=== PATIENT | female | born 1955 | race Caucasian/White ===

== ENCOUNTER 2017-02-28 13:09 | Inpatient (IN) | payer OTHER ==
[~2017-02-28] VITALS: Ht 162.6 cm; Wt 96.1 kg
[~2017-02-28 13:09] MED LIST: ATEN-173 PO; MYCO500T4 PO; PRD5 PO; PRLSR20 PO; TACR1CAP PO; TACR1CAP5 PO; WARF2TAB8 PO
[2017-02-28] MEDS ORDERED: ONDANSETRON INJ 2 MG/ML 2 ML VIAL IV STA (13:32)
[2017-02-28] MEDS ORDERED: PIPERACILLIN/TAZOBACTAM 4.5 GM/100ML D5W IV STA (13:32)
[2017-02-28] MEDS ORDERED: SODIUM CHLORIDE 0.9% 1000ML 1,000 ML IV ONE (13:32)
[2017-02-28 14:08] LABS: BASO % 0.2 %; BASO ABS # 0.02 K/uL (0-0.2); COMPLETE YES; IG% 0.3 %; LYMPH % 6.2 %; LYMPH ABS # 0.58 K/uL (1.2-3.4); MEAN CELL VOLUME 90.5 fL (80-100); MEAN CORPUSCULAR HEMOGLOBIN 27.4 pg (25-34); MEAN CORPUSCULAR HGB CONC 30.3 g/dl (32-36); MEAN PLATELET VOLUME 9.7 fL (7.4-10.4); MONO % 6.3 %; PLATELET COUNT 135 K/uL (130-400); RED BLOOD COUNT 4.09 M/uL (4.2-5.4); WHITE BLOOD COUNT 9.37 K/uL (4.8-10.8)
--- NOTE | 2017-02-28 14:17 | DIAGNOSTIC IMAGING REPORT ---
CHEST ONE VIEW PORTABLE CLINICAL HISTORY: Sepsis dyspnea COMPARISON STUDY: 08/18/2015 FINDINGS: Mild stable cardiomegaly. Permanent bipolar cardiac pacemaker. Small parenchymal infiltrate right base. Mid and upper lungs are clear. IMPRESSION: Small parenchymal infiltrate right base. Mild stable cardiomegaly. Electronically signed by: Gilbert Bernard M.D. 02/28/2017 2:15 PM Dictated Date/Time: 02/28/2017 2:14 PM
[2017-02-28] MEDS ORDERED: MYCO180T PO (14:18)
[2017-02-28] MEDS ORDERED: WARF3TAB6 PO (14:18)
[2017-02-28 14:20] LABS: INR 1.7 (0.9-1.1); PARTIAL THROMBOPLASTIN RATIO 1.2; PROTHROMBIN TIME (PATIENT) 18.2 SECONDS (9.0-12.0)
[2017-02-28 14:25] LABS: BUN/CREATININE RATIO 18.1 (10-20); CALCIUM 9.4 mg/dl (8.5-10.1); CREATININE 1.7 mg/dl (0.60-1.20); POTASSIUM 4.2 mmol/L (3.5-5.1)
[2017-02-28 14:28] LABS: ALB/GLOB RATIO 1.1 (0.9-2)
[2017-02-28 14:53] LABS: URINE APPEARANCE CLEAR (CLEAR); URINE BILIRUBIN NEG (NEG); URINE COLOR YELLOW; URINE EPITHELIAL CELL AUTO >30 /lpf (0-5); URINE NITRITE NEG (NEG); URINE PH 5.5 (4.5-7.5); URINE SPECIFIC GRAVITY 1.015 (1.000-1.030); UROBILINOGEN NEG (NEG); ZZUR CULT IF INDIC CLEAN CATCH YES
--- NOTE | 2017-02-28 14:54 | EMERGENCY ROOM VISIT NOTE ---
History Report prepared by Halie: Richard Moulton Under the Supervision of: Dr. Andres Hickman M.D. First contact with patient: 13:28 Chief Complaint: FEVER Stated Complaint: FEVER,DIAHRREA, DRY DEAVES History of Present Illness The patient is a 61 year old female who presents to the Emergency Room with complaints of persistent diarrhea starting last night. She describes the diarrhea to be loose and watery. She did not have any blood in stool. She also complains of fevers and dry heaves. She denies any vomiting. She did not feel good all day yesterday but her symptoms started in the middle of the night last night. She currently reports feeling thirsty. She currently denies any pain. She did not have any known recent ill contacts or unusual foods. She has a history of left kidney transplant occurring 4 years ago. She has not had any rejection issues since then. As per family, the patient's transplant medication dose was increased about a month ago. She was referred to the Emergency Room today by her law enforcement instructor. The patient denies cough, congestion, abdominal pain , urinary symptoms, or any other complaints. Source of History: patient Onset: last night Position: other (global) Symptom Intensity: No pain Quality: other (diarrhea) Timing: other (persistent) Associated Symptoms: + fevers, No cough, No vomiting, No abdominal pain, No urinary symptoms Review of Systems See HPI for pertinent positives & negatives. A total of 10 systems reviewed and were otherwise negative. Past Medical & Surgical Medical Problems: (1) Hypertension (2) Kidney disease (3) Pneumonia (4) Urinary problem Surgical Problems: (1) Hx of cholecystectomy (2) Kidney transplanted Family History FH: kidney disease FHx: heart disease Hypertension Social History Smoking Status: Never Smoker Alcohol Use: none Drug Use: none Marital Status: Housing Status: lives with significant other Occupation Status: employed Current/Historical Medications Scheduled Atenolol (Tenormin), 25 MG PO BID Mycophenolate Sodium (Myfortic), 540 MG PO BID Prednisone (Prednisone), 5 MG PO DAILY Tacrolimus (Prograf), 3 MG PO BID Warfarin Sod (Jantoven), 2 MG PO UD Warfarin Sod (Jantoven), 3 MG PO [id number] Allergies Coded Allergies: Quinolones (Verified Allergy, Intermediate, FLOXIN CAUSES HIVES, 02/28/17) HIVES Physical Exam Vital Signs Date Time Temp Pulse Resp B/P (MAP) Pulse Ox O2 Delivery O2 Flow Rate FiO2 02/28/17 17:11 37.4 74 22 136/58 95 02/28/17 15:58 37.4 74 22 136/58 95 Room Air 02/28/17 15:25 37.4 02/28/17 14:55 69 22 136/58 95 Room Air 02/28/17 13:57 94 Room Air 02/28/17 13:56 72 02/28/17 13:14 37.8 74 20 115/63 96 Room Air Physical Exam GENERAL: Patient is in no acute distress. HEENT: No acute trauma, normocephalic atraumatic, mucous membranes dry, no nasal congestion, no scleral icterus. NECK: No stridor, no adenopathy, no meningismus, trachea is midline. LUNGS: Clear to auscultation bilaterally, no wheeze, no rhonchi, breath sounds equal. HEART: Subtle systolic murmur, regular rate and rhythm. ABDOMEN: Soft, nontender, bowel sounds positive, no hernias, no peritonitis. EXTREMITIES: No cyanosis or edema, full range of motion of all the joints without pain or difficulty, no signs for acute trauma. NEUROLOGIC: Oriented x 3, no acute motor or sensory deficits, no focal weakness. SKIN: No rash, no jaundice, no diaphoresis. Medical Decision & Procedures ER Provider Diagnostic Interpretation: X-ray results as stated below per interpretation by me and the radiologist: CHEST ONE VIEW PORTABLE CLINICAL HISTORY: Sepsis dyspnea COMPARISON STUDY: 08/18/2015 FINDINGS: Mild stable cardiomegaly. Permanent bipolar cardiac pacemaker. Small parenchymal infiltrate right base. Mid and upper lungs are clear. IMPRESSION: Small parenchymal infiltrate right base. Mild stable cardiomegaly. Electronically signed by: Gilbert Bernard M.D. 02/28/2017 2:15 PM Dictated Date/Time: 02/28/2017 2:14 PM Laboratory Results 02/28/17 13:30 Red Blood Count 4.09, Mean Corpuscular Volume 90.5, Mean Corpuscular Hemoglobin 27.4, Mean Corpuscular Hemoglobin Concent 30.3, Mean Platelet Volume 9.7, Neutrophils (%) (Auto) 87.0, Lymphocytes (%) (Auto) 6.2, Monocytes (%) (Auto) 6.3, Eosinophils (%) (Auto) 0.0, Basophils (%) (Auto) 0.2, Neutrophils # (Auto) 8.15, Lymphocytes # (Auto) 0.58, Monocytes # (Auto) 0.59, Eosinophils # (Auto) 0.00, Basophils # (Auto) 0.02 02/28/17 13:30 Test 02/28/17 13:30 02/28/17 13:39 02/28/17 13:50 White Blood Count 9.37 K/uL (4.8-10.8) Red Blood Count 4.09 M/uL (4.2-5.4) Hemoglobin 11.2 g/dL (12.0-16.0) Hematocrit 37.0 % (37-47) Mean Corpuscular Volume 90.5 fL (80-100) Mean Corpuscular Hemoglobin 27.4 pg (25-34) Mean Corpuscular Hemoglobin Concent 30.3 g/dl (32-36) Platelet Count 135 K/uL (130-400) Mean Platelet Volume 9.7 fL (7.4-10.4) Neutrophils (%) (Auto) 87.0 % Lymphocytes (%) (Auto) 6.2 % Monocytes (%) (Auto) 6.3 % Eosinophils (%) (Auto) 0.0 % Basophils (%) (Auto) 0.2 % Neutrophils # (Auto) 8.15 K/uL (1.4-6.5) Lymphocytes # (Auto) 0.58 K/uL (1.2-3.4) Monocytes # (Auto) 0.59 K/uL (0.11-0.59) Eosinophils # (Auto) 0.00 K/uL (0-0.5) Basophils # (Auto) 0.02 K/uL (0-0.2) RDW Standard Deviation 43.8 fL (36.4-46.3) RDW Coefficient of Variation 13.4 % (11.5-14.5) Immature Granulocyte % (Auto) 0.3 % Immature Granulocyte # (Auto) 0.03 K/uL (0.00-0.02) Prothrombin Time 18.2 SECONDS (9.0-12.0) Prothromb Time International Ratio 1.7 (0.9-1.1) Activated Partial Thromboplast Time 30.8 SECONDS (21.0-31.0) Partial Thromboplastin Ratio 1.2 Anion Gap 11.0 mmol/L (3-11) Est Creatinine Clear Calc Drug Dose 40.1 ml/min Estimated GFR () 37.6 Estimated GFR (Non- 32.4 BUN/Creatinine Ratio 18.1 (10-20) Calcium Level 9.4 mg/dl (8.5-10.1) Total Bilirubin 0.9 mg/dl (0.2-1) Aspartate Amino Transf (AST/SGOT) 12 U/L (15-37) Alanine Aminotransferase (ALT/SGPT) 12 U/L (12-78) Alkaline Phosphatase 74 U/L (45-117) Total Protein 6.8 gm/dl (6.4-8.2) Albumin 3.6 gm/dl (3.4-5.0) Globulin 3.2 gm/dl (2.5-4.0) Albumin/Globulin Ratio 1.1 (0.9-2) Bedside Lactic Acid Venous 1.41 mmol/L (0.90-1.70) Urine Color YELLOW Urine Appearance CLEAR (CLEAR) Urine pH 5.5 (4.5-7.5) Urine Specific [place] 1.015 (1.000-1.030) Urine Protein NEG (NEG) Urine Glucose (UA) NEG (NEG) Urine Ketones NEG (NEG) Urine Occult Blood NEG (NEG) Urine Nitrite NEG (NEG) Urine Bilirubin NEG (NEG) Urine Urobilinogen NEG (NEG) Urine Leukocyte Esterase SMALL (NEG) Urine WBC (Auto) 10-30 /hpf (0-5) Urine RBC (Auto) 0-4 /hpf (0-4) Urine Hyaline Casts (Auto) 1-5 /lpf (0-5) Urine Epithelial Cells (Auto) >30 /lpf (0-5) Urine Bacteria (Auto) 2+ (NEG) Laboratory results reviewed by me. Medications Administered Medications (Trade) Dose Ordered Sig/Clarita Route Start Time Stop Time Status Last Admin Dose Admin Sodium Chloride 1,000 ml @ 999 mls/hr Q1H1M ONCE IV 02/28/17 13:32 02/28/17 14:32 DC 02/28/17 14:11 999 MLS/HR Piperacillin Sod/ Tazobactam Sod (Zosyn Iv) 4.5 gm ONE STAT IV 02/28/17 13:32 7/12/17 13:37 DC 02/28/17 14:53 4.5 GM Ondansetron HCl (Zofran Inj) 4 mg NOW STAT IV 02/28/17 13:32 02/28/17 13:37 DC 02/28/17 14:11 4 MG Imipenem/ Cilastatin Sodium 500 mg/Dextrose 110 ml @ 110 mls/hr NOW STAT IV 02/28/17 16:55 02/28/17 17:54 DC 02/28/17 17:32 110 MLS/HR ECG Indication: other (Transplant patient) Rate (beats per minute): 71 Rhythm: other (Atrial pacemaker) Findings: no acute ischemic change, no ectopy, other (LVH) ED Course 1328: The patient was evaluated in room A03. A complete history and physical exam was performed. 1332: Zofran Inj 4 mg IV, Zosyn IV 4.5 gm IV, Sodium Chloride 1000 ml @ 999 mls/ hr IV 1341: I discussed the patient's case with Dr. Lin, law enforcement instructor with [facility]. He suspects that the patient is probably having a UTI because she normally has a similar presentation with it. He recommended an overnight stay at least. He will see her either today or tomorrow depending on his schedule. 1519: Upon reexamination the patient is resting comfortably. I discussed results and treatment plan with the patient. She verbalizes agreement and understanding. The patient will be evaluated for further management. 1524: I discussed the patient's case with Dr. Celestin, from [facility]. Medical Decision Differential diagnosis includes but is not limited to transplant rejection, UTI or pyelonephritis, sepsis, bacteremia, pneumonia, dehydration, renal failure. There is no leukocytosis or worrisome anemia. Renal panel testing does show some acute renal failure, likely from her dehydration. No significant electrolyte abnormalities requiring correction. There was no hepatitis. INR was somewhat low for someone taking Coumadin at 1.7. Chest x-ray suggested a right lower lung pneumonia. Urinalysis showed possible infection versus contamination. Urine culture was pending. Blood cultures are pending. Lactic acid level was not elevated making severe sepsis less likely. The patient received IV Zosyn and IV imipenem. She received IV saline. She was given Zofran IV for nausea. The patient is doing well. I do think admission/observation is warranted. She is immunocompromised and may have a pneumonia and/or a UTI. I spoke with her law enforcement instructor, Dr. Lin. I spoke with the on-call hospitalist and case management. Of note, the patient's states that he had noticed the patient was more short of breath in the last 1 or 2 days, the patient denies this herself though , she has not noticed any coughing. Consults Time Called: [phone] Consulting Physician: Dr. Lin, law enforcement instructor with [facility] Returned Call: [phone] I discussed the patient's case with Dr. Lin, law enforcement instructor with [facility]. He suspects that the patient is probably having a UTI because she normally has a similar presentation with it. He recommended an overnight stay at least. He will see her either today or tomorrow depending on his schedule. Additional Consults: Time Called: 1522 Consulted Physician: Dr. Celestin, from [facility] Returned Call: [phone] Additional Comments: I discussed the [facility] Impression Primary Impression: Dehydration Additional Impressions: Acute renal failure Renal transplant recipient Pneumonia Immunocompromised Scribe Attestation The scribe's documentation has been prepared under my direction and personally reviewed by me in its entirety. I confirm that the note above accurately reflects all work, treatment, procedures, and medical decision making performed by me. Departure Information Dispostion Being Evaluated By Hospitalist Referrals Rich Lin M.D. (PCP) Patient Instructions My [facility] Problem Qualifiers
[2017-02-28 15:05] LABS: MANUAL MICROSCOPIC REQUIRED? NO; REVIEW REQ? NO
[2017-02-28 15:58] VITALS: BP 136/58; PULSE 74; TEMP 37.4; O2SAT 95; Ht 162.6 cm; Wt 96.1 kg
[2017-02-28] MEDS ORDERED: ALBUT/IPRATROP 3MG/0.5MG NEB 3 ML VIAL INH PRN (16:00)
[2017-02-28] MEDS ORDERED: POLYETHYLENE (MIRALAX) 17 GM PACK PO PRN (16:00)
[2017-02-28] MEDS ORDERED: ONDANSETRON INJ 2 MG/ML 2 ML VIAL IV PRN (16:00)
[2017-02-28] MEDS ORDERED: ACETAMINOPHEN 325 MG TAB PO PRN (16:00)
[2017-02-28] MEDS ORDERED: MAGNESIUM HYDROXIDE SUSP 30 ML UDC PO PRN (16:00)
[2017-02-28] MEDS ORDERED: ALUMINUM/MAGNESIUM/SIMETH (MAALOX MAX) 30 ML UDC PO PRN (16:00)
--- NOTE | 2017-02-28 16:04 | History and Physical ---
History & Physical Date & Time of Service: Feb 28, 2017 at 16:00 Chief Complaint: Fever,Diahrrea, Dry Deaves Primary Care Physician: Rich Lin M.D. History of Present Illness Source: patient, spouse Ms. Barker is a 61 y/o female with PMHx of Paroxysmal Atrial Fibrillation, S/P Pacemaker, S/P Partial Thyroidectomy/Parathyroidectomy 2/2 Adenoma, S/P L Kidney Transplant 2/2 Glomerulonephritis x 4 years ago, and HTN who presents for fever, diarrhea, and dry heaves that started in the middle of the night. She reports not feeling well yesterday but the fevers, dry heaving, and diarrhea did not start until the middle of the night. She denies emesis with the dry heaving. She has only had a couple episodes of diarrhea and none since arriving to the ED. She denies melena/hematochezia and denies recent Abx use. She has felt fevered and chilled but did not take her temperature. She has had a poor appetite over the past day but reports feelings of thirst. She denies any sick contacts. She does report an increase in her transplant rejections meds a month ago but reports no issues with the transplant. 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 She denies CP, SOB, abdominal pain, vomiting, constipation, melena/hematochezia. In the ED, she is mildly febrile without leukocytosis. Is ill-appearing but non- toxic. Lactic unremarkable. Cr is 1.7 which baseline appears to be 1.1. CXR with a small parenchymal infiltrate in the R base. and UA with 2+ bacteria. Discussion with Dr. Lin per ED with concern of immunocompromised status and recommendations for Primaxin for coverage. Past Medical/Surgical History Medical Problems: (1) Hypertension Status: Chronic (2) Kidney disease Status: Chronic (3) Pneumonia Status: Resolved (4) Urinary problem Status: Chronic Surgical Problems: (1) Hx of cholecystectomy Status: Resolved (2) Kidney transplanted Status: Resolved Family History FH: kidney disease FHx: heart disease Hypertension Social History Smoking Status: Never Smoker Smokeless Tobacco Use: No Drug Use: none Marital Status: Occupational Status: employed Immunizations History of Influenza Vaccine: No Influenza Vaccine Date: Sep 04, 2005 History of Tetanus Vaccine?: No History of Pneumococcal: No Pneumococcal Date: Sep 04, 2005 History of Hepatitis B Vaccine: No Hepatitis Immunization Date: Sep 04, 2005 Multi-Drug Resistant Organisms History of MDRO: No Allergies Coded Allergies: Quinolones (Verified Allergy, Intermediate, FLOXIN CAUSES HIVES, 02/28/17) HIVES Home Medications Scheduled Atenolol (Tenormin), 25 MG PO BID Mycophenolate Sodium (Myfortic), 540 MG PO BID Prednisone (Prednisone), 5 MG PO DAILY Tacrolimus (Prograf), 3 MG PO BID Warfarin Sod (Jantoven), 2 MG PO UD Warfarin Sod (Jantoven), 3 MG PO [id number] Review of Systems Constitutional: + fever, + chills, + fatigue Eyes: No worsening of vision ENT: No nasal symptoms, No sore throat, No trouble swallowing Respiratory: No cough, No shortness of breath Cardiovascular: No chest pain, No palpitations Abdomen: + nausea, + diarrhea, No pain, No vomiting, No constipation, No GI bleeding Musculoskeletal: No swelling, No calf pain Genitourinary - Female: No dysuria Hematologic / Lymphatic: No abnormal bleeding/bruising Integumentary: No rash, No new/changing skin lesions Physical Exam Vital Signs Date Time Temp Pulse Resp B/P (MAP) Pulse Ox O2 Delivery O2 Flow Rate FiO2 02/28/17 15:25 37.4 02/28/17 14:55 69 22 136/58 95 Room Air 02/28/17 13:57 94 Room Air 02/28/17 13:56 72 02/28/17 13:14 37.8 74 20 115/63 96 Room Air General Appearance: WD/WN, no apparent distress, + pertinent finding (ill appearing but non-toxic) Head: normocephalic, atraumatic Eyes: sclerae normal ENT: hearing grossly normal Neck: supple, no JVD, trachea midline Respiratory/Chest: lungs clear, normal breath sounds, no respiratory distress, no accessory muscle use Cardiovascular: regular rate, rhythm, no gallop, no murmur Abdomen/GI: normal bowel sounds, non tender, soft Extremities/Musculoskelatal: no calf tenderness, no pedal edema Neurologic/Psych: alert, oriented x 3 Skin: normal color, warm/dry Diagnostics Laboratory Results Results Past 24 Hours Test 02/28/17 13:30 02/28/17 13:39 02/28/17 13:50 Range/Units White Blood Count 9.37 4.8-10.8 K/uL Red Blood Count 4.09 4.2-5.4 M/uL Hemoglobin 11.2 12.0-16.0 g/dL Hematocrit 37.0 37-47 % Mean Corpuscular Volume 90.5 80-100 fL Mean Corpuscular Hemoglobin 27.4 25-34 pg Mean Corpuscular Hemoglobin Concent 30.3 32-36 g/dl Platelet Count 135 130-400 K/uL Mean Platelet Volume 9.7 7.4-10.4 fL Neutrophils (%) (Auto) 87.0 % Lymphocytes (%) (Auto) 6.2 % Monocytes (%) (Auto) 6.3 % Eosinophils (%) (Auto) 0.0 % Basophils (%) (Auto) 0.2 % Neutrophils # (Auto) 8.15 1.4-6.5 K/uL Lymphocytes # (Auto) 0.58 1.2-3.4 K/uL Monocytes # (Auto) 0.59 0.11-0.59 K/uL Eosinophils # (Auto) 0.00 0-0.5 K/uL Basophils # (Auto) 0.02 0-0.2 K/uL RDW Standard Deviation 43.8 36.4-46.3 fL RDW Coefficient of Variation 13.4 11.5-14.5 % Immature Granulocyte % (Auto) 0.3 % Immature Granulocyte # (Auto) 0.03 0.00-0.02 K/uL Prothrombin Time 18.2 9.0-12.0 SECONDS Prothromb Time International Ratio 1.7 0.9-1.1 Activated Partial Thromboplast Time 30.8 21.0-31.0 SECONDS Partial Thromboplastin Ratio 1.2 Sodium Level 136 136-145 mmol/L Potassium Level 4.2 3.5-5.1 mmol/L Chloride Level 104 98-107 mmol/L Carbon Dioxide Level 21 21-32 mmol/L Anion Gap 11.0 3-11 mmol/L Blood Urea Nitrogen 31 7-18 mg/dl Creatinine 1.70 0.60-1.20 mg/dl Est Creatinine Clear Calc Drug Dose 40.1 ml/min Estimated GFR () 37.6 Estimated GFR (Non- 32.4 BUN/Creatinine Ratio 18.1 10-20 Random Glucose 117 70-99 mg/dl Calcium Level 9.4 8.5-10.1 mg/dl Total Bilirubin 0.9 0.2-1 mg/dl Aspartate Amino Transf (AST/SGOT) 12 15-37 U/L Alanine Aminotransferase (ALT/SGPT) 12 12-78 U/L Alkaline Phosphatase 74 45-117 U/L Total Protein 6.8 6.4-8.2 gm/dl Albumin 3.6 3.4-5.0 gm/dl Globulin 3.2 2.5-4.0 gm/dl Albumin/Globulin Ratio 1.1 0.9-2 Bedside Lactic Acid Venous 1.41 0.90-1.70 mmol/L Urine Color YELLOW Urine Appearance CLEAR CLEAR Urine pH 5.5 4.5-7.5 Urine Specific [place] 1.015 1.000-1.030 Urine Protein NEG NEG Urine Glucose (UA) NEG NEG Urine Ketones NEG NEG Urine Occult Blood NEG NEG Urine Nitrite NEG NEG Urine Bilirubin NEG NEG Urine Urobilinogen NEG NEG Urine Leukocyte Esterase SMALL NEG Urine WBC (Auto) 10-30 0-5 /hpf Urine RBC (Auto) 0-4 0-4 /hpf Urine Hyaline Casts (Auto) 1-5 0-5 /lpf Urine Epithelial Cells (Auto) >30 0-5 /lpf Urine Bacteria (Auto) 2+ NEG Microbiology Results 02/28/17 Blood Culture, Received Pending 02/28/17 Blood Culture, Received Pending 02/28/17 Urine Culture, Received Pending Diagnostic Radiology CHEST ONE VIEW PORTABLE CLINICAL HISTORY: Sepsis dyspnea COMPARISON STUDY: 08/18/2015 FINDINGS: Mild stable cardiomegaly. Permanent bipolar cardiac pacemaker. Small parenchymal infiltrate right base. Mid and upper lungs are clear. IMPRESSION: Small parenchymal infiltrate right base. Mild stable cardiomegaly. EKG Poor data quality, interpretation may be adversely affected Atrial-paced rhythm Left ventricular hypertrophy with repolarization abnormality Abnormal ECG When compared with ECG of 18-AUG-2015 19:05, Electronic atrial pacemaker has replaced Sinus rhythm Confirmed by Richy Logan ([id number]) on 02/28/2017 3:29:00 PM Impression Assessment and Plan Ms. Barker is a 61 y/o female with PMHx of Paroxysmal Atrial Fibrillation, S/P Pacemaker, S/P Partial Thyroidectomy/Parathyroidectomy 2/2 Adenoma, S/P L Kidney Transplant 2/2 Glomerulonephritis x 4 years ago, and HTN who presents for fever, diarrhea, and dry heaves that started in the middle of the night. Urinary Tract Infection and R Parenchymal Infiltrate: Immunocompromised Status - Await UCx and BCx - Primaxin 500 mg IV Q6H - Duonebs PRN - patient without cough or respiratory complaints - can schedule if necessary - Discussion with Dr. Lin for broad coverage due to immunocompromised status - ID consultation due to Primaxin use Acute Kidney Injury: Baseline 1.1 - Seen in ED in April for a Cr of 2.3 - hydrate with NSS at 80 mL/hr and monitor Paroxysmal Atrial Fibrillation with Pacer: - Atrial paced on EKG - Atenolol 25 mg BID and Coumadin - slightly subtherapeutic at 1.7 - monitor INR S/P L Kidney Transplant due to Glomerulonephritis: [place] - Mycophenolate 540 mg BID and Prograf 3 mg BID - Hold Prednisone and cover with stress dosing of Prednisone 20 mg BID - Consult Nephrology - Dr. Lin S/P Thyroidectomy/Parathyroidectomy: - Check TSH DVT Prophylaxis: Coumadin Code Status: FULL RESUSCITATION Attending addendum - Andrzej Celestin Pt seen/examined - case discussed with PA and ER attending - all orders reviewed 61 YO F Hx renal transplant presenting with diarrhea and fever - ARF on initial labs Imaging suspicious for PNM but no related symptoms OE AAO x 3 S1,2 R CTAB NT, ND, BS+ No CCE P: Placed on Cefepime and Zithro due to immunocompromise Stress dose steroids IVF - repeat BMP to trend renal function - pt's behavioral medical director to see Cont antirejection meds and stress dose steroids as she is on prednisone chronically Abive discussed with pt and PA Level of Care Med/Surg Resuscitation Status FULL RESUSCITATION VTE Prophylaxis VTE Risk Assessment Done? Y/N: Yes Risk Level: Moderate Given or contraindicated: Warfarin (Coumadin)
[2017-02-28] MEDS ORDERED: AZITHROMYCIN IV 500 MG in DEXTROSE 5% 250ML 250 ML IV ONE (16:15)
[2017-02-28] MEDS ORDERED: CEFTRIAXONE SOD INJ 1 GM in DEXTROSE 5% ADD-VANTAGE 50ML 50 ML IV SCH (16:15)
[2017-02-28] MEDS ORDERED: IMIPENEM/CILASTATIN IV 500 MG in D5W 100ML IV STA (16:55)
[2017-02-28 17:11] VITALS: O2SAT 95
[2017-02-28 17:30] VITALS: BP 148/65; PULSE 72; TEMP 36.9
[2017-02-28] MEDS ORDERED: WARFARIN SOD 3 MG TAB PO SCH (18:00)
[2017-02-28] MEDS: SODIUM CHLORIDE 0.9% 1000ML 1,000 ML IV SCH (18:28)
[2017-02-28] MEDS: TACROLIMUS 1 MG CAP PO SCH (20:22)
[2017-02-28] MEDS: MYCOPHENOLATE SODIUM 180 MG TAB PO SCH (20:23)
[2017-02-28] MEDS ORDERED: PIPERACILL/TAZOBAC IV 3.375 GM in DEXTROSE 5% 100ML 100 ML IV SCH (22:00)
[2017-02-28] MEDS: IMIPENEM/CILASTATIN IV 300 MG in DEXTROSE 5% 100ML 100 ML IV SCH (23:39)
[2017-02-28 23:51] VITALS: BP 114/48; PULSE 73; TEMP 38.6; O2SAT 96
[2017-03-01 01:12] VITALS: TEMP 37.4
[2017-03-01] MEDS: SODIUM CHLORIDE 0.9% 1000ML 1,000 ML IV SCH ×2 (05:47→18:27)
[2017-03-01] MEDS: IMIPENEM/CILASTATIN IV 300 MG in DEXTROSE 5% 100ML 100 ML IV SCH ×4 (05:47→23:46)
[2017-03-01 06:13] LABS: HEMATOCRIT 37.3 % (37-47); MEAN CELL VOLUME 91.2 fL (80-100); MEAN CORPUSCULAR HEMOGLOBIN 27.4 pg (25-34); MEAN PLATELET VOLUME 9.6 fL (7.4-10.4); PLATELET COUNT 112 K/uL (130-400); RED BLOOD COUNT 4.09 M/uL (4.2-5.4); WHITE BLOOD COUNT 9.45 K/uL (4.8-10.8)
[2017-03-01 06:36] LABS: INR 1.8 (0.9-1.1); PROTHROMBIN TIME (PATIENT) 19.8 SECONDS (9.0-12.0)
[2017-03-01 06:48] LABS: BUN/CREATININE RATIO 16.9 (10-20); CALCIUM 8.8 mg/dl (8.5-10.1); CREATININE 1.6 mg/dl (0.60-1.20); MAGNESIUM 1.7 mg/dl (1.8-2.4); POTASSIUM 4.5 mmol/L (3.5-5.1)
[2017-03-01 07:39] VITALS: BP 101/50; PULSE 70; TEMP 36.6; O2SAT 98
[2017-03-01] MEDS: MYCOPHENOLATE SODIUM 180 MG TAB PO SCH ×2 (07:51→21:28)
[2017-03-01] MEDS: TACROLIMUS 1 MG CAP PO SCH ×2 (07:51→21:29)
[2017-03-01] MEDS ORDERED: AZITHROMYCIN IV 250 MG in DEXTROSE 5% 250ML 250 ML IV SCH (09:00)
--- NOTE | 2017-03-01 11:20 | Medical Consult ---
Consultation Date of Consultation: Mar 01, 2017. Attending Physician: Luis Fernando Franco D.O. Reason for Consultation: Imipenem use History of Present Illness 61-year-old female with history of prior renal transplant on immunosuppressive therapy, as well as atrial fibrillation status post permanent pacemaker, who was in usual state of health until 1 day prior to admission when she had the abrupt onset of nausea, diarrhea, and fever with chills. Symptoms persisted and she eventually came to the emergency department, and has been started on imipenem. She states that this morning she is feeling somewhat better, nausea has subsided, and currently afebrile. Denies any significant cough, shortness of breath, or significant urinary complaints. Urine culture now positive for Enterococcus. Blood cultures are no growth to date. Past Medical/Surgical History Medical Problems: (1) Acute kidney injury Status: Acute (2) Acute renal failure Status: Acute (3) Dehydration Status: Acute (4) Diarrhea Status: Acute (5) Immunocompromised Status: Acute (6) Leukocytosis Status: Acute (7) UTI (urinary tract infection) Status: Acute Social History Problems: (1) H/O kidney transplant Status: Acute (2) Renal transplant recipient Status: Acute Medical Problems: (1) Hypertension (2) Kidney disease (3) Pneumonia (4) Urinary problem Surgical Problems: (1) Hx of cholecystectomy (2) Kidney transplanted Family History FH: kidney disease FHx: heart disease Hypertension Social History Smoking Status: Never Smoker Smokeless Tobacco Use: No Drug Use: none Marital Status: Housing Status: lives with significant other Occupation Status: employed Allergies Coded Allergies: Quinolones (Verified Allergy, Intermediate, FLOXIN CAUSES HIVES, 02/28/17) HIVES Current Inpatient Medications Current Inpatient Medications Medications (Trade) Dose Ordered Sig/Clarita Route Start Time Stop Time Status Last Admin Dose Admin Acetaminophen (Tylenol Tab) 650 mg Q4H PRN PO 02/28/17 16:00 03/30/17 15:59 02/28/17 23:54 650 MG Al Hydrox/Mg Hydrox/Simethicone (Maalox Max Susp) 15 ml Q4H PRN PO 02/28/17 16:00 03/30/17 15:59 Magnesium Hydroxide (Milk Of Magnesia Susp) 30 ml Q6H PRN PO 02/28/17 16:00 03/30/17 15:59 Polyethylene (Miralax Powder Packet) 17 gm DAILY PRN PO 02/28/17 16:00 03/30/17 15:59 Ondansetron HCl (Zofran Inj) 4 mg Q6H PRN IV 02/28/17 16:00 03/30/17 15:59 Albuterol/ Ipratropium (Duoneb) 3 ml Q2H PRN INH 02/28/17 16:00 03/30/17 15:59 Atenolol (Tenormin Tab) 25 mg BID PO 02/28/17 20:00 03/30/17 20:59 02/28/17 20:23 25 MG Tacrolimus (Prograf Cap) 3 mg BID PO 02/28/17 20:00 03/30/17 20:59 03/01/17 07:51 3 MG Warfarin Sodium (Coumadin Tab) 2 mg ThFr@1600 PO 03/01/17 16:00 03/31/17 15:59 Warfarin Sodium (Coumadin Tab) 3 mg SuMoTuWeSa@1600 PO 02/28/17 18:00 03/30/17 17:59 02/28/17 18:29 3 MG Mycophenolate Sodium (Myfortic Tab) 540 mg BID PO 02/28/17 20:00 03/30/17 19:59 03/01/17 07:51 540 MG Sodium Chloride 1,000 ml @ 80 mls/hr [id number] IV 02/28/17 17:34 03/30/17 17:33 03/01/17 05:47 80 MLS/HR Prednisone (PredniSONE TAB) 20 mg Q12 PO 02/28/17 18:00 03/30/17 17:59 03/01/17 07:51 20 MG Imipenem/ Cilastatin Sodium 300 mg/Dextrose 106 ml @ 100 mls/hr Q6H IV 03/01/17 00:00 03/10/17 17:59 03/01/17 05:47 100 MLS/HR Review of Systems Constitutional: + fever, + weakness, + fatigue Eyes: No problem reported ENT: No problem reported Respiratory: + cough, No hemoptysis Cardiovascular: No problem reported Abdomen: + nausea, + diarrhea Musculoskeletal: No problem reported Genitourinary - Female: No problem reported Neurologic: No problem reported Psychiatric: No problem reported Endocrine: No problem reported Hematologic / Lymphatic: No problem reported Integumentary: No problem reported Allergic / Immunologic: No problem reported Physical Exam Date Time Temp Pulse Resp B/P (MAP) Pulse Ox O2 Delivery O2 Flow Rate FiO2 03/01/17 08:00 Room Air 03/01/17 07:39 36.6 70 17 101/50 (67) 98 Room Air 03/01/17 01:12 37.4 03/01/17 00:00 Room Air 02/28/17 23:51 38.6 73 18 114/48 (70) 96 Room Air 02/28/17 20:00 Room Air 02/28/17 17:30 36.9 72 18 148/65 (92) 02/28/17 17:11 37.4 74 22 136/58 95 02/28/17 15:58 37.4 74 22 136/58 95 Room Air 02/28/17 15:25 37.4 02/28/17 14:55 69 22 136/58 95 Room Air 02/28/17 13:57 94 Room Air 02/28/17 13:56 72 02/28/17 13:14 37.8 74 20 115/63 96 Room Air General Appearance: WD/WN, no apparent distress Head: normocephalic, atraumatic Eyes: normal inspection, EOMI, sclerae normal ENT: normal ENT inspection, pharynx normal Neck: supple, no adenopathy, thyroid normal, trachea midline Respiratory/Chest: chest non-tender, no respiratory distress, no accessory muscle use, + rales (faint right base) Cardiovascular: regular rate, rhythm, no gallop, no murmur Abdomen/GI: normal bowel sounds, non tender, soft, no organomegaly Back: normal inspection, no CVA tenderness Extremities/Musculoskelatal: no calf tenderness, non-tender Neurologic/Psych: alert, oriented x 3 Skin: normal color, warm/dry, no rash Lymphatic: no adenopathy Laboratory Results the cap Date/Time Source Procedure Growth Status 02/28/17 14:25 Blood Blood Culture Pending Received 02/28/17 13:30 Blood Blood Culture Pending Received 02/28/17 13:50 Urine , Clean Catch Urine Culture - Preliminary Enterococcus Species Resulted Last 24 Hours Test 02/28/17 13:30 02/28/17 13:39 02/28/17 13:50 03/01/17 05:51 White Blood Count 9.37 K/uL 9.45 K/uL Red Blood Count 4.09 M/uL 4.09 M/uL Hemoglobin 11.2 g/dL 11.2 g/dL Hematocrit 37.0 % 37.3 % Mean Corpuscular Volume 90.5 fL 91.2 fL Mean Corpuscular Hemoglobin 27.4 pg 27.4 pg Mean Corpuscular Hemoglobin Concent 30.3 g/dl 30.0 g/dl Platelet Count 135 K/uL 112 K/uL Mean Platelet Volume 9.7 fL 9.6 fL Neutrophils (%) (Auto) 87.0 % Lymphocytes (%) (Auto) 6.2 % Monocytes (%) (Auto) 6.3 % Eosinophils (%) (Auto) 0.0 % Basophils (%) (Auto) 0.2 % Neutrophils # (Auto) 8.15 K/uL Lymphocytes # (Auto) 0.58 K/uL Monocytes # (Auto) 0.59 K/uL Eosinophils # (Auto) 0.00 K/uL Basophils # (Auto) 0.02 K/uL RDW Standard Deviation 43.8 fL 45.4 fL RDW Coefficient of Variation 13.4 % 13.6 % Immature Granulocyte % (Auto) 0.3 % Immature Granulocyte # (Auto) 0.03 K/uL Prothrombin Time 18.2 SECONDS 19.8 SECONDS Prothromb Time International Ratio 1.7 1.8 Activated Partial Thromboplast Time 30.8 SECONDS Partial Thromboplastin Ratio 1.2 Sodium Level 136 mmol/L 136 mmol/L Potassium Level 4.2 mmol/L 4.5 mmol/L Chloride Level 104 mmol/L 106 mmol/L Carbon Dioxide Level 21 mmol/L 19 mmol/L Anion Gap 11.0 mmol/L 11.0 mmol/L Blood Urea Nitrogen 31 mg/dl 27 mg/dl Creatinine 1.70 mg/dl 1.60 mg/dl Est Creatinine Clear Calc Drug Dose 40.1 ml/min 42.6 ml/min Estimated GFR () 37.6 40.5 Estimated GFR (Non- 32.4 34.9 BUN/Creatinine Ratio 18.1 16.9 Random Glucose 117 mg/dl 117 mg/dl Calcium Level 9.4 mg/dl 8.8 mg/dl Total Bilirubin 0.9 mg/dl Aspartate Amino Transf (AST/SGOT) 12 U/L Alanine Aminotransferase (ALT/SGPT) 12 U/L Alkaline Phosphatase 74 U/L Total Protein 6.8 gm/dl Albumin 3.6 gm/dl Globulin 3.2 gm/dl Albumin/Globulin Ratio 1.1 Bedside Lactic Acid Venous 1.41 mmol/L Urine Color YELLOW Urine Appearance CLEAR Urine pH 5.5 Urine Specific [place] 1.015 Urine Protein NEG Urine Glucose (UA) NEG Urine Ketones NEG Urine Occult Blood NEG Urine Nitrite NEG Urine Bilirubin NEG Urine Urobilinogen NEG Urine Leukocyte Esterase SMALL Urine WBC (Auto) 10-30 /hpf Urine RBC (Auto) 0-4 /hpf Urine Hyaline Casts (Auto) 1-5 /lpf Urine Epithelial Cells (Auto) >30 /lpf Urine Bacteria (Auto) 2+ Magnesium Level 1.7 mg/dl Patient Name: MARLA ARANGO Unit Number: [id number] Dictated: 02/28/171413 Transcribed: 02/28/171413 MS Printed Date/Time: [~ rep prt dt]/[~ rep prt tm] [~ rep ct labl] - [~ rep ct ivnm] [facility] Radiology Department [place] [id number] Dictated: 02/28/171413 Transcribed: 02/28/17 141 MS Printed Date/Time: [~ rep prt dt]/[~ rep prt tm] [~ rep ct labl] - [~ rep ct ivnm] CHEST ONE VIEW PORTABLE CLINICAL HISTORY: Sepsis dyspnea COMPARISON STUDY: 08/18/2015 FINDINGS: Mild stable cardiomegaly. Permanent bipolar cardiac pacemaker. Small parenchymal infiltrate right base. Mid and upper lungs are clear. IMPRESSION: Small parenchymal infiltrate right base. Mild stable cardiomegaly. Electronically signed by: Gilbert Bernard M.D. 02/28/2017 2:15 PM Dictated Date/Time: 02/28/2017 2:14 PM The status of this report is Signed. Draft = Not yet reviewed or approved by Radiologist. Signed = Reviewed and approved by Radiologist. <AttendingPhy></AttendingPhy> <FamilyPhy>Rich Lin M.D.</FamilyPhy> < PrimaryPhy>Rich Lin M.D.</PrimaryPhy> <UnitNumber>[id number]</UnitNumber > <VisitNumber>[id number]</VisitNumber> <PatientName>MARLA ARANGO</ PatientName> <DateOfBirth>1955</DateOfBirth> <Location>[facility]</Location> < ServiceDate>02/28/17</ServiceDate> <MNE>ESINDI</MNE> <OrderingPhy>Andres Hickman M.D.</OrderingPhy> <OrderingPhyMNE>f rep ord dr merida</OrderingPhyMNE> < DictatingPhyMNE>f rep dict dr merida</DictatingPhyMNE> <CCListMNE>f rep ct fuad</ CCListMNE> <AdmittingPhyMNE>f pt admit dr merida</AdmittingPhyMNE> <AttendingPhyMNE >f pt attend dr merida</AttendingPhyMNE> <ConsultingPhyMNE>f pt consult dr merida</ConsultingPhyMNE> <FamilyPhyMNE>f pt fam dr merida</FamilyPhyMNE> <OtherPhyMNE>f pt other dr merida</OtherPhyMNE> < PrimaryPhyMNE>f pt prim care dr merida</PrimaryPhyMNE> <ReferringPhyMNE>f pt referring dr merida</ReferringPhyMNE> Assessment & Plan 61-year-old renal transplant patient on immunosuppressive therapy now presents with febrile illness with diarrhea, with evidence of small infiltrate on chest x -ray as well as positive urine culture for enterococcus. Patient has improved overnight on imipenem, and would recommend continuing this for now and restarting patient on azithromycin or doxycycline for potential of atypical infection. Would obtain follow-up chest x-ray in 1-2 days to reassess right lower lobe process. Would also obtain stool for culture and C diff PCR. Will follow.
--- NOTE | 2017-03-01 11:28 | Nephrology Consultation ---
Nephrology Consultation Date & Providers Date of Consultation: Mar 01, 2017. Primary Care Provider: Rich Lin M.D. Referring Provider: Reason for Consultation Renal transplant, fever rise in serum creatinine. History of Present Illness 61 y.o. woman well known to me. I have followed her since the late for problems and complications of chronic renal disease. First referred for renal failure in the late . BP was elevated and she had advanced renal failure. Biopsy of her kidney was not done. 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 Developed ESRD in 1990 and was started on hemodialysis at that time then switched to CAPD. That was continued until 1994 when it was discontinued because of recurrent episodes of peritonitis. She was on hemodialysis for one year before getting her first renal transplant at [facility] [place]. 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 He transplant finally failed completely and she was returned to hemodialysis in 2005. She remained on hemodialysis without significant complications until her second transplant was done at [facility] in [place] in 2012. Complications of her second transplant have included several urinary tract infections, hyperparathyroidism for which she underwent a parathyroidectomy and atrial fibrillation for which she has been anticoagulated with warfarin and controlled with atenolol. She was last seen in my office on February 06 of this year. 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 She is now admitted with an 18 hr.history of diarrhea. She had multiple high volume episodes of watery diarrhea. No abdominal pain or pain over her renal graft. She had dry heaves but no vomiting. Because of her symptoms, she came to the ER. Her evaluation showed an increase in her serum creatinine. He urinalysis appears to be contaminated with vaginal contents. He chest X-Ray show a small infiltrate in the LLL. She has had a minimal but non-productive cough. She has had mild ORTIZ, She has a history of episodes of diarrhea in the past, usually associated with urinary tract infections. She was seen at [place] with sx. of diarrhea that was ultimately attributed to CellCept. She was switched to Myfortic. She had taken CellCept before for years without diarrhea. On admission here, she has been cultured and started on Imipenum. She has been hydrated and her creatinine appears to be somewhat lower this AM, but only minimally. Her diarrhea has slowed but is still present. She generally feel better. Allergies Coded Allergies: Quinolones (Verified Allergy, Intermediate, FLOXIN CAUSES HIVES, 02/28/17) HIVES Inpatient Medications Current Inpatient Medications Medications (Trade) Dose Ordered Sig/Clarita Route Start Time Stop Time Status Last Admin Dose Admin Acetaminophen (Tylenol Tab) 650 mg Q4H PRN PO 02/28/17 16:00 03/30/17 15:59 02/28/17 23:54 650 MG Al Hydrox/Mg Hydrox/Simethicone (Maalox Max Susp) 15 ml Q4H PRN PO 02/28/17 16:00 03/30/17 15:59 Magnesium Hydroxide (Milk Of Magnesia Susp) 30 ml Q6H PRN PO 02/28/17 16:00 03/30/17 15:59 Polyethylene (Miralax Powder Packet) 17 gm DAILY PRN PO 02/28/17 16:00 03/30/17 15:59 Ondansetron HCl (Zofran Inj) 4 mg Q6H PRN IV 02/28/17 16:00 03/30/17 15:59 Albuterol/ Ipratropium (Duoneb) 3 ml Q2H PRN INH 02/28/17 16:00 03/30/17 15:59 Atenolol (Tenormin Tab) 25 mg BID PO 02/28/17 20:00 03/30/17 20:59 02/28/17 20:23 25 MG Tacrolimus (Prograf Cap) 3 mg BID PO 02/28/17 20:00 03/30/17 20:59 03/01/17 07:51 3 MG Warfarin Sodium (Coumadin Tab) 2 mg ThFr@1600 PO 03/01/17 16:00 03/31/17 15:59 Warfarin Sodium (Coumadin Tab) 3 mg SuMoTuWeSa@1600 PO 02/28/17 18:00 03/30/17 17:59 02/28/17 18:29 3 MG Mycophenolate Sodium (Myfortic Tab) 540 mg BID PO 02/28/17 20:00 03/30/17 19:59 03/01/17 07:51 540 MG Sodium Chloride 1,000 ml @ 80 mls/hr [id number] IV 02/28/17 17:34 03/30/17 17:33 03/01/17 05:47 80 MLS/HR Prednisone (PredniSONE TAB) 20 mg Q12 PO 02/28/17 18:00 03/30/17 17:59 03/01/17 07:51 20 MG Imipenem/ Cilastatin Sodium 300 mg/Dextrose 106 ml @ 100 mls/hr Q6H IV 03/01/17 00:00 03/10/17 17:59 03/01/17 05:47 100 MLS/HR Family History FH: kidney disease FHx: heart disease Hypertension Social History Smoking Status: Never Smoker Smokeless Tobacco Use: No Alcohol Use: none Drug Use: none Marital Status: Occupation: employed Review of Systems Constitutional: + chills, + sweats, + weight loss, + weakness, + fatigue, + problem reported Respiratory: + problem reported Cardiovascular: + problem reported Abdomen: + problem reported A complete review of systems was performed. Pertinent positives are noted above. All other systems are negative. Physical Exam Date Time Temp Pulse Resp B/P (MAP) Pulse Ox O2 Delivery O2 Flow Rate FiO2 03/01/17 08:00 Room Air 03/01/17 07:39 36.6 70 17 101/50 (67) 98 Room Air 03/01/17 01:12 37.4 03/01/17 00:00 Room Air 02/28/17 23:51 38.6 73 18 114/48 (70) 96 Room Air 02/28/17 20:00 Room Air 02/28/17 17:30 36.9 72 18 148/65 (92) 02/28/17 17:11 37.4 74 22 136/58 95 02/28/17 15:58 37.4 74 22 136/58 95 Room Air 02/28/17 15:25 37.4 02/28/17 14:55 69 22 136/58 95 Room Air 02/28/17 13:57 94 Room Air 02/28/17 13:56 72 02/28/17 13:14 37.8 74 20 115/63 96 Room Air Skin: Multiple scars from prior surgery and trauma. AVF left upper arm. Normal turgor. Intertrigenous dermatitis beneath breasts. No other rash. No adenopathy. HEENT: Unremarkable except for very poor dentition. Oral mucous membranes moist. Neck: No JVD or carotid bruit. No palpable thyroid enlargement. Scar at the base of her neck from parathyroid surgery. Chest: Clear to auscultation. Murmur radiating into the chest from her right upper arm AVF. Cardiac exam: Regular rhythm with occasional extrasystoles and brief periods of bigemminy. S1, S2. Gr 2/6 TALAT at the base radiating to the neck.No diastolic murmur or gallop. Abdomen: Obese. Not tender. Renal grafts palpable in the lower quadrants, non- tender. Good bruit over the LLQ graft. Ext: No cyanosis, clubbing or edema. Mild changes of DJD in the knees and small joints of her hands. Peripheral pulses hard to feel but they are present. Normal capillary refill fingers and toes. Neuro: No focal findings. Laboratory Results Last 24 Hours Test 02/28/17 13:30 02/28/17 13:39 02/28/17 13:50 03/01/17 05:51 White Blood Count 9.37 K/uL 9.45 K/uL Red Blood Count 4.09 M/uL 4.09 M/uL Hemoglobin 11.2 g/dL 11.2 g/dL Hematocrit 37.0 % 37.3 % Mean Corpuscular Volume 90.5 fL 91.2 fL Mean Corpuscular Hemoglobin 27.4 pg 27.4 pg Mean Corpuscular Hemoglobin Concent 30.3 g/dl 30.0 g/dl Platelet Count 135 K/uL 112 K/uL Mean Platelet Volume 9.7 fL 9.6 fL Neutrophils (%) (Auto) 87.0 % Lymphocytes (%) (Auto) 6.2 % Monocytes (%) (Auto) 6.3 % Eosinophils (%) (Auto) 0.0 % Basophils (%) (Auto) 0.2 % Neutrophils # (Auto) 8.15 K/uL Lymphocytes # (Auto) 0.58 K/uL Monocytes # (Auto) 0.59 K/uL Eosinophils # (Auto) 0.00 K/uL Basophils # (Auto) 0.02 K/uL RDW Standard Deviation 43.8 fL 45.4 fL RDW Coefficient of Variation 13.4 % 13.6 % Immature Granulocyte % (Auto) 0.3 % Immature Granulocyte # (Auto) 0.03 K/uL Prothrombin Time 18.2 SECONDS 19.8 SECONDS Prothromb Time International Ratio 1.7 1.8 Activated Partial Thromboplast Time 30.8 SECONDS Partial Thromboplastin Ratio 1.2 Sodium Level 136 mmol/L 136 mmol/L Potassium Level 4.2 mmol/L 4.5 mmol/L Chloride Level 104 mmol/L 106 mmol/L Carbon Dioxide Level 21 mmol/L 19 mmol/L Anion Gap 11.0 mmol/L 11.0 mmol/L Blood Urea Nitrogen 31 mg/dl 27 mg/dl Creatinine 1.70 mg/dl 1.60 mg/dl Est Creatinine Clear Calc Drug Dose 40.1 ml/min 42.6 ml/min Estimated GFR () 37.6 40.5 Estimated GFR (Non- 32.4 34.9 BUN/Creatinine Ratio 18.1 16.9 Random Glucose 117 mg/dl 117 mg/dl Calcium Level 9.4 mg/dl 8.8 mg/dl Total Bilirubin 0.9 mg/dl Aspartate Amino Transf (AST/SGOT) 12 U/L Alanine Aminotransferase (ALT/SGPT) 12 U/L Alkaline Phosphatase 74 U/L Total Protein 6.8 gm/dl Albumin 3.6 gm/dl Globulin 3.2 gm/dl Albumin/Globulin Ratio 1.1 Bedside Lactic Acid Venous 1.41 mmol/L Urine Color YELLOW Urine Appearance CLEAR Urine pH 5.5 Urine Specific [place] 1.015 Urine Protein NEG Urine Glucose (UA) NEG Urine Ketones NEG Urine Occult Blood NEG Urine Nitrite NEG Urine Bilirubin NEG Urine Urobilinogen NEG Urine Leukocyte Esterase SMALL Urine WBC (Auto) 10-30 /hpf Urine RBC (Auto) 0-4 /hpf Urine Hyaline Casts (Auto) 1-5 /lpf Urine Epithelial Cells (Auto) >30 /lpf Urine Bacteria (Auto) 2+ Magnesium Level 1.7 mg/dl Impression About four years status post renal transplant. Rise in serum creatinine from her baseline of 1.1-1.2 likely the result of her diarrhea. Probable infection causing diarrhea. Possibly bacterial from a UTI or pneumonia. Possibly viral. She has an intertrigenous dermatitis, doubt fungemia. She has been appropriately cultured and seems to have improved on antibiotics. Her renal function seem to have started to improved with hydration. Recommendations No change for now pending Infectious disease consult. Continue hydration and antibiotics until cultures back. Monitor renal function and electrolytes daily. Continue current immunosuppressants. Would treat her dermatitis with Nizoral shampoo or cream. I will be away for the next three days. Dr. Nolasco is available for assistance.
--- NOTE | 2017-03-01 14:57 | Progress Note ---
Subjective Date of Service: Mar 01, 2017. Subjective Pt evaluation today including: conversation w/ patient, physical exam, lab review, review of studies, conversation w/ job service consultant, review of inpatient medication list Pain: no pain PO Intake: appetite improving slowly Voiding: no voiding problems patient feels better in general today, better appetite, well rested no cough, had a fever over night, no dysuria Problem List Medical Problems: (1) Acute kidney injury Status: Acute (2) Acute renal failure Status: Acute (3) Dehydration Status: Acute (4) Diarrhea Status: Acute (5) Immunocompromised Status: Acute (6) Leukocytosis Status: Acute (7) UTI (urinary tract infection) Status: Acute Social History Problems: (1) H/O kidney transplant Status: Acute (2) Renal transplant recipient Status: Acute Review of Systems All Other Systems: Reviewed and Negative Medications Current Inpatient Medications Medications (Trade) Dose Ordered Sig/Clarita Route Start Time Stop Time Status Last Admin Dose Admin Acetaminophen (Tylenol Tab) 650 mg Q4H PRN PO 02/28/17 16:00 03/30/17 15:59 02/28/17 23:54 650 MG Al Hydrox/Mg Hydrox/Simethicone (Maalox Max Susp) 15 ml Q4H PRN PO 02/28/17 16:00 03/30/17 15:59 Magnesium Hydroxide (Milk Of Magnesia Susp) 30 ml Q6H PRN PO 02/28/17 16:00 03/30/17 15:59 Polyethylene (Miralax Powder Packet) 17 gm DAILY PRN PO 02/28/17 16:00 03/30/17 15:59 Ondansetron HCl (Zofran Inj) 4 mg Q6H PRN IV 02/28/17 16:00 03/30/17 15:59 Albuterol/ Ipratropium (Duoneb) 3 ml Q2H PRN INH 02/28/17 16:00 03/30/17 15:59 Atenolol (Tenormin Tab) 25 mg BID PO 02/28/17 20:00 03/30/17 20:59 02/28/17 20:23 25 MG Tacrolimus (Prograf Cap) 3 mg BID PO 02/28/17 20:00 03/30/17 20:59 03/01/17 07:51 3 MG Warfarin Sodium (Coumadin Tab) 2 mg ThFr@1600 PO 03/01/17 16:00 03/31/17 15:59 Warfarin Sodium (Coumadin Tab) 3 mg SuMoTuWeSa@1600 PO 02/28/17 18:00 03/30/17 17:59 02/28/17 18:29 3 MG Mycophenolate Sodium (Myfortic Tab) 540 mg BID PO 02/28/17 20:00 03/30/17 19:59 03/01/17 07:51 540 MG Sodium Chloride 1,000 ml @ 80 mls/hr [id number] IV 02/28/17 17:34 03/30/17 17:33 03/01/17 05:47 80 MLS/HR Prednisone (PredniSONE TAB) 20 mg Q12 PO 02/28/17 18:00 03/30/17 17:59 03/01/17 07:51 20 MG Imipenem/ Cilastatin Sodium 300 mg/Dextrose 106 ml @ 100 mls/hr Q6H IV 03/01/17 00:00 03/10/17 17:59 03/01/17 11:55 100 MLS/HR Objective Vital Signs Date Time Temp Pulse Resp B/P (MAP) Pulse Ox O2 Delivery O2 Flow Rate FiO2 03/01/17 08:00 Room Air 03/01/17 07:39 36.6 70 17 101/50 (67) 98 Room Air 03/01/17 01:12 37.4 03/01/17 00:00 Room Air 02/28/17 23:51 38.6 73 18 114/48 (70) 96 Room Air 02/28/17 20:00 Room Air 02/28/17 17:30 36.9 72 18 148/65 (92) 02/28/17 17:11 37.4 74 22 136/58 95 02/28/17 15:58 37.4 74 22 136/58 95 Room Air 02/28/17 15:25 37.4 02/28/17 14:55 69 22 136/58 95 Room Air Physical Exam General Appearance: WD/WN, no apparent distress Eyes: normal inspection, EOMI, sclerae normal ENT: normal ENT inspection, hearing grossly normal, pharynx normal Neck: supple, no adenopathy, no JVD, trachea midline Respiratory/Chest: chest non-tender, lungs clear, normal breath sounds, no respiratory distress, no accessory muscle use Cardiovascular: regular rate, rhythm, no edema, no gallop, no JVD, no murmur Abdomen: normal bowel sounds, non tender, soft, no organomegaly Extremities: normal range of motion, non-tender, normal inspection, no pedal edema, no calf tenderness Neurologic/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, no motor/sensory deficits, alert, normal mood/affect, oriented x 3 Skin: normal color, warm/dry, no rash Laboratory Results Last 24 Hours Test 03/01/17 05:51 White Blood Count 9.45 K/uL Red Blood Count 4.09 M/uL Hemoglobin 11.2 g/dL Hematocrit 37.3 % Mean Corpuscular Volume 91.2 fL Mean Corpuscular Hemoglobin 27.4 pg Mean Corpuscular Hemoglobin Concent 30.0 g/dl RDW Standard Deviation 45.4 fL RDW Coefficient of Variation 13.6 % Platelet Count 112 K/uL Mean Platelet Volume 9.6 fL Prothrombin Time 19.8 SECONDS Prothromb Time International Ratio 1.8 Sodium Level 136 mmol/L Potassium Level 4.5 mmol/L Chloride Level 106 mmol/L Carbon Dioxide Level 19 mmol/L Anion Gap 11.0 mmol/L Blood Urea Nitrogen 27 mg/dl Creatinine 1.60 mg/dl Est Creatinine Clear Calc Drug Dose 42.6 ml/min Estimated GFR () 40.5 Estimated GFR (Non- 34.9 BUN/Creatinine Ratio 16.9 Random Glucose 117 mg/dl Calcium Level 8.8 mg/dl Magnesium Level 1.7 mg/dl Assessment and Plan Ms. Barker is a 61 y/o female with PMHx of Paroxysmal Atrial Fibrillation, S/P Pacemaker, S/P Partial Thyroidectomy/Parathyroidectomy 2/2 Adenoma, S/P L Kidney Transplant 2/2 Glomerulonephritis x 4 years ago, and HTN who presents for fever, diarrhea, and dry heaves that started in the middle of the night. Urinary Tract Infection and R Parenchymal Infiltrate/Pneumonia: Immunocompromised Status urine culture growing Enterococcus, blood cultures with no growth continue Primaxin, Zithromax IV added to cover atypicals in the lungs repeat CXR in 2 days, no cough today appreciate ID consult Acute Kidney Injury: Baseline 1.1 Cr up at 1.7 on admission, down to 1.6 with NSS overnight continue fluids tonight but plan to stop tomorrow as long as patient eating and drinking Paroxysmal Atrial Fibrillation with Pacer: - Atrial paced on EKG - Atenolol 25 mg BID and Coumadin - slightly subtherapeutic at 1.7 on admission , trending up to 1.8 S/P L Kidney Transplant due to Glomerulonephritis: [place] - Mycophenolate 540 mg BID and Prograf 3 mg BID - Hold Prednisone and cover with stress dosing of Prednisone 20 mg BID - Consult Nephrology - Dr. Lin S/P Thyroidectomy/Parathyroidectomy DVT Prophylaxis: Coumadin Code Status: FULL RESUSCITATION
[2017-03-01 16:19] VITALS: BP 125/60; PULSE 71; TEMP 37; O2SAT 94
[2017-03-01] MEDS: WARFARIN SOD 2 MG TAB PO SCH (16:35)
[2017-03-01 21:27] VITALS: BP 162/78; PULSE 74
[2017-03-01 23:47] VITALS: BP 155/83; PULSE 69; TEMP 36.8; O2SAT 94
[2017-03-02] MEDS: SODIUM CHLORIDE 0.9% 1000ML 1,000 ML IV SCH (05:32)
[2017-03-02] MEDS: IMIPENEM/CILASTATIN IV 300 MG in DEXTROSE 5% 100ML 100 ML IV SCH ×3 (05:32→18:00)
[2017-03-02 07:28] VITALS: BP 162/64; PULSE 75; TEMP 36.9; O2SAT 99
[2017-03-02 07:33] LABS: HEMATOCRIT 34.5 % (37-47); MEAN CELL VOLUME 91.8 fL (80-100); MEAN CORPUSCULAR HEMOGLOBIN 27.4 pg (25-34); MEAN CORPUSCULAR HGB CONC 29.9 g/dl (32-36); MEAN PLATELET VOLUME 9.8 fL (7.4-10.4); PLATELET COUNT 115 K/uL (130-400); RED BLOOD COUNT 3.76 M/uL (4.2-5.4); WHITE BLOOD COUNT 5.21 K/uL (4.8-10.8)
[2017-03-02 07:39] LABS: INR 2.1 (0.9-1.1); PROTHROMBIN TIME (PATIENT) 23.6 SECONDS (9.0-12.0)
[2017-03-02 07:58] LABS: BUN/CREATININE RATIO 15.5 (10-20); CALCIUM 9.3 mg/dl (8.5-10.1); CREATININE 1.2 mg/dl (0.60-1.20); MAGNESIUM 1.7 mg/dl (1.8-2.4); POTASSIUM 4.3 mmol/L (3.5-5.1)
[2017-03-02] MEDS: TACROLIMUS 1 MG CAP PO SCH (08:36)
[2017-03-02] MEDS: MYCOPHENOLATE SODIUM 180 MG TAB PO SCH (08:36)
--- NOTE | 2017-03-02 10:33 | Nephrology Progress Note ---
Nephrology Progress Note Date of Service Mar 02, 2017. 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 Barker was seen & examined in her hospital room this morning. She reports that her diarrhea has improved. She had 4 loose BM yesterday. She is tolerating her diet and able to keep down liquids. She denies fever, pain or tenderness overlying her transplanted allograft. Review of Systems Constitutional: No fever Cardiovascular: No chest pain Respiratory: No dyspnea at rest Abdomen: No pain, No nausea Extremities: No leg edema A complete review of systems was performed. Pertinent positives are noted above. All other systems are negative. Vital Signs Last 8 Hrs Date Time Temp Pulse Resp B/P (MAP) Pulse Ox O2 Delivery O2 Flow Rate FiO2 03/02/17 08:45 Room Air 03/02/17 08:00 Room Air 03/02/17 07:28 36.9 75 16 162/64 (96) 99 Room Air Last Recorded Weight Weight (Kilograms): 96.100 Physical Exam General Appearance: no apparent distress Head: normocephalic, atraumatic Eyes: PERRL, EOMI Neck: no adenopathy Respiratory/Chest: lungs clear Cardiovascular: regular rate, rhythm Abdomen/GI: normal bowel sounds, non tender, soft, + pertinent finding ( transplanted allograft is nontender) Extremities/Musculoskelatal: no calf tenderness, no pedal edema Neurologic/Psych: alert Family History FH: kidney disease FHx: heart disease Hypertension Social History Smoking Status: Never smoker Smokeless Tobacco Use: No Alcohol Use: none Drug Use: none Marital Status: Occupation: employed Laboratory Results Past 24 Hours 03/02/17 06:47 03/02/17 06:47 Test 03/02/17 06:47 Red Blood Count 3.76 M/uL (4.2-5.4) Mean Corpuscular Volume 91.8 fL (80-100) Mean Corpuscular Hemoglobin 27.4 pg (25-34) Mean Corpuscular Hemoglobin Concent 29.9 g/dl (32-36) RDW Standard Deviation 45.6 fL (36.4-46.3) RDW Coefficient of Variation 13.7 % (11.5-14.5) Mean Platelet Volume 9.8 fL (7.4-10.4) Prothrombin Time 23.6 SECONDS (9.0-12.0) Prothromb Time International Ratio 2.1 (0.9-1.1) Anion Gap 7.0 mmol/L (3-11) Est Creatinine Clear Calc Drug Dose 56.8 ml/min Estimated GFR () 57.3 Estimated GFR (Non- 49.4 BUN/Creatinine Ratio 15.5 (10-20) Calcium Level 9.3 mg/dl (8.5-10.1) Magnesium Level 1.7 mg/dl (1.8-2.4) Allergies Coded Allergies: Quinolones (Verified Allergy, Intermediate, FLOXIN CAUSES HIVES, 02/28/17) HIVES Medications Current Inpatient Medications Medications (Trade) Dose Ordered Sig/Clarita Route Start Time Stop Time Status Last Admin Dose Admin Acetaminophen (Tylenol Tab) 650 mg Q4H PRN PO 02/28/17 16:00 03/30/17 15:59 02/28/17 23:54 650 MG Al Hydrox/Mg Hydrox/Simethicone (Maalox Max Susp) 15 ml Q4H PRN PO 02/28/17 16:00 03/30/17 15:59 Magnesium Hydroxide (Milk Of Magnesia Susp) 30 ml Q6H PRN PO 02/28/17 16:00 03/30/17 15:59 Polyethylene (Miralax Powder Packet) 17 gm DAILY PRN PO 02/28/17 16:00 03/30/17 15:59 Ondansetron HCl (Zofran Inj) 4 mg Q6H PRN IV 02/28/17 16:00 03/30/17 15:59 Albuterol/ Ipratropium (Duoneb) 3 ml Q2H PRN INH 02/28/17 16:00 03/30/17 15:59 Atenolol (Tenormin Tab) 25 mg BID PO 02/28/17 20:00 03/30/17 20:59 03/02/17 08:35 25 MG Tacrolimus (Prograf Cap) 3 mg BID PO 02/28/17 20:00 03/30/17 20:59 03/02/17 08:36 3 MG Warfarin Sodium (Coumadin Tab) 2 mg ThFr@1600 PO 03/01/17 16:00 03/31/17 15:59 03/01/17 16:35 2 MG Warfarin Sodium (Coumadin Tab) 3 mg SuMoTuWeSa@1600 PO 02/28/17 18:00 03/30/17 17:59 02/28/17 18:29 3 MG Mycophenolate Sodium (Myfortic Tab) 540 mg BID PO 02/28/17 20:00 03/30/17 19:59 03/02/17 08:36 540 MG Sodium Chloride 1,000 ml @ 80 mls/hr [id number] IV 02/28/17 17:34 03/30/17 17:33 03/02/17 05:32 80 MLS/HR Prednisone (PredniSONE TAB) 20 mg Q12 PO 02/28/17 18:00 03/30/17 17:59 03/02/17 08:35 20 MG Imipenem/ Cilastatin Sodium 300 mg/Dextrose 106 ml @ 100 mls/hr Q6H IV 03/01/17 00:00 03/10/17 17:59 03/02/17 05:32 100 MLS/HR Impression (1) Acute kidney injury (2) Kidney transplant status, cadaveric (3) Immunocompromised (4) Diarrhea (5) UTI (urinary tract infection) (6) Dehydration Mrs. Barker was admitted for evaluation of TATIANNA in the setting of diarrhea and dehydration. 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 Serum creatinine peaked at 1.7 and has improved w/ IV hydration. Urine culture is positive for Enterococcus. Blood cultures are negative. Patient has had diarrhea in the past related to Mycophenolate therapy. Stool for C. Difficile is pending. ID specialist has been consulted. 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 TATIANNA was likely due to volume contraction. Continue gentle hydration. Encourage oral free water intake -- Monitor daily PRP KIDNEY TRANSPLANT: -- Baseline creatinine 1.1 - 1.2. -- Continue Prograf and Myfortic -- Recommend starting Prednisone taper. Patient was on Prednisone 5 mg daily as outpatient ID: -- Urine is positive for Enterococcus. Await final sensitivities and ID input. May be able to narrow antibiotic spectrum -- Await stool culture results
[2017-03-02] MEDS ORDERED: AMX250 PO (12:38)
--- NOTE | 2017-03-02 12:42 | Discharge Instructions ---
Discharge Instructions Date of Service Mar 02, 2017. Admission Reason for Admission: Pneumonia, Urinary Tract Infection Discharge Discharge Diagnosis / Problem: UTI (enterococcus), right lower lobe pneumonia, acute kidney injury Discharge Goals Goal(s): Improve function, Improve disease control Activity Recommendations Activity Limitations: resume your previous activity Lifting Limitations: none Exercise/Sports Limitations: as tolerated May Resume Sexual Activity: when tolerated Shower/Bathe: no limitations . Instructions / Follow-Up Instructions / Follow-Up Medications: - AMOXICILLIN: 500mg three times a day for 7 days to complete treatment of UTI and pneumonia UTI: urine culture grew enterococcus, sensitive to penicillin, ID recommends a 7 day course of Amoxicillin Pneumonia: will be covered by amoxicillin, no fever, no cough, no hypoxia, very mild pneumonia at best Acute renal failure on CKD: resolved, Cr down to 1.2 from 1.7 on admission with gentle IV fluids FOLLOW UP - Dr. Lin in one week, please call to make appointment for hospital follow up Current Hospital Diet Patient's current hospital diet: Regular Diet Discharge Diet Recommended Diet: Regular Diet Pending Studies Studies pending at discharge: no Medical Emergencies . Who to Call and When: Medical Emergencies: If at any time you feel your situation is an emergency, please call 911 immediately. . Non-Emergent Contact Non-Emergency issues call your: Primary Care Provider Call Non-Emergent contact if: you have a fever, you have any medication questions . . "Provider Documentation" section prepared by uLis Fernando Franco. . VTE Core Measure Inpt VTE Proph given/why not?: Warfarin (Coumadin) [place] Drug Monitoring Program Search Results: no issues identified
--- NOTE | 2017-03-02 12:50 | DIAGNOSTIC IMAGING REPORT ---
CHEST 2 VIEWS ROUTINE CLINICAL HISTORY: Abnormal chest x-ray. Right lower lobe infiltrate. COMPARISON STUDY: 02/28/2017 FINDINGS: The heart is enlarged. Increased right lower lobe markings are likely vascular. There is no lobar consolidation. There is no overt failure. There are no pleural effusions. There is a right subclavian dual-chamber central venous pacemaker.[ IMPRESSION: Cardiomegaly. No evidence of failure. No evidence of focal pulmonary consolidation on conventional radiographic imaging Electronically signed by: Juan Carlos Herrera M.D. 03/02/2017 12:49 PM Dictated Date/Time: 03/02/2017 12:48 PM
[2017-03-02 13:05] VITALS: BP 162/64; PULSE 75; TEMP 36.9; O2SAT 99
--- NOTE | 2017-03-02 13:50 | Discharge Summary ---
Discharge Summary Date of Service Mar 02, 2017. Discharge Summary Admission Date: Feb 28, 2017 at 17:21 Discharge Date: Mar 02, 2017 Discharge Disposition: Home Principal Diagnosis: UTI, enterococcus Problems/Secondary Diagnoses: TATIANNA on CKD, s/p renal transplant Immunizations: Have You Had Influenza Vaccine: No Influenza Vaccine Date: Sep 04, 2005 History of Tetanus Vaccine?: No History of Pneumococcal: No Pneumococcal Date: Sep 04, 2005 History of Hepatitis B Vaccine: No Hepatitis Immunization Date: Sep 04, 2005 Procedures: none Consultations: Nephrology Infectious disease Medication Reconciliation New Medications: Amoxicillin (Amoxicillin) 250 Mg Cap 500 MG PO TID for 7 Days, #42 CAP 0 Refills Continued Medications: Atenolol (Tenormin) 25 Mg Tab 25 MG PO BID, TAB Mycophenolate Sodium (Myfortic) 180 Mg Tab 540 MG PO BID Prednisone (Prednisone) 5 Mg Tab 5 MG PO DAILY, #30 TAB Tacrolimus (Prograf) 1 Mg Cap 3 MG PO BID, CAP Warfarin Sod (Jantoven) 2 Mg Tab 2 MG PO UD, TAB TAKES 2MG SUNDAY AND SUNDAY Warfarin Sod (Jantoven) 3 Mg Tab 3 MG PO [id number], TAB TAKES EVERYDAY BUT SUNDAY AND SUNDAY Discharge Exam Patient feeling well, hungry today, wanted more than clear liquids. Tolerated lunch. Reviewed urine culture results, Enterococcus, sensitive. Repeat CXR did not show any evidence of infiltrate. Cr down to baseline Review of Systems: Constitutional: No fever, No chills, No sweats, No weight loss, No weakness , No fatigue, No problem reported Eyes: No worsening of vision, No eye pain, No redness, No discharge, No diplopia, No problem reported ENT: No hearing loss, No unusual epistaxis, No nasal symptoms, No sore throat, No tinnitus, No dental problems, No trouble swallowing, No problem reported Respiratory: No cough, No sputum, No wheezing, No shortness of breath, No dyspnea on exertion, No dyspnea at rest, No hemoptysis, No problem reported Cardiovascular: No chest pain, No orthopnea, No PND, No edema, No claudication, No palpitations, No problem reported Abdomen: No pain, No nausea, No vomiting, No diarrhea, No constipation, No GI bleeding, No problem reported Musculoskeletal: No joint pain, No muscle pain, No swelling, No calf pain, No problem reported Genitourinary - Female: No dysuria, No urinary frequency, No urinary urgency , No urinary incontinence Neurologic: No memory loss, No paralysis, No weakness, No numbness/tingling , No vertigo, No balance problems, No problem reported Psychiatric: No depression symptoms, No anhedonism, No anxiety, No insomnia , No substance abuse, No problem reported Endocrine: No fatigue, No excessive thirst, No excessive urination, No problem reported Hematologic / Lymphatic: No abnormal bleeding/bruising, No clotting problems , No swollen lymph nodes, No night sweats, No problem reported Integumentary: No rash, No itch, No new/changing skin lesions, No color change, No bleeding, No problem reported Physical Exam: General Appearance: no apparent distress, + obese Eyes: normal inspection, EOMI, sclerae normal ENT: normal ENT inspection, hearing grossly normal, pharynx normal Neck: supple, no adenopathy, no JVD, trachea midline Respiratory/Chest: chest non-tender, lungs clear, normal breath sounds, no respiratory distress, no accessory muscle use Cardiovascular: regular rate, rhythm, no edema, no gallop, no JVD, no murmur , normal peripheral pulses Abdomen / GI: normal bowel sounds, non tender, soft, no organomegaly Extremities: normal inspection, no calf tenderness, normal capillary refill , no pedal edema, normal range of motion, pelvis stable 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 Barker is a 61 y/o female with PMHx of Paroxysmal Atrial Fibrillation, S/P Pacemaker, S/P Partial Thyroidectomy/Parathyroidectomy 2/2 Adenoma, S/P L Kidney Transplant 2/2 Glomerulonephritis x 4 years ago, and HTN who presents for fever, diarrhea, and dry heaves that started in the middle of the night. Urinary Tract Infection and R Parenchymal Infiltrate on initial CXR: Immunocompromised Status urine culture growing Enterococcus, blood cultures with no growth d/c on Amoxicillin 500mg TID x 7 days per ID recommendations repeat CXR today, no signs of infiltrate, no pneumonia Acute Kidney Injury: Baseline 1.1 Cr up at 1.7 on admission, down to 1.2 with NSS, stop fluids follow up with Dr. Lin Paroxysmal Atrial Fibrillation with Pacer: - Atrial paced on EKG - Atenolol 25 mg BID and Coumadin - slightly subtherapeutic at 1.7 on admission , trending up to 2.1 S/P L Kidney Transplant due to Glomerulonephritis: [place] - Mycophenolate 540 mg BID and Prograf 3 mg BID - continue Prednisone 5mg S/P Thyroidectomy/Parathyroidectomy DVT Prophylaxis: Coumadin Code Status: FULL RESUSCITATION Total Time Spent: Greater than 30 minutes This includes examination of the patient, discharge planning, medication reconciliation, and communication with other providers. Discharge Instructions Please refer to the electronic Patient Visit Report (Discharge Instructions) for additional information. Follow-Up Dr. Lin in one week Additional Copies To Rich Lin M.D.
--- NOTE | 2017-03-02 15:29 | Infectious Disease Progress Nt ---
Progress Note Date of Service Mar 02, 2017. Subjective Pt evaluation today including: conversation w/ patient, physical exam, chart review, lab review, review of studies, conversation w/ showroom sales consultant, review of inpatient medication list Patients states she is feeling better. No fever. Diarrhea improved. No other new complaints. Follow-up CXR, read by me, shows no obvious infiltrate. All Other Systems: Reviewed and Negative Medications Current Inpatient Medications Medications (Trade) Dose Ordered Sig/Clarita Route Start Time Stop Time Status Last Admin Dose Admin Acetaminophen (Tylenol Tab) 650 mg Q4H PRN PO 02/28/17 16:00 03/30/17 15:59 02/28/17 23:54 650 MG Al Hydrox/Mg Hydrox/Simethicone (Maalox Max Susp) 15 ml Q4H PRN PO 02/28/17 16:00 03/30/17 15:59 Magnesium Hydroxide (Milk Of Magnesia Susp) 30 ml Q6H PRN PO 02/28/17 16:00 03/30/17 15:59 Polyethylene (Miralax Powder Packet) 17 gm DAILY PRN PO 02/28/17 16:00 03/30/17 15:59 Ondansetron HCl (Zofran Inj) 4 mg Q6H PRN IV 02/28/17 16:00 03/30/17 15:59 Albuterol/ Ipratropium (Duoneb) 3 ml Q2H PRN INH 02/28/17 16:00 03/30/17 15:59 Atenolol (Tenormin Tab) 25 mg BID PO 02/28/17 20:00 03/30/17 20:59 03/02/17 08:35 25 MG Tacrolimus (Prograf Cap) 3 mg BID PO 02/28/17 20:00 03/30/17 20:59 03/02/17 08:36 3 MG Warfarin Sodium (Coumadin Tab) 2 mg ThFr@1600 PO 03/01/17 16:00 03/31/17 15:59 03/01/17 16:35 2 MG Warfarin Sodium (Coumadin Tab) 3 mg SuMoTuWeSa@1600 PO 02/28/17 18:00 03/30/17 17:59 02/28/17 18:29 3 MG Mycophenolate Sodium (Myfortic Tab) 540 mg BID PO 02/28/17 20:00 03/30/17 19:59 03/02/17 08:36 540 MG Prednisone (PredniSONE TAB) 20 mg Q12 PO 02/28/17 18:00 03/30/17 17:59 03/02/17 08:35 20 MG Imipenem/ Cilastatin Sodium 300 mg/Dextrose 106 ml @ 100 mls/hr Q6H IV 03/01/17 00:00 03/10/17 17:59 03/02/17 12:40 100 MLS/HR Objective Vital Signs Date Time Temp Pulse Resp B/P (MAP) Pulse Ox O2 Delivery O2 Flow Rate FiO2 03/02/17 13:05 36.9 75 16 99 Room Air 03/02/17 08:45 Room Air 03/02/17 08:00 Room Air 03/02/17 07:28 36.9 75 16 162/64 (96) 99 Room Air 03/02/17 00:00 Room Air 03/01/17 23:47 36.8 69 20 155/83 (107) 94 Room Air 03/01/17 21:27 74 162/78 (106) 03/01/17 16:19 37.0 71 18 125/60 (81) 94 Room Air 03/01/17 16:00 Room Air Physical Exam General Appearance: WD/WN, no apparent distress Eyes: normal inspection, sclerae normal ENT: normal ENT inspection, pharynx normal Neck: supple, no adenopathy, trachea midline Respiratory/Chest: chest non-tender, lungs clear, normal breath sounds, no respiratory distress Cardiovascular: regular rate, rhythm, no gallop, no murmur Abdomen: normal bowel sounds, non tender, soft, no organomegaly Extremities: non-tender, no calf tenderness Neurologic/Psychiatric: alert, oriented x 3 Skin: normal color, warm/dry, no rash Lymphatic: no adenopathy Laboratory Results Last 24 Hours Test 03/02/17 06:47 White Blood Count 5.21 K/uL Red Blood Count 3.76 M/uL Hemoglobin 10.3 g/dL Hematocrit 34.5 % Mean Corpuscular Volume 91.8 fL Mean Corpuscular Hemoglobin 27.4 pg Mean Corpuscular Hemoglobin Concent 29.9 g/dl RDW Standard Deviation 45.6 fL RDW Coefficient of Variation 13.7 % Platelet Count 115 K/uL Mean Platelet Volume 9.8 fL Prothrombin Time 23.6 SECONDS Prothromb Time International Ratio 2.1 Sodium Level 138 mmol/L Potassium Level 4.3 mmol/L Chloride Level 111 mmol/L Carbon Dioxide Level 20 mmol/L Anion Gap 7.0 mmol/L Blood Urea Nitrogen 19 mg/dl Creatinine 1.20 mg/dl Est Creatinine Clear Calc Drug Dose 56.8 ml/min Estimated GFR () 57.3 Estimated GFR (Non- 49.4 BUN/Creatinine Ratio 15.5 Random Glucose 146 mg/dl Calcium Level 9.3 mg/dl Magnesium Level 1.7 mg/dl Patient Name: MARLA ARANGO Unit Number: [id number] Dictated: 03/02/171247 Transcribed: 03/02/171247 ARG Printed Date/Time: [~ rep prt dt]/[~ rep prt tm] [~ rep ct labl] - [~ rep ct ivnm] [facility] [place] [address] Dictated: 03/02/171247 Transcribed: 03/02/171247 ARG Printed Date/Time: [~ rep prt dt]/[~ rep prt tm] [~ rep ct labl] - [~ rep ct ivnm] [~ rep ct add3]] CHEST 2 VIEWS ROUTINE CLINICAL HISTORY: Abnormal chest x-ray. Right lower lobe infiltrate. COMPARISON STUDY: 02/28/2017 FINDINGS: The heart is enlarged. Increased right lower lobe markings are likely vascular. There is no lobar consolidation. There is no overt failure. There are no pleural effusions. There is a right subclavian dual-chamber central venous pacemaker.[ IMPRESSION: Cardiomegaly. No evidence of failure. No evidence of focal pulmonary consolidation on conventional radiographic imaging Electronically signed by: Juan Carlos Herrera M.D. 03/02/2017 12:49 PM Dictated Date/Time: 03/02/2017 12:48 PM The status of this report is Signed. Draft = Not yet reviewed or approved by Radiologist. Signed = Reviewed and approved by Radiologist. <AttendingPhy>Luis Fernando Franco D.O.</AttendingPhy> <FamilyPhy>Rich Lin M.D.</FamilyPhy> <PrimaryPhy>Rich Lin M.D.</PrimaryPhy> <UnitNumber> [id number]</UnitNumber> <VisitNumber>[id number]</VisitNumber> <PatientName> MARLA ARANGO</PatientName> <DateOfBirth>1955</DateOfBirth> <Location> [facility]</Location> <ServiceDate>02/28/17</ServiceDate> <MNE>ESINDI</MNE> < OrderingPhy>Luis Fernando Franco D.O.</OrderingPhy> <OrderingPhyMNE>f rep ord dr merida< /OrderingPhyMNE> <DictatingPhyMNE>f rep dict dr merida</DictatingPhyMNE> <CCListMNE >f rep ct mne</CCListMNE> <AdmittingPhyMNE>f pt admit dr merida</AdmittingPhyMNE> < AttendingPhyMNE>f pt attend dr merida</AttendingPhyMNE> <ConsultingPhyMNE>f pt consult dr merida</ConsultingPhyMNE> <FamilyPhyMNE>f pt fam dr merida</FamilyPhyMNE> <OtherPhyMNE>f pt other dr merida</OtherPhyMNE> < PrimaryPhyMNE>f pt prim care dr merida</PrimaryPhyMNE> <ReferringPhyMNE>f pt referring dr merida</ReferringPhyMNE> Assessment and Plan 61-year-old renal transplant patient on immunosuppressive therapy now presents with febrile illness with diarrhea and evidence of UTI with Enterococcus. Given CXR results and clinical response, think she can be transitioned to oral Rx with amoxicillin 500 mg tid for 7 days.
[2017-03-02] MEDS: WARFARIN SOD 2 MG TAB PO SCH (16:29)
== END 2017-03-02 18:39 | disposition home or self-care (01) | DRG 689 ==
LOC: C.EDB 13:11 → ENRESERV 16:47 → C.MS4W 17:21
PROVIDERS: ADMIT Internal Medicine; ATTEND Internal Medicine
DX: N39.0 Urinary tract infection, site not specified (principal); J18.9 Pneumonia, unspecified organism; N17.9 Acute kidney failure, unspecified; Z94.0 Kidney transplant status; I12.9 Hypertensive chronic kidney disease with stage 1 through stage 4 chronic kidney disease, or unspecified chronic kidney disease; I48.0 Paroxysmal atrial fibrillation; N18.9 Chronic kidney disease, unspecified; Z95.0 Presence of cardiac pacemaker; B95.2 Enterococcus as the cause of diseases classified elsewhere; Z79.01 Long term (current) use of anticoagulants; Z79.52 Long term (current) use of systemic steroids; Z79.899 Other long term (current) drug therapy

== ENCOUNTER → 2017-03-07 | Outpatient (CLI) | payer OTHER ==
[~2017-03-07] MED LIST changes: +AMX250 PO; +ASPI81CH2 PO; +CINA0.42 PO; +LSX40 PO; +MCRK20 PO; +MGNO400 PO; +MYC180 PO; +MYCO180T PO; -PRLSR20 PO; -TACR1CAP5 PO; +TPRSR/100 PO; +WARF3TAB6 PO
--- NOTE | 2017-03-07 16:30 | DIAGNOSTIC IMAGING REPORT ---
CHEST 2 VIEWS ROUTINE CLINICAL HISTORY: I48.91 Atrial [id number] dyspnea COMPARISON STUDY: 03/02/2017 FINDINGS: Mild stable cardiomegaly. Pulmonary vascular congestion. Diaphragms are smooth. Permanent bipolar cardiac pacemaker. IMPRESSION: Pulmonary vascular congestion The above report was generated using voice recognition software. It may contain grammatical, syntax or spelling errors. Electronically signed by: Gilbert Bernard M.D. 03/07/2017 4:29 PM Dictated Date/Time: 03/07/2017 4:28 PM
== END | disposition home or self-care (01) ==
LOC: C.RAD1850 16:16
PROVIDERS: ATTEND Physician Assistant
DX: I48.91 Unspecified atrial fibrillation (principal)

== ENCOUNTER 2017-03-09 12:15 | Inpatient (IN) | payer OTHER ==
[2017-03-09] VITALS (21 sets, daily range): BP systolic 83–149; BP diastolic 47–127; PULSE 69–144; TEMP 36.4–36.7; O2SAT 97–99; Ht 162.6 cm; Wt 95.0 kg
[~2017-03-09] VITALS: Ht 162.6 cm; Wt 95.0 kg
[~2017-03-09 12:15] MED LIST changes: -ASPI81CH2 PO; -CINA0.42 PO; -LSX40 PO; -MCRK20 PO; -MGNO400 PO; -MYC180 PO; -MYCO500T4 PO; -TPRSR/100 PO
[2017-03-09] MEDS ORDERED: SODIUM CHLORIDE 0.9% 1000ML 2,000 ML IV STA (13:37)
[2017-03-09] MEDS ORDERED: DILTIAZEM BOLUS / DRIP IV STA ×2 (13:38→15:42)
[2017-03-09 13:42] LABS: ISTAT CREATININE 1.8 mg/dl (0.6-1.3); ISTAT HEMOGLOBIN 13.3 g/dl (12.0-16.0); ISTAT IONIZED CALCIUM 1.1 mmol/l (1.12-1.32)
[2017-03-09] MEDS ORDERED: DILTIAZEM HCL 5 MG/ML 5 ML VIAL ONE (13:48)
[2017-03-09] MEDS ORDERED: SODIUM CHLORIDE 0.9% 1000ML 1,000 ML IV STA (13:51)
[2017-03-09 13:52] LABS: HEMATOCRIT 37.6 % (37-47); MEAN CELL VOLUME 88.7 fL (80-100); MEAN CORPUSCULAR HEMOGLOBIN 27.4 pg (25-34); MEAN CORPUSCULAR HGB CONC 30.9 g/dl (32-36); PLATELET COUNT 152 K/uL (130-400); RED BLOOD COUNT 4.24 M/uL (4.2-5.4); WHITE BLOOD COUNT 10.29 K/uL (4.8-10.8)
--- NOTE | 2017-03-09 13:54 | EMERGENCY ROOM VISIT NOTE ---
History Report prepared by Halie: Anali Santoyo Under the Supervision of: Dr. Levi Mckeon D.O. First contact with patient: 13:21 Chief Complaint: DIZZY Stated Complaint: DIZZY Nursing Triage Summary: Pt reports feeling dizzy yesterday. Pt reports severe diarrhea for the past 2 days and instructed to take lasix yesterday by physician for fluid build up. History of Present Illness The patient is a 61 year old female who presents to the Emergency Room with complaints of constant dizziness that began yesterday. The patient also developed diarrhea yesterday. She estimates that she has had greater than 10 episodes of diarrhea since her symptoms began. She denies vomiting, but feels very nauseated. She states that she has been drinking fluids. The patient denies any sick contacts. She is on Coumadin and denies any missed doses. Her INR was 2.8 two days ago. The patient saw her PCP two days ago. She states that she was in atrial fibrillation at that time with a HR in the 130s. She has a history of atrial fibrillation. She was started on Lasix and Metoprolol 100mg extended release at that time. She was taken off of her Atenolol. The patient had a kidney transplant 4 years ago and has been taking her typical transplant medications as prescribed. She was placed on the monitor in the ED and found to be tachycardic. Source of History: patient Onset: yesterday Position: other (global) Quality: other (dizziness) Timing: constant Associated Symptoms: + nausea, + diarrhea, No vomiting Review of Systems See HPI for pertinent positives & negatives. A total of 10 systems reviewed and were otherwise negative. Past Medical & Surgical Medical Problems: (1) Diarrhea (2) Hypertension (3) Hypotension (4) Kidney disease (5) Pneumonia (6) Rapid atrial fibrillation (7) Urinary problem Surgical Problems: (1) Hx of cholecystectomy (2) Kidney transplant status, cadaveric (3) Kidney transplanted Family History FH: kidney disease FHx: heart disease Hypertension Social History Smoking Status: Never Smoker Alcohol Use: none Drug Use: none Marital Status: Housing Status: lives with significant other Occupation Status: employed Current/Historical Medications Scheduled Amoxicillin (Amoxicillin), 500 MG PO TID Aspirin (Aspirin), 1 TAB PO DAILY Cinacalcet (Sensipar), 1 TAB PO DAILY Furosemide (Furosemide), 1 TAB PO DAILY Metoprolol Succinate (Metoprolol Succinate ER), 1 TAB PO DAILY Mycophenolate Mofetil (Cellcept), 500 MG PO TID Prednisone (Prednisone), 5 MG PO DAILY Tacrolimus (Prograf), 3 MG PO QPM Tacrolimus (Prograf), 2 CAP PO QAM Warfarin Sod (Jantoven), 2 MG PO UD Warfarin Sod (Jantoven), 3 MG PO 5XWK Allergies Coded Allergies: Quinolones (Verified Allergy, Intermediate, FLOXIN CAUSES HIVES, 03/09/17) HIVES Physical Exam Vital Signs Date Time Temp Pulse Resp B/P (MAP) Pulse Ox O2 Delivery O2 Flow Rate FiO2 03/09/17 16:33 106 20 109/50 97 Room Air 03/09/17 16:02 108 16 91/48 94 Room Air 03/09/17 15:50 108 22 95/58 97 Room Air 03/09/17 15:40 110 20 69/51 97 Room Air 03/09/17 15:32 112 20 87/49 96 Room Air 03/09/17 15:26 115 22 92/56 98 Room Air 03/09/17 15:07 134 22 76/53 98 Room Air 03/09/17 14:52 136 26 80/39 95 Room Air 03/09/17 14:41 129 26 74/50 95 Room Air 03/09/17 14:27 126 18 102/51 96 03/09/17 14:20 115 22 82/64 96 Room Air 03/09/17 14:10 113 16 93/49 97 Room Air 03/09/17 13:59 134 16 89/51 98 Room Air 03/09/17 13:34 125 18 93/45 99 Room Air 03/09/17 13:30 158 22 88/56 96 03/09/17 13:28 Room Air 03/09/17 13:22 133 03/09/17 13:20 96 Room Air 03/09/17 12:28 36.5 103 18 110/64 98 Room Air Physical Exam GENERAL: alert, ill appearing, lying in bed, well nourished, in significant distress EYE EXAM: normal conjunctiva OROPHARYNX: no exudate, no erythema, lips, buccal mucosa, and tongue normal and mucous membranes are dry NECK: supple, no nuchal rigidity, no adenopathy, non-tender LUNGS: Clear to auscultation. Normal chest wall mechanics HEART: Tachycardic, irregularly irregular, no murmurs, S1 normal and S2 normal ABDOMEN: abdomen soft, non-tender, normo-active bowel sounds, no masses, no rebound or guarding. BACK: Back is symmetrical on inspection and there is no deformity, no midline tenderness, no CVA tenderness. SKIN: no rashes and no bruising UPPER EXTREMITIES: upper extremities are grossly normal. LOWER EXTREMITIES: No pitting edema. NEURO EXAM: Normal sensorium, cranial nerves II-XII grossly intact, normal speech, no gross weakness of arms, no gross weakness of legs. Medical Decision & Procedures ER Provider Diagnostic Interpretation: Radiology results as stated below per my review and the radiologist's interpretation: CHEST ONE VIEW PORTABLE CLINICAL HISTORY: Chest Pain dyspnea COMPARISON STUDY: 03/07/2017 FINDINGS: Moderate stable cardiomegaly. Permanent bipolar cardiac pacemaker. Prominence of the central pulmonary vasculature. Diaphragms diaphragms are smooth. IMPRESSION: 1. Mild stable cardiomegaly. No focal infiltrate. Potential pulmonary arterial hypertension The above report was generated using voice recognition software. It may contain grammatical, syntax or spelling errors. Electronically signed by: Gilbert Bernard M.D. 03/09/2017 1:51 PM Dictated Date/Time: 03/09/2017 1:50 PM Laboratory Results 03/09/17 13:28 Red Blood Count 4.24, Mean Corpuscular Volume 88.7, Mean Corpuscular Hemoglobin 27.4, Mean Corpuscular Hemoglobin Concent 30.9, Mean Platelet Volume 10.0, Neutrophils (%) (Auto) 80.1, Lymphocytes (%) (Auto) 7.1, Monocytes (%) (Auto) 12.1, Eosinophils (%) (Auto) 0.2, Basophils (%) (Auto) 0.1, Neutrophils # (Auto ) 8.25, Lymphocytes # (Auto) 0.73, Monocytes # (Auto) 1.24, Eosinophils # (Auto ) 0.02, Basophils # (Auto) 0.01 03/09/17 13:28 Test 03/09/17 13:28 White Blood Count 10.29 K/uL (4.8-10.8) Red Blood Count 4.24 M/uL (4.2-5.4) Hemoglobin 11.6 g/dL (12.0-16.0) Hematocrit 37.6 % (37-47) Mean Corpuscular Volume 88.7 fL (80-100) Mean Corpuscular Hemoglobin 27.4 pg (25-34) Mean Corpuscular Hemoglobin Concent 30.9 g/dl (32-36) Platelet Count 152 K/uL (130-400) Mean Platelet Volume 10.0 fL (7.4-10.4) Neutrophils (%) (Auto) 80.1 % Lymphocytes (%) (Auto) 7.1 % Monocytes (%) (Auto) 12.1 % Eosinophils (%) (Auto) 0.2 % Basophils (%) (Auto) 0.1 % Neutrophils # (Auto) 8.25 K/uL (1.4-6.5) Lymphocytes # (Auto) 0.73 K/uL (1.2-3.4) Monocytes # (Auto) 1.24 K/uL (0.11-0.59) Eosinophils # (Auto) 0.02 K/uL (0-0.5) Basophils # (Auto) 0.01 K/uL (0-0.2) Bedside Hemoglobin 13.3 g/dl (12.0-16.0) Bedside Hematocrit 39 % (37-47) RDW Standard Deviation 45.6 fL (36.4-46.3) RDW Coefficient of Variation 14.1 % (11.5-14.5) Immature Granulocyte % (Auto) 0.4 % Immature Granulocyte # (Auto) 0.04 K/uL (0.00-0.02) Prothrombin Time 18.9 SECONDS (9.0-12.0) Prothromb Time International Ratio 1.7 (0.9-1.1) Bedside Sodium 131 mEq/L (135-144) Bedside Potassium 3.4 mEq/L (3.3-5.0) Bedside Chloride 96 mEq/L (101-112) Bedside Total CO2 17 mEq/l (24-31) Anion Gap 22.0 mmol/L (16-25) Bedside Blood Urea Nitrogen 27 mg/dl (7-18) Bedside Creatinine 1.8 mg/dl (0.6-1.3) Est Creatinine Clear Calc Drug Dose 37.8 ml/min Estimated GFR () 35.1 Estimated GFR (Non- 30.3 BUN/Creatinine Ratio 15.4 (10-20) Bedside Glucose (other) 103 mg/dl (70-99) Calcium Level 9.0 mg/dl (8.5-10.1) Bedside Ionized Calcium (Jean) 1.10 mmol/l (1.12-1.32) Total Bilirubin 1.5 mg/dl (0.2-1) Direct Bilirubin 0.4 mg/dl (0-0.2) Aspartate Amino Transf (AST/SGOT) 11 U/L (15-37) Alanine Aminotransferase (ALT/SGPT) 14 U/L (12-78) Alkaline Phosphatase 56 U/L (45-117) Total Creatine Kinase 111 U/L (26-192) Creatine Kinase MB 0.8 ng/ml (0.5-3.6) Creatine Kinase MB Ratio 0.7 (0-3.0) Troponin I 0.027 ng/ml (0-0.045) Total Protein 6.6 gm/dl (6.4-8.2) Albumin 3.3 gm/dl (3.4-5.0) Lipase 113 U/L (73-393) Laboratory results per my review. Medications Administered Medications (Trade) Dose Ordered Sig/Clarita Route Start Time Stop Time Status Last Admin Dose Admin Sodium Chloride 2,000 ml @ 999 mls/hr Q2H1M STAT IV 03/09/17 13:37 03/09/17 15:37 DC 03/09/17 13:37 999 MLS/HR Diltiazem HCl 125 mg/Dextrose 125 ml @ 5 mls/hr Q24H PRN IV 03/09/17 14:00 04/08/17 13:59 03/09/17 14:23 5 MLS/HR Diltiazem HCl (Cardizem Inj) 25 mg STK-MED ONCE .ROUTE 03/09/17 13:48 03/09/17 13:49 DC 03/09/17 13:54 10 MG Sodium Chloride 1,000 ml @ 999 mls/hr Q1H1M STAT IV 03/09/17 13:51 03/09/17 14:51 DC 03/09/17 13:55 999 MLS/HR Potassium Chloride (Kcl 10 Meq / Wtr) 10 meq NOW STAT IV 03/09/17 14:34 03/09/17 14:35 DC 03/09/17 14:52 10 MEQ Cefepime HCl 1000 mg/Dextrose 111.3 ml @ 200 mls/hr NOW STAT IV 03/09/17 16:29 03/09/17 17:02 DC 03/09/17 17:44 200 MLS/HR Vancomycin HCl 1900 mg/Sodium Chloride 538 ml @ 200 mls/hr ONE STAT IV 03/09/17 16:29 03/09/17 19:10 03/09/17 17:42 200 MLS/HR Metronidazole (Flagyl / Nss) 500 mg NOW STAT IV 03/09/17 16:30 03/09/17 16:32 DC 03/09/17 17:23 500 MG ECG Indication: tachycardia Rate (beats per minute): 149 Rhythm: atrial fibrillation (with RVR) Findings: Q waves (Septal), ST depression (in high lateral) Comparison ECG Date: 02/28/17 Change: Increased ST depression in the lateral leads. Afib with RVR has replaced atrial paced rhythm. ED Course ED COURSE: Vital signs were reviewed and showed hypotensive and tachycardic. The patients medical record was reviewed The above diagnostic studies were performed and reviewed. ED treatments and interventions as stated above. 1321: The patient was evaluated in room A9B. A complete history and physical examination was performed. 1337: NSS 2000 ml @ 999 mls/hr IV 1338: Diltiazem HCl Bolus/Drip IV 1351: NSS 1000 ml @ 999 mls/hr IV 1357: The patient's HR is now in the 120s and her BP came up to 105 systolic after 2 L of fluid. We are starting the Cardizem. 1403: I reassessed the patient. Her HR is down to 90-110 and systolic BP is 105. 1421: I reevaluated the patient. 1429: I spoke with Dr. Courtney of [facility]. We discussed the patient's case and he recommended not cardioverting the patient at this time. 1434: Potassium Chloride 10 meq IV 1449: The patient's BP is 89 and she still feels OK. 1457: The patient's systolic BP is 98 right now. 1517: Upon reevaluation, the patient is still unstable. I discussed my findings with the patient and her and they understand and agree with the treatment plan. Based on the patients age, coexisting illnesses, exam and lab findings the decision to treat as an inpatient was made. The patient remained stable while under my care. The patient will be evaluated for further management. 1523: I discussed the case with Dr. Courtney again at this time. He will come to the ED to evaluate the patient for further management. 1610: I reassessed the patient. Her systolic BP is 89 and her HR is 110. 1628: I reevaluated the patient again at this time. Medical Decision Differential diagnoses includes but is not limited to pneumonia, bronchitis, COPD/Asthma exacerbation, pneumothorax, pulmonary embolism, congestive heart failure, acute coronary syndrome. Patient is a 61-year-old female who is brought in for diarrhea, dizziness and weakness. Diarrhea has been present for the past 24-48 hours. Upon presentation she is found to be in A. fib with RVR. Her heart rates in the 140s to 160s. Systolic blood pressures were in the 80s. She was given a total of 3 L of normal saline. Blood pressure periodically waxed and waned from 70s to low 100s. She was initially given a Cardizem bolus following obtaining a systolic blood pressure of 105. Heart rate trended down to the 110s but was difficult to keep there. Eventually started the Cardizem drip and titrated up following which after 3 hours obtained a heart rate of 90-110. Her systolic blood pressures remained marginal at best trending from 100-70. Consulted cardiology who evaluated her bedside. Discussed initially with cardiology cardioversion but it was felt at that time that if she was cardioverted she may reconvert into A fib so it was best to treat her medically. Also discussed case with internal medicine and ICU attending. Blood cultures and lactate were obtained. She was given IV vancomycin, cefepime and Flagyl for possible C. difficile along with her immunocompromise state. Chest x-ray was unremarkable. She was admitted to internal medicine following a total of 3 and half liters, Cardizem drip and bolus with multiple titrations and evaluation by cardiology, internal medicine and ICU. She'll be treated for presumed sepsis with an immune compromised state along with A. fib RVR. Medication Reconcilliation Current Medication List: was personally reviewed by me Blood Pressure Screening Patient's blood pressure: Low blood pressure Consults Time Called: [phone] Consulting Physician: Dr. Courtney Returned Call: [phone] Courtney of [facility]. We discussed the patient's case and he recommended not cardioverting the patient at this time. Additional Consults: Time Called: [phone] Consulted Physician: Dr. Courtney Returned Call: [phone] Additional Comments: I discussed the case with Dr. Courtney again at this time. He will come to the ED to evaluate the patient for further management. Impression Primary Impression: Atrial fibrillation with RVR Additional Impressions: Hypotension Acute kidney injury Hypokalemia Critical Care I have personally spent 125 minutes of critical care time in the direct management of this patient. This includes bedside care, interpretation of diagnostic studies, and testing, discussion with consultants, patient, and family members, and other required patient management activities. This 125 minutes is in excess of all separately billable procedures. Scribe Attestation The scribe's documentation has been prepared under my direction and personally reviewed by me in its entirety. I confirm that the note above accurately reflects all work, treatment, procedures, and medical decision making performed by me. Departure Information Dispostion Being Evaluated By Hospitalist Referrals No Doctor, Assigned (PCP) Patient Instructions My [facility] Problem Qualifiers Additional Impressions: Hypotension Hypotension type: unspecified hypotension type Qualified Codes: I95.9 - Hypotension, unspecified
[2017-03-09 14:00] LABS: INR 1.7 (0.9-1.1); PROTHROMBIN TIME (PATIENT) 18.9 SECONDS (9.0-12.0)
[2017-03-09] MEDS ORDERED: DILTIAZEM HCL INJ 125 MG in DEXTROSE 5% 100ML IV PRN (14:00)
[2017-03-09 14:10] LABS: BUN/CREATININE RATIO 15.4 (10-20); CREATININE 1.8 mg/dl (0.60-1.20); POTASSIUM 3.4 mmol/L (3.5-5.1)
[2017-03-09 14:16] LABS: CKMB/CK RATIO 0.7 (0-3.0)
[2017-03-09 14:25] LABS: BASO % 0.1 %; BASO ABS # 0.01 K/uL (0-0.2); COMPLETE YES; EOS % 0.2 %; IG% 0.4 %; LYMPH % 7.1 %; LYMPH ABS # 0.73 K/uL (1.2-3.4); MONO % 12.1 %; NEUT % 80.1 %
[2017-03-09] MEDS ORDERED: TPRSR/100 PO ×2 (14:32)
[2017-03-09] MEDS ORDERED: LSX40 PO (14:32)
[2017-03-09] MEDS ORDERED: POTASSIUM CHLORIDE 10 MEQ / 100ML WTR IV STA (14:34)
[2017-03-09] MEDS ORDERED: SODIUM CHLORIDE 0.9% 1000ML 1,000 ML IV SCH (15:42)
[2017-03-09] MEDS ORDERED: ACETAMINOPHEN 325 MG TAB PO PRN (15:45)
[2017-03-09] MEDS ORDERED: POLYETHYLENE (MIRALAX) 17 GM PACK PO PRN (15:45)
[2017-03-09] MEDS ORDERED: ONDANSETRON INJ 2 MG/ML 2 ML VIAL IV PRN (15:45)
[2017-03-09] MEDS ORDERED: MYCO500T4 PO (15:53)
[2017-03-09] MEDS ORDERED: CINA0.42 PO (15:53)
[2017-03-09] MEDS ORDERED: TACR1CAP PO ×2 (15:53)
[2017-03-09] MEDS ORDERED: ASPI81CH2 PO ×2 (15:58)
--- NOTE | 2017-03-09 16:17 | History and Physical ---
History & Physical Date & Time of Service: Mar 09, 2017 at 15:33 Chief Complaint: DIZZY Primary Care Physician: Rich Lin M.D. History of Present Illness 61 yo F with PMHx of Paroxysmal Atrial Fibrillation, S/P dual pacemaker in 05/10, s/p partial thyroidectomy Parathyroidectomy 2/2 Adenoma, S/P L Kidney Transplant 2/2 Glomerulonephritis x 4 years ago, and HTN who presents increase sensation of dizziness and lightheadedness, rapid palpitations and increased diarrhea 15 times since midnight. The patient is present with her . She was recently admitted last week for UTI dehydration and right parenchymal infiltrate thought to be pneumonia. She was seen by infectious disease at that time and started on amoxicillin 500 mg 3 times a day 7 days. She reports that upon going home last Sunday, she felt like she went into A. fib that evening and has been and it ever since. She feels her heart racing, and slightly short of breath upon exertion. Her diarrhea started approximately 2 days ago, and increase to having numerous and uncountable bouts since midnight last night. She is feeling dizzy this morning and was unable to eat or tolerate fluids. Of note, the patient follows with Dr. Gui Hernandez at [facility] and was seen there recently, and told that she may need a valve replacement. CXR was reviewed showing cardiomegaly, no infiltrate potential pulmonary artery hypertension. Her EKG is showing that she is in atrial fibrillation with RVR with heart rate in the 150s. She was started on a Cardizem drip and bolus and her blood pressure dropped into the 80s. She was resuscitated with 3 L of normal saline. Past Medical/Surgical History Medical Problems: (1) Hypertension Status: Chronic (2) Kidney disease Status: Chronic (3) Pneumonia Status: Resolved (4) Urinary problem Status: Resolved Paroxysmal Atrial Fibrillation, S/P dual pacemaker in 05/10/17, s/p partial thyroidectomy Parathyroidectomy 2/2 Adenoma, Surgical Problems: (1) Hx of cholecystectomy Status: Resolved (2) Kidney transplant, cadaveric, second time in 1992 Status: chronic Family History FH: kidney disease FHx: heart disease Hypertension Social History Smoking Status: Never Smoker Smokeless Tobacco Use: No Alcohol Use: none Drug Use: none Marital Status: Occupational Status: employed Immunizations History of Influenza Vaccine: No Influenza Vaccine Date: Sep 04, 2005 History of Tetanus Vaccine?: No History of Pneumococcal: No Pneumococcal Date: Sep 04, 2005 History of Hepatitis B Vaccine: No Hepatitis Immunization Date: Sep 04, 2005 Multi-Drug Resistant Organisms History of MDRO: No Allergies Coded Allergies: Quinolones (Verified Allergy, Intermediate, FLOXIN CAUSES HIVES, 03/09/17) HIVES Home Medications Scheduled Amoxicillin (Amoxicillin), 500 MG PO TID Aspirin (Aspirin), 1 TAB PO DAILY Cinacalcet (Sensipar), 1 TAB PO DAILY Furosemide (Furosemide), 1 TAB PO DAILY Metoprolol Succinate (Metoprolol Succinate ER), 1 TAB PO DAILY Mycophenolate Mofetil (Cellcept), 500 MG PO TID Prednisone (Prednisone), 5 MG PO DAILY Tacrolimus (Prograf), 3 MG PO QPM Tacrolimus (Prograf), 2 CAP PO QAM Warfarin Sod (Jantoven), 2 MG PO UD Warfarin Sod (Jantoven), 3 MG PO 5XWK Review of Systems Constitutional: No fever, sweats or chills, + dizziness Eyes: No diplopia, no worsening or blurred vision ENT: normal hearing, no trouble swallowing Respiratory: +Occasional cough, no sputum, + dyspnea on exertion Cardiovascular: + Palpitations,+ flutter, no chest pain Abdomen: No pain, nausea, vomiting, diarrhea or constipation Musculoskeletal: No joint pain, calf pain, swelling Neurologic: No weakness, numbness/tingling, or balance problems Psychiatric: No anxiety or depression Skin: No rash or itch Physical Exam Vital Signs Date Time Temp Pulse Resp B/P (MAP) Pulse Ox O2 Delivery O2 Flow Rate FiO2 03/09/17 15:32 112 20 87/49 96 Room Air 03/09/17 15:26 115 22 92/56 98 Room Air 03/09/17 15:07 134 22 76/53 98 Room Air 03/09/17 14:52 136 26 80/39 95 Room Air 03/09/17 14:41 129 26 74/50 95 Room Air 03/09/17 14:27 126 18 102/51 96 03/09/17 14:20 115 22 82/64 96 Room Air 03/09/17 14:10 113 16 93/49 97 Room Air 03/09/17 13:59 134 16 89/51 98 Room Air 03/09/17 13:34 125 18 93/45 99 Room Air 03/09/17 13:30 158 22 88/56 96 03/09/17 13:28 Room Air 03/09/17 13:22 133 03/09/17 13:20 96 Room Air 03/09/17 12:28 36.5 103 18 110/64 98 Room Air General: awake, alert, mild distress, morbidly obese, BMI 36.3 Head: Normocephalic, atraumatic ENT: PERRL, EOMI, no pharyngeal exudate, mucous membranes dry Chest: Clear to auscultation, 2 L via NC, no adventitious breath sounds Cardiac: Regular rate and rhythm, no murmur, no JVD, normal peripheral pulses, good capillary refill Abdominal: Obese, NABS x 4 quadrants, soft, + incision over LLQ s/p kidney transplant, nontender to palpation, no rebound, guarding or tenderness Extremities: Normal inspection, no peripheral edema or erythema, calfs nontender to palpation Psych: Normal mood and affect Neuro: AAO x 3, strength intact bilaterally and related 5/5, no motor deficits, speech is clear, no peripheral sensory deficits Diagnostics Laboratory Results Results Past 24 Hours Test 03/09/17 13:28 Range/Units White Blood Count 10.29 4.8-10.8 K/uL Red Blood Count 4.24 4.2-5.4 M/uL Hemoglobin 11.6 12.0-16.0 g/dL Hematocrit 37.6 37-47 % Mean Corpuscular Volume 88.7 80-100 fL Mean Corpuscular Hemoglobin 27.4 25-34 pg Mean Corpuscular Hemoglobin Concent 30.9 32-36 g/dl Platelet Count 152 130-400 K/uL Mean Platelet Volume 10.0 7.4-10.4 fL Neutrophils (%) (Auto) 80.1 % Lymphocytes (%) (Auto) 7.1 % Monocytes (%) (Auto) 12.1 % Eosinophils (%) (Auto) 0.2 % Basophils (%) (Auto) 0.1 % Neutrophils # (Auto) 8.25 1.4-6.5 K/uL Lymphocytes # (Auto) 0.73 1.2-3.4 K/uL Monocytes # (Auto) 1.24 0.11-0.59 K/uL Eosinophils # (Auto) 0.02 0-0.5 K/uL Basophils # (Auto) 0.01 0-0.2 K/uL Bedside Hemoglobin 13.3 12.0-16.0 g/dl Bedside Hematocrit 39 37-47 % RDW Standard Deviation 45.6 36.4-46.3 fL RDW Coefficient of Variation 14.1 11.5-14.5 % Immature Granulocyte % (Auto) 0.4 % Immature Granulocyte # (Auto) 0.04 0.00-0.02 K/uL Prothrombin Time 18.9 9.0-12.0 SECONDS Prothromb Time International Ratio 1.7 0.9-1.1 Bedside Sodium 131 135-144 mEq/L Sodium Level 131 136-145 mmol/L Bedside Potassium 3.4 3.3-5.0 mEq/L Potassium Level 3.4 3.5-5.1 mmol/L Bedside Chloride 96 101-112 mEq/L Chloride Level 97 98-107 mmol/L Carbon Dioxide Level 17 21-32 mmol/L Bedside Total CO2 17 24-31 mEq/l Anion Gap 22.0 16-25 mmol/L Bedside Blood Urea Nitrogen 27 7-18 mg/dl Blood Urea Nitrogen 28 7-18 mg/dl Creatinine 1.80 0.60-1.20 mg/dl Bedside Creatinine 1.8 0.6-1.3 mg/dl Est Creatinine Clear Calc Drug Dose 37.8 ml/min Estimated GFR () 35.1 Estimated GFR (Non- 30.3 BUN/Creatinine Ratio 15.4 10-20 Bedside Glucose (other) 103 70-99 mg/dl Random Glucose 96 70-99 mg/dl Calcium Level 9.0 8.5-10.1 mg/dl Bedside Ionized Calcium (Jean) 1.10 1.12-1.32 mmol/l Total Bilirubin 1.5 0.2-1 mg/dl Direct Bilirubin 0.4 0-0.2 mg/dl Aspartate Amino Transf (AST/SGOT) 11 15-37 U/L Alanine Aminotransferase (ALT/SGPT) 14 12-78 U/L Alkaline Phosphatase 56 45-117 U/L Total Creatine Kinase 111 26-192 U/L Creatine Kinase MB 0.8 0.5-3.6 ng/ml Creatine Kinase MB Ratio 0.7 0-3.0 Troponin I 0.027 0-0.045 ng/ml Total Protein 6.6 6.4-8.2 gm/dl Albumin 3.3 3.4-5.0 gm/dl Lipase 113 73-393 U/L Diagnostic Radiology CHEST ONE VIEW PORTABLE CLINICAL HISTORY: Chest Pain dyspnea COMPARISON STUDY: 03/07/2017 FINDINGS: Moderate stable cardiomegaly. Permanent bipolar cardiac pacemaker. Prominence of the central pulmonary vasculature. Diaphragms diaphragms are smooth. IMPRESSION: 1. Mild stable cardiomegaly. No focal infiltrate. Potential pulmonary arterial hypertension The above report was generated using voice recognition software. It may contain grammatical, syntax or spelling errors. Electronically signed by: Gilbert Bernard M.D. 03/09/2017 1:51 PM Dictated Date/Time: 03/09/2017 1:50 PM The status of this report is Signed. EKG Vent. rate 149 BPM MS interval * ms QRS duration 94 ms QT/QTc 322/507 ms P-R-T axes * -41 148 Poor data quality, interpretation may be adversely affected Atrial fibrillation with rapid ventricular response Left axis deviation Minimal voltage criteria for LVH, may be normal variant Marked ST abnormality, possible inferior subendocardial injury Abnormal ECG When compared with ECG of 28-FEB-2017 13:26, Significant changes have occurred Impression Assessment and Plan This is a 61 yo F with PMHx of Paroxysmal Atrial Fibrillation, S/P dual pacemaker in 05/10/17, s/p partial thyroidectomy Parathyroidectomy 2/2 Adenoma, S /P L Kidney Transplant 2/2 Glomerulonephritis x 4 years ago, and HTN who presents increase sensation of dizziness and lightheadedness, rapid palpitations and increased diarrhea 15 times since midnight. Paroxysmal Atrial Fibrillation with Pacer: - Admit to telemetry/ICU - aix architect is evaluating - irregularly irregular at time of admission with RVR into the 150s- 160s. The patient was started on a Cardizem drip in the ER however this caused her blood pressure to acutely dropped down into the 70s over 50s. She was given 3 L of IVF's for volume resuscitation and blood pressure remained tenuous between systolic of 70s to 100. She remains on a Cardizem drip. - Atenolol 25 mg BID was recently switched to metoprolol succinate 100 mg daily by Angeline Dailey PA-C with cardiology. - Continue coumadin- patient found patient regimen is 2 mg 2 days a week and 3 mg all other days of the week. She took 2 mg yesterday. She cannot remember specifics days she is supposed to take certain dosing. - Hold Sensipar 30 mg daily - Cardiology consulted, Dr. Courtney aware of the patient - Trending troponins - PT/OT evaluations - Question if the patient needs cardioversion, although her INR has been subtherapeutic and since Sunday. Diarrhea - Pt was recently admitted on 02/28 x 3 days for UTI and right parenchymal infiltrate on chest x-ray and was treated with Amoxicillin 500mg TID x 7 days per ID recommendations: urine culture growing Enterococcus. - We will obtain stool cultures and check for C. difficile with recent antibiotic use and immunosuppression for kidney transplant Acute Kidney Injury: Baseline 1.1 - Cr increased to 1.8 on admission - follows with Dr. Lin - Continue IVFs S/P L Kidney Transplant due to Glomerulonephritis: [facility] - Dr. Fallon did most recent transplant in 1992 - Continue CellCept 500 mg 1 tablet 3 times a day, tacrolimus 2 capsules in the a.m. and 3 capsules in the evening - continue Prednisone 5mg daily S/P Thyroidectomy/Parathyroidectomy - stable DVT Prophylaxis: Coumadin, teds, scds Code status: Full code Disposition: Patient from home, PT/OT eval's Level of Care Telemetry Resuscitation Status FULL RESUSCITATION VTE Prophylaxis Risk Level: Low Given or contraindicated: Warfarin (Coumadin), T.E.D. Stockings, SCD's Reviewed: Pt Seen/Exam by Me History Physician Judicial Assistant Supervision Note: I interviewed and examined the patient. Discussed with HERNANDEZ Lindsay and agree with findings and plan as documented in the note. Any exceptions or clarifications are listed here: Pt is a 61 yo female with a h/o renal transplant on immunosuppressive drugs, PAF , tachy-belle syndrome with dual chamber pacer, Hyperparathyroidism, here with diarrhea, and rapid A-fib with hypotension and TATIANNA. No abd pain, no GI bleeding , no CP. Has some ORTIZ, but only very occasional cough compared to when she was treated for PNA last week. Vitals reviewed-hypotensive, tachy in A-fib to the 130s Obese, mild distress, appears mottled skin on extremities irreg irreg and tachy, 2/6 murmur at LLSB CTAB no wcr Abd +BS, soft, NT ND Ext mottled skin, 2+ DP pulses, venous stasis changes anterior tibiae BP remains low at times due to dehydration and some to do with her rapid A-fib. I discussed the case with Director Of Casino and with Cardiology. Will admit to the ICU , place CVC and start on phenylephrine as a pressor, start HC IV for stress- dosed steroids given chronic prednisone use. No plans to urgently cardiovert as her tachycardia is likely related to her dehydration from GI losses. Check C. diff ag given recent abx use. pacer interrogated in ER and has been in A-fib since last Sun as pt thought. Continue coumadin for AC at higher dose of 3mg daily, follow INR Holding Sensipar for low ionized Ca++ for now Documented By: Rosaura Blanc
[2017-03-09] MEDS ORDERED: CEFEPIME IV 1,000 MG in DEXTROSE 5% 100ML 100 ML IV STA (16:29)
[2017-03-09] MEDS ORDERED: VANCOMYCIN INJ 1,900 MG in SODIUM CHLORIDE 0.9% 500ML 500 ML IV STA (16:29)
[2017-03-09] MEDS ORDERED: METRONIDAZOLE 500MG / 100ML NSS IV STA (16:30)
[2017-03-09] MEDS ORDERED: PHENYLEPHRINE HCL INJ 20 MG in DEXTROSE 5% 500ML 500 ML IV STA (16:58)
--- NOTE | 2017-03-09 17:08 | Critical Care Consultation ---
Critical Care Consultation Date of Consultation: Mar 09, 2017. Attending Physician: Reason for Consultation: Afib with RVR, immunosuppression and diarrhea. History of Present Illness 61F with PMHx of Paroxysmal Atrial Fibrillation, S/P dual pacemaker in 05/10/17, s/p partial thyroidectomy Parathyroidectomy 2/2 Adenoma, S/P L multiple Kidney Transplants (first was 10 years ago and 2nd was 4 years ago), and HTN who presents increase sensation of dizziness and lightheadedness, rapid palpitations and increased diarrhea 15 times since midnight. Pt was recently put on an Abx course of Amoxicillin for a UTI x 7 days. She is near the end of her antibiotic course. She didn't miss any doses. Pt was seen by her PCP a few days ago and was found to be in Afib in the 130s. Past Medical/Surgical History Renal Transplants x 2, Left and Right, on Prednisone for immunosuppression. Family History FH: kidney disease FHx: heart disease Hypertension Social History Smoking Status: Never Smoker Smokeless Tobacco Use: No Alcohol Use: none Drug Use: none Marital Status: Housing Status: lives with significant other Occupation Status: employed Allergies Coded Allergies: Quinolones (Verified Allergy, Intermediate, FLOXIN CAUSES HIVES, 03/09/17) HIVES Home Medications Scheduled Amoxicillin (Amoxicillin), 500 MG PO TID Aspirin (Aspirin), 1 TAB PO DAILY Cinacalcet (Sensipar), 1 TAB PO DAILY Furosemide (Furosemide), 1 TAB PO DAILY Metoprolol Succinate (Metoprolol Succinate ER), 1 TAB PO DAILY Mycophenolate Mofetil (Cellcept), 500 MG PO TID Prednisone (Prednisone), 5 MG PO DAILY Tacrolimus (Prograf), 3 MG PO QPM Tacrolimus (Prograf), 2 CAP PO QAM Warfarin Sod (Jantoven), 2 MG PO UD Warfarin Sod (Jantoven), 3 MG PO [id number] Current Inpatient Medications Current Inpatient Medications Medications (Trade) Dose Ordered Sig/Clarita Route Start Time Stop Time Status Last Admin Dose Admin Diltiazem HCl 125 mg/Dextrose 125 ml @ 5 mls/hr Q24H PRN IV 03/09/17 14:00 04/08/17 13:59 03/09/17 14:23 5 MLS/HR Sodium Chloride 1,000 ml @ 200 mls/hr Q5H IV 03/09/17 15:42 04/08/17 15:41 UNV Acetaminophen (Tylenol Tab) 650 mg Q4H PRN PO 03/09/17 15:45 04/08/17 15:44 Ondansetron HCl (Zofran Inj) 4 mg Q6H PRN IV 03/09/17 15:45 04/08/17 15:44 Polyethylene (Miralax Powder Packet) 17 gm DAILY PRN PO 03/09/17 15:45 04/08/17 15:44 Diltiazem HCl (Cardizem Bolus / Drip) 1 ea NOW STAT IV 03/09/17 15:42 03/09/17 15:43 UNV Mycophenolate Mofetil (Cellcept Cap) 500 mg TID PO 03/09/17 21:00 04/08/17 20:59 UNV Prednisone (PredniSONE TAB) 5 mg DAILY PO 03/10/17 09:00 04/09/17 08:59 UNV Tacrolimus (Prograf Cap) 2 mg QAM PO 03/10/17 09:00 04/09/17 08:59 UNV Tacrolimus (Prograf Cap) 3 mg QPM PO 03/09/17 21:00 04/08/17 20:59 UNV Warfarin Sodium (Coumadin Tab) 3 mg DAILY PO 03/10/17 09:00 04/09/17 08:59 UNV Metoprolol Succinate (Toprol Xl Tab) 100 mg QAM PO 03/10/17 09:00 04/09/17 08:59 UNV Aspirin (Aspirin Chew) 81 mg DAILY PO 03/10/17 09:00 04/09/17 08:59 UNV Cefepime HCl 1000 mg/Dextrose 111.3 ml @ 200 mls/hr NOW STAT IV 03/09/17 16:29 03/09/17 17:02 Vancomycin HCl 1900 mg/Sodium Chloride 538 ml @ 200 mls/hr ONE STAT IV 03/09/17 16:29 03/09/17 19:10 Review of Systems See above for pertinent positives & negatives. A total of 10 systems reviewed and were otherwise negative. Constitutional: No fever, No chills Respiratory: No cough, No sputum Cardiovascular: No chest pain Abdomen: + diarrhea, No nausea, No constipation Physical Exam Date Time Temp Pulse Resp B/P (MAP) Pulse Ox O2 Delivery O2 Flow Rate FiO2 03/09/17 16:02 108 16 91/48 94 Room Air 03/09/17 15:50 108 22 95/58 97 Room Air 03/09/17 15:40 110 20 69/51 97 Room Air 03/09/17 15:32 112 20 87/49 96 Room Air 03/09/17 15:26 115 22 92/56 98 Room Air 03/09/17 15:07 134 22 76/53 98 Room Air 03/09/17 14:52 136 26 80/39 95 Room Air 03/09/17 14:41 129 26 74/50 95 Room Air 03/09/17 14:27 126 18 102/51 96 03/09/17 14:20 115 22 82/64 96 Room Air 03/09/17 14:10 113 16 93/49 97 Room Air 03/09/17 13:59 134 16 89/51 98 Room Air 03/09/17 13:34 125 18 93/45 99 Room Air 03/09/17 13:30 158 22 88/56 96 03/09/17 13:28 Room Air 03/09/17 13:22 133 03/09/17 13:20 96 Room Air 03/09/17 12:28 36.5 103 18 110/64 98 Room Air Gen: No acute distress. Pt is lying supine. Resting comfortably. Pt is obese. HEENT: Head - normocephalic and atraumatic. Pupils are equal, round, and reactive to light. Extraocular eye muscles are intact and sclera are anicteric. Ears - bilaterally patent canals with noninjected tympanic membranes and no evidence of hemotympanum. Nose - moist nasal mucosa without discharge. Mouth - moist buccal mucosa. Oropharynx is nonerythematous and there is no tonsillar exudate or edema noted. Neck: Supple; no JVD, nuchal rigidity, cervical lymphadenopathy, or auscultated bruits. Heart: Irregular rate and rhythm. There is a normal S1 and S2 with no murmurs, clicks, or gallops appreciated. Lungs: Clear to auscultation bilaterally with no wheezes, rales, or rhonchi. Abdomen: Soft, completely nontender, nondistended, with good bowel sounds. There are no palpable pulsatile masses or hepatosplenomegaly. There is no guarding, rigidity, or rebound noted. Extremities: No evidence of cyanosis, clubbing, or edema. There are easily palpable peripheral pulses. Pt has a graft in the left arm for dialysis. Neuro:The patient is awake and alert, oriented to day, time, and place. Muscle strength is 5/5 in all 4 extremities. The patient has equal hall worker strength and equal pedal push and pull. There are no cerebellar signs. Laboratory Results Last 24 Hours Test 03/09/17 13:28 03/09/17 16:30 White Blood Count 10.29 K/uL Red Blood Count 4.24 M/uL Hemoglobin 11.6 g/dL Hematocrit 37.6 % Mean Corpuscular Volume 88.7 fL Mean Corpuscular Hemoglobin 27.4 pg Mean Corpuscular Hemoglobin Concent 30.9 g/dl Platelet Count 152 K/uL Mean Platelet Volume 10.0 fL Neutrophils (%) (Auto) 80.1 % Lymphocytes (%) (Auto) 7.1 % Monocytes (%) (Auto) 12.1 % Eosinophils (%) (Auto) 0.2 % Basophils (%) (Auto) 0.1 % Neutrophils # (Auto) 8.25 K/uL Lymphocytes # (Auto) 0.73 K/uL Monocytes # (Auto) 1.24 K/uL Eosinophils # (Auto) 0.02 K/uL Basophils # (Auto) 0.01 K/uL Bedside Hemoglobin 13.3 g/dl Bedside Hematocrit 39 % RDW Standard Deviation 45.6 fL RDW Coefficient of Variation 14.1 % Immature Granulocyte % (Auto) 0.4 % Immature Granulocyte # (Auto) 0.04 K/uL Prothrombin Time 18.9 SECONDS Prothromb Time International Ratio 1.7 Bedside Sodium 131 mEq/L Sodium Level 131 mmol/L Bedside Potassium 3.4 mEq/L Potassium Level 3.4 mmol/L Bedside Chloride 96 mEq/L Chloride Level 97 mmol/L Carbon Dioxide Level 17 mmol/L Bedside Total CO2 17 mEq/l Anion Gap 22.0 mmol/L Bedside Blood Urea Nitrogen 27 mg/dl Blood Urea Nitrogen 28 mg/dl Creatinine 1.80 mg/dl Bedside Creatinine 1.8 mg/dl Est Creatinine Clear Calc Drug Dose 37.8 ml/min Estimated GFR () 35.1 Estimated GFR (Non- 30.3 BUN/Creatinine Ratio 15.4 Bedside Glucose (other) 103 mg/dl Random Glucose 96 mg/dl Calcium Level 9.0 mg/dl Bedside Ionized Calcium (Jean) 1.10 mmol/l Total Bilirubin 1.5 mg/dl Direct Bilirubin 0.4 mg/dl Aspartate Amino Transf (AST/SGOT) 11 U/L Alanine Aminotransferase (ALT/SGPT) 14 U/L Alkaline Phosphatase 56 U/L Total Creatine Kinase 111 U/L Creatine Kinase MB 0.8 ng/ml Creatine Kinase MB Ratio 0.7 Troponin I 0.027 ng/ml Total Protein 6.6 gm/dl Albumin 3.3 gm/dl Lipase 113 U/L Diagnostic Results CHEST ONE VIEW PORTABLE CLINICAL HISTORY: Chest Pain dyspnea COMPARISON STUDY: 03/07/2017 FINDINGS: Moderate stable cardiomegaly. Permanent bipolar cardiac pacemaker. Prominence of the central pulmonary vasculature. Diaphragms diaphragms are smooth. IMPRESSION: 1. Mild stable cardiomegaly. No focal infiltrate. Potential pulmonary arterial hypertension Assessment & Plan 61F with PMHx of Paroxysmal Atrial Fibrillation, S/P dual pacemaker in 05/10/17, s/p partial thyroidectomy Parathyroidectomy 2/2 Adenoma, S/P L Kidney Transplant 2/2 Glomerulonephritis x 4 years ago, and HTN who presents increase sensation of dizziness and lightheadedness, rapid palpitations and increased diarrhea 15 times since midnight. Neuro: AAOx3 CV: Paroxysmal Atrial Fibrillation with RVR with Pacer: * After discussion with Cardiology, A. Fib is likely multifactorial from infection, dehydration and electrolyte imbalances. Will correct before considering cardioversion. * Continue coumadin per home regimen, 2mg x twice weekly with 3mg on the other days. * hold Diltiazem due to hypotension, will start on Phenylephrine to keep the MAP above 65. * Continue with Metoprolol 100mg QAM with hold parameters of MAP <60. * Will obtain echocardiogram for symptoms of dizziness and fatigue and multiple factors for cardiac disease. * Trop neg x 1, will trend. * f/u TSH, Free T4 Severe PAD * c/w ASA 81mg. Respiratory: Pt is saturating well on room air, chest X-ray was negative for infiltrates, continue to monitor. GI/ Diarrhea: * AST = 11, ALT =14. * Possible C. Diff, will treat empirically with Vancomycin 250mg PO QID. * Follow up stool cultures and C. Diff toxin. Renal: * Acute Kidney Injury: Baseline 1.1, today 1.8, will rehydrate with IVF NSS 200mls/hr * S/P L Kidney Transplant due to Glomerulonephritis: Pt is on Prednisone 5mg per day, will continue. * Continue CellCept 500 mg 1 tablet 3 times a day * Continue Tacrolimus 2 capsules in the a.m. and 3 capsules in the evening. Endo * S/P Thyroidectomy/Parathyroidectomy, follow up TSH and Free T4. * Electrolytes: Na+ 131, K+ 3.4, follow up BMP, ionized Ca2+, Mag and Phosphate daily. Repletion as needed. * Sugars well controlled, follow up HBA1C. Heme: * HgBb: 11.6, pt is at her baseline. * DVT Prophylaxis: Coumadin as above. ID: * Diarrhea: Vanco as above for empiric C. Diff. * Follow up Blood Cultures, stool cultures, and C. Diff cultures, Procalcitonin , Lactic Acid. Full code Resident Physician Supervision Note: Dr. Soto was resident physician during care of patient. I separately evaluated patient and did history and exam. I discussed the case with the resident and generally agree with the findings and plan. Patient critically ill due to hypotension, A. fib with rapid ventricular response. She has a associated acute kidney injury likely prerenal in origin. She is approaching 30 mL/kg crystalloid resuscitation, and we will start phenylephrine infusion for additional afterload and less beta stimulation. At this point I will stop her diltiazem secondary to hypotension. She has low ionized calcium we will replete her calcium. If additional heart rate control as needed we will utilize beta blockade. Given her immunocompromised state, hypotension, elevated procalcitonin, and predominance in neutrophils she's been started on broad-spectrum antibiotics. She will be consented for central venous access, I do not feel comfortable continuing prolonged phenylephrine infusion given her presumed vasculopathy given chronic renal disease and possible arterial line. I discussed this case with Dr. Blanc, Dr. Courtney, and Dr. Lin. I have personally spent 40 minutes of critical care time in the direct management of this patient. This is a life/limb threatening event. This includes time spent evaluating patient, direct bedside care, chart review, placing orders, interpretation of diagnostic studies, discussion with consultants, patient, and family members, as well as other required patient management activities. This time is exclusive of all separately billable procedures, and teaching time and separate from and in addition to any other critical care service time. Documented By: Ned Kraus DO Resident Involvement: Resident Care Provided Care Provided: Adult Hospital Medicine
[2017-03-09] MEDS ORDERED: PHENYLEPHRINE HCL INJ 20 MG in DEXTROSE 5% 500ML 500 ML IV PRN (17:15)
[2017-03-09] MEDS ORDERED: HYDROCORTISONE SOD SUCCINATE 100 MG/2 ML VIAL IV STA (17:26)
[2017-03-09 17:38] LABS: VEN BLD GAS O2 SATURATION 71.2 %; VEN BLOOD GAS BASE EXCESS -9.2 mmol/L
--- NOTE | 2017-03-09 18:07 | Cardiology Consultation ---
Cardiology Consultation Date of Consultation: Mar 09, 2017. Requesting Physician: Guanaco Reason for Consultation: atrial fibrillation, hypotension History of Present Illness Patient is a 61-year-old woman with a history of renal transplant and paroxysmal atrial fibrillation who presented to [facility] today after several days of worsening diarrhea, dizziness and mild dyspnea. The patient was initially admitted to [facility] on the 28 of February for diarrhea and fevers. She was discovered to have urinary tract infection and was sent home on an antibiotic regimen. Patient states she felt well at the time of discharged within 24 hours noticed an increase in her heart rate he began experiencing symptoms of dizziness. This was initially accompanied by occasional diarrheal episodes. Over the past day he has had some severe diarrhea and notable anorexia. She has not been eating much. She was seen on an outpatient basis over the course of the week and discovered to have atrial fibrillation and rapid ventricular response. Her medications were adjusted in an attempt to achieve better rate control. Patient does have a history of paroxysmal atrial fibrillation and does have symptoms of palpitations and tachycardia with episodes. She has not had episodes recently in till the day after discharge from the hospital. She has an element of anorexia over the past few days not eating and drinking much. She denies any symptoms of chest discomfort. She has no significant abdominal discomfort. She did not report fevers recently Currently she continues to feel weak and tired. She does have an element of dizziness and still has some palpitations and tachycardia. 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 Preserved left ventricular systolic function Hypertension History of cholecystitis Past surgical history Renal transplant x2 Av fistula creation Laparoscopic cholecystectomy Tubal ligation Family History FH: kidney disease FHx: heart disease Hypertension No premature coronary disease Social History Smoking Status: Never Smoker History of Alcohol Use: No Review of Systems Constitutional: + see HPI Respiratory: + see HPI Cardiac: + see HPI Abdomen: + see HPI Female : + see HPI Neurologic: + see HPI Heme: + see HPI Endo: + see HPI Skin: + see HPI All Other Systems: Reviewed and Negative Allergies Coded Allergies: Quinolones (Verified Allergy, Intermediate, FLOXIN CAUSES HIVES, 03/09/17) HIVES Medications Current Inpatient Medications Medications (Trade) Dose Ordered Sig/Clartia Route Start Time Stop Time Status Last Admin Dose Admin Diltiazem HCl 125 mg/Dextrose 125 ml @ 5 mls/hr Q24H PRN IV 03/09/17 14:00 04/08/17 13:59 03/09/17 14:23 5 MLS/HR Sodium Chloride 1,000 ml @ 200 mls/hr Q5H IV 03/09/17 15:42 04/08/17 15:41 UNV Acetaminophen (Tylenol Tab) 650 mg Q4H PRN PO 03/09/17 15:45 04/08/17 15:44 Ondansetron HCl (Zofran Inj) 4 mg Q6H PRN IV 03/09/17 15:45 04/08/17 15:44 Polyethylene (Miralax Powder Packet) 17 gm DAILY PRN PO 03/09/17 15:45 04/08/17 15:44 Mycophenolate Mofetil (Cellcept Cap) 500 mg TID PO 03/09/17 21:00 04/08/17 20:59 UNV Prednisone (PredniSONE TAB) 5 mg DAILY PO 03/10/17 09:00 04/09/17 08:59 UNV Tacrolimus (Prograf Cap) 2 mg QAM PO 03/10/17 09:00 04/09/17 08:59 UNV Tacrolimus (Prograf Cap) 3 mg QPM PO 03/09/17 21:00 04/08/17 20:59 UNV Warfarin Sodium (Coumadin Tab) 3 mg DAILY PO 03/10/17 09:00 04/09/17 08:59 UNV Metoprolol Succinate (Toprol Xl Tab) 100 mg QAM PO 03/10/17 09:00 04/09/17 08:59 UNV Aspirin (Aspirin Chew) 81 mg DAILY PO 03/10/17 09:00 04/09/17 08:59 UNV Vancomycin HCl 1900 mg/Sodium Chloride 538 ml @ 200 mls/hr ONE STAT IV 03/09/17 16:29 03/09/17 19:10 03/09/17 17:42 200 MLS/HR Phenylephrine HCl 20 mg/Dextrose 502 ml @ 0 mls/hr Q0M PRN IV 03/09/17 17:15 04/08/17 17:14 Vancomycin HCl (Vancomycin Oral Soln) 250 mg QID PO 03/09/17 21:00 03/23/17 20:59 Physical Exam Vital Signs Past 12 Hours Date Time Temp Pulse Resp B/P (MAP) Pulse Ox O2 Delivery O2 Flow Rate FiO2 03/09/17 17:23 113 24 107/62 95 Room Air 03/09/17 16:33 106 20 109/50 97 Room Air 03/09/17 16:02 108 16 91/48 94 Room Air 03/09/17 15:50 108 22 95/58 97 Room Air 03/09/17 15:40 110 20 69/51 97 Room Air 03/09/17 15:32 112 20 87/49 96 Room Air 03/09/17 15:26 115 22 92/56 98 Room Air 03/09/17 15:07 134 22 76/53 98 Room Air 03/09/17 14:52 136 26 80/39 95 Room Air 03/09/17 14:41 129 26 74/50 95 Room Air 03/09/17 14:27 126 18 102/51 96 03/09/17 14:20 115 22 82/64 96 Room Air 03/09/17 14:10 113 16 93/49 97 Room Air 03/09/17 13:59 134 16 89/51 98 Room Air 03/09/17 13:34 125 18 93/45 99 Room Air 03/09/17 13:30 158 22 88/56 96 03/09/17 13:28 Room Air 03/09/17 13:22 133 03/09/17 13:20 96 Room Air 03/09/17 12:28 36.5 103 18 110/64 98 Room Air She is alert and oriented x3. Mood affect appear normal. She answered all questions appropriately. She did appear acutely ill. HEENT: Sclerae are anicteric. Pupils are equal and reactive to light and accommodation. Extraocular movements were intact. Neuro: Cranial nerves intact Neck: Examination of the submandibular region did not reveal any significant lymphadenopathy. Carotids are palpable bilaterally and free of bruits on auscultation. There was no evidence of jugular venous distention. The thyroid was not enlarged. Lungs: Lungs are clear to auscultation bilaterally. There are no rales wheezes or rhonchi. She has normal respiratory effort without use of accessory muscles. There is normal pulmonary excursion. Cardiac: The rhythm was irregular. S1 and S2 were normal. Crescendo systolic murmur which varied in intensity. The PMI was not markedly displaced on palpation. Abdomen: The abdomen was soft and nontender. Extremities: Patient has bilateral radial pulses that are equal in intensity. There is no evidence cyanosis or clubbing. There was no evidence of significant peripheral edema bilaterally. Skin: There are no rashes noted on examination today. Well-healed pacemaker pocket in the right upper chest. AV fistula in the left upper arm Data Laboratory Results: Last 24 Hours Test 03/09/17 13:28 03/09/17 17:06 03/09/17 17:09 White Blood Count 10.29 K/uL Red Blood Count 4.24 M/uL Hemoglobin 11.6 g/dL Hematocrit 37.6 % Mean Corpuscular Volume 88.7 fL Mean Corpuscular Hemoglobin 27.4 pg Mean Corpuscular Hemoglobin Concent 30.9 g/dl Platelet Count 152 K/uL Mean Platelet Volume 10.0 fL Neutrophils (%) (Auto) 80.1 % Lymphocytes (%) (Auto) 7.1 % Monocytes (%) (Auto) 12.1 % Eosinophils (%) (Auto) 0.2 % Basophils (%) (Auto) 0.1 % Neutrophils # (Auto) 8.25 K/uL Lymphocytes # (Auto) 0.73 K/uL Monocytes # (Auto) 1.24 K/uL Eosinophils # (Auto) 0.02 K/uL Basophils # (Auto) 0.01 K/uL Bedside Hemoglobin 13.3 g/dl Bedside Hematocrit 39 % RDW Standard Deviation 45.6 fL RDW Coefficient of Variation 14.1 % Immature Granulocyte % (Auto) 0.4 % Immature Granulocyte # (Auto) 0.04 K/uL Prothrombin Time 18.9 SECONDS Prothromb Time International Ratio 1.7 Bedside Sodium 131 mEq/L Sodium Level 131 mmol/L Bedside Potassium 3.4 mEq/L Potassium Level 3.4 mmol/L Bedside Chloride 96 mEq/L Chloride Level 97 mmol/L Carbon Dioxide Level 17 mmol/L Bedside Total CO2 17 mEq/l Anion Gap 22.0 mmol/L Bedside Blood Urea Nitrogen 27 mg/dl Blood Urea Nitrogen 28 mg/dl Creatinine 1.80 mg/dl Bedside Creatinine 1.8 mg/dl Est Creatinine Clear Calc Drug Dose 37.8 ml/min Estimated GFR () 35.1 Estimated GFR (Non- 30.3 BUN/Creatinine Ratio 15.4 Bedside Glucose (other) 103 mg/dl Random Glucose 96 mg/dl Calcium Level 9.0 mg/dl Bedside Ionized Calcium (Jean) 1.10 mmol/l Total Bilirubin 1.5 mg/dl Direct Bilirubin 0.4 mg/dl Aspartate Amino Transf (AST/SGOT) 11 U/L Alanine Aminotransferase (ALT/SGPT) 14 U/L Alkaline Phosphatase 56 U/L Total Creatine Kinase 111 U/L Creatine Kinase MB 0.8 ng/ml Creatine Kinase MB Ratio 0.7 Troponin I 0.027 ng/ml Total Protein 6.6 gm/dl Albumin 3.3 gm/dl Lipase 113 U/L Venous Blood pH 7.31 Venous Blood Partial Pressure CO2 33 mmHg Venous Blood Partial Pressure O2 41 mmHg Venous Blood HCO3 16 mmol/L Venous Blood Oxygen Saturation 71.2 % Venous Blood Base Excess -9.2 mmol/L Lactic Acid Level 0.7 mmol/L Ionized Calcium 1.08 mmol/l Imaging: Chest x-ray did not demonstrate any focal infiltrates EKG: Atrial fibrillation with rapid ventricular response Echocardiogram performed at [facility] in 07/2016 demonstrated preserved left ventricular systolic function. There was very mild aortic stenosis. Maximal trans aortic gradient was 15 millimeters of mercury I performed a complete interrogation of her current pacemaker. This did confirm the initiation of atrial fibrillation on March 03. Assessment & Plan 1. Atrial fibrillation: Patient has history of paroxysmal atrial fibrillation but has not had any significant episodes in many months. This episode did start as described approximately 6 days ago. She is definitely symptomatic from the arrhythmia but I doubt that this fully explains her hypotension. In the setting of an acute illness rates may be difficult to control. Patient's current INR subtherapeutic but she claims have been therapeutic leading up to this evaluation. Cardioversion could be entertained in the setting of significant hemodynamic embarrassment and high ventricular rate, however overall ventricular rates are reasonable given her illness, and I doubt this plays a significant role in her hypotension. Given the possibility of recurrent atrial fibrillation in the setting of acute illness I did not advocate cardioversion currently. I think as her clinical condition improves her ventricular rate will also improve. There is a possibility that she will affect a spontaneous conversion. Should her clinical condition improved and she still have atrial fibrillation near the time of discharge cardioversion could be entertained. She should be continued on anticoagulation. 2. Hyportension: This may be related to adrenal insufficiency, distributive shock and/or hypovolemia. All of these issues are currently being addressed. I doubt that her atrial fibrillation has contributed significantly to her hyportension. 3. Aortic stenosis: Mild. This is not contributing to any hemodynamic embarrassment currently. 4. Coronary artery disease: Nonobstructive in 2010. No current symptoms to suggest coronary insufficiency or angina. 5. 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
[2017-03-09] MEDS ORDERED: POTASSIUM CHLORIDE 10 MEQ TABCR PO ONE (20:00)
[2017-03-09] MEDS: NORMOSOL R 1,000 ML IV SCH (20:00)
[2017-03-09] MEDS ORDERED: CALCIUM GLUCONATE 10% 1,000 MG in SODIUM CHLORIDE 0.9% 50ML 50 ML IV ONE (20:00)
[2017-03-09] MEDS: RASPBERRY SYRUP 5 ML UDP PO SCH (20:33)
[2017-03-09] MEDS: VANCOMYCIN HCL 250 MG/5 ML SOLN PO SCH (20:33)
[2017-03-09] MEDS: WARFARIN SOD 3 MG TAB PO SCH (20:34)
[2017-03-09] MEDS: TACROLIMUS 1 MG CAP PO SCH (20:34)
[2017-03-09] MEDS ORDERED: VANCOMYCIN HCL 250 MG/5 ML SOLN PO SCH (21:00)
[2017-03-09] MEDS ORDERED: MYCOPHENOLATE MOFETIL 250 MG CAP (CELLCEPT) PO SCH (21:00)
[2017-03-09 21:15] LABS: MAGNESIUM 1.3 mg/dl (1.8-2.4); PHOSPHORUS 2.5 mg/dl (2.5-4.9)
[2017-03-09] MEDS ORDERED: NON-FORMULARY MEDICATION SCH (21:30)
[2017-03-09] MEDS: MYCOPHENOLATE SODIUM 180 MG TAB PO SCH (22:09)
[2017-03-09] MEDS: MAGNESIUM SULFATE 1GM / D5W 1 GM in PREMIXED IN D5W 100 ML IV SCH ×2 (22:09→23:13)
[2017-03-10] VITALS (24 sets, daily range): BP systolic 102–158; BP diastolic 52–86; PULSE 63–94; TEMP 35–36.9; O2SAT 94–100
[2017-03-10] MEDS: HYDROCORTISONE IV 50 MG in SYRINGE 0 ML IV SCH ×3 (00:03→15:51)
[2017-03-10] MEDS: METRONIDAZOLE 500 MG TAB PO SCH ×3 (00:03→15:50)
[2017-03-10] MEDS ORDERED: MAGNESIUM SULFATE 1GM / D5W 1 GM in PREMIXED IN D5W 100 ML IV STA (01:28)
[2017-03-10] MEDS: NORMOSOL R 1,000 ML IV SCH ×2 (02:19→09:23)
[2017-03-10] MEDS ORDERED: CEFEPIME IV 1,000 MG in DEXTROSE 5% 100ML 100 ML IV SCH (06:00)
[2017-03-10 06:13] LABS: COMPLETE YES; HEMATOCRIT 32.8 % (37-47); IG% 0.2 %; LYMPH % 7.6 %; LYMPH ABS # 0.37 K/uL (1.2-3.4); MEAN CELL VOLUME 90.1 fL (80-100); MEAN CORPUSCULAR HGB CONC 31.1 g/dl (32-36); MEAN PLATELET VOLUME 9.8 fL (7.4-10.4); MONO % 4.1 %; NEUT % 88.1 %; PLATELET COUNT 130 K/uL (130-400); RED BLOOD COUNT 3.64 M/uL (4.2-5.4); WHITE BLOOD COUNT 4.88 K/uL (4.8-10.8)
[2017-03-10 06:28] LABS: PROTHROMBIN TIME (PATIENT) 22.3 SECONDS (9.0-12.0)
[2017-03-10 06:48] LABS: BLOOD UREA NITROGEN 21 mg/dl (7-18); BUN/CREATININE RATIO 18.9 (10-20); CALCIUM 8.3 mg/dl (8.5-10.1); CARBON DIOXIDE 20 mmol/L (21-32); CHLORIDE 108 mmol/L (98-107); CHOLESTEROL 156 mg/dl (0-200); CHOLESTEROL/HDL RATIO 4.1; GLUCOSE 112 mg/dl (70-99); HDL CHOLESTEROL 38 mg/dl; LDL CHOLESTEROL CALCULATED 91 mg/dl; MAGNESIUM 2.4 mg/dl (1.8-2.4); TRIGLYCERIDES 137 mg/dl (0-150); VERY LOW DENSITY LIPOPROT CALC 27 mg/dl
[2017-03-10 06:52] LABS: POTASSIUM 4.6 mmol/L (3.5-5.1); SODIUM 139 mmol/L (136-145)
--- NOTE | 2017-03-10 07:03 | Progress Note ---
Subjective Date of Service: Mar 10, 2017. Subjective pt is awake and alert and reportedly much better than last night she is awake alert and in no distress, diarrhea also stopped so no stool cultures yet Problem List Medical Problems: (1) Acute kidney injury Status: Acute (2) Acute kidney injury Status: Acute (3) Acute renal failure Status: Acute (4) Atrial fibrillation with RVR Status: Acute (5) Diarrhea Status: Acute (6) Hypokalemia Status: Acute (7) Hypotension Status: Acute (8) Immunocompromised Status: Acute (9) Leukocytosis Status: Acute (10) UTI (urinary tract infection) Status: Acute Social History Problems: (1) H/O kidney transplant Status: Acute (2) Renal transplant recipient Status: Acute Review of Systems Constitutional: + weakness, No fever, No chills Respiratory: No cough, No shortness of breath, No dyspnea on exertion Cardiac: No chest pain, No orthopnea, No edema Abdomen: No pain, No nausea, No vomiting, No diarrhea Female : No dysuria, No hematuria Psychiatric: No depression symptoms, No anhedonism Objective Vital Signs Date Time Temp Pulse Resp B/P (MAP) Pulse Ox O2 Delivery O2 Flow Rate FiO2 03/10/17 06:01 74 16 147/80 (102) 98 03/10/17 06:00 75 25 98 03/10/17 05:01 75 15 127/62 (83) 98 03/10/17 05:00 73 17 99 03/10/17 04:56 36.7 03/10/17 04:22 97 Room Air 03/10/17 04:01 74 13 147/72 (97) 100 03/10/17 04:00 35.0 71 35 100 03/10/17 03:01 72 16 120/63 (82) 97 03/10/17 03:00 69 15 96 03/10/17 02:01 72 20 113/62 (79) 97 03/10/17 02:00 65 18 97 03/10/17 01:01 65 16 104/54 (71) 97 03/10/17 01:00 63 17 97 03/10/17 00:49 97 Room Air 03/10/17 00:01 36.5 69 19 102/52 (69) 97 03/10/17 00:00 70 18 97 03/09/17 23:31 70 16 100/49 (66) 97 03/09/17 23:01 69 17 102/52 (69) 97 03/09/17 23:00 71 18 97 03/09/17 23:00 71 18 97 03/09/17 22:31 71 18 115/63 (80) 99 03/09/17 22:30 70 20 99 03/09/17 22:01 74 12 124/53 (76) 98 03/09/17 22:00 70 17 99 03/09/17 21:31 101 16 117/62 (80) 97 03/09/17 21:30 91 18 98 03/09/17 21:00 105 20 141/127 (132) 98 03/09/17 20:42 96 22 134/76 (95) 03/09/17 20:30 97 18 98 03/09/17 20:01 123 16 113/52 (72) 98 03/09/17 20:00 97 Room Air 03/09/17 20:00 36.4 129 18 97 03/09/17 19:51 98 21 83/47 (59) 97 03/09/17 19:38 90 15 137/79 (98) 03/09/17 19:30 110 23 98 03/09/17 19:16 127 25 130/51 (77) 03/09/17 19:01 99 14 141/99 (113) 97 03/09/17 19:00 36.4 124 14 102/52 (69) 97 Room Air 03/09/17 19:00 101 25 97 03/09/17 18:25 36.7 144 12 149/88 99 Room Air 03/09/17 17:54 115 18 120/68 97 Room Air 03/09/17 17:23 113 24 107/62 95 Room Air 03/09/17 16:33 106 20 109/50 97 Room Air 03/09/17 16:02 108 16 91/48 94 Room Air 03/09/17 15:50 108 22 95/58 97 Room Air 03/09/17 15:40 110 20 69/51 97 Room Air 03/09/17 15:32 112 20 87/49 96 Room Air 03/09/17 15:26 115 22 92/56 98 Room Air 03/09/17 15:07 134 22 76/53 98 Room Air 03/09/17 14:52 136 26 80/39 95 Room Air 03/09/17 14:41 129 26 74/50 95 Room Air 03/09/17 14:27 126 18 102/51 96 03/09/17 14:20 115 22 82/64 96 Room Air 03/09/17 14:10 113 16 93/49 97 Room Air 03/09/17 13:59 134 16 89/51 98 Room Air 03/09/17 13:34 125 18 93/45 99 Room Air 03/09/17 13:30 158 22 88/56 96 03/09/17 13:28 Room Air 03/09/17 13:22 133 03/09/17 13:20 96 Room Air 03/09/17 12:28 36.5 103 18 110/64 98 Room Air Physical Exam General Appearance: WD/WN, + mild distress Eyes: PERRL, EOMI Neck: supple, no JVD Respiratory/Chest: chest non-tender, lungs clear, normal breath sounds Cardiovascular: regular rate, rhythm, no murmur Abdomen: normal bowel sounds, non tender, soft Extremities: no pedal edema, no calf tenderness Neurologic/Psychiatric: alert, oriented x 3 Laboratory Results Last 24 Hours Test 03/09/17 13:28 03/09/17 17:06 03/09/17 17:09 03/09/17 20:38 White Blood Count 10.29 K/uL Red Blood Count 4.24 M/uL Hemoglobin 11.6 g/dL Hematocrit 37.6 % Mean Corpuscular Volume 88.7 fL Mean Corpuscular Hemoglobin 27.4 pg Mean Corpuscular Hemoglobin Concent 30.9 g/dl Platelet Count 152 K/uL Mean Platelet Volume 10.0 fL Neutrophils (%) (Auto) 80.1 % Lymphocytes (%) (Auto) 7.1 % Monocytes (%) (Auto) 12.1 % Eosinophils (%) (Auto) 0.2 % Basophils (%) (Auto) 0.1 % Neutrophils # (Auto) 8.25 K/uL Lymphocytes # (Auto) 0.73 K/uL Monocytes # (Auto) 1.24 K/uL Eosinophils # (Auto) 0.02 K/uL Basophils # (Auto) 0.01 K/uL Bedside Hemoglobin 13.3 g/dl Bedside Hematocrit 39 % RDW Standard Deviation 45.6 fL RDW Coefficient of Variation 14.1 % Immature Granulocyte % (Auto) 0.4 % Immature Granulocyte # (Auto) 0.04 K/uL Prothrombin Time 18.9 SECONDS Prothromb Time International Ratio 1.7 Bedside Sodium 131 mEq/L Sodium Level 131 mmol/L Bedside Potassium 3.4 mEq/L Potassium Level 3.4 mmol/L Bedside Chloride 96 mEq/L Chloride Level 97 mmol/L Carbon Dioxide Level 17 mmol/L Bedside Total CO2 17 mEq/l Anion Gap 22.0 mmol/L Bedside Blood Urea Nitrogen 27 mg/dl Blood Urea Nitrogen 28 mg/dl Creatinine 1.80 mg/dl Bedside Creatinine 1.8 mg/dl Est Creatinine Clear Calc Drug Dose 37.8 ml/min Estimated GFR () 35.1 Estimated GFR (Non- 30.3 BUN/Creatinine Ratio 15.4 Bedside Glucose (other) 103 mg/dl Random Glucose 96 mg/dl Calcium Level 9.0 mg/dl Bedside Ionized Calcium (Jean) 1.10 mmol/l Total Bilirubin 1.5 mg/dl Direct Bilirubin 0.4 mg/dl Aspartate Amino Transf (AST/SGOT) 11 U/L Alanine Aminotransferase (ALT/SGPT) 14 U/L Alkaline Phosphatase 56 U/L Total Creatine Kinase 111 U/L Creatine Kinase MB 0.8 ng/ml Creatine Kinase MB Ratio 0.7 Troponin I 0.027 ng/ml 0.016 ng/ml Total Protein 6.6 gm/dl Albumin 3.3 gm/dl Lipase 113 U/L Venous Blood pH 7.31 Venous Blood Partial Pressure CO2 33 mmHg Venous Blood Partial Pressure O2 41 mmHg Venous Blood HCO3 16 mmol/L Venous Blood Oxygen Saturation 71.2 % Venous Blood Base Excess -9.2 mmol/L Lactic Acid Level 0.7 mmol/L Procalcitonin 1.13 ng/ml Thyroid Stimulating Hormone (TSH) 0.861 uIu/ml Thyroxine (T4) 5.1 mcg/dl Ionized Calcium 1.08 mmol/l Phosphorus Level 2.5 mg/dl Magnesium Level 1.3 mg/dl Test 03/10/17 00:02 03/10/17 05:22 Bedside Glucose 116 mg/dl White Blood Count 4.88 K/uL Red Blood Count 3.64 M/uL Hemoglobin 10.2 g/dL Hematocrit 32.8 % Mean Corpuscular Volume 90.1 fL Mean Corpuscular Hemoglobin 28.0 pg Mean Corpuscular Hemoglobin Concent 31.1 g/dl Platelet Count 130 K/uL Mean Platelet Volume 9.8 fL Neutrophils (%) (Auto) 88.1 % Lymphocytes (%) (Auto) 7.6 % Monocytes (%) (Auto) 4.1 % Eosinophils (%) (Auto) 0.0 % Basophils (%) (Auto) 0.0 % Neutrophils # (Auto) 4.30 K/uL Lymphocytes # (Auto) 0.37 K/uL Monocytes # (Auto) 0.20 K/uL Eosinophils # (Auto) 0.00 K/uL Basophils # (Auto) 0.00 K/uL RDW Standard Deviation 46.6 fL RDW Coefficient of Variation 14.2 % Immature Granulocyte % (Auto) 0.2 % Immature Granulocyte # (Auto) 0.01 K/uL Prothrombin Time 22.3 SECONDS Prothromb Time International Ratio 2.0 Sodium Level 139 mmol/L Potassium Level 4.6 mmol/L Chloride Level 108 mmol/L Carbon Dioxide Level 20 mmol/L Anion Gap 11.0 mmol/L Blood Urea Nitrogen 21 mg/dl Creatinine 1.10 mg/dl Est Creatinine Clear Calc Drug Dose 62.8 ml/min Estimated GFR () 63.6 Estimated GFR (Non- 54.9 BUN/Creatinine Ratio 18.9 Random Glucose 112 mg/dl Calcium Level 8.3 mg/dl Phosphorus Level 3.0 mg/dl Magnesium Level 2.4 mg/dl Troponin I < 0.015 ng/ml Triglycerides Level 137 mg/dl Cholesterol Level 156 mg/dl HDL Cholesterol 38 mg/dl LDL Cholesterol, Calculated 91 mg/dl VLDL Cholesterol, Calculated 27 mg/dl Cholesterol/HDL Ratio 4.1 Assessment and Plan 61 F presents with afib rvr and a Hx of Paroxysmal Atrial Fibrillation(S/P dual pacemaker in 05/10/17), and frequent diarrhea, hypotension from afib or possibly adrenal crisis She sufffers from recent pneumonia(current cxr is clear) and chronic health issues includine renal transplant, s/p partial thyroidectomy Parathyroidectomy 2 /2 Adenoma Paroxysmal Atrial Fibrillation with Pacer: Cardizem drip initially resulted in hypotension that required volume recussitation with 3 L. - Recently Atenolol 25 mg BID was switched to metoprolol succinate 100 mg daily - Continue coumadin- ( 2 mg 2 days a week and 3 mg all other days of the week. ) if the patient needs cardioversion,concerns as her INR has been subtherapeutic and since 03/07 - Cardiology consulted, Dr. Courtney aware of the patient Diarrhea, with recent admission for pneumonia and immune suppression rule out infectious causes, may be bowel cathy disruption with amoxil Acute Kidney Injury: Baseline 1.[address] Lin, maybe related to hypotension and acute tubular necrosis from poor perfusion, resolved Hypotension resolved, typically on prednisone, given hydrocortisone S/P L Kidney Transplant due to Glomerulonephritis: [place] Dr. Fallon did most recent transplant in 1992 - CellCept 500 mg 1 tablet 3 times a day, tacrolimus 2 capsules in the a.m. and 3 capsules in the evening , typically on prednisone daily 5 S/P Thyroidectomy/Parathyroidectomy - stable not recnetly on sensipar, follow calcium DVT Prophylaxis: Coumadin, teds, scds Code status: Full code
[2017-03-10 07:23] LABS: ESTIMATED AVERAGE GLUCOSE 114 mg/dl; HA1C FLAG Normal (Normal)
[2017-03-10] MEDS: ASPIRIN 81 MG CHEW PO SCH (09:18)
[2017-03-10] MEDS: METOPROLOL SUCC 50MG EXT REL TAB PO SCH (09:19)
[2017-03-10] MEDS: RASPBERRY SYRUP 5 ML UDP PO SCH (09:19)
[2017-03-10] MEDS: TACROLIMUS 1 MG CAP PO SCH ×2 (09:19→20:57)
[2017-03-10] MEDS: VANCOMYCIN HCL 250 MG/5 ML SOLN PO SCH (09:21)
[2017-03-10] MEDS: MYCOPHENOLATE SODIUM 180 MG TAB PO SCH ×2 (09:22→20:58)
--- NOTE | 2017-03-10 11:40 | ECHOCARDIOGRAM REPORT ---
*NOTICE TO RECEIVING REPUBL[employer] AGENCY This information is strictly Confidential and protected under [place] law. [place] law prohibits you from making any further disclosure of this information unless further disclosure is expressly permitted by the written consent of the person to whom it pertains or is authorized by law. A general authorization for the release of medical or other information is not sufficient for this purpose. Hospital accepts no responsibility if the information is made available to any other person, INCLUDING THE PATIENT. Interpretation Summary * Name: MARLA ARANGO Study Date: 03/10/2017 08:02 AM BP: 147/72 mmHg * [facility] HR: 74 * : 1955 (M/d/yyyy) Gender: Female Height: 64 in * Age: 61 yrs Ethnicity: CA Weight: 465 lb * Ordering Physician: Ned Kraus * Referring Physician: Self, Referred * Performed By: Lala Hall RDCS * * Reason For Study: Atrial fibrillation * BSA: 2.8 m2 * -- Conclusions -- * Left ventricular systolic function is normal. * No obvious wall motion abnormality. * Ejection Fraction = 55-60%. * There is mild concentric left ventricular hypertrophy. * Diastolic dysfunction, Grade II (pseudonormalization pattern). * Aortic valve sclerosis mild, without significant aortic valvular stenosis. * There is mild mitral regurgitation. Procedure Details * A complete two-dimensional transthoracic echocardiogram was performed (2D, M-mode, Doppler and color flow Doppler). Left Ventricle * The left ventricle is grossly normal size. * There is mild concentric left ventricular hypertrophy. * Ejection Fraction = 55-60%. * Left ventricular systolic function is normal. * No obvious wall motion abnormality. Right Ventricle * The right ventricle is not well visualized. * The right ventricular systolic function is normal as assessed by tricuspid annular plane systolic excursion (TAPSE) (normal >1.5 cm). Atria * The left atrium is moderately dilated. * Right atrium not well visualized. * There is no evidence of atrial septal defect, but resolution does not allow assessment for a patent foramen ovale. Mitral Valve * The mitral valve is grossly normal. * There is mild mitral regurgitation. Tricuspid Valve * The tricuspid valve is not well visualized. * Significant tricuspid regurgitation is absent. Aortic Valve * The aortic valve is not well visualized. * Aortic valve sclerosis mild, without significant aortic valvular stenosis. * There is no significant aortic regurgitation. Pulmonic Valve * The pulmonary valve is not well seen, but the Doppler examination is normal without significant regurgitation or stenosis. Great Vessels * The aortic root is normal size. * The pulmonary is not well visualized. Pericardium/Pleural * There is no pericardial effusion. Great Vessels * Normal inferior vena cava size and collapsability with sniff indicates a normal right atrial pressure of 3 mmHg Left Ventricular Diastolic Function * Diastolic dysfunction, Grade II (pseudonormalization pattern). MMode 2D Measurements and Calculations IVSd 1.3 cm LVIDd 3.8 cm LVIDs 2.3 cm LVPWd 0.92 cm IVS/LVPW 1.4 FS 38.5 % EDV(Teich) 61.5 ml ESV(Teich) 18.7 ml EF(Teich) 69.5 % EDV(cubed) 54.4 ml ESV(cubed) 12.7 ml EF(cubed) 76.7 % LV mass(C)d 135.9 grams LV mass(C)dI 48.5 grams/m\S\2 SV(Teich) 42.8 ml SI(Teich) 15.3 ml/m\S\2 SV(cubed) 41.7 ml SI(cubed) 14.9 ml/m\S\2 Ao root diam 3.0 cm Ao root area 7.2 cm\S\2 ACS 1.6 cm LA dimension 4.0 cm asc Aorta Diam 3.0 cm LA/Ao 1.3 LVOT diam 2.0 cm LVOT area 3.0 cm\S\2 LVAd ap4 23.1 cm\S\2 LVLd ap4 6.7 cm EDV(MOD-sp4) 66.5 ml EDV(sp4-el) 67.7 ml LVAs ap4 11.9 cm\S\2 LVLs ap4 5.3 cm ESV(MOD-sp4) 23.1 ml ESV(sp4-el) 22.8 ml EF(MOD-sp4) 65.3 % EF(sp4-el) 66.4 % LVAd ap2 20.8 cm\S\2 LVLd ap2 6.8 cm EDV(MOD-sp2) 50.6 ml EDV(sp2-el) 53.9 ml LVAs ap2 9.9 cm\S\2 LVLs ap2 5.1 cm ESV(MOD-sp2) 15.7 ml ESV(sp2-el) 16.2 ml EF(MOD-sp2) 69.0 % EF(sp2-el) 70.0 % LVLd %diff 1.7 % EDV(MOD-bp) 59.3 ml LVLs %diff -2.55 % ESV(MOD-bp) 18.8 ml EF(MOD-bp) 68.4 % SV(MOD-sp4) 43.5 ml SI(MOD-sp4) 15.5 ml/m\S\2 SV(MOD-sp2) 34.9 ml SI(MOD-sp2) 12.5 ml/m\S\2 SV(MOD-bp) 40.5 ml SI(MOD-bp) 14.5 ml/m\S\2 SV(sp4-el) 44.9 ml SI(sp4-el) 16.1 ml/m\S\2 SV(sp2-el) 37.7 ml SI(sp2-el) 13.5 ml/m\S\2 Doppler Measurements and Calculations MV E max campos 135.3 cm/sec MV dec time 0.18 sec Ao V2 max 147.1 cm/sec Ao max PG 8.7 mmHg Ao max PG (full) 6.6 mmHg DAVID(V,A) 1.5 cm\S\2 DAVID(V,D) 1.5 cm\S\2 LV V1 max PG 2.1 mmHg LV V1 max 71.7 cm/sec MR max campos 466.3 cm/sec MR max PG 87.3 mmHg MR mean campos 391.1 cm/sec MR mean PG 66.2 mmHg MR VTI 170.5 cm PA V2 max 78.9 cm/sec PA max PG 2.5 mmHg PA acc slope 597.6 cm/sec\S\2 PA acc time 0.11 sec TR max campos 291.4 cm/sec PA pr(Accel) 31.1 mmHg
--- NOTE | 2017-03-10 14:39 | Critical Care Progress Note ---
Critical Care Progress Note Date of Service Mar 10, 2017. ICU Day ICU Day Number: [address] Kraus Subjective The patient was seen and examined at bedside. Pt converted to paced rhythm overnight. Pt reports two episodes of loose stools overnight. Phenylephrine was discontinued due to the patient having excellent pressures. Patient is resting comfortably in chair next to bed. Denies having any pain. Eating and urinating well. Plan of care was described to the patient and all questions were answered. Objective Gen: No acute distress. HEENT: Head - normocephalic and atraumatic. Pupils are equal, round, and reactive to light. Extraocular eye muscles are intact and sclera are anicteric. Ears - bilaterally patent canals with noninjected tympanic membranes and no evidence of hemotympanum. Nose - moist nasal mucosa without discharge. Mouth - moist buccal mucosa. Oropharynx is nonerythematous and there is no tonsillar exudate or edema noted. Neck: Supple; no JVD, nuchal rigidity, cervical lymphadenopathy, or auscultated bruits. Heart: Regular rate and rhythm. There is a normal S1 and S2 with no murmurs, clicks, or gallops appreciated. Lungs: Clear to auscultation bilaterally with no wheezes, rales, or rhonchi. Abdomen: Soft, completely nontender, nondistended, with good bowel sounds. There are no palpable pulsatile masses or hepatosplenomegaly. There is no guarding, rigidity, or rebound noted. Extremities: No evidence of cyanosis, clubbing, or edema. There are easily palpable peripheral pulses. Neuro:The patient is awake and alert, oriented to day, time, and place. Muscle strength is 5/5 in all 4 extremities. The patient has equal hot cell technician strength and equal pedal push and pull. There are no cerebellar signs. Current SOFA Score SOFA Score Response (Comments) Value Platelets (x10) < 150 1 Bilirubin (mg/dL) < 1.2 0 Derick Coma Score 15 0 Level of Hypotension No Hypotension 0 Creatinine (mg/dL) < 1.2 0 Total 1 Assessment & Plan 61F with PMHx of Paroxysmal Atrial Fibrillation, S/P dual pacemaker in 05/10/17, s/p partial thyroidectomy Parathyroidectomy 2/2 Adenoma, S/P L Kidney Transplant 2/2 Glomerulonephritis x 4 years ago, and HTN who presents increase sensation of dizziness and lightheadedness, rapid palpitations and increased diarrhea 15 times since midnight. Diarrhea resolving, pt converted to paced rhythm overnight, etiology is likely multifactorial (dehydration, electrolytes, infection). Neuro: AAOx3 CV: Paroxysmal Atrial Fibrillation with RVR with Pacer (resolved): * EKG showed atrial paced rhythm with PACs. * Etiology of A Fib was likely multifactorial (dehydration, electrolytes, infection) that resolved with correction of underlying causes. * Continue coumadin per home regimen, 2mg x twice weekly with 3mg on the other days. * Continue with Metoprolol 100mg QAM with hold parameters of MAP <60. * Echocardiogram showed normal LVEF and no acute pathology. * Trop neg x 3. * TSH and Free T4 are WNL. Severe PAD * c/w ASA 81mg. Respiratory: Pt is saturating well on room air, chest X-ray was negative for infiltrates, continue to monitor. GI/ Diarrhea: * AST = 11, ALT =14. * Stop Vancomycin PO and continue with PO Flagyl. * Follow up stool cultures and C. Diff toxin. Renal: * Acute Kidney Injury (resolving): Creatinine at baseline of 1.1 from 1.8 yesterday. * S/P L Kidney Transplant due to Glomerulonephritis: Pt is on Prednisone 5mg per day, will continue. * Per patient clarification of med rec, pt is on Mycophenolate and not CellCept , will switch back to home medication. * Continue Tacrolimus 2 capsules in the a.m. and 3 capsules in the evening. Endo * S/P Thyroidectomy/Parathyroidectomy, TSH normal. Free T4 normal. * Electrolytes: Na+ 139, K+ 4.6, Phosphate 3.0, Magnesium 2.4 after significant repletion. Monitor daily. * Blood Sugars: Well controlled, HBA1C was 5.6. Heme: * HgBb: 10.2, pt is at her baseline. * DVT Prophylaxis: Coumadin as above. ID: * Diarrhea: Flagyl 500mg BID * Procalcitonin = 1.1 * Lactic Acid = 0.7 * Blood Cultures: Negative to date, stool cultures and C. Diff cultures pending. * Stop Cefepime, and PO and IV Vanco. Full code Resident Physician Supervision Note: Dr. Soto was resident physician during care of patient. I separately evaluated patient and did history and exam. I discussed the case with the resident and generally agree with the findings and plan. Significant improvement. D/C broad abx, and continue flagyl until c. diff negative or positive. Given improvement and decreased GI output and lack of pain, d/[place] oral vancomycin. Stable for downgrade. Documented By: Ned Kraus DO Consults & Procedures Consultants: Cardiology - Dr. Fletcher Procedures: Echocardiogram - 03/10/17 Data Medications: Current Inpatient Medications Medications (Trade) Dose Ordered Sig/Clarita Route Start Time Stop Time Status Last Admin Dose Admin Acetaminophen (Tylenol Tab) 650 mg Q4H PRN PO 03/09/17 15:45 04/08/17 15:44 Ondansetron HCl (Zofran Inj) 4 mg Q6H PRN IV 03/09/17 15:45 04/08/17 15:44 Polyethylene (Miralax Powder Packet) 17 gm DAILY PRN PO 03/09/17 15:45 04/08/17 15:44 Prednisone (PredniSONE TAB) 5 mg DAILY PO 03/10/17 09:00 04/09/17 08:59 03/10/17 09:19 5 MG Tacrolimus (Prograf Cap) 2 mg QAM PO 03/10/17 09:00 04/09/17 08:59 03/10/17 09:19 2 MG Tacrolimus (Prograf Cap) 3 mg QPM PO 03/09/17 21:00 04/08/17 20:59 03/09/17 20:34 3 MG Warfarin Sodium (Coumadin Tab) 3 mg DAILY@1600 PO 03/09/17 21:00 04/08/17 20:59 03/09/17 20:34 3 MG Metoprolol Succinate (Toprol Xl Tab) 100 mg QAM PO 03/10/17 09:00 04/09/17 08:59 03/10/17 09:19 100 MG Aspirin (Aspirin Chew) 81 mg DAILY PO 03/10/17 09:00 04/09/17 08:59 03/10/17 09:18 81 MG Hydrocortisone Sodium Succinate 50 mg/Syringe 1 ml @ 4 mls/min Q8H IV 03/10/17 00:30 03/11/17 08:31 03/10/17 09:21 4 MLS/MIN Metronidazole (Flagyl Tab) 500 mg Q8H PO 03/10/17 00:30 03/20/17 00:29 03/10/17 09:17 500 MG Mycophenolate Sodium (Myfortic Tab) 540 mg BID PO 03/09/17 22:00 04/08/17 21:59 03/10/17 09:22 540 MG Vital Signs: Date Time Temp Pulse Resp B/P (MAP) Pulse Ox O2 Delivery O2 Flow Rate FiO2 03/10/17 06:01 74 16 147/80 (102) 98 03/10/17 06:00 75 25 98 03/10/17 05:01 75 15 127/62 (83) 98 03/10/17 05:00 73 17 99 03/10/17 04:56 36.7 03/10/17 04:22 97 Room Air 03/10/17 04:01 74 13 147/72 (97) 100 03/10/17 04:00 35.0 71 35 100 03/10/17 03:01 72 16 120/63 (82) 97 03/10/17 03:00 69 15 96 03/10/17 02:01 72 20 113/62 (79) 97 03/10/17 02:00 65 18 97 03/10/17 01:01 65 16 104/54 (71) 97 03/10/17 01:00 63 17 97 03/10/17 00:49 97 Room Air 03/10/17 00:01 36.5 69 19 102/52 (69) 97 03/10/17 00:00 70 18 97 03/09/17 23:31 70 16 100/49 (66) 97 03/09/17 23:01 69 17 102/52 (69) 97 03/09/17 23:00 71 18 97 03/09/17 23:00 71 18 97 03/09/17 22:31 71 18 115/63 (80) 99 03/09/17 22:30 70 20 99 03/09/17 22:01 74 12 124/53 (76) 98 03/09/17 22:00 70 17 99 03/09/17 21:31 101 16 117/62 (80) 97 03/09/17 21:30 91 18 98 03/09/17 21:00 105 20 141/127 (132) 98 03/09/17 20:42 96 22 134/76 (95) 03/09/17 20:30 97 18 98 03/09/17 20:01 123 16 113/52 (72) 98 03/09/17 20:00 97 Room Air 03/09/17 20:00 36.4 129 18 97 03/09/17 19:51 98 21 83/47 (59) 97 03/09/17 19:38 90 15 137/79 (98) 03/09/17 19:30 110 23 98 03/09/17 19:16 127 25 130/51 (77) 03/09/17 19:01 99 14 141/99 (113) 97 03/09/17 19:00 36.4 124 14 102/52 (69) 97 Room Air 03/09/17 19:00 101 25 97 03/09/17 18:25 36.7 144 12 149/88 99 Room Air 03/09/17 17:54 115 18 120/68 97 Room Air 03/09/17 17:23 113 24 107/62 95 Room Air 03/09/17 16:33 106 20 109/50 97 Room Air 03/09/17 16:02 108 16 91/48 94 Room Air 03/09/17 15:50 108 22 95/58 97 Room Air 03/09/17 15:40 110 20 69/51 97 Room Air 03/09/17 15:32 112 20 87/49 96 Room Air 03/09/17 15:26 115 22 92/56 98 Room Air 03/09/17 15:07 134 22 76/53 98 Room Air 03/09/17 14:52 136 26 80/39 95 Room Air 03/09/17 14:41 129 26 74/50 95 Room Air 03/09/17 14:27 126 18 102/51 96 03/09/17 14:20 115 22 82/64 96 Room Air 03/09/17 14:10 113 16 93/49 97 Room Air 03/09/17 13:59 134 16 89/51 98 Room Air 03/09/17 13:34 125 18 93/45 99 Room Air 03/09/17 13:30 158 22 88/56 96 03/09/17 13:28 Room Air 03/09/17 13:22 133 03/09/17 13:20 96 Room Air Laboratory Results: Last 24 Hours Test 03/09/17 13:28 03/09/17 17:06 03/09/17 17:09 03/09/17 20:38 White Blood Count 10.29 K/uL Red Blood Count 4.24 M/uL Hemoglobin 11.6 g/dL Hematocrit 37.6 % Mean Corpuscular Volume 88.7 fL Mean Corpuscular Hemoglobin 27.4 pg Mean Corpuscular Hemoglobin Concent 30.9 g/dl Platelet Count 152 K/uL Mean Platelet Volume 10.0 fL Neutrophils (%) (Auto) 80.1 % Lymphocytes (%) (Auto) 7.1 % Monocytes (%) (Auto) 12.1 % Eosinophils (%) (Auto) 0.2 % Basophils (%) (Auto) 0.1 % Neutrophils # (Auto) 8.25 K/uL Lymphocytes # (Auto) 0.73 K/uL Monocytes # (Auto) 1.24 K/uL Eosinophils # (Auto) 0.02 K/uL Basophils # (Auto) 0.01 K/uL Bedside Hemoglobin 13.3 g/dl Bedside Hematocrit 39 % RDW Standard Deviation 45.6 fL RDW Coefficient of Variation 14.1 % Immature Granulocyte % (Auto) 0.4 % Immature Granulocyte # (Auto) 0.04 K/uL Prothrombin Time 18.9 SECONDS Prothromb Time International Ratio 1.7 Bedside Sodium 131 mEq/L Sodium Level 131 mmol/L Bedside Potassium 3.4 mEq/L Potassium Level 3.4 mmol/L Bedside Chloride 96 mEq/L Chloride Level 97 mmol/L Carbon Dioxide Level 17 mmol/L Bedside Total CO2 17 mEq/l Anion Gap 22.0 mmol/L Bedside Blood Urea Nitrogen 27 mg/dl Blood Urea Nitrogen 28 mg/dl Creatinine 1.80 mg/dl Bedside Creatinine 1.8 mg/dl Est Creatinine Clear Calc Drug Dose 37.8 ml/min Estimated GFR () 35.1 Estimated GFR (Non- 30.3 BUN/Creatinine Ratio 15.4 Bedside Glucose (other) 103 mg/dl Random Glucose 96 mg/dl Calcium Level 9.0 mg/dl Bedside Ionized Calcium (Jean) 1.10 mmol/l Total Bilirubin 1.5 mg/dl Direct Bilirubin 0.4 mg/dl Aspartate Amino Transf (AST/SGOT) 11 U/L Alanine Aminotransferase (ALT/SGPT) 14 U/L Alkaline Phosphatase 56 U/L Total Creatine Kinase 111 U/L Creatine Kinase MB 0.8 ng/ml Creatine Kinase MB Ratio 0.7 Troponin I 0.027 ng/ml 0.016 ng/ml Total Protein 6.6 gm/dl Albumin 3.3 gm/dl Lipase 113 U/L Venous Blood pH 7.31 Venous Blood Partial Pressure CO2 33 mmHg Venous Blood Partial Pressure O2 41 mmHg Venous Blood HCO3 16 mmol/L Venous Blood Oxygen Saturation 71.2 % Venous Blood Base Excess -9.2 mmol/L Lactic Acid Level 0.7 mmol/L Procalcitonin 1.13 ng/ml Thyroid Stimulating Hormone (TSH) 0.861 uIu/ml Thyroxine (T4) 5.1 mcg/dl Ionized Calcium 1.08 mmol/l Phosphorus Level 2.5 mg/dl Magnesium Level 1.3 mg/dl Test 03/10/17 00:02 03/10/17 05:22 Bedside Glucose 116 mg/dl White Blood Count 4.88 K/uL Red Blood Count 3.64 M/uL Hemoglobin 10.2 g/dL Hematocrit 32.8 % Mean Corpuscular Volume 90.1 fL Mean Corpuscular Hemoglobin 28.0 pg Mean Corpuscular Hemoglobin Concent 31.1 g/dl Platelet Count 130 K/uL Mean Platelet Volume 9.8 fL Neutrophils (%) (Auto) 88.1 % Lymphocytes (%) (Auto) 7.6 % Monocytes (%) (Auto) 4.1 % Eosinophils (%) (Auto) 0.0 % Basophils (%) (Auto) 0.0 % Neutrophils # (Auto) 4.30 K/uL Lymphocytes # (Auto) 0.37 K/uL Monocytes # (Auto) 0.20 K/uL Eosinophils # (Auto) 0.00 K/uL Basophils # (Auto) 0.00 K/uL RDW Standard Deviation 46.6 fL RDW Coefficient of Variation 14.2 % Immature Granulocyte % (Auto) 0.2 % Immature Granulocyte # (Auto) 0.01 K/uL Prothrombin Time 22.3 SECONDS Prothromb Time International Ratio 2.0 Sodium Level 139 mmol/L Potassium Level 4.6 mmol/L Chloride Level 108 mmol/L Carbon Dioxide Level 20 mmol/L Anion Gap 11.0 mmol/L Blood Urea Nitrogen 21 mg/dl Creatinine 1.10 mg/dl Est Creatinine Clear Calc Drug Dose 62.8 ml/min Estimated GFR () 63.6 Estimated GFR (Non- 54.9 BUN/Creatinine Ratio 18.9 Random Glucose 112 mg/dl Estimated Average Glucose 114 mg/dl Hemoglobin A1c 5.6 % Calcium Level 8.3 mg/dl Phosphorus Level 3.0 mg/dl Magnesium Level 2.4 mg/dl Troponin I < 0.015 ng/ml Triglycerides Level 137 mg/dl Cholesterol Level 156 mg/dl HDL Cholesterol 38 mg/dl LDL Cholesterol, Calculated 91 mg/dl VLDL Cholesterol, Calculated 27 mg/dl Cholesterol/HDL Ratio 4.1 Resident Involvement: Resident Care Provided Care Provided: Adult [facility]
[2017-03-10] MEDS: WARFARIN SOD 3 MG TAB PO SCH (15:51)
[2017-03-11 00:05] VITALS: BP 123/58; PULSE 72; TEMP 36.3; O2SAT 96
[2017-03-11] MEDS: HYDROCORTISONE IV 50 MG in SYRINGE 0 ML IV SCH ×2 (00:50→11:29)
[2017-03-11] MEDS: METRONIDAZOLE 500 MG TAB PO SCH ×3 (00:50→16:56)
[2017-03-11 04:08] VITALS: BP 140/67; PULSE 74; TEMP 36.8; O2SAT 94
[2017-03-11 05:57] LABS: COMPLETE YES; HEMATOCRIT 34.5 % (37-47); IG% 0.4 %; LYMPH % 1.8 %; LYMPH ABS # 0.27 K/uL (1.2-3.4); MEAN CELL VOLUME 88.7 fL (80-100); MEAN CORPUSCULAR HEMOGLOBIN 26.5 pg (25-34); MEAN CORPUSCULAR HGB CONC 29.9 g/dl (32-36); MONO % 5.5 %; NEUT % 92.3 %; PLATELET COUNT 153 K/uL (130-400); RED BLOOD COUNT 3.89 M/uL (4.2-5.4); WHITE BLOOD COUNT 15.39 K/uL (4.8-10.8)
[2017-03-11 06:05] LABS: INR 3.9 (0.9-1.1); PROTHROMBIN TIME (PATIENT) 44.5 SECONDS (9.0-12.0)
[2017-03-11 06:27] LABS: BUN/CREATININE RATIO 24.9 (10-20); CALCIUM 8.9 mg/dl (8.5-10.1); CREATININE 1.3 mg/dl (0.60-1.20); POTASSIUM 4.1 mmol/L (3.5-5.1)
--- NOTE | 2017-03-11 06:35 | Progress Note ---
Subjective Date of Service: Mar 11, 2017. Subjective pt states she does not feel good and that her diarrhea is back, she states sometime is when her cellcept is high, level is sent and pending, I did reach out to customer relations coordinator, they called with bad connection and did not call back. Infectious c diff negative enterics pending stress steroids will be transitioned to po Problem List Medical Problems: (1) Acute kidney injury Status: Acute (2) Acute kidney injury Status: Acute (3) Acute renal failure Status: Acute (4) Atrial fibrillation with RVR Status: Acute (5) Diarrhea Status: Acute (6) Hypokalemia Status: Acute (7) Hypotension Status: Acute (8) Immunocompromised Status: Acute (9) Leukocytosis Status: Acute (10) UTI (urinary tract infection) Status: Acute Social History Problems: (1) H/O kidney transplant Status: Acute (2) Renal transplant recipient Status: Acute Review of Systems Constitutional: + weakness, + fatigue, No fever, No chills Cardiac: No chest pain, No edema Abdomen: + diarrhea, No pain, No nausea, No vomiting, No constipation Musculoskeletal: No joint pain, No muscle pain Female : No dysuria, No urinary frequency Neurologic: No memory loss, No paralysis Psychiatric: + depression symptoms, No anhedonism Objective Vital Signs Date Time Temp Pulse Resp B/P (MAP) Pulse Ox O2 Delivery O2 Flow Rate FiO2 03/11/17 04:08 36.8 74 18 140/67 (91) 94 Room Air 03/11/17 04:00 Room Air 03/11/17 00:05 36.3 72 18 123/58 (79) 96 Room Air 03/10/17 23:59 Room Air 03/10/17 20:00 Room Air 03/10/17 19:25 36.8 71 20 110/61 (77) 94 Room Air 03/10/17 15:56 36.6 72 14 143/73 (96) 98 Room Air 03/10/17 15:38 36.6 94 14 97 03/10/17 12:01 36.6 94 14 136/73 (94) 97 03/10/17 12:00 96 Room Air 03/10/17 08:01 36.9 76 24 158/86 (110) 97 03/10/17 08:00 97 Room Air Physical Exam General Appearance: WD/WN, + mild distress Eyes: PERRL, EOMI Neck: supple, thyroid normal Respiratory/Chest: chest non-tender, lungs clear, normal breath sounds Cardiovascular: regular rate, rhythm, no murmur Abdomen: normal bowel sounds, non tender, soft Extremities: no pedal edema, no calf tenderness Neurologic/Psychiatric: alert, oriented x 3 Laboratory Results Last 24 Hours Test 03/11/17 05:35 White Blood Count 15.39 K/uL Red Blood Count 3.89 M/uL Hemoglobin 10.3 g/dL Hematocrit 34.5 % Mean Corpuscular Volume 88.7 fL Mean Corpuscular Hemoglobin 26.5 pg Mean Corpuscular Hemoglobin Concent 29.9 g/dl Platelet Count 153 K/uL Mean Platelet Volume 10.0 fL Neutrophils (%) (Auto) 92.3 % Lymphocytes (%) (Auto) 1.8 % Monocytes (%) (Auto) 5.5 % Eosinophils (%) (Auto) 0.0 % Basophils (%) (Auto) 0.0 % Neutrophils # (Auto) 14.22 K/uL Lymphocytes # (Auto) 0.27 K/uL Monocytes # (Auto) 0.84 K/uL Eosinophils # (Auto) 0.00 K/uL Basophils # (Auto) 0.00 K/uL RDW Standard Deviation 46.6 fL RDW Coefficient of Variation 14.4 % Immature Granulocyte % (Auto) 0.4 % Immature Granulocyte # (Auto) 0.06 K/uL Prothrombin Time 44.5 SECONDS Prothromb Time International Ratio 3.9 Sodium Level 140 mmol/L Potassium Level 4.1 mmol/L Chloride Level 109 mmol/L Carbon Dioxide Level 21 mmol/L Anion Gap 10.0 mmol/L Creatinine 1.30 mg/dl Est Creatinine Clear Calc Drug Dose 53.3 ml/min Estimated GFR () 52.0 Estimated GFR (Non- 44.9 BUN/Creatinine Ratio 24.9 Random Glucose 150 mg/dl Calcium Level 8.9 mg/dl Assessment and Plan 61 F presents with afib rvr and a Hx of Paroxysmal Atrial Fibrillation(S/P dual pacemaker in 05/10/17), and frequent diarrhea, hypotension from afib or possibly adrenal crisis She suffers from recent pneumonia(current cxr is clear) and chronic health issues including renal transplant, s/p partial thyroidectomy Parathyroidectomy 2 /2 Adenoma Paroxysmal Atrial Fibrillation with Pacer: Cardizem drip initially resulted in hypotension that required volume recussitation with 3 L. off cardizem - Recently Atenolol 25 mg BID was switched to metoprolol succinate 100 mg daily - Continue coumadin- ( 2 mg 2 days a week and 3 mg all other days of the week. ) coumadin has creeped up - Cardiology consulted, Dr. Courtney has seen patient, family is interested in establishing with EP here for pacemaker care, it was interogated in er Diarrhea, with recent admission for pneumonia and immune suppression rule out infectious causes, may be bowel cathy disruption with amoxil, c diff negative, await enterics, and prograf level as high levels have caused pt diarrhea Acute Kidney Injury: Baseline 1.[address] Lin, maybe related to hypotension and acute tubular necrosis from poor perfusion, resolved Hypotension resolved, typically on prednisone, given hydrocortisone now returns to po prednisone 5 daily S/P L Kidney Transplant due to Glomerulonephritis: [facility] did most recent transplant in 1992 - CellCept 500 mg 1 tablet 3 times a day, tacrolimus 2 capsules in the a.m. and 3 capsules in the evening , typically on prednisone daily 5 S/P Thyroidectomy/Parathyroidectomy - stable not recently on sensipar, follow calcium DVT Prophylaxis: Coumadin, teds, scds Code status: Full code
[2017-03-11] MEDS: MYCOPHENOLATE SODIUM 180 MG TAB PO SCH ×2 (07:58→20:41)
[2017-03-11] MEDS: TACROLIMUS 1 MG CAP PO SCH ×2 (07:59→20:42)
[2017-03-11] MEDS: METOPROLOL SUCC 50MG EXT REL TAB PO SCH (08:00)
[2017-03-11] MEDS: ASPIRIN 81 MG CHEW PO SCH (08:07)
[2017-03-11 08:18] VITALS: BP 150/74; PULSE 70; TEMP 36.5; O2SAT 94
[2017-03-11 11:25] VITALS: BP 115/53; PULSE 75; TEMP 36.7; O2SAT 95
[2017-03-11] MEDS ORDERED: LOPERAMIDE HCL 2 MG CAP PO PRN (14:00)
[2017-03-11 15:30] VITALS: BP 146/74; PULSE 72; TEMP 36.6; O2SAT 96
[2017-03-11] MEDS ORDERED: LORAZEPAM 2 MG/ML 1 ML VIAL IV PRN ×2 (17:45)
[2017-03-11] MEDS ORDERED: LORAZEPAM 0.5 MG TAB PO PRN (17:45)
--- NOTE | 2017-03-11 18:30 | Progress Note ---
Progress Note Date of Service Mar 11, 2017. Progress Note I was called by nursing as the patient was unhappy and was planning to leave AGAINST MEDICAL ADVICE. I left the patient I was attending to in the ER who was hypotensive with free air in her abdomen to talk to the patient. The patient was unhappy because she felt her renal function was worsening and she had elevated white count was fearful that she was rejecting her kidney. I explained to her that her creatinine was 1.3 which is actually less than when she first arrived, better elevated white count could be from the hydrocortisone she received for adrenal stress dosing. I also explained that I called her transplant team and received a call back for cannot hear them and then did not receive any additional calls. I attempted to return a call to the number that was called to me and was unable to leave a message on that line. The patient was uncomfortable and she wishes to see Dr. Robison and her transplant doctors I explained to Dr. Robison is likely to return tomorrow and he or one of his partners will see her initially they were uninvolved as her creatinine did improve. She has a pending tacrolimus level which is a send out. I asked the patient to reconsiderand she will talk it over with her . If she does stay we will institute some IV fluid as she feels she's had poor urine output today and collect a urine culture which was not initially done on presentation. To date her stool infectious cultures have been negative and her initial presentation could be from adrenal insufficiency from chronic suppressive prednisone.
[2017-03-11] MEDS: SODIUM CHLORIDE 0.9% 1000ML 1,000 ML IV SCH (20:03)
[2017-03-11 21:27] VITALS: BP 164/87; PULSE 78; TEMP 36.4; O2SAT 94
[2017-03-12 00:02] VITALS: BP 141/70; PULSE 72; TEMP 36.6; O2SAT 96
[2017-03-12] MEDS: METRONIDAZOLE 500 MG TAB PO SCH ×3 (00:04→15:43)
[2017-03-12 04:00] VITALS: BP 125/59; PULSE 76; TEMP 36.8; O2SAT 97
[2017-03-12] MEDS: SODIUM CHLORIDE 0.9% 1000ML 1,000 ML IV SCH (06:32)
[2017-03-12 07:00] LABS: COMPLETE YES; EOS % 0.4 %; HEMATOCRIT 31.5 % (37-47); IG% 0.4 %; LYMPH % 6.8 %; LYMPH ABS # 0.66 K/uL (1.2-3.4); MEAN CELL VOLUME 87.7 fL (80-100); MEAN CORPUSCULAR HEMOGLOBIN 26.5 pg (25-34); MEAN CORPUSCULAR HGB CONC 30.2 g/dl (32-36); MEAN PLATELET VOLUME 10.3 fL (7.4-10.4); MONO % 9.4 %; PLATELET COUNT 137 K/uL (130-400); RED BLOOD COUNT 3.59 M/uL (4.2-5.4); WHITE BLOOD COUNT 9.72 K/uL (4.8-10.8)
[2017-03-12 07:24] LABS: INR 4.2 (0.9-1.1)
[2017-03-12 07:43] LABS: CALCIUM 8.9 mg/dl (8.5-10.1); CREATININE 1.3 mg/dl (0.60-1.20); POTASSIUM 3.3 mmol/L (3.5-5.1)
[2017-03-12 08:00] VITALS: BP 114/53; PULSE 74; TEMP 36.8; O2SAT 95
[2017-03-12] MEDS: ASPIRIN 81 MG CHEW PO SCH (09:00)
[2017-03-12] MEDS: TACROLIMUS 1 MG CAP PO SCH ×2 (09:32→21:16)
[2017-03-12] MEDS: MYCOPHENOLATE SODIUM 180 MG TAB PO SCH ×2 (09:34→21:16)
[2017-03-12] MEDS: METOPROLOL SUCC 50MG EXT REL TAB PO SCH (09:35)
--- NOTE | 2017-03-12 10:02 | Cardiology Follow-Up ---
Subjective Date of Service: Mar 12, 2017. Pt evaluation today including: conversation w/ patient, physical exam, chart review, lab review History of Present Illness This morning the patient is feeling well. She has been ambulatory around the room and does report some dyspnea with exertion. She denies significant dizziness. She is not currently aware of palpitations. She did feel immediately better after conversion to sinus rhythm shortly after admission. Social History Smoking Status: Never Smoker History of Alcohol Use: No Review of Systems Respiratory: No cough, No shortness of breath, No dyspnea on exertion Cardiac: No chest pain, No edema Objective Vital Signs Past 12 Hours Date Time Temp Pulse Resp B/P (MAP) Pulse Ox O2 Delivery O2 Flow Rate FiO2 03/12/17 08:00 36.8 74 16 114/53 (73) 95 Room Air 03/12/17 04:00 36.8 76 17 125/59 (81) 97 Nasal Cannula 1.0 03/12/17 04:00 Room Air 03/12/17 00:02 36.6 72 17 141/70 (93) 96 Nasal Cannula 1.0 03/11/17 23:59 Room Air Last Recorded Weight-Kilograms: 100.000 Physical Exam She is alert and oriented x3. Mood affect appear normal. She answered all questions appropriately. She did appear acutely ill. HEENT: Sclerae are anicteric. Pupils are equal and reactive to light and accommodation. Extraocular movements were intact. Neuro: Cranial nerves intact Lungs: Clear to auscultation bilaterally. No expiratory wheezing Cardiac: Regular rate and rhythm very soft systolic ejection murmur Data Laboratory Results: Last 24 Hours Test 03/12/17 05:32 White Blood Count 9.72 K/uL Red Blood Count 3.59 M/uL Hemoglobin 9.5 g/dL Hematocrit 31.5 % Mean Corpuscular Volume 87.7 fL Mean Corpuscular Hemoglobin 26.5 pg Mean Corpuscular Hemoglobin Concent 30.2 g/dl Platelet Count 137 K/uL Mean Platelet Volume 10.3 fL Neutrophils (%) (Auto) 83.0 % Lymphocytes (%) (Auto) 6.8 % Monocytes (%) (Auto) 9.4 % Eosinophils (%) (Auto) 0.4 % Basophils (%) (Auto) 0.0 % Neutrophils # (Auto) 8.07 K/uL Lymphocytes # (Auto) 0.66 K/uL Monocytes # (Auto) 0.91 K/uL Eosinophils # (Auto) 0.04 K/uL Basophils # (Auto) 0.00 K/uL RDW Standard Deviation 46.3 fL RDW Coefficient of Variation 14.4 % Immature Granulocyte % (Auto) 0.4 % Immature Granulocyte # (Auto) 0.04 K/uL Prothrombin Time 48.0 SECONDS Prothromb Time International Ratio 4.2 Sodium Level 140 mmol/L Potassium Level 3.3 mmol/L Chloride Level 108 mmol/L Carbon Dioxide Level 20 mmol/L Anion Gap 12.0 mmol/L Blood Urea Nitrogen 31 mg/dl Creatinine 1.30 mg/dl Est Creatinine Clear Calc Drug Dose 53.6 ml/min Estimated GFR () 52.0 Estimated GFR (Non- 44.9 BUN/Creatinine Ratio 24.0 Random Glucose 110 mg/dl Calcium Level 8.9 mg/dl Telemetry reviewed: Sinus rhythm with frequent atrially paced rhythm Assessment and Plan 1. Atrial fibrillation: patient converted to sinus rhythm shortly after admission. She did feel immediately better. Overall she appears to have infrequent episodes of atrial fibrillation. The etiology of the current episode may be related to acute illness. Its role in her decompensation is unclear. This point I would continue her current medical regimen including warfarin. 2. Hypotension: Improved 3. Aortic stenosis: Mild. This can be followed over time 4. Coronary artery disease: Nonobstructive in 2010. No current symptoms to suggest coronary insufficiency or angina. 5. 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 He was seem reasonable now that she is normotensive to continue her on her current dose of metoprolol succinate. 6. Dyspnea: This of unclear etiology. She is known to have preserved LV systolic function and nonobstructive coronary disease. There is a possibility that she has an adequate chronotropic response with her pacemaker. Unfortunately the histograms were cleared at her last evaluation a few weeks ago. This can be re-evaluated in the outpatient setting if she wishes to follow up in our clinic. Lung examination was essentially normal today.
[2017-03-12] MEDS: POTASSIUM CHLORIDE 20 MEQ TABCR PO SCH ×2 (10:45→21:16)
[2017-03-12 12:00] VITALS: BP 119/64; PULSE 73; TEMP 36.8; O2SAT 94
--- NOTE | 2017-03-12 12:02 | NEPHROLOGY CONSULTATION ---
DATE OF CONSULTATION: 03/12/2017 PROBLEM: History of kidney transplant with acute renal insufficiency associated with atrial fibrillation. SUBJECTIVE: Mrs. Barker is a 61-year-old black woman well known to me. I have followed her since the late for problems and complications of her chronic renal disease. She was first referred to me because of renal failure in the late . Her blood pressure was elevated and she had advanced renal failure. A biopsy of her kidney was not done. 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 By 1989, when she developed end-stage renal disease, and was started on maintenance hemodialysis. She was subsequently switched to CAPD. That was continued until 1994 when it was discontinued because of recurring episodes of peritonitis. She was on hemodialysis for 1 year before getting her first renal transplant at the [facility] in 1995. 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 Her transplant failed completely and she was returned to hemodialysis in 2005. She remained on hemodialysis without significant complications until her second transplant was done at the [facility] in [place] in 2012. Complications of her second transplant and her chronic kidney disease included several urinary tract infections, hyperparathyroidism for which she underwent a parathyroidectomy and paroxysmal atrial fibrillation for which she has been anticoagulated and rate controlled with atenolol. However, she did develop a tachy-belle syndrome and a pacemaker was placed for that. She has done relatively well since that time. She was seen in my office on February 06 of this year. She was stable but did have evidence of an intertriginous dermatitis. She was treated with Nizoral shampoo with significant improvement. She was admitted here on February 28 with an 18 hour history of diarrhea. She had high volume episodes of watery diarrhea without abdominal pain or pain over her renal graft. She had dry heaves but no vomiting. Because of her symptoms, she came to the Emergency Room. Her evaluation showed evidence of an increase in her serum creatinine. Her urinalysis appeared to be contaminated with vaginal contents. Her chest x-ray did show a small left lower lobe infiltrate. She had a minimal but nonproductive cough and has had a history of mild dyspnea with exertion. Nonetheless, that evaluation was consistent with a urinary tract infection with enterococcus. She had initially been treated with broad-spectrum antibiotics and she was discharged on ampicillin. Her immunosuppression is with Myfortic and Prograf. Her serum creatinine was elevated at the time of presentation for that admission, but did improve with IV fluids. She was seen in followup in my office on March 07. At that time she was complaining of some occasional diarrhea. However, she was tachycardic and was noted to be in atrial fibrillation on her EKG. Her rate, as noted had been controlled with atenolol. She was switched from atenolol to metoprolol succinate. A chest x-ray was consistent with some degree of volume overload. She was treated with Lasix, but nonetheless felt worse with worsening dyspnea with exertion. She therefore came to our Emergency Room and was admitted. At the time of admission, she was in atrial fibrillation, it was felt that she was somewhat volume depleted as her serum creatinine was 1.8 mg/dL. She was vigorously hydrated and spontaneously converted to sinus rhythm and immediately felt better. She has continued to feel well, but also continues to complain of dyspnea with exertion. CURRENT MEDICATIONS: Continue to include her tacrolimus 2 mg in the morning and 3 mg in the evening as well as Myfortic 540 mg twice daily. Additionally, she is on prednisone 5 mg daily. She remains anticoagulated with warfarin. She is also on metoprolol succinate 100 mg each morning. Currently, she feels well but still complains of dyspnea with exertion. Her serum creatinine fell with hydration to 1.1. Since that time it has climbed slightly to 1.3 mg/dL with a disproportionate increase in her BUN to 33. The remainder of her past medical history, family history, social history and review of systems appears on my previous consultation note from her recent hospitalization. There are no additions since that time. OBJECTIVE: GENERAL: On physical examination when seen by me, Mrs. Barker appears as an obviously overweight middle-aged woman who was in no distress. She was sitting in her chair at the time of my interview and examination. VITAL SIGNS: Her blood pressure was 114/53, her pulse 74 and regular, respiratory rate 16, her pulse ox 95% on room air. She was afebrile (36.8). SKIN: Shows normal skin turgor. She has multiple scars from prior surgery and trauma. That includes bilateral lower quadrant scars from kidney transplants. She has no rash or infiltrative skin disease at the current time. She does look somewhat plethoric. LYMPHATICS: Show no palpable lymphadenopathy. HEAD: Normal. EYES: Grossly normal. The ocular fundi were not examined. EARS, NOSE, MOUTH AND THROAT: Normal other than very poor dentition. Oral mucous membranes are moist. NECK: Supple. She has no obvious jugular venous distention sitting at 90 degrees. I hear no carotid bruit. I cannot palpate her thyroid. A scar at the base of her neck is from parathyroid surgery. CHEST: Clear to auscultation. She does have a murmur radiating into the chest from her left upper arm AV fistula. CARDIAC: Shows a current regular rhythm. I do not notice any extrasystoles. S1 and S2 seem normal. She has a grade 2/6 systolic murmur at the base radiating toward the neck. I hear no diastolic murmurs or gallops. ABDOMEN: Obese but nontender. Renal grafts are palpable in both lower quadrants. They are nontender. She has a bruit over the left lower quadrant graft. EXTREMITIES: Show no cyanosis or clubbing. She has trace lower extremity edema. She has the left upper arm AV fistula. Peripheral pulses in her feet are difficult to feel. However, she has good capillary refill in her fingers and toes. NEUROLOGIC: Shows no lateralizing changes. DATA: Current laboratory work shows a white count of 9720 with 83% neutrophils, 6.8% lymphocytes, 9.4% monocytes, 0.4% eosinophils and no basophils. Her hemoglobin is 9.5, her hematocrit 31.5, her platelet count is 137,000. Her current prothrombin time is 48 seconds with an INR of 4.2. Her clinical chemistries from today show sodium of 140 mmol/L, potassium of 3.3 mmol/L, chloride of 108 mmol/L, and CO2 content of 20 mmol/L. Her BUN is 31, her creatinine is 1.30. A random blood sugar was 110 with an IV running. Her serum calcium was 8.9. ASSESSMENT: Mrs. Barker appears to be stable. I think that the reason for her immediate admission was her atrial fibrillation. That resolved spontaneously. It may have been induced by volume depletion. She was having diarrhea. On this occasion, I would think that her diarrhea probably was the result of taking her ampicillin. Nonetheless, it appears to have resolved and she generally feels better. She continues to complain of dyspnea with exertion. Obviously those symptoms are worse when she is in atrial fibrillation with a rapid ventricular response. However, she always seems to be somewhat dyspneic and that has occurred since her significant weight gain of about 50 pounds over the course of the past year. Her dietary history certainly suggests that she does not eat well. She admits to not eating breakfast or lunch, but she snacks throughout the course of the day on "junk food" which includes candy and cup cakes. Her renal function appears to be stable. Her current serum creatinine of 1.3 is certainly more suggestive of prerenal changes and is still in the region of her baseline. RECOMMENDATIONS: I think at the current time, it would not be inappropriate to have her discharged to home on her current medications. I will see her in followup late this week or early next week. Obviously, she is to call if problems develop. I did discuss her diet with her and particularly told her of the necessity for her to lose weight. Will follow up with that as an outpatient as well. Because of her dyspnea with exertion and her history of nonocclusive coronary disease on a 2011 cardiac catheterization, I think it may be appropriate to do a stress echo on her to see if there is any evidence of cardiac ischemia. No other immediate recommendations. If discharged, I will follow her up as an outpatient.
--- NOTE | 2017-03-12 14:15 | DIAGNOSTIC IMAGING REPORT ---
CHEST 2 VIEWS ROUTINE CLINICAL HISTORY: dyspnea dyspnea COMPARISON STUDY: 03/09/2017 FINDINGS: Persistent mild cardiomegaly. Mild increase in pulmonary vasculature. Potential developing components of congestive failure. Permanent bipolar cardiac pacer in good position. IMPRESSION: Early congestive failure The above report was generated using voice recognition software. It may contain grammatical, syntax or spelling errors. Electronically signed by: Gilbert Bernard M.D. 03/12/2017 2:13 PM Dictated Date/Time: 03/12/2017 2:12 PM
[2017-03-12 15:17] VITALS: BP 141/75; PULSE 72; TEMP 36.7; O2SAT 96
[2017-03-12] MEDS ORDERED: MAGNESIUM OXIDE 400 MG TAB PO ONE (15:30)
[2017-03-12] MEDS ORDERED: POTASSIUM CHLORIDE 10 MEQ TABCR PO ONE (15:30)
[2017-03-12] MEDS ORDERED: FUROSEMIDE INJ 40 MG in SYRINGE 0 ML IV ONE (15:30)
[2017-03-12] MEDS ORDERED: WARFARIN SOD 2.5 MG TAB PO SCH (16:00)
[2017-03-12 19:57] VITALS: BP 128/82; PULSE 84; TEMP 36.8; O2SAT 95
--- NOTE | 2017-03-12 20:41 | Progress Note ---
Subjective Date of Service: Mar 12, 2017. Subjective Pt evaluation today including: conversation w/ patient, conversation w/ family ( at bedside), physical exam, chart review, lab review, review of studies , conversation w/ principal consultant (nephrology), review of inpatient medication list Pain: denies PO Intake: getting back to normal Voiding: no voiding problems tele overnight mainly with paced rhythm no rapid a. fib feels better diarrhea still present but not as frequent and stools are firming denies abdominal pain, nausea or emesis her main complaint is that of dyspnea present for 2-3 months only with exertion has been worse the last 2 weeks sats w/ walking in RA today were mid 90s per staff Problem List Medical Problems: (1) Acute kidney injury Status: Acute (2) Acute kidney injury Status: Acute (3) Acute renal failure Status: Acute (4) Atrial fibrillation with RVR Status: Acute (5) Diarrhea Status: Acute (6) Hypokalemia Status: Acute (7) Hypotension Status: Acute (8) Immunocompromised Status: Acute (9) Leukocytosis Status: Acute (10) UTI (urinary tract infection) Status: Acute Social History Problems: (1) H/O kidney transplant Status: Acute (2) Renal transplant recipient Status: Acute Review of Systems Constitutional: + problem reported (weight gain) Respiratory: + dyspnea on exertion, No cough, No sputum, No wheezing Cardiac: No chest pain, No orthopnea Abdomen: No pain, No vomiting Objective Vital Signs Date Time Temp Pulse Resp B/P (MAP) Pulse Ox O2 Delivery O2 Flow Rate FiO2 03/12/17 19:57 36.8 84 20 128/82 (97) 95 Room Air 03/12/17 16:02 Room Air 03/12/17 15:17 36.7 72 20 141/75 (97) 96 Room Air 03/12/17 12:00 36.8 73 18 119/64 (82) 94 Room Air 03/12/17 12:00 Room Air 03/12/17 08:00 36.8 74 16 114/53 (73) 95 Room Air 03/12/17 08:00 Room Air 03/12/17 04:00 36.8 76 17 125/59 (81) 97 Nasal Cannula 1.0 03/12/17 04:00 Room Air 03/12/17 00:02 36.6 72 17 141/70 (93) 96 Nasal Cannula 1.0 03/11/17 23:59 Room Air 03/11/17 21:27 36.4 78 18 164/87 (112) 94 Room Air Physical Exam General Appearance: no apparent distress, + obese ENT: pharynx normal Neck: no JVD Respiratory/Chest: no respiratory distress, no accessory muscle use, + rales ( bases - fine) Cardiovascular: regular rate, rhythm, no gallop, no murmur Abdomen: normal bowel sounds, non tender, soft, no organomegaly Extremities: no pedal edema Neurologic/Psychiatric: alert, oriented x 3 Skin: no rash Laboratory Results Last 24 Hours Test 03/12/17 05:32 White Blood Count 9.72 K/uL Red Blood Count 3.59 M/uL Hemoglobin 9.5 g/dL Hematocrit 31.5 % Mean Corpuscular Volume 87.7 fL Mean Corpuscular Hemoglobin 26.5 pg Mean Corpuscular Hemoglobin Concent 30.2 g/dl Platelet Count 137 K/uL Mean Platelet Volume 10.3 fL Neutrophils (%) (Auto) 83.0 % Lymphocytes (%) (Auto) 6.8 % Monocytes (%) (Auto) 9.4 % Eosinophils (%) (Auto) 0.4 % Basophils (%) (Auto) 0.0 % Neutrophils # (Auto) 8.07 K/uL Lymphocytes # (Auto) 0.66 K/uL Monocytes # (Auto) 0.91 K/uL Eosinophils # (Auto) 0.04 K/uL Basophils # (Auto) 0.00 K/uL RDW Standard Deviation 46.3 fL RDW Coefficient of Variation 14.4 % Immature Granulocyte % (Auto) 0.4 % Immature Granulocyte # (Auto) 0.04 K/uL Prothrombin Time 48.0 SECONDS Prothromb Time International Ratio 4.2 Sodium Level 140 mmol/L Potassium Level 3.3 mmol/L Chloride Level 108 mmol/L Carbon Dioxide Level 20 mmol/L Anion Gap 12.0 mmol/L Blood Urea Nitrogen 31 mg/dl Creatinine 1.30 mg/dl Est Creatinine Clear Calc Drug Dose 53.6 ml/min Estimated GFR () 52.0 Estimated GFR (Non- 44.9 BUN/Creatinine Ratio 24.0 Random Glucose 110 mg/dl Calcium Level 8.9 mg/dl Assessment and Plan 61yo female: 1. diarrhea - resolving. Bacterial cx and c. diff both neg. viral? other? supportive care. 2. acute kidney injury 2nd to #1 - improved/resolved. 3. renal transplant status on prednisone/prograf/mycophenalate - stable renal function. appreciate Dr. Lin's consultation. 4. suspected acute diastolic CHF - cxr today with developing pulmonary edema. she is at least 10 pounds higher in weight over the last 2 weeks due to copious hydration. stop IVF. lasix 40mg IV x 1. re-eval in am. 5. HTN - acceptable control. 6. paroxysmal a. fib - controlled. 7. supratherapeutic INR - hold coumadin, repeat INR am. 8. hypokalemia - replace, repeat BMP in am along with mag level 9. 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 chronic ORTIZ - etiology? will need outpatient work-up cardiac cath in 2010 with minimal LAD plaque; consider outpatient stress test 11. DVT proph - coumadin 12. recent UTI - send urine cx for test of cure. 13. leukocytosis - resolved; likely due to stress dose steroids and infection/ diarrhea. anticipate d/c in AM /pt updated twice today Continued [facility] stay due to: multiple IV medications needed Discharge planning: home
[2017-03-13 00:03] VITALS: BP 114/57; PULSE 82; TEMP 37; O2SAT 97
[2017-03-13] MEDS: METRONIDAZOLE 500 MG TAB PO SCH ×3 (00:34→16:36)
[2017-03-13 03:50] VITALS: BP 125/65; PULSE 71; TEMP 36.8; O2SAT 96
[2017-03-13 06:26] LABS: HEMATOCRIT 33.1 % (37-47); MEAN CELL VOLUME 88.3 fL (80-100); MEAN CORPUSCULAR HEMOGLOBIN 25.9 pg (25-34); MEAN CORPUSCULAR HGB CONC 29.3 g/dl (32-36); MEAN PLATELET VOLUME 10.1 fL (7.4-10.4); PLATELET COUNT 154 K/uL (130-400); RED BLOOD COUNT 3.75 M/uL (4.2-5.4); WHITE BLOOD COUNT 6.16 K/uL (4.8-10.8)
[2017-03-13 06:44] LABS: INR 3.2 (0.9-1.1); PROTHROMBIN TIME (PATIENT) 35.5 SECONDS (9.0-12.0)
[2017-03-13 07:05] LABS: BUN/CREATININE RATIO 23.6 (10-20); CALCIUM 8.8 mg/dl (8.5-10.1); CREATININE 1.1 mg/dl (0.60-1.20); MAGNESIUM 1.8 mg/dl (1.8-2.4)
[2017-03-13] MEDS: TACROLIMUS 1 MG CAP PO SCH ×2 (07:36→20:39)
[2017-03-13] MEDS: MYCOPHENOLATE SODIUM 180 MG TAB PO SCH ×2 (07:37→20:39)
[2017-03-13] MEDS: POTASSIUM CHLORIDE 20 MEQ TABCR PO SCH ×2 (07:37→20:39)
[2017-03-13] MEDS: METOPROLOL SUCC 50MG EXT REL TAB PO SCH (07:38)
[2017-03-13] MEDS: ASPIRIN 81 MG CHEW PO SCH (07:40)
[2017-03-13 08:05] VITALS: BP 149/70; PULSE 71; TEMP 36.5; O2SAT 93
[2017-03-13 08:41] LABS: FK506 TACROLIMUS HIGHLY SENS 9.7 MCG/L (5-20)
[2017-03-13] MEDS ORDERED: FUROSEMIDE INJ 40 MG in SYRINGE 0 ML IV ONE ×2 (09:00→17:00)
[2017-03-13] MEDS: MAGNESIUM OXIDE 400 MG TAB PO SCH (10:09)
--- NOTE | 2017-03-13 10:58 | NEPHROLOGY PROGRESS NOTE ---
DATE: 03/13/2017 SUBJECTIVE: Mrs. Barker complained of increasing shortness of breath yesterday. Therefore, a chest x-ray was done which did show evidence of some degree of volume overload. Because of her symptoms of dyspnea, she was given Lasix and it was decided that she should remain in the hospital. She said that she had a brisk diuresis, although her I&O does not suggest that. Nonetheless, she says that she is breathing somewhat better but still does not think she is back to normal. She has no specific symptoms of uremia or volume overload. She has no symptoms of infection or rejection at the current time. OBJECTIVE: GENERAL: On physical exam, she appears as an overweight middle-aged woman of about her stated age of 61. She is afebrile. VITAL SIGNS: Her blood pressure is 149/70, her pulse 71 and regular, respiratory rate 20, her pulse ox 93-97% on room air. SKIN: Shows her to be slightly plethoric. She has multiple scars from prior surgical procedures as well as a trauma. She has bilateral lower quadrant scars from kidney transplants. She has a left upper arm AV fistula. Her skin turgor is normal. LYMPHATICS: Show no palpable lymphadenopathy. HEAD: Normal. EYES: Grossly normal. The ocular fundi were not examined. EARS, NOSE, MOUTH AND THROAT: All unremarkable other than poor dentition. Oral mucous membranes are moist. NECK: Supple. There is no jugular venous distention at 90 degrees. There is no carotid bruit and there is no thyromegaly. She has a scar at the base of her neck from parathyroid surgery. CHEST: Essentially clear to auscultation, although she does have a few expiratory rhonchi at the bases. No rubs are heard and she has no definite rales. CARDIAC: Shows a regular rhythm. S1 and S2 are normal. She has a grade 2/6 systolic murmur at the base radiating toward the neck. No diastolic murmurs or gallops are heard. ABDOMEN: Obese but nontender. Renal grafts palpable in both lower quadrants. They are nontender. There is a bruit over her left lower quadrant graft. EXTREMITIES: Show no cyanosis or clubbing. She still has trace lower extremity edema. There is a left upper arm AV fistula. Peripheral pulses in her feet are difficult to feel. She does have good capillary refill in fingers and toes. NEUROLOGIC: Shows no lateralizing changes. Her intake and output over the past 24 hours show her to be negative by nearly 900 mL. PERTINENT LABORATORY WORK: From today shows a white count of 6160. Her hemoglobin is 9.7, her hematocrit 33.1, her platelet count 154,000. Her prothrombin time is 35.5 with an INR of 3.2. Clinical chemistries show sodium of 140 mmol/L, potassium of 4.0 mmol/L, chloride is 109 mmol/L and CO2 content 23 mmol/L. Her BUN is 26, her creatinine down to 1.10. Random blood sugar is 93. Her serum calcium is 8.8, her magnesium 1.8. ASSESSMENT: Mrs. Barker appears to be doing somewhat better and her renal function has improved with diuresis. Still, she complains of dyspnea with exertion. She has no other indication of heart failure at this time. RECOMMENDATIONS: Continue current medications. I would give her another 24 hours in the hospital with Lasix given once or twice a day. She already got her morning dose. If she continues to complain of dyspnea, I would give her a second dose later this afternoon. I do think she will be ready for discharge tomorrow.
[2017-03-13 11:59] VITALS: BP 138/74; PULSE 74; TEMP 36.9; O2SAT 96
[2017-03-13 15:08] VITALS: BP 106/84; PULSE 72; TEMP 36.5; O2SAT 96
[2017-03-13 19:15] VITALS: BP 137/61; PULSE 72; TEMP 36.5; O2SAT 98
--- NOTE | 2017-03-13 20:35 | Progress Note ---
Subjective Date of Service: Mar 13, 2017. Subjective Pt evaluation today including: conversation w/ patient, conversation w/ family (), physical exam, chart review, lab review, conversation w/ payroll consultant ( nephrology), review of inpatient medication list Pain: none PO Intake: improved/normal Voiding: no voiding problems tele stable overnight with paced rhythm "I feel better" when asked about her breathing slept all night w/o orthopnea diarrhea resolved only mild ORTIZ Problem List Medical Problems: (1) Acute kidney injury Status: Acute (2) Acute kidney injury Status: Acute (3) Acute renal failure Status: Acute (4) Atrial fibrillation with RVR Status: Acute (5) Diarrhea Status: Acute (6) Hypokalemia Status: Acute (7) Hypotension Status: Acute (8) Immunocompromised Status: Acute (9) Leukocytosis Status: Acute (10) UTI (urinary tract infection) Status: Acute Social History Problems: (1) H/O kidney transplant Status: Acute (2) Renal transplant recipient Status: Acute Review of Systems Constitutional: No fever Respiratory: + cough Cardiac: + edema, No chest pain, No orthopnea Abdomen: No pain Objective Vital Signs Date Time Temp Pulse Resp B/P (MAP) Pulse Ox O2 Delivery O2 Flow Rate FiO2 03/13/17 20:00 Room Air 03/13/17 19:15 36.5 72 18 137/61 (86) 98 Room Air 03/13/17 16:00 Room Air 03/13/17 15:08 36.5 72 20 106/84 (91) 96 Room Air 03/13/17 12:00 Room Air 03/13/17 11:59 36.9 74 20 138/74 (95) 96 Room Air 03/13/17 08:05 36.5 71 20 149/70 (96) 93 Room Air 03/13/17 08:00 Room Air 03/13/17 04:00 Room Air 03/13/17 03:50 36.8 71 21 125/65 (85) 96 Room Air 03/13/17 00:03 37.0 82 20 114/57 (76) 97 Room Air 03/12/17 23:59 Room Air Physical Exam General Appearance: no apparent distress ENT: pharynx normal Neck: no JVD Respiratory/Chest: no respiratory distress, no accessory muscle use, + rales ( mild, bases), + wheezing Cardiovascular: regular rate, rhythm, no gallop, no murmur Abdomen: normal bowel sounds, non tender, soft, no organomegaly Extremities: + pedal edema (trace-1+ edema b/l ) Laboratory Results Last 24 Hours Test 03/13/17 05:59 White Blood Count 6.16 K/uL Red Blood Count 3.75 M/uL Hemoglobin 9.7 g/dL Hematocrit 33.1 % Mean Corpuscular Volume 88.3 fL Mean Corpuscular Hemoglobin 25.9 pg Mean Corpuscular Hemoglobin Concent 29.3 g/dl RDW Standard Deviation 46.9 fL RDW Coefficient of Variation 14.5 % Platelet Count 154 K/uL Mean Platelet Volume 10.1 fL Prothrombin Time 35.5 SECONDS Prothromb Time International Ratio 3.2 Sodium Level 140 mmol/L Potassium Level 4.0 mmol/L Chloride Level 109 mmol/L Carbon Dioxide Level 23 mmol/L Anion Gap 8.0 mmol/L Blood Urea Nitrogen 26 mg/dl Creatinine 1.10 mg/dl Est Creatinine Clear Calc Drug Dose 62.8 ml/min Estimated GFR () 63.6 Estimated GFR (Non- 54.9 BUN/Creatinine Ratio 23.6 Random Glucose 93 mg/dl Calcium Level 8.8 mg/dl Magnesium Level 1.8 mg/dl Assessment and Plan 61yo female: 1. diarrhea - resolved. Bacterial cx and c. diff both neg. suspect viral etiology. 2. acute kidney injury 2nd to #1 - resolved. 3. renal transplant status on prednisone/prograf/mycophenalate - stable renal function/creatinine at baseline. appreciate Dr. Lin's consultation. 4. acute diastolic CHF - improved. Still with pulmonary edema on exam. Will give lasix 40mg IV BID today and reassess in am. Check weight, bmp, mag in am. 5. HTN - acceptable control. 6. paroxysmal a. fib - controlled. 7. supratherapeutic INR - resolved; resume coumadin today; INR in am. 8. hypokalemia - resolved. 9. 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 chronic ORTIZ - etiology? will need outpatient work-up cardiac cath in 2010 with minimal LAD plaque; consider outpatient stress test I don't feel she has had decompensated diastolic CHF for 2 months (probably just the last 1-2 weeks or less) again needs outpatient w/u 11. DVT proph - coumadin 12. recent UTI - urine cx thus far negative 13. leukocytosis - resolved; likely due to stress dose steroids and infection/ diarrhea. anticipate d/c in AM updated at bedside Continued [facility] stay due to: multiple IV medications needed Discharge planning: home
[2017-03-14] VITALS: BP 157/74; PULSE 71; TEMP 36.6; O2SAT 97
[2017-03-14] MEDS: METRONIDAZOLE 500 MG TAB PO SCH ×2 (00:37→08:52)
[2017-03-14 04:00] VITALS: BP 115/47; PULSE 69; TEMP 36.8; O2SAT 95
[2017-03-14 07:44] LABS: INR 2.6 (0.9-1.1); PROTHROMBIN TIME (PATIENT) 28.8 SECONDS (9.0-12.0)
[2017-03-14 08:00] VITALS: BP 126/58; PULSE 73; TEMP 36.7; O2SAT 94
[2017-03-14 08:12] LABS: BUN/CREATININE RATIO 22.6 (10-20); CREATININE 1.2 mg/dl (0.60-1.20); MAGNESIUM 1.7 mg/dl (1.8-2.4); POTASSIUM 3.8 mmol/L (3.5-5.1)
[2017-03-14] MEDS: ASPIRIN 81 MG CHEW PO SCH (08:51)
[2017-03-14] MEDS: MAGNESIUM OXIDE 400 MG TAB PO SCH (08:52)
[2017-03-14] MEDS: MYCOPHENOLATE SODIUM 180 MG TAB PO SCH (08:52)
[2017-03-14] MEDS: TACROLIMUS 1 MG CAP PO SCH (08:52)
[2017-03-14] MEDS: METOPROLOL SUCC 50MG EXT REL TAB PO SCH (08:53)
[2017-03-14] MEDS: POTASSIUM CHLORIDE 20 MEQ TABCR PO SCH (08:53)
[2017-03-14] MEDS ORDERED: MAGNESIUM SULFATE 1GM / D5W 1 GM in PREMIXED IN D5W 100 ML IV ONE (09:30)
[2017-03-14] MEDS ORDERED: MCRK20 PO ×4 (10:39→11:04)
[2017-03-14] MEDS ORDERED: MGNO400 PO ×4 (10:39→11:04)
[2017-03-14] MEDS ORDERED: MYC180 PO ×2 (10:39)
--- NOTE | 2017-03-14 10:52 | Discharge Instructions ---
Discharge Instructions Date of Service Mar 14, 2017. Admission Reason for Admission: Diarrhea, Rapid Atrial Fibrillation, Increased creatinine level Discharge Discharge Diagnosis / Problem: Diarrhea, low blood pressure, rapid a. fib - all improved/resolved. Discharge Goals Goal(s): Learn about illness, Diagnostic testing, Therapeutic intervention Activity Recommendations Activity Limitations: resume your previous activity (as tolerated ) . Instructions / Follow-Up Instructions / Follow-Up From Dr. Catalan - 1. Diarrhea - this has resolved. Presumably this was either a virus or related to your recent antibiotics. Your stool culture and c. diff stool test were both NEGATIVE. 2. Your repeat urine culture was NEGATIVE which means that the recent urinary tract infection has fully resolved. 3. Shortness of breath - while hospitalized this appeared to be due to diastolic congestive heart failure, a form of heart failure. Diastolic heart failure occurs when you heart is mildly enlarged and "stiff." People can develop problems with this when their a. fib is uncontrolled, they have too much salt or fluid, or their blood pressures are running too high. You improved very nicely with giving IV lasix multiple times. Your weight today on day of discharge is 209 pounds. Your chronic shortness of breath could be a heart or lung problem. Dr. Lin is going to investigate this more fully as an outpatient. 4. Lasix (furosemide) - please check your weight EVERY morning at home. If you see a weight gain of more than 2-3 pounds over 1-2 days OR you are experiencing worsening shortness of breath please TAKE A LASIX ALONG WITH MAGNESIUM AND POTASSIUM SUPPLEMENT and call Dr. Lin's office. 5. Potassium and magnesium supplements- * scripts sent to [facility] in [place]. These supplements can be taken on an as needed basis when you take lasix only. 6. Your coumadin level (INR) on day of discharge was 2.6. Please resume your normal coumadin regimen as previous. 7. Return to [facility] if - * you have fever greater than 100.5 degrees * worsening shortness of breath, chest pain, or cough * recurrent diarrhea that appears to be getting worse * excessive weight gain not responding to your lasix 8. CHF instructions: Call 911 and go to the Emergency Room if: * You have tightness or pain in your chest that does not go away with rest or Nitroglycerin * You are very short of breath even with rest Call your doctor if any of the following symptoms or problems start or get worse: * Shortness of breath or difficulty breathing * Wake up at night short of breath * Chest pain * Cough * Swelling of your hands, fee, or legs * More fatigued or tired with your normal activity * Palpitations - sudden fast heart beats WEIGHT * Weigh yourself every morning after using the bathroom. * Use the same scale. * Wear the same amount of clothing. * Write your weight down on your chart. * Call your doctor if you gain more than 2-3 pounds in 1-2 days* MEDICATIONS * Use this discharge instruction sheet for instructions. * Take your medications at the time your doctor ordered. * Do not skip a dose of your medicines. * If you miss a dose of medicine, take as soon as possible, but DO NOT DOUBLE A DOSE. * Read your medicine information when you get home. * Know all of the side effects of your medicine. * Call your doctor's office if you have any side effects. * Be sure all of your doctors know what medicine and herbs you take (including cold, flu, and herbal medicine). * Pain Medicine: If you do not get relief from your pain, please call your doctor for help. Take the following with you to your follow-up doctor appointments: * Weight Chart * Medication List * List of questions Do not drink excessive alcohol, beer or wine. 9. See Dr. Lin this coming Sunday at 4pm as scheduled. Current Hospital Diet Patient's current hospital diet: Regular Diet Discharge Diet Recommended Diet: Low Sodium Diet (2gm Na) Fluid Restriction: 1800 ml (7 cups) Procedures Procedures Performed: chest x-ray showing fluid build up in the lungs (congestive heart failure) echocardiogram showing "diastolic dysfunction" (a form of congestive heart failure) prograf level was normal at 9.7 INR (coumadin level) on day of discharge was 2.6 Pending Studies Studies pending at discharge: no Laboratory Results Hemoglobin A1c Test 03/10/17 05:22 Range/Units Estimated Average Glucose 114 mg/dl Hemoglobin A1c 5.6 4.5-5.6 % Lipid Panel Test 03/10/17 05:22 Range/Units Triglycerides Level 137 0-150 mg/dl Cholesterol Level 156 0-200 mg/dl HDL Cholesterol 38 mg/dl Cholesterol/HDL Ratio 4.1 LDL Cholesterol, Calculated 91 mg/dl Medical Emergencies . Who to Call and When: Medical Emergencies: If at any time you feel your situation is an emergency, please call 911 immediately. . Non-Emergent Contact Non-Emergency issues call your: Contract Negotiation Specialist (Dr. Lin) Call Non-Emergent contact if: temperature is above 100.5, you have any medication questions . . "Provider Documentation" section prepared by Rich Catalan. . VTE Core Measure Inpt VTE Proph given/why not?: Warfarin (Coumadin), T.E.D. Stockings, SCD's
[2017-03-14] MEDS ORDERED: MAGNESIUM OXIDE 400 MG TAB PO ONE (11:00)
[2017-03-14] MEDS ORDERED: FUROSEMIDE 40 MG TAB PO ONE (11:00)
[2017-03-14] MEDS ORDERED: LSX40 PO ×2 (11:04)
--- NOTE | 2017-03-14 11:44 | NEPHROLOGY PROGRESS NOTE ---
DATE: 03/14/2017 DATE: 03/14/2017. SUBJECTIVE: Mrs. Barker says that she is feeling significantly better. She did receive Lasix yesterday and had a brisk diuresis. She diuresed about 3700 mL. To date, her cumulative I and O's since she has been hospitalized is a positive 275 mL. She is much less short of breath. She has no palpitations. She has no chest pain. She has no symptoms of uremia or volume overload. OBJECTIVE: GENERAL: On physical examination, she appears relatively well. She is an overweight middle-aged woman who was in no distress when seen. VITAL SIGNS: Her blood pressure was 126/58, her pulse 73 and regular. Respiratory rate 16. Her pulse ox 94% on room air. She is afebrile. SKIN: Shows her to be slightly plethoric. She has multiple scars from prior surgical procedures and trauma. She has no rash or infiltrative skin disease. Her skin turgor is normal. She has no palpable lymphadenopathy. HEAD: Normal. EYES: Grossly normal. The ocular fundi were not examined. EARS, NOSE, MOUTH AND THROAT: Unremarkable. Dentition is in poor repair. Her oral mucous membranes are moist. NECK: Supple. She has no jugular venous distention, carotid bruit or thyromegaly. CHEST: Clear to auscultation. There are no wheezes, rales or rhonchi. CARDIAC EXAMINATION: Shows a regular rhythm. S1 and S2 are normal. There is a grade 2/6 systolic murmur at the base radiating toward the neck. She has no diastolic murmurs or gallops. ABDOMEN: Somewhat obese but nontender. There is no organomegaly or mass. She has bilateral lower quadrant transplants. There is a bruit over her left lower quadrant transplanted kidney. EXTREMITIES: Show no cyanosis or clubbing. She has trace lower extremity edema. She has a functional left upper arm AV fistula with a good pulse, thrill and bruit. Capillary refill and fingers and toes are normal. NEUROLOGIC EXAMINATION: Shows no lateralizing changes. PERTINENT LABORATORY WORK: From today shows a white count of 6,160. Her hemoglobin is 9.7, her hematocrit is 33.1, platelet count is 154,000. Clinical chemistries show sodium of 139 mmol/L, potassium of 3.8 mmol/L, chloride 103 mmol/L, and CO2 content 28 mEq/L. Her BUN is 27. Her creatinine 1.20. Her serum calcium is 9.0, her magnesium 1.7. ASSESSMENT: Mrs. Barker appears to be doing well. She is certainly ready for discharge. PLAN: Discharge instructions were discussed with Dr. Catalan. For now, will use Lasix only on a p.r.n. basis. She will continue on her usual immunosuppressant medications and other medications for her paroxysmal atrial fibrillation. Her followup will be with me on March 20 at 4:00 p.m. Will check laboratory work prior to that visit. No other recommendations for her outpatient care. I will see her on 03/20/2017.
[2017-03-14 12:00] VITALS: BP 138/72; PULSE 74; TEMP 36.4; O2SAT 96
--- NOTE | 2017-03-27 20:52 | Discharge Summary ---
Discharge Summary Date of Service Mar 27, 2017. Discharge Summary Admission Date: Mar 09, 2017 at 16:37 Discharge Date: Mar 14, 2017 Discharge Disposition: Home Principal Diagnosis: rapid a. fib - resolved Problems/Secondary Diagnoses: 1. 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 Renal transplant x2 3. Paroxysmal atrial fibrillation 4. Tachy-belle syndrome status post implantation of dual-chamber [place] pacemaker 5. Nonobstructive coronary artery disease demonstrated by catheterization in 2010. 6. Hypertension 7. diarrhea - antibiotic associated - resolved 8. acute/chronic diastolic CHF - resolved 9. acute kidney injury - resolved 10. hypokalemia, hypomagnesemia - resolved 11. hyponatremia - resolved 12. chronic dyspnea on exertion - outpatient work-up to be pursued 13. shock - 2nd to hypovolemia and cardiogenic causes - transient and resolved Immunizations: Have You Had Influenza Vaccine: No Influenza Vaccine Date: Sep 04, 2005 History of Tetanus Vaccine?: No History of Pneumococcal: No Pneumococcal Date: Sep 04, 2005 History of Hepatitis B Vaccine: No Hepatitis Immunization Date: Sep 04, 2005 Procedures: 1. echocardiogram: * -- Conclusions -- * Left ventricular systolic function is normal. * No obvious wall motion abnormality. * Ejection Fraction = 55-60%. * There is mild concentric left ventricular hypertrophy. * Diastolic dysfunction, Grade II (pseudonormalization pattern). * Aortic valve sclerosis mild, without significant aortic valvular stenosis. * There is mild mitral regurgitation. 2. chest x-rays 3. pacemaker interrogation showing normal pacemaker function Consultations: 1. nephrology - Rich Lin MD 2. cardiology - Richy Courtney MD 3. critical care - Ned Kraus, Medication Reconciliation New Medications: Magnesium Oxide (Magnesium-Oxide) 400 Mg Tab 400 MG PO QAM PRN for when you take lasix ONLY, #30 TAB 2 Refills Mycophenolate Sodium (Mycophenolic Acid Dr) 180 Mg Tab 540 MG PO BID, #30 TAB 0 Refills Potassium Chloride (Klor-Con M20) 20 Meq Tabcr 20 MEQ PO QAM PRN for WHEN YOU TAKE LASIX ONLY , #30 TAB 2 Refills Changed Medications: Furosemide (Furosemide) 40 Mg Tab 1 TAB PO QAM PRN for for increased weight, #30 TAB 2 Refills (Changed from: DAILY; Refills: ) or shortness of breath Continued Medications: Aspirin (Aspirin) 81 Mg Chw 1 TAB PO DAILY for 30 Days, #30 TAB 3 Refills Metoprolol Succinate (Metoprolol Succinate ER) 100 Mg Tabcr 1 TAB PO DAILY Prednisone (Prednisone) 5 Mg Tab 5 MG PO DAILY, #30 TAB Tacrolimus (Prograf) 1 Mg Cap 3 MG PO QPM, CAP Tacrolimus (Prograf) 1 Mg Cap 2 CAP PO QAM for 30 Days, #60 CAP 11 Refills Warfarin Sod (Jantoven) 2 Mg Tab 2 MG PO UD, TAB TAKES 2MG SUNDAY AND SUNDAY Warfarin Sod (Jantoven) 3 Mg Tab 3 MG PO 5XWK, TAB TAKES EVERYDAY BUT SUNDAY AND SUNDAY Discontinued Medications: Amoxicillin (Amoxicillin) 250 Mg Cap 500 MG PO TID for 7 Days, #42 CAP 0 Refills Discharge Exam Physical Exam: General Appearance: no apparent distress, + obese ENT: pharynx normal Neck: no JVD Respiratory/Chest: lungs clear, no respiratory distress, no accessory muscle use Cardiovascular: regular rate, rhythm, no gallop, no murmur, normal peripheral pulses Abdomen / GI: normal bowel sounds, non tender, soft, no organomegaly, + pertinent finding (renal transplant palpable lower quadrants) Extremities: no pedal edema Neurologic/Psychiatric: alert, oriented x 3 Skin: no rash Hospital Course HISTORY OF PRESENT ILLNESS: 61yo female with history of Paroxysmal Atrial Fibrillation, S/P dual pacemaker, s/p partial thyroidectomy & 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 She was recently admitted last week for UTI, dehydration, and right parenchymal infiltrate thought to be pneumonia. She was seen by infectious disease at that time and started on amoxicillin 500 mg 3 times a day 7 days. She reports that upon going home last Sunday she felt like she went into A. fib that evening and has been in it ever since. She feels her heart racing and also reports dyspnea. Her diarrhea started approximately 2 days ago, and increased to having numerous and uncountable bouts since midnight last night. She was feeling dizzy this morning and was unable to eat or tolerate fluids. Of note, the patient follows with Dr. Gui Hernandez at [facility]. CXR was reviewed showing cardiomegaly, no infiltrate potential pulmonary artery hypertension. Her EKG is showing that she is in atrial fibrillation with RVR with heart rate in the 150s. She was started on a Cardizem drip and bolus and her blood pressure dropped into the 80s. She was resuscitated with 3 L of normal saline. HOSPITAL COURSE: The patient was initially admitted to the ICU as she was hypotensive in the setting of her rapid a. fib. She required pressors for a short time period but these were quickly discontinued after she converted back to normal sinus rhythm. The etiology of her rapid a. fib was felt to be due to electrolyte abnormalities , volume depletion, and possibly infection. She had evidence of acute kidney injury due to her dehydration. Fortunately with supportive care measures her creatinine returned to baseline. No specific etiology for her diarrhea was found (c diff toxin and stool culture were negative). Her diarrhea was felt be either viral or due to recent antibiotic usage. Blood cultures and urine culture were negative while hospitalized. The patient takes chronic prednisone for her renal transplant status and thus she received IV stress dose steroids while hospitalized. These were weaned back to her normal dose of 5mg daily of prednisone. Her other immunosuppressive agents were continued. Her clinical course was complicated by acute/chronic diastolic CHF due to volume resuscitation in the setting of her rapid a. fib. She received several doses of IV lasix. At discharge her O2 sats were normal in room air, creatinine was stable (1.2), and electrolytes were satisfactory. The patient takes coumadin for her paroxysmal a. fib and INR on discharge was 2.6. She will continue her coumadin per her normal dosing regimen. Lastly, the patient complained of chronic dyspnea on exertion during her hospitalization. Some of her chronic complaints DID in fact improve with diuresis. Dr. Lin will arrange additional outpatient work-up (possibly stress test, etc ). Total Time Spent: Greater than 30 minutes This includes examination of the patient, discharge planning, medication reconciliation, and communication with other providers. Discharge Instructions Please refer to the electronic Patient Visit Report (Discharge Instructions) for additional information. Follow-Up Dr. Lin on March 20 at 4pm Additional Copies To Rich Lin M.D.
== END 2017-03-14 12:49 | disposition home or self-care (01) | DRG 291 ==
LOC: C.EDB 12:17 → C.MSICU 16:37 → ENRESERV 17:16 → CANRESERV 03-10 12:21 → EDBEDREQ 03-10 12:23 → CANBEDREQ 03-10 13:45 → ENRESERV 03-10 13:46 → C.2E 03-10 15:45
PROVIDERS: ADMIT Family Medicine; ATTEND Internal Medicine
DX: I13.2 Hypertensive heart and chronic kidney disease with heart failure and with stage 5 chronic kidney disease, or end stage renal disease (principal); N18.6 End stage renal disease; I50.31 Acute diastolic (congestive) heart failure; N17.9 Acute kidney failure, unspecified; Z94.0 Kidney transplant status; I48.0 Paroxysmal atrial fibrillation; I25.10 Atherosclerotic heart disease of native coronary artery without angina pectoris; E66.01 Morbid (severe) obesity due to excess calories; Z68.35 Body mass index [BMI] 35.0-35.9, adult; R19.7 Diarrhea, unspecified; I73.9 Peripheral vascular disease, unspecified; E89.0 Postprocedural hypothyroidism; E89.2 Postprocedural hypoparathyroidism; Z99.2 Dependence on renal dialysis; I95.9 Hypotension, unspecified; D72.829 Elevated white blood cell count, unspecified; E86.0 Dehydration; I35.0 Nonrheumatic aortic (valve) stenosis; E87.6 Hypokalemia; Z87.01 Personal history of pneumonia (recurrent); Z95.0 Presence of cardiac pacemaker; Z90.49 Acquired absence of other specified parts of digestive tract; Z84.1 Family history of disorders of kidney and ureter; Z82.49 Family history of ischemic heart disease and other diseases of the circulatory system; Z88.8 Allergy status to other drugs, medicaments and biological substances; Z79.82 Long term (current) use of aspirin; Z79.899 Other long term (current) drug therapy; Z87.440 Personal history of urinary (tract) infections; Z79.52 Long term (current) use of systemic steroids; Z79.01 Long term (current) use of anticoagulants; Z98.51 Tubal ligation status

== ENCOUNTER → 2017-03-20 | Outpatient (CLI) | payer OTHER ==
[~2017-03-20] MED LIST changes: -AMX250 PO; +ASPI81CH2 PO; -ATEN-173 PO; +LSX40 PO; +MCRK20 PO; +MGNO400 PO; +MYC180 PO; -MYCO180T PO; +TPRSR/100 PO
[2017-03-20 18:05] LABS: BASO % 0.1 %; BASO ABS # 0.01 K/uL (0-0.2); COMPLETE YES; EOS % 0.2 %; HEMATOCRIT 39.6 % (37-47); IG% 0.5 %; LYMPH % 13.8 %; LYMPH ABS # 1.12 K/uL (1.2-3.4); MEAN CORPUSCULAR HEMOGLOBIN 28.2 pg (25-34); MEAN CORPUSCULAR HGB CONC 30.3 g/dl (32-36); MEAN PLATELET VOLUME 10.5 fL (7.4-10.4); MONO % 5.9 %; NEUT % 79.5 %; PLATELET COUNT 205 K/uL (130-400); RED BLOOD COUNT 4.26 M/uL (4.2-5.4); WHITE BLOOD COUNT 8.14 K/uL (4.8-10.8)
[2017-03-20 18:07] LABS: BLOOD UREA NITROGEN 16 mg/dl (7-18); BUN/CREATININE RATIO 11.3 (10-20); CALCIUM 9.3 mg/dl (8.5-10.1); CARBON DIOXIDE 21 mmol/L (21-32); CHLORIDE 107 mmol/L (98-107); GLUCOSE 157 mg/dl (70-99); MAGNESIUM 1.5 mg/dl (1.8-2.4); POTASSIUM 4.7 mmol/L (3.5-5.1); SODIUM 137 mmol/L (136-145)
== END | disposition home or self-care (01) ==
LOC: C.LAB1850 17:15
PROVIDERS: ATTEND Internal Medicine
DX: Z94.0 Kidney transplant status (principal); D64.9 Anemia, unspecified

== ENCOUNTER 2017-07-03 18:03 | Inpatient (IN) | payer OTHER ==
[~2017-07-03] VITALS: Ht 165.1 cm; Wt 85.9 kg
[2017-07-03] MEDS ORDERED: LACTATED RINGER'S 1000ML 1,000 ML IV STA (18:25)
[2017-07-03] MEDS ORDERED: POTA20TA16 PO (18:49)
[2017-07-03] MEDS ORDERED: METO100T14 PO (18:49)
[2017-07-03] MEDS ORDERED: WARF2TAB PO (18:49)
[2017-07-03] MEDS ORDERED: MYC180 PO (18:49)
[2017-07-03] MEDS ORDERED: FRS/40 PO (18:49)
[2017-07-03] MEDS ORDERED: PRED-301 PO (18:49)
[2017-07-03] MEDS ORDERED: DILT120C PO (18:51)
[2017-07-03 19:20] LABS: BASO % 0.1 %; BASO ABS # 0.01 K/uL (0-0.2); COMPLETE YES; EOS % 0.1 %; HEMATOCRIT 38.5 % (37-47); IG% 0.3 %; LYMPH % 5.9 %; LYMPH ABS # 0.66 K/uL (1.2-3.4); MEAN CORPUSCULAR HEMOGLOBIN 28.7 pg (25-34); MEAN CORPUSCULAR HGB CONC 31.9 g/dl (32-36); MEAN PLATELET VOLUME 10.4 fL (7.4-10.4); MONO % 4.7 %; NEUT % 88.9 %; PLATELET COUNT 172 K/uL (130-400); RED BLOOD COUNT 4.28 M/uL (4.2-5.4)
--- NOTE | 2017-07-03 19:36 | DIAGNOSTIC IMAGING REPORT ---
ABDOMEN 2VIEW W/PA CHEST RTN CLINICAL HISTORY: 62 years-old Female presenting with palpitations, diarrhea. TECHNIQUE: PA view of the chest and supine and upright views of the abdomen were obtained. COMPARISON: 03/12/2017. FINDINGS: Right subclavian pacer with leads to the right atrium and right ventricular apex. Atherosclerosis of the aortic arch. Vertex silhouette mildly enlarged, unchanged. Decreased prominence of pulmonary vasculature. No focal infiltrate. No pleural effusion or pneumothorax. Cholecystectomy clips. Mild gaseous distention of small and large bowel. No convincing evidence of obstruction. No gross pneumoperitoneum. Extensive pelvic phleboliths. Osseous structures normal. IMPRESSION: 1. No acute cardiopulmonary disease. 2. Mild gaseous distention of small and large bowel. No convincing evidence of obstruction. Electronically signed by: Skip Santana M.D. 07/03/2017 7:35 PM Dictated Date/Time: 07/03/2017 7:32 PM
[2017-07-03 19:45] LABS: INR 2.8 (0.9-1.1); PROTHROMBIN TIME (PATIENT) 31.7 SECONDS (9.0-12.0)
[2017-07-03 19:56] LABS: ALB/GLOB RATIO 1.2 (0.9-2); BUN/CREATININE RATIO 20.1 (10-20); CALCIUM 9.4 mg/dl (8.5-10.1); CREATININE 1.57 mg/dl (0.60-1.20); MAGNESIUM 1.3 mg/dl (1.8-2.4); PHOSPHORUS 2.5 mg/dl (2.5-4.9); POTASSIUM 4.8 mmol/L (3.5-5.1); THYROID STIMULATING HORMONE 1.19 uIu/ml (0.300-4.500)
[2017-07-03] MEDS ORDERED: MAGNESIUM SULFATE 1GM / D5W 1 GM BAG IV STA (20:16)
--- NOTE | 2017-07-03 20:21 | EMERGENCY ROOM VISIT NOTE ---
History Report prepared by Halie: Donna Read Under the Supervision of: Dr. Vanessa Wilde D.O. First contact with patient: 18:12 Chief Complaint: DIZZY Stated Complaint: VERY DIZZY,WEAK,SHAKY,DIARRHEA Nursing Triage Summary: pt c/o heart racing and dizzy today with diarrhea and thirsty transplant kidney in 2012 History of Present Illness The patient is a 62 year old female who presents to the Emergency Room with complaints of constant illness beginning 1 week ago. The patient states that she has not been feeling well over the last week and has been feeling weak, shaky, and dizzy. She reports that nothing tastes good and she has been having a pounding heart. She notes that she has a history of atrial fibrillation and a kidney transplant in 2013. She notes that she is on Coumadin and has not missed any doses. The patient complains of diarrhea 4-6 times a day that began 2 days ago, chills, diarrhea, decreased appetite, decreased urination, abdominal cramping with her diarrhea, and intermittent nausea. The patient states that she has been trying to drink water but has not had any food. She denies any fever, fatigue, abdominal pain, diarrhea today. She reports that she took Imodium for her diarrhea and her symptoms have been relieved. She notes that she switched from Atenolol to Metoprolol 4 months ago. The patient notes no previous GI issues but does have a history of UTIs. Source of History: patient Onset: 1 week ago Position: other (global) Quality: other (illness) Timing: constant Associated Symptoms: + chills, + nausea, + fatigue, No fevers, No abdominal pain, No diarrhea Note: Pt notes decreased appetite, bloating, belching, decreased urination, abdominal cramping with her diarrhea. Review of Systems See HPI for pertinent positives & negatives. A total of 10 systems reviewed and were otherwise negative. Past Medical & Surgical Medical Problems: (1) Diarrhea (2) Hypertension (3) Hypotension (4) Kidney disease (5) Pneumonia (6) Rapid atrial fibrillation (7) Urinary problem Surgical Problems: (1) Hx of cholecystectomy (2) Kidney transplant status, cadaveric (3) Kidney transplanted Family History FH: kidney disease FHx: heart disease Hypertension Social History Smoking Status: Never Smoker Alcohol Use: none Drug Use: none Marital Status: Housing Status: lives with significant other Occupation Status: employed Current/Historical Medications Scheduled Diltiazem Hcl Coated Beads (Diltiazem Hcl Er), 120 MG PO DAILY Metoprolol Tartrate (Lopressor) (Lopressor), 50 MG PO BID Mycophenolate Sodium (Mycophenolic Acid Dr), 540 MG PO BID Potassium Ext Rel (Klor-Con), 20 MEQ PO UD Prednisone (Prednisone), 5 MG PO DAILY Tacrolimus (Prograf), 3 MG PO AMPM Warfarin Sodium (Coumadin), 2 MG PO DAILY Scheduled PRN Furosemide (Lasix), 40 MG PO DAILY PRN for FLUID ACCUMULATION Allergies Coded Allergies: Quinolones (Verified Allergy, Intermediate, FLOXIN CAUSES HIVES, 03/09/17) HIVES Physical Exam Vital Signs Date Time Temp Pulse Resp B/P (MAP) Pulse Ox O2 Delivery O2 Flow Rate FiO2 07/03/17 22:00 85 12 102/58 07/03/17 21:30 92 20 116/58 97 Room Air 07/03/17 21:30 112 22 116/58 07/03/17 20:30 91 16 122/66 07/03/17 20:24 115/83 07/03/17 19:50 81 12 98 07/03/17 19:48 87 18 100/61 97 Room Air 07/03/17 19:45 92 16 07/03/17 19:30 84 14 07/03/17 19:07 107 07/03/17 18:11 36.4 137 20 101/68 98 Room Air Physical Exam GENERAL: alert, anxious appearing, well nourished, no distress, non-toxic EYE EXAM: normal conjunctiva, PERRL and EOM's grossly intact OROPHARYNX: no exudate, no erythema, lips, buccal mucosa, and tongue normal and mucous membranes are mildly dry NECK: supple, no nuchal rigidity, no adenopathy, non-tender LUNGS: Clear to auscultation. Normal chest wall mechanics HEART: fast and irregular, no murmurs, S1 normal and S2 normal ABDOMEN: abdomen soft, non-tender, normo-active bowel sounds, no masses, no rebound or guarding. BACK: Back is symmetrical on inspection and there is no deformity, no midline tenderness, no CVA tenderness. SKIN: no rashes and no bruising UPPER EXTREMITIES: upper extremities are grossly normal. LOWER EXTREMITIES: No pitting edema. NEURO EXAM: Normal sensorium, cranial nerves II-XII grossly intact, normal speech, no gross weakness of arms, no gross weakness of legs. Medical Decision & Procedures ER Provider Diagnostic Interpretation: Radiology results have been interpreted by the radiologist and reviewed by me. ABDOMEN 2VIEW W/PA CHEST RTN FINDINGS: Right subclavian pacer with leads to the right atrium and right ventricular apex. Atherosclerosis of the aortic arch. Vertex silhouette mildly enlarged, unchanged. Decreased prominence of pulmonary vasculature. No focal infiltrate. No pleural effusion or pneumothorax. Cholecystectomy clips. Mild gaseous distention of small and large bowel. No convincing evidence of obstruction. No gross pneumoperitoneum. Extensive pelvic phleboliths. Osseous structures normal. IMPRESSION: 1. No acute cardiopulmonary disease. 2. Mild gaseous distention of small and large bowel. No convincing evidence of obstruction. Electronically signed by: Skip Santana M.D. 07/03/2017 7:35 PM Dictated Date/Time: 07/03/2017 7:32 PM Laboratory Results 07/03/17 19:00 Red Blood Count 4.28, Mean Corpuscular Volume 90.0, Mean Corpuscular Hemoglobin 28.7, Mean Corpuscular Hemoglobin Concent 31.9, Mean Platelet Volume 10.4, Neutrophils (%) (Auto) 88.9, Lymphocytes (%) (Auto) 5.9, Monocytes (%) (Auto) 4.7, Eosinophils (%) (Auto) 0.1, Basophils (%) (Auto) 0.1, Neutrophils # (Auto) 9.87, Lymphocytes # (Auto) 0.66, Monocytes # (Auto) 0.52, Eosinophils # (Auto) 0.01, Basophils # (Auto) 0.01 07/03/17 19:00 Test 07/03/17 04:44 07/03/17 18:59 07/03/17 19:00 07/03/17 19:29 Bedside Lactic Acid Venous 1.50 mmol/L (0.90-1.70) White Blood Count 11.10 K/uL (4.8-10.8) Red Blood Count 4.28 M/uL (4.2-5.4) Hemoglobin 12.3 g/dL (12.0-16.0) Hematocrit 38.5 % (37-47) Mean Corpuscular Volume 90.0 fL (80-100) Mean Corpuscular Hemoglobin 28.7 pg (25-34) Mean Corpuscular Hemoglobin Concent 31.9 g/dl (32-36) Platelet Count 172 K/uL (130-400) Mean Platelet Volume 10.4 fL (7.4-10.4) Neutrophils (%) (Auto) 88.9 % Lymphocytes (%) (Auto) 5.9 % Monocytes (%) (Auto) 4.7 % Eosinophils (%) (Auto) 0.1 % Basophils (%) (Auto) 0.1 % Neutrophils # (Auto) 9.87 K/uL (1.4-6.5) Lymphocytes # (Auto) 0.66 K/uL (1.2-3.4) Monocytes # (Auto) 0.52 K/uL (0.11-0.59) Eosinophils # (Auto) 0.01 K/uL (0-0.5) Basophils # (Auto) 0.01 K/uL (0-0.2) RDW Standard Deviation 44.7 fL (36.4-46.3) RDW Coefficient of Variation 13.7 % (11.5-14.5) Immature Granulocyte % (Auto) 0.3 % Immature Granulocyte # (Auto) 0.03 K/uL (0.00-0.02) Anion Gap 20.0 mmol/L (3-11) Est Creatinine Clear Calc Drug Dose 42.6 ml/min Estimated GFR () 41.1 Estimated GFR (Non- 35.5 BUN/Creatinine Ratio 20.1 (10-20) Calcium Level 9.4 mg/dl (8.5-10.1) Phosphorus Level 2.5 mg/dl (2.5-4.9) Magnesium Level 1.3 mg/dl (1.8-2.4) Total Bilirubin 0.7 mg/dl (0.2-1) Aspartate Amino Transf (AST/SGOT) 16 U/L (15-37) Alanine Aminotransferase (ALT/SGPT) 12 U/L (12-78) Alkaline Phosphatase 53 U/L (45-117) Troponin I 0.015 ng/ml (0-0.045) Total Protein 6.6 gm/dl (6.4-8.2) Albumin 3.6 gm/dl (3.4-5.0) Globulin 3.0 gm/dl (2.5-4.0) Albumin/Globulin Ratio 1.2 (0.9-2) Thyroid Stimulating Hormone (TSH) 1.190 uIu/ml (0.300-4.500) Chemistry Specimen Hemolysis Prothrombin Time 31.7 SECONDS (9.0-12.0) Prothromb Time International Ratio 2.8 (0.9-1.1) Test 07/03/17 20:20 Urine Color YELLOW Urine Appearance CLEAR (CLEAR) Urine pH 5.0 (4.5-7.5) Urine Specific [place] 1.017 (1.000-1.030) Urine Protein NEG (NEG) Urine Glucose (UA) NEG (NEG) Urine Ketones 1+ (NEG) Urine Occult Blood NEG (NEG) Urine Nitrite NEG (NEG) Urine Bilirubin NEG (NEG) Urine Urobilinogen NEG (NEG) Urine Leukocyte Esterase NEG (NEG) Laboratory results per my review. Medications Administered Medications (Trade) Dose Ordered Sig/Clarita Route Start Time Stop Time Status Last Admin Dose Admin Lactated Ringer's 1,000 ml @ 500 mls/hr Q2H STAT IV 07/03/17 18:25 07/03/17 20:24 DC 07/03/17 18:25 500 MLS/HR Magnesium Sulfate (Magnesium Sulfate) 2 gm NOW STAT IV 07/03/17 20:16 07/03/17 20:17 DC 07/03/17 20:33 2 GM ECG Indication: weakness Rate (beats per minute): 114 Rhythm: atrial fibrillation Findings: no acute ischemic change, left axis deviation, other (normal QTS and QRS) ED Course 1811: The patient was evaluated in room B10. A complete history and physical exam was performed. 1824: Lactated Ringer's 1000ml @ 500mls.hr IV. 2016: Magnesium Sulfate 2gm IV. 2001: I reevaluated and updated the patient. 2027: I reevaluated and updated the patient on her results. 2031: I spoke to Dr. Arenas of [facility]. He will evaluate the patient for further care and management. 2242: Upon reevaluation, the patient is doing well. I discussed the findings and the treatment plan with the patient. She expresses agreement and understanding. I spoke with Dr. Arenas of the [facility] Hospitalist Service. She will be evaluated for further management. Medical Decision Differential diagnosis: Etiologies such as metabolic, infection, hypo/hyperglycemia, electrolyte abnormalities, cardiac sources, intracerebral event, toxicologic, neurologic, as well as others were entertained. Patient likely with dehydration and poor by mouth intake leading to electrolyte abnormalities and acute kidney injury. Patient felt improved here in heart rate improved following administration of IV fluids. Did not feel patient required additional rate controlling agents such as IV Cardizem at this time. Patient with chronic age or fibrillation, INR therapeutic. Patient admitted for continued monitoring, IV hydration, repletion of a left lites. Patient started on magnesium while in the emergency room. Doubt bacteremia/sepsis, doubt colitis, bowel obstruction, mesenteric ischemia. Doubt transplant failure or rejection. Medication Reconcilliation Current Medication List: was personally reviewed by me Blood Pressure Screening Patient's blood pressure: Normal blood pressure Blood pressure disposition: Did not require urgent referral Consults Time Called: 2029 Consulting Physician: Dr. Arenas - [facility] Returned Call: [address] Arenas of [facility]. He will evaluate the patient for further care and management. Impression Primary Impression: Acute kidney injury Additional Impressions: Atrial fibrillation with RVR Dehydration Diarrhea Hypomagnesemia Kidney transplant status, cadaveric Scribe Attestation The scribe's documentation has been prepared under my direction and personally reviewed by me in its entirety. I confirm that the note above accurately reflects all work, treatment, procedures, and medical decision making performed by me. Departure Information Dispostion Being Evaluated By Hospitalist Referrals Rich Lin M.D. (PCP) Patient Instructions My [facility] Problem Qualifiers Additional Impressions: Diarrhea Diarrhea type: unspecified type Qualified Codes: R19.7 - Diarrhea, unspecified
[2017-07-03 20:36] LABS: URINE APPEARANCE CLEAR (CLEAR); URINE BILIRUBIN NEG (NEG); URINE COLOR YELLOW; URINE NITRITE NEG (NEG); URINE SPECIFIC GRAVITY 1.017 (1.000-1.030); UROBILINOGEN NEG (NEG); ZZUR CULT IF INDIC CLEAN CATCH NO
[2017-07-03 20:37] LABS: MANUAL MICROSCOPIC REQUIRED? NO; REVIEW REQ? NO
--- NOTE | 2017-07-03 22:18 | History and Physical ---
History & Physical Date & Time of Service: Jul 03, 2017 at 22:18 Chief Complaint: Very Dizzy,Weak,Shaky,Diarrhea Primary Care Physician: Rich Lin M.D. History of Present Illness Source: patient, hospital records The patient is a 62-year-old female with a past medical history including kidney transplant in 2012, atrial fibrillation and hypertension, who presents to the emergency department with an illness consisting of generalized weakness, dizziness, decreased appetite, pounding heart sensation, diarrhea 4 to 6 times daily for 2 days, decreased urination, and intermittent nausea. She reports taking Imodium earlier in the day which has slowed down her diarrhea. She has not had any oral intake for 3 days. She is not aware of any bad food ingestions , and has not had any recent travels or sick exposures. She was switched from atenolol to metoprolol 3 months ago, and attributes a slow progression of these symptoms to this medication change. Past Medical/Surgical History Medical Problems: (1) Hypertension Status: Chronic (2) Kidney disease Status: Chronic (3) Pneumonia Status: Resolved (4) Urinary problem Status: Chronic Surgical Problems: (1) Hx of cholecystectomy Status: Resolved (2) Kidney transplanted Status: Resolved Family History FH: kidney disease FHx: heart disease Hypertension Social History Smoking Status: Never Smoker Smokeless Tobacco Use: No Alcohol Use: none Drug Use: none Marital Status: Housing status: lives with family Occupational Status: employed Immunizations History of Influenza Vaccine: No Influenza Vaccine Date: Sep 04, 2005 History of Tetanus Vaccine?: No History of Pneumococcal: No Pneumococcal Date: Sep 04, 2005 History of Hepatitis B Vaccine: No Hepatitis Immunization Date: Sep 04, 2005 Multi-Drug Resistant Organisms History of MDRO: No Allergies Coded Allergies: Quinolones (Verified Allergy, Intermediate, FLOXIN CAUSES HIVES, 03/09/17) HIVES Home Medications Scheduled Diltiazem Hcl Coated Beads (Diltiazem Hcl Er), 120 MG PO DAILY Metoprolol Tartrate (Lopressor) (Lopressor), 50 MG PO BID Mycophenolate Sodium (Mycophenolic Acid Dr), 540 MG PO BID Potassium Ext Rel (Klor-Con), 20 MEQ PO UD Prednisone (Prednisone), 5 MG PO DAILY Tacrolimus (Prograf), 3 MG PO AMPM Warfarin Sodium (Coumadin), 2 MG PO DAILY Scheduled PRN Furosemide (Lasix), 40 MG PO DAILY PRN for FLUID ACCUMULATION Review of Systems The patient denies chest pain, shortness of breath, cough, lower extremity swelling, vision change, hearing change, sore throat, vomiting, blood in urine or stool, dysuria, urinary frequency or urgency, headache, memory loss, loss of consciousness, rash, abnormal bruising or bleeding, imbalance, focal weakness, numbness or tingling in arms or legs, generalized arthralgias or myalgias, back or neck pain, or night sweats. The review of systems is otherwise negative other than for that already noted above, and at least 10 systems have been reviewed. Physical Exam Vital Signs Date Time Temp Pulse Resp B/P (MAP) Pulse Ox O2 Delivery O2 Flow Rate FiO2 07/03/17 21:30 92 20 116/58 97 Room Air 07/03/17 20:30 91 16 122/66 07/03/17 20:24 115/83 07/03/17 19:50 81 12 98 07/03/17 19:48 87 18 100/61 97 Room Air 07/03/17 19:45 92 16 07/03/17 19:30 84 14 07/03/17 19:07 107 07/03/17 18:11 36.4 137 20 101/68 98 Room Air The patient is awake, well-developed and adequately nourished, alert and oriented 3, loly complexion, lying in bed, looks dehydrated and acutely ill. HEENT--PERRL, EOMI, mucous membranes and oropharynx dry. Neck--supple, no JVD or bruits, thyroid normal, trachea midline, no adenopathy. Heart--irregularly irregular and tachycardic, no murmurs, rubs or gallops. Lungs--clear bilaterally with good air movement, no respiratory distress, no accessory muscle use. Abdomen--normal bowel sounds and soft, mild generalized tenderness, mildly tympanitic. Extremities--no cyanosis, clubbing . There is trace bilateral pretibial edema. There are good distal pulses b/l. Dermatologic--as above. Neurologic--cranial nerves II through XII grossly intact. Rheumatologic--normal range of motion. Psychiatric--normal affect. Diagnostics Laboratory Results Results Past 24 Hours Test 07/03/17 18:59 07/03/17 19:00 07/03/17 19:29 07/03/17 20:20 Range/Units Bedside Lactic Acid Venous 1.50 0.90-1.70 mmol/L White Blood Count 11.10 4.8-10.8 K/uL Red Blood Count 4.28 4.2-5.4 M/uL Hemoglobin 12.3 12.0-16.0 g/dL Hematocrit 38.5 37-47 % Mean Corpuscular Volume 90.0 80-100 fL Mean Corpuscular Hemoglobin 28.7 25-34 pg Mean Corpuscular Hemoglobin Concent 31.9 32-36 g/dl Platelet Count 172 130-400 K/uL Mean Platelet Volume 10.4 7.4-10.4 fL Neutrophils (%) (Auto) 88.9 % Lymphocytes (%) (Auto) 5.9 % Monocytes (%) (Auto) 4.7 % Eosinophils (%) (Auto) 0.1 % Basophils (%) (Auto) 0.1 % Neutrophils # (Auto) 9.87 1.4-6.5 K/uL Lymphocytes # (Auto) 0.66 1.2-3.4 K/uL Monocytes # (Auto) 0.52 0.11-0.59 K/uL Eosinophils # (Auto) 0.01 0-0.5 K/uL Basophils # (Auto) 0.01 0-0.2 K/uL RDW Standard Deviation 44.7 36.4-46.3 fL RDW Coefficient of Variation 13.7 11.5-14.5 % Immature Granulocyte % (Auto) 0.3 % Immature Granulocyte # (Auto) 0.03 0.00-0.02 K/uL Sodium Level 126 136-145 mmol/L Potassium Level 4.8 3.5-5.1 mmol/L Chloride Level 92 98-107 mmol/L Carbon Dioxide Level 14 21-32 mmol/L Anion Gap 20.0 3-11 mmol/L Blood Urea Nitrogen 32 7-18 mg/dl Creatinine 1.57 0.60-1.20 mg/dl Est Creatinine Clear Calc Drug Dose 42.6 ml/min Estimated GFR () 41.1 Estimated GFR (Non- 35.5 BUN/Creatinine Ratio 20.1 10-20 Random Glucose 73 70-99 mg/dl Calcium Level 9.4 8.5-10.1 mg/dl Phosphorus Level 2.5 2.5-4.9 mg/dl Magnesium Level 1.3 1.8-2.4 mg/dl Total Bilirubin 0.7 0.2-1 mg/dl Aspartate Amino Transf (AST/SGOT) 16 15-37 U/L Alanine Aminotransferase (ALT/SGPT) 12 12-78 U/L Alkaline Phosphatase 53 45-117 U/L Troponin I 0.015 0-0.045 ng/ml Total Protein 6.6 6.4-8.2 gm/dl Albumin 3.6 3.4-5.0 gm/dl Globulin 3.0 2.5-4.0 gm/dl Albumin/Globulin Ratio 1.2 0.9-2 Thyroid Stimulating Hormone (TSH) 1.190 0.300-4.500 uIu/ml Chemistry Specimen Hemolysis Prothrombin Time 31.7 9.0-12.0 SECONDS Prothromb Time International Ratio 2.8 0.9-1.1 Urine Color YELLOW Urine Appearance CLEAR CLEAR Urine pH 5.0 4.5-7.5 Urine Specific [place] 1.017 1.000-1.030 Urine Protein NEG NEG Urine Glucose (UA) NEG NEG Urine Ketones 1+ NEG Urine Occult Blood NEG NEG Urine Nitrite NEG NEG Urine Bilirubin NEG NEG Urine Urobilinogen NEG NEG Urine Leukocyte Esterase NEG NEG Diagnostic Radiology Patient Name: MARLA ARANGO Unit Number: [id number] Dictated: 07/03/171931 Transcribed: 07/03/171931 PBS Printed Date/Time: [~ rep prt dt]/[~ rep prt tm] [~ rep ct labl] - [~ rep ct ivnm] [facility] Radiology [place] [address] Dictated: 07/03/171931 Transcribed: 07/03/171931 PBS Printed Date/Time: [~ rep prt dt]/[~ rep prt tm] [~ rep ct labl] - [~ rep ct ivnm] [~ rep ct add3]] ABDOMEN 2VIEW W/PA CHEST RTN CLINICAL HISTORY: 62 years-old Female presenting with palpitations, diarrhea. TECHNIQUE: PA view of the chest and supine and upright views of the abdomen were obtained. COMPARISON: 03/12/2017. FINDINGS: Right subclavian pacer with leads to the right atrium and right ventricular apex. Atherosclerosis of the aortic arch. Vertex silhouette mildly enlarged, unchanged. Decreased prominence of pulmonary vasculature. No focal infiltrate. No pleural effusion or pneumothorax. Cholecystectomy clips. Mild gaseous distention of small and large bowel. No convincing evidence of obstruction. No gross pneumoperitoneum. Extensive pelvic phleboliths. Osseous structures normal. IMPRESSION: 1. No acute cardiopulmonary disease. 2. Mild gaseous distention of small and large bowel. No convincing evidence of obstruction. Electronically signed by: Skip Santana M.D. 07/03/2017 7:35 PM Dictated Date/Time: 07/03/2017 7:32 PM The status of this report is Signed. Draft = Not yet reviewed or approved by Radiologist. Signed = Reviewed and approved by Radiologist. <AttendingPhy></AttendingPhy> <FamilyPhy>Rich Lin M.D.</FamilyPhy> < PrimaryPhy>Rich Lin M.D.</PrimaryPhy> <UnitNumber>[id number]</UnitNumber > <VisitNumber>[id number]</VisitNumber> <PatientName>MARLA ARANGO</ PatientName> <DateOfBirth>1955</DateOfBirth> <Location>C.EDB</Location> < ServiceDate>07/03/17</ServiceDate> <MNE>ESINDI</MNE> <OrderingPhy>Vanessa Wilde DO</OrderingPhy> <OrderingPhyMNE>f rep ord dr merida</OrderingPhyMNE> < DictatingPhyMNE>f rep dict dr merida</DictatingPhyMNE> <CCListMNE>f rep ct fuad</ CCListMNE> <AdmittingPhyMNE>f pt admit dr merida</AdmittingPhyMNE> <AttendingPhyMNE >f pt attend dr merida</AttendingPhyMNE> <ConsultingPhyMNE>f pt consult dr merida</ConsultingPhyMNE> <FamilyPhyMNE>f pt fam dr merida</FamilyPhyMNE> <OtherPhyMNE>f pt other dr merida</OtherPhyMNE> < PrimaryPhyMNE>f pt prim care dr merida</PrimaryPhyMNE> <ReferringPhyMNE>f pt referring dr merida</ReferringPhyMNE> EKG EKG shows atrial fibrillation with RVR at 114 bpm, left axis deviation, no significant change compared to 03/10/2017 Impression Assessment and Plan Atrial fibrillation with RVR-- The patient will be admitted to telemetry for serial cardiac enzymes, cardiac rhythm monitoring and a 2-D echocardiogram with Dopplers. Magnesium level I.3, has already been given 2 g of magnesium sulfate IV by the ED. Dehydration treated with lactated Ringer's in the ED 1 L, and will continue at 100 mils per hour. She prefers to not be on metoprolol tartrate 50 mg by mouth twice a day. Hydration as above has significantly dropped her heart rate into the 80s to 90s while in the ED. Change diltiazem ER from 120 mg by mouth every morning to 180 mg by mouth twice a day with hold parameters. On warfarin 2 mg by mouth daily, present INR is 2.8 and follow serially. Next INR will determine next Coumadin dose. Renal transplant status/renal insufficiency/creatinine 1.57, with a range of 1.1 -1.8/hyponatremia with sodium 126-- Hydrate as above with LR. Serial BMP and magnesium levels. Continue tacrolimus 3 mg by mouth twice a day. Continue mycophenolate 540 mg by mouth twice a day. Hold potassium chloride. Increase prednisone from 5 mg by mouth daily to 10 mg by mouth daily for modified stress dosing in the short-term. No signs of infection. Order a tacrolimus level. Consult her arboriculture instructor Dr. Lin. Diarrheal illness-- Most likely a viral process, although she is concerned about metoprolol. She has taken Imodium as an outpatient, so stool studies are unlikely to be obtained since she has not had any further bowel movements. Testing for stool for C. difficile, and culture would be appropriate if symptoms return. AHA/renal diet if she feels like eating. Level of Care Telemetry Advanced Directives Existing Advance Directive: No Existing Living Will: No Existing Power of Seasonal Recruiter: No Resuscitation Status FULL RESUSCITATION VTE Prophylaxis Risk Level: Moderate Given or contraindicated: Warfarin (Coumadin) Social Service Consult None Apply
[2017-07-03] MEDS ORDERED: ACETAMINOPHEN 325 MG TAB PO PRN (22:30)
[2017-07-03] MEDS ORDERED: POTASSIUM CHLORIDE 20 MEQ TABCR PO SCH (22:30)
[2017-07-03] MEDS ORDERED: ONDANSETRON INJ 2 MG/ML 2 ML VIAL IV PRN (22:30)
[2017-07-03 23:05] VITALS: BP 151/63; PULSE 94; TEMP 36.6; O2SAT 94; Ht 165.1 cm; Wt 85.9 kg
[2017-07-03] MEDS: LACTATED RINGER'S 1000ML 1,000 ML IV SCH (23:36)
[2017-07-03] MEDS: TACROLIMUS 1 MG CAP PO SCH (23:38)
[2017-07-03] MEDS: MYCOPHENOLATE SODIUM 180 MG TAB PO SCH (23:44)
[2017-07-04] VITALS (13 sets, daily range): BP systolic 101–156; BP diastolic 53–96; PULSE 61–108; TEMP 36.5–37.4; O2SAT 91–97
[2017-07-04] MEDS: WARFARIN SOD 2 MG TAB PO SCH ×2 (00:18→15:52)
[2017-07-04 07:29] LABS: BASO % 0.2 %; BASO ABS # 0.02 K/uL (0-0.2); COMPLETE YES; EOS % 0.5 %; HEMATOCRIT 37.4 % (37-47); IG% 0.6 %; LYMPH % 11.4 %; MEAN CELL VOLUME 90.1 fL (80-100); MEAN CORPUSCULAR HEMOGLOBIN 28.4 pg (25-34); MEAN CORPUSCULAR HGB CONC 31.6 g/dl (32-36); MEAN PLATELET VOLUME 9.9 fL (7.4-10.4); MONO % 8.8 %; NEUT % 78.5 %; PLATELET COUNT 145 K/uL (130-400); RED BLOOD COUNT 4.15 M/uL (4.2-5.4); WHITE BLOOD COUNT 8.77 K/uL (4.8-10.8)
[2017-07-04 07:38] LABS: INR 3.1 (0.9-1.1); PARTIAL THROMBOPLASTIN RATIO 1.3; PROTHROMBIN TIME (PATIENT) 35.2 SECONDS (9.0-12.0)
[2017-07-04 08:02] LABS: BUN/CREATININE RATIO 21.3 (10-20); CALCIUM 9.3 mg/dl (8.5-10.1); CREATININE 1.31 mg/dl (0.60-1.20); POTASSIUM 4.6 mmol/L (3.5-5.1)
[2017-07-04] MEDS: MYCOPHENOLATE SODIUM 180 MG TAB PO SCH ×2 (08:06→20:49)
[2017-07-04] MEDS: LACTATED RINGER'S 1000ML 1,000 ML IV SCH ×2 (08:06→20:46)
[2017-07-04] MEDS: DILTIAZEM HCL 180 MG CAPCR PO SCH ×2 (08:08→20:48)
[2017-07-04] MEDS: TACROLIMUS 1 MG CAP PO SCH ×2 (08:10→20:48)
--- NOTE | 2017-07-04 11:56 | NEPHROLOGY CONSULTATION ---
DATE OF CONSULTATION: 07/04/2017 REQUESTING PHYSICIAN: [facility] hospitalist service. SUBJECTIVE: Mrs. Barker is a 62-year-old white female, well known to me. I have followed her since the late for problems and complications of her chronic renal disease. She was first referred to me because of renal failure in the late . Her blood pressure was elevated at that time and she had advanced renal failure. Biopsy was not done because of the level of her renal function. 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 Her blood pressure was controlled. However, by 1989, she develops symptoms of uremia and volume overload and was started on maintenance hemodialysis. She was subsequently switched to CAPD. That was continued until 1994 when it had to be discontinued because of recurring episodes of peritonitis. She was returned to hemodialysis and remained on hemodialysis for about 1 year before getting her first kidney transplant at the [facility] in 1995. 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 Her transplant finally failed completely and she was returned to hemodialysis in 2005. She remained on hemodialysis without significant complications until her second kidney transplant was done at [facility] in [place] in 2012. Complications of her second transplant and her chronic kidney disease once again included recurrent urinary tract infections as well as hyperparathyroidism, for which she underwent a parathyroidectomy and paroxysmal atrial fibrillation, which will be alluded to below. She has had multiple hospitalizations associated with this kidney transplant, again associated with urinary tract infections. She usually presents with symptoms of nausea with or without vomiting as well as diarrhea, chills and fever. She rarely has associated dysuria or pain over her transplanted kidney. More often and not, urine cultures are positive at that time and blood cultures may or may not have been positive. The episodes were associated with the reduction of her renal function, which seems to improve with volume repletion and treatment with antibiotics. She has a history of intermittent episodes of diarrhea on associated with urinary tract infections or fevers. It was decided to switch her from CellCept to Myfortic to reduce the likelihood of her having episodes of diarrhea. That seems to have been ineffective. Her other major issue is one of atrial fibrillation. She has had episodes of paroxysmal atrial fibrillation since having her second kidney transplant in 2012. Episodes were initially picked up during a visit [email or web address]. Her treatment was anticoagulation with warfarin as well as treatment with diltiazem for help with weight control. Generally, she is unaware of episodes of atrial fibrillation unless she developed significant palpitations, which does not always happen. She developed an associated tachybrady syndrome and in April 2016, again at [facility], dual chamber pacemaker ([employer]) was placed. Other cardiac issues include a history of mitral regurgitation and diastolic dysfunction. She did undergo a cardiac catheterization in 2010. No significant coronary artery disease was noted at that time, but she did have a 10%-20% mid LAD stenosis. In 2012, she had an episode of chest discomfort, but a stress echocardiogram was negative. She now presents with a 2-day history of diarrhea, having had 4-6 loose bowel movements per day. She denies having abdominal pain. She has been mildly nauseated, but has not vomited. Her symptoms have persisted. She has not been eating normally. She has been taking her medications, however. Yesterday, she began to develop significant palpitations. She called our office and was referred to the Emergency Room. There, she was noted to be in atrial fibrillation and admission was advised. Her creatinine was somewhat more elevated than its baseline of about 1.0-1.2 mg/dL. Here yesterday, it was about 1.5 mg/dL. It has improved with volume repletion. She has not had a significant fever. She denies having chills, but does feel cold. She has not had significant diarrhea since her admission. Apparently, urine and blood cultures have not been obtained. CURRENT OUTPATIENT MEDICATIONS: Include diltiazem 120 mg daily, Lasix 40 mg p.r.n. edema, metoprolol tartrate 50 mg b.i.d., Myfortic 540 mg b.i.d., Klor-Con 20 mEq on the days which she takes Lasix, prednisone 5 mg daily, Prograf 3 mg in the morning and evening as well as warfarin 2 mg daily. ALLERGIES: QUINOLONES. The remainder of her past medical history, family history, social history and review of systems appears on previous echo admission notes and consults and will not be repeated. There is a little more to add with regard to her general health status. It should be pointed out that she is followed by Dr. Richy Courtney for her atrial fibrillation. She does mention that since metoprolol has been added to her regimen, she has felt somewhat queasy on an intermittent basis, but has had no other particular symptoms. Her last INR was done within the past week and was 2.8. OBJECTIVE: GENERAL: On physical exam at the current time, she was seen in her room and she was lying quietly in bed with covers up to her chin. VITAL SIGNS: Her temperature is 37.0, her blood pressure 120/87 with a pulse of 90 and irregular. Her respiratory rate is 18 and her pulse ox is 91%-96%. SKIN: Shows essentially normal skin turgor. She has some discoloration of her distal lower extremities consistent with venous stasis dermatitis. She has multiple scars from prior surgical procedures including bilateral lower quadrant scars from kidney transplant and scars on both arms from attempts at the creation of AV fistulas as well as her takedown. She has a scar over the distal left clavicle from the placement of her pacemaker. She has multiple scars on her arms from prior trauma. Her face does appear somewhat flushed with blotchy erythema. LYMPHATICS: Show no palpable lymphadenopathy. HEAD: Normal. EYES: Grossly normal. The ocular fundi were not examined. Pupils round, equal and reactive to light. EARS, NOSE, MOUTH AND THROAT: Unremarkable other than poor dentition. Oral mucous membranes are moist. NECK: Supple. She has no obvious jugular venous distention at 90 degrees. There is no carotid bruit. I cannot palpate her thyroid. She has a scar at the base of her neck from parathyroid surgery. CHEST: Clear to auscultation. She has a murmur radiating into the chest from her left upper arm AV fistula. She has no wheezes, rales or rhonchi. CARDIAC: Shows an irregularly irregular rhythm. She has a soft systolic murmur at the base radiating toward the neck. I do not hear any diastolic murmurs. ABDOMEN: Obese, but nontender. Renal grafts are palpable in both lower quadrants. They are nontender. There is a faint bruit over the left lower quadrant graft. EXTREMITIES: Show the scars noted. She has no cyanosis or clubbing. There is no current edema. Peripheral pulses in her feet are difficult to feel, but she does have normal capillary refill in fingers and toes. NEUROLOGIC: Shows no lateralizing changes. PERTINENT LABORATORY WORK: Today shows a white count of 8770 with 78.5% neutrophils, 11.4% lymphocytes, 8.8% monocytes, 0.5% eosinophils and 0.2% basophils. Her hemoglobin is 11.8 with a hematocrit of 37.4 and a platelet count of 145,000. On admission, however, her white count was 11,100 with 88.9% neutrophils. Her prothrombin time was 35.2 with an INR of 3.1. Her PTT is 33.6 with a PTTR of 1.3. Her clinical chemistries from today show a sodium of 130 mmol/L, potassium of 4.6 mmol/L, chlorides of 97 mmol/L, and CO2 content 19 mmol/L. Her anion gap is 14. Her BUN is 28 and her creatinine 1.31. Her random blood sugar this morning was 58 !. Her serum calcium is 9.3 and her magnesium 2.0. On admission yesterday, her total protein was 6.6 and her albumin 3.6. Her TSH is 1.90. Her urinalysis shows a specific gravity of 1.017. Her urine appeared clear. On dipstick, her pH was 5.0. It was negative for protein, glucose and blood, but she did have 1+ ketones. Her Hepatitis C antibody screen is negative. She did have a chest x-ray and abdominal survey film on admission. Her chest x-ray showed no acute cardiopulmonary disease. Her flat plate of the abdomen showed mild gaseous distention of the small or large bowel, but no convincing evidence of obstruction. ASSESSMENT: Mrs. Barker is a 62-year-old woman with a longstanding history of chronic renal disease. She is on her second kidney transplant. Complications of her chronic renal disease are noted above and do include tertiary hyperparathyroidism, for which she underwent a parathyroidectomy. She also has a history of atrial fibrillation, for which she is anticoagulated with Coumadin. She is followed by Dr. Richy Courtney. For the most part, she remains in a sinus rhythm and rate is controlled now with a combination of diltiazem and metoprolol. She does complain that metoprolol makes her slightly queasy and she does not like taking it. She now presents with symptoms of chills, but no documented fever as well as a 2-day history of diarrhea as well as nausea without vomiting. This picture in the past has been associated with significant urinary tract infections. However, at least at this time, her urine appears clear. Nonetheless, I do think it would be beneficial to have her cultured. Obviously, her symptoms could also be purely viral in etiology. RECOMMENDATIONS: Blood cultures x2 as well as a urine culture and repeat urinalysis. Additionally, I would maintain her hydration and continue her on her usual immunosuppression as well as at least for now, her diltiazem and metoprolol. It may be helpful to ask Dr. Courtney to see her regarding her atrial fibrillation. She has required cardioversions in the past. No other immediate recommendations. I will continue to follow her with you and make further suggestions as her clinical course unfolds.
--- NOTE | 2017-07-04 13:32 | CARDIOLOGY CONSULTATION REPORT ---
DATE OF CONSULTATION: 07/04/2017 REASON FOR CONSULTATION: 1. Persistent atrial fibrillation with RVR. 2. Intolerance with metoprolol. HISTORY OF PRESENT ILLNESS: Ms. Barker is a 62-year-old obese white female with a history of Tachy-Gee Syndrome status post dual-chamber Pacemaker placement, Persistent Atrial Fibrillation (over the past several months), Hypertension, Dyslipidemia, no significant CAD on cardiac catheterization in 2010, and a history of End-Stage Renal Disease status post Renal Transplant x 2, who was admitted acutely on 07/03/2017, complaining of generalized weakness, dizziness, decreased appetite, tachypalpitations, significant diarrhea over the course of 2 days, decreased urination, and intermittent nausea. She had taken Imodium prior to admission, which slowed down her diarrhea, but her other symptoms persisted. Additionally, she had very poor oral intake over the preceding 3 days. The patient has been in Atrial Fibrillation with intermittent RVR over the past several months. She was switched from Atenolol 25 mg b.i.d. to Metoprolol 50 mg b.i.d. in March 2017 in an effort to better control her ventricular response rate; however, she has not felt "right" since that time. Therefore, she has been noncompliant with metoprolol and has missed doses. Nonetheless, the patient remains in Atrial Fibrillation and has had RVR intermittently throughout this hospitalization. Her heart rate has been as high as 160 or 170 bpm even with minimal activity. The patient offers no other complaints. She denies any chest pain, heaviness, tightness, pressure, or discomfort. She denies any neck, jaw, back, or arm pain. She denies any diaphoresis or dyspnea associated with her tachypalpitations. She denies any syncope, but at times has felt lightheaded and generally weak over the past couple of days. The patient offers no other complaints. She is chronically on Coumadin and her INR has been therapeutic throughout this hospitalization. MEDICATIONS: 1. Warfarin 2 mg daily. 2. Diltiazem CD 180 mg b.i.d. (this is a dosage, which increased earlier today). 3. Prednisone 10 mg daily. 4. Prograf 3 mg b.i.d. 5. Myfortic tablet 540 mg b.i.d. 6. Tylenol p.r.n. 7. Lactated Ringer at 100 mL per hour. 8. Zofran 4 mg IV q. 6 hours p.r.n. for nausea. ALLERGIES: FLUOROQUINOLONES. PAST MEDICAL HISTORY: 1. Chronic kidney disease/end-stage renal disease, status post renal transplant x2. 2. Atrial fibrillation as described above. 3. History of anemia. 4. Chronic cholecystitis. 5. Chronic cystitis. 6. Hypertension. 7. History of GERD with laryngopharyngeal reflux. 8. Osteoarthritis. 9. History of intertrigo. 10. Chronic glomerulonephritis. 11. History of renal dialysis. 12. History of AV fistula creation. 13. Status post laparoscopic cholecystectomy. 14. History of tubal ligation. SOCIAL HISTORY: The patient is a lifelong nonsmoker. She does not drink alcohol. She is and lives with her at home. FAMILY HISTORY: Significant for acute myocardial infarction, hypertension, and thyroid disease in her mother. PHYSICAL EXAMINATION: VITAL SIGNS: Temperature 36.8 degrees Celsius, pulse is 105-110 beats per minute and irregularly irregular, respiratory rate is 16 and unlabored, blood pressure is 101/53, and SpO2 is 96% on room air. GENERAL: The patient is in no acute distress. HEENT: Head is atraumatic and normocephalic. EOMs intact. Sclerae are anicteric. Face is symmetric. No perioral cyanosis. Mucous membranes moist. NECK: Without thyromegaly, adenopathy, or JVD. Carotid upstrokes are +2 bilaterally without bruits. JVP is at the level of the clavicle sitting upright. CHEST AND LUNGS: Clear to auscultation throughout all lung parr. No wheezes, rales, or rhonchi. CARDIOVASCULAR: S1 and S2 are irregularly irregular and tachycardic at a rate of 105-110 beats per minute with a grade 1-2/6 basal systolic murmur heard best at the right second intercostal space. No diastolic murmur appreciated. No obvious gallops or rubs. PMI is nonpalpable. No lifts, heaves, or thrills. No abdominal aortic or renal bruits. ABDOMEN: Bowel sounds are present. EXTREMITIES: Without clubbing, cyanosis, or edema. NEUROLOGIC: The patient is awake, alert and oriented. Pleasant and cooperative. Answers questions appropriately. Speech is clear. Normal movement of all 4 extremities. Gait pattern not assessed. EKG earlier today shows atrial fibrillation with a ventricular response rate of 116 beats per minute with an intraventricular conduction delay, left axis deviation, and ST-T wave abnormalities, consider lateral ischemia. When compared to 07/03/2017 tracing, criteria for septal infarct no longer present. Telemetry monitoring reveals persistent atrial fibrillation. Intermittent heart rate as high as 170 beats per minute. LABORATORY DATA: White blood cell count is 8.77, hemoglobin 11.8 g/dL, hematocrit is 37.4%, and platelet count is 145,000. Sodium is 130 mmol/L, potassium 4.6 mmol/L, BUN 28 mg/dL, and creatinine 1.31 mg/dL. Random glucose is 58 mg/dL. Magnesium was low at 1.3 mg/dL on admission, currently is 2.0 mg/dL. LFTs unremarkable. TSH is normal at 1.190 uIU/mL. Chest x-ray on admission shows no acute cardiopulmonary processes. Cardiac pacemaker is in place. Troponin I level on admission was 0.015 ng/mL. ASSESSMENT: 1. Persistent Atrial Fibrillation with rapid ventricular response. 2. Noncompliance with metoprolol. 3. Acute gastrointestinal illness, likely viral in etiology. 4. End-stage renal disease, status post renal transplant. 5. Tachybrady syndrome s/p permanent pacemaker placement. 6. Hypertension, reasonably well controlled. 7. Diagnoses as mentioned above. PLAN: 1. The patient's ventricular response rate is still not controlled. 2. Continue Diltiazem CD 180 mg b.i.d. 3. Remain off of metoprolol. 4. Restart Atenolol 25 mg b.i.d. for added rate control benefits. She has tolerated this dose in the past and should tolerate it again - titrate if necessary. 5. Continue Coumadin with the goal INR of 2.0-3.0. 6. Continue to monitor daily laboratories including daily magnesium level and potassium level. 7. Continue on telemetry until her ventricular response rate is well controlled. 8. We will continue to follow along while hospitalized. TIGRE
[2017-07-04] MEDS: CEFTRIAXONE SOD INJ 1,000 MG in DEXTROSE 5% 50ML 50 ML IV SCH (13:36)
--- NOTE | 2017-07-04 14:42 | Progress Note ---
Subjective Date of Service: Jul 04, 2017. Subjective Pt evaluation today including: conversation w/ patient, physical exam, lab review, conversation w/ email production consultant, review of inpatient medication list Pain: denies pain PO Intake: tolerating regular diet Voiding: no voiding problems patient feeling better overall, more energy she reports no diarrhea for a few days, no BM today HR better controlled on Diltiazem discussed case with Dr. Lin, he recommends treating for possible UTI until cultures back also, patient would like to see cardiology due to feeling fatigued, bad taste on metoprolol reviewed labs, Cr improved to 1.3, Na up to 130, anion gap closing Problem List Medical Problems: (1) Acute kidney injury Status: Acute (2) Acute kidney injury Status: Acute (3) Acute renal failure Status: Acute (4) Atrial fibrillation with RVR Status: Acute (5) Dehydration Status: Acute (6) Diarrhea Status: Acute (7) Hypomagnesemia Status: Acute (8) Immunocompromised Status: Acute (9) Leukocytosis Status: Acute (10) UTI (urinary tract infection) Status: Acute Social History Problems: (1) H/O kidney transplant Status: Acute (2) Renal transplant recipient Status: Acute Review of Systems Constitutional: + weakness Abdomen: + nausea, + diarrhea Neurologic: + weakness All Other Systems: Reviewed and Negative Medications Current Inpatient Medications Medications (Trade) Dose Ordered Sig/Clarita Route Start Time Stop Time Status Last Admin Dose Admin Acetaminophen (Tylenol Tab) 650 mg Q4H PRN PO 07/03/17 22:30 08/02/17 22:29 Diltiazem HCl (Cardizem Cd Cap) 180 mg BID PO 07/04/17 09:00 08/03/17 08:59 07/04/17 08:08 180 MG Prednisone (PredniSONE TAB) 10 mg DAILY PO 07/04/17 09:00 08/03/17 08:59 07/04/17 08:08 10 MG Tacrolimus (Prograf Cap) 3 mg BID PO 07/04/17 09:00 08/03/17 08:59 07/04/17 08:10 3 MG Warfarin Sodium (Coumadin Tab) 2 mg DAILY@1600 PO 07/04/17 16:00 08/03/17 15:59 07/04/17 00:18 2 MG Mycophenolate Sodium (Myfortic Tab) 540 mg BID PO 07/04/17 09:00 08/03/17 08:59 07/04/17 08:06 540 MG Lactated Ringer's 1,000 ml @ 100 mls/hr Q10H IV 07/03/17 22:30 08/02/17 22:29 07/04/17 08:06 100 MLS/HR Ondansetron HCl (Zofran Inj) 4 mg Q6H PRN IV 07/03/17 22:30 08/02/17 22:29 Atenolol (Tenormin Tab) 25 mg BID PO 07/04/17 21:00 08/03/17 20:59 Ceftriaxone Sodium 1000 mg/ Dextrose 60 ml @ 100 mls/hr DAILY@1200 IV 07/04/17 13:00 07/09/17 11:59 07/04/17 13:36 100 MLS/HR Objective Vital Signs Date Time Temp Pulse Resp B/P (MAP) Pulse Ox O2 Delivery O2 Flow Rate FiO2 07/04/17 12:00 91 Room Air 07/04/17 11:29 36.8 105 18 101/53 (69) 96 Room Air 07/04/17 08:00 91 Room Air 07/04/17 07:07 37.0 90 18 120/87 (98) 91 Room Air 07/04/17 04:00 93 Room Air 07/04/17 03:38 36.6 108 20 156/96 (116) 93 Room Air 07/03/17 23:05 36.6 94 20 151/63 94 Room Air 07/03/17 22:48 36.4 78 22 109/70 96 07/03/17 22:30 78 22 109/70 96 Room Air 07/03/17 22:00 85 12 102/58 07/03/17 21:30 92 20 116/58 97 Room Air 07/03/17 21:30 112 22 116/58 07/03/17 20:30 91 16 122/66 07/03/17 20:24 115/83 07/03/17 19:50 81 12 98 07/03/17 19:48 87 18 100/61 97 Room Air 07/03/17 19:45 92 16 07/03/17 19:30 84 14 07/03/17 19:07 107 07/03/17 18:11 36.4 137 20 101/68 98 Room Air Physical Exam General Appearance: WD/WN, no apparent distress Neck: supple, no adenopathy, no JVD, trachea midline Respiratory/Chest: chest non-tender, lungs clear, normal breath sounds, no respiratory distress, no accessory muscle use Cardiovascular: no edema, no gallop, no JVD, no murmur, + irregularly irregular Abdomen: normal bowel sounds, non tender, soft, no organomegaly Extremities: normal range of motion, non-tender, normal inspection, no pedal edema, no calf tenderness, pelvis stable 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, no motor/sensory deficits, alert, normal mood/affect, oriented x 3 Skin: normal color, warm/dry, no rash Laboratory Results Last 24 Hours Test 07/03/17 18:59 07/03/17 19:00 07/03/17 19:29 07/03/17 20:20 Bedside Lactic Acid Venous 1.50 mmol/L White Blood Count 11.10 K/uL Red Blood Count 4.28 M/uL Hemoglobin 12.3 g/dL Hematocrit 38.5 % Mean Corpuscular Volume 90.0 fL Mean Corpuscular Hemoglobin 28.7 pg Mean Corpuscular Hemoglobin Concent 31.9 g/dl Platelet Count 172 K/uL Mean Platelet Volume 10.4 fL Neutrophils (%) (Auto) 88.9 % Lymphocytes (%) (Auto) 5.9 % Monocytes (%) (Auto) 4.7 % Eosinophils (%) (Auto) 0.1 % Basophils (%) (Auto) 0.1 % Neutrophils # (Auto) 9.87 K/uL Lymphocytes # (Auto) 0.66 K/uL Monocytes # (Auto) 0.52 K/uL Eosinophils # (Auto) 0.01 K/uL Basophils # (Auto) 0.01 K/uL RDW Standard Deviation 44.7 fL RDW Coefficient of Variation 13.7 % Immature Granulocyte % (Auto) 0.3 % Immature Granulocyte # (Auto) 0.03 K/uL Sodium Level 126 mmol/L Potassium Level 4.8 mmol/L Chloride Level 92 mmol/L Carbon Dioxide Level 14 mmol/L Anion Gap 20.0 mmol/L Blood Urea Nitrogen 32 mg/dl Creatinine 1.57 mg/dl Est Creatinine Clear Calc Drug Dose 42.6 ml/min Estimated GFR () 41.1 Estimated GFR (Non- 35.5 BUN/Creatinine Ratio 20.1 Random Glucose 73 mg/dl Calcium Level 9.4 mg/dl Phosphorus Level 2.5 mg/dl Magnesium Level 1.3 mg/dl Total Bilirubin 0.7 mg/dl Aspartate Amino Transf (AST/SGOT) 16 U/L Alanine Aminotransferase (ALT/SGPT) 12 U/L Alkaline Phosphatase 53 U/L Troponin I 0.015 ng/ml Total Protein 6.6 gm/dl Albumin 3.6 gm/dl Globulin 3.0 gm/dl Albumin/Globulin Ratio 1.2 Thyroid Stimulating Hormone (TSH) 1.190 uIu/ml Chemistry Specimen Hemolysis Prothrombin Time 31.7 SECONDS Prothromb Time International Ratio 2.8 Urine Color YELLOW Urine Appearance CLEAR Urine pH 5.0 Urine Specific [place] 1.017 Urine Protein NEG Urine Glucose (UA) NEG Urine Ketones 1+ Urine Occult Blood NEG Urine Nitrite NEG Urine Bilirubin NEG Urine Urobilinogen NEG Urine Leukocyte Esterase NEG Test 07/04/17 06:44 White Blood Count 8.77 K/uL Red Blood Count 4.15 M/uL Hemoglobin 11.8 g/dL Hematocrit 37.4 % Mean Corpuscular Volume 90.1 fL Mean Corpuscular Hemoglobin 28.4 pg Mean Corpuscular Hemoglobin Concent 31.6 g/dl Platelet Count 145 K/uL Mean Platelet Volume 9.9 fL Neutrophils (%) (Auto) 78.5 % Lymphocytes (%) (Auto) 11.4 % Monocytes (%) (Auto) 8.8 % Eosinophils (%) (Auto) 0.5 % Basophils (%) (Auto) 0.2 % Neutrophils # (Auto) 6.89 K/uL Lymphocytes # (Auto) 1.00 K/uL Monocytes # (Auto) 0.77 K/uL Eosinophils # (Auto) 0.04 K/uL Basophils # (Auto) 0.02 K/uL RDW Standard Deviation 45.3 fL RDW Coefficient of Variation 13.8 % Immature Granulocyte % (Auto) 0.6 % Immature Granulocyte # (Auto) 0.05 K/uL Prothrombin Time 35.2 SECONDS Prothromb Time International Ratio 3.1 Activated Partial Thromboplast Time 33.6 SECONDS Partial Thromboplastin Ratio 1.3 Sodium Level 130 mmol/L Potassium Level 4.6 mmol/L Chloride Level 97 mmol/L Carbon Dioxide Level 19 mmol/L Anion Gap 14.0 mmol/L Blood Urea Nitrogen 28 mg/dl Creatinine 1.31 mg/dl Est Creatinine Clear Calc Drug Dose 49.4 ml/min Estimated GFR () 51.2 Estimated GFR (Non- 44.1 BUN/Creatinine Ratio 21.3 Random Glucose 58 mg/dl Calcium Level 9.3 mg/dl Magnesium Level 2.0 mg/dl Hepatitis C Antibody Screen NEG Assessment and Plan 62 yo female with history of renal transplant, presented with dehydration, diarrhea, TATIANNA, metabolic acidosis and atrial fibrillation with RVR - Atrial fibrillation with RVR rate better controlled with Diltiazem 180mg BID holding metoprolol Coumadin for anticoagulation, INR 3.1 cardiology recommends adding Atenolol for further rate control - TATIANNA due to dehydration from diarrhea Cr improved to 1.3, hold nephrotoxins, adequate UO Dr Lin following as well continue fluids today, stop tomorrow - Acute diarrheal illness: resolved with Imodium and fasting if she has further diarrhea will check C diff and stool cultures - Metabolic acidosis: improved today, HCO3 up to 19, anion gap closing lactic acid was normal and not DKA diarrhea typically gives a non gapped acidosis - Possible UTI: treat with Rocephin empirically, follow up urine culture - Renal transplant: Cr 1.3, continue anti-rejection medications Plan: keep on tele today to make sure rates controlled on Diltiazem PO, likely to medical floor tomorrow, repeat labs tomorrow, PT/OT evaluations
[2017-07-05] VITALS (12 sets, daily range): BP systolic 94–132; BP diastolic 51–76; PULSE 69–82; TEMP 36.5–37; O2SAT 91–97
[2017-07-05] MEDS: LACTATED RINGER'S 1000ML 1,000 ML IV SCH (05:32)
[2017-07-05 07:28] LABS: BASO % 0.1 %; BASO ABS # 0.01 K/uL (0-0.2); COMPLETE YES; EOS % 0.3 %; IG% 0.5 %; LYMPH % 13.8 %; LYMPH ABS # 1.19 K/uL (1.2-3.4); MEAN CELL VOLUME 90.2 fL (80-100); MEAN CORPUSCULAR HEMOGLOBIN 28.1 pg (25-34); MEAN CORPUSCULAR HGB CONC 31.1 g/dl (32-36); MONO % 7.9 %; NEUT % 77.4 %; PLATELET COUNT 154 K/uL (130-400); RED BLOOD COUNT 3.99 M/uL (4.2-5.4); WHITE BLOOD COUNT 8.64 K/uL (4.8-10.8)
[2017-07-05 07:35] LABS: INR 3.3 (0.9-1.1); PARTIAL THROMBOPLASTIN RATIO 1.3; PROTHROMBIN TIME (PATIENT) 37.5 SECONDS (9.0-12.0)
[2017-07-05 07:59] LABS: BUN/CREATININE RATIO 17.2 (10-20); CALCIUM 9.3 mg/dl (8.5-10.1); CREATININE 1.36 mg/dl (0.60-1.20); MAGNESIUM 1.6 mg/dl (1.8-2.4); POTASSIUM 4.3 mmol/L (3.5-5.1)
[2017-07-05] MEDS: DILTIAZEM HCL 180 MG CAPCR PO SCH ×2 (09:29→20:41)
[2017-07-05] MEDS: TACROLIMUS 1 MG CAP PO SCH ×2 (09:32→20:41)
[2017-07-05] MEDS: MYCOPHENOLATE SODIUM 180 MG TAB PO SCH ×2 (09:32→20:42)
--- NOTE | 2017-07-05 10:48 | CARDIOLOGY PROGRESS NOTE ---
DATE: 07/05/2017 HISTORY OF PRESENT ILLNESS: Mrs. Barker is currently being seen around 0232. Yesterday she had an increase in her Diltiazem CD dose to 180 mg b.i.d., and I reinitiated Atenolol 25 mg b.i.d. She has had a significant improvement in her ventricular response rate related to underlying atrial fibrillation/atrial flutter. Her ventricular response rate has been in the 70s and 80s for the most part, although she has not been up moving around much. She is otherwise feeling well. Her gastrointestinal symptoms are gradually improving. The patient offers no other complaints. She denies any chest pain, heaviness, tightness, or pressure. Denies any neck, jaw, back, or arm pain. She denies any diaphoresis or dyspnea. She denies any syncope or near syncope. No orthopnea or PND. PHYSICAL EXAMINATION: VITAL SIGNS: Temperature is 36.9 degrees Celsius, pulse 72 and slightly irregular, respiratory rate is 15 and unlabored, blood pressure is 132/57, SPO2 is 96% on room air. I's and O's positive 1466 mL total. GENERAL: The patient is in no acute distress. HEENT: Head is atraumatic, normocephalic. EOMs intact. Sclerae are anicteric. Facies symmetric. No perioral cyanosis. NECK: Without JVD. Jugular venous pressure is at the level of the clavicle sitting upright. CHEST AND LUNGS: Clear to auscultation throughout all lung parr, no wheezes, rales or rhonchi. CARDIOVASCULAR: S1 and S2 are slightly irregular at a rate of approximately 70 beats per minute. There is a grade 1-2/6 basal systolic murmur heard best right second intercostal space, also audible at left sternal border. No diastolic murmurs appreciated. No gallops or rubs. PMI is nonpalpable. No lifts, heaves, gallop or thrills. No abdominal, aortic or renal bruits. ABDOMEN: Bowel sounds present. EXTREMITIES: Without clubbing, cyanosis or edema. NEUROLOGIC: The patient is awake, alert and oriented. Pleasant and cooperative. Answers questions appropriately. Speech is clear. Normal movement in all 4 extremities. LABORATORY DATA: EKG performed earlier today shows underlying atrial flutter with ventricular pacing at a rate of 72 beats per minute, pacemaker induced left bundle branch block pattern. LABORATORIES: White blood cell count is 8.64. Hemoglobin 11.2 g/dl, hematocrit 36.0%. Platelet count 154,000. INR 3.3. Sodium is 133 mmol/L, potassium 4.3 mmol/L. BUN is 23 mg/dL, creatinine 1.36 mg/dL. Random glucose 89 mg/dL. Magnesium level 1.6 mg/dL. ASSESSMENT: 1. Persistent Atrial Fibrillation/Atrial Flutter with controlled ventricular response. 2. Tachybrady Syndrome, s/p permanent pacemaker placement. 3. Acute gastrointestinal illness, likely viral. 4. End-stage renal disease status post renal transplant x2. 5. Hypertension, controlled. 6. Diagnoses as mentioned above. PLAN: 1. The patient's ventricular response rate is greatly improved. 2. Recommend continuing Diltiazem CD 180 mg b.i.d. as an outpatient. 3. Continue Atenolol 25 mg b.i.d. as an outpatient. 4. Continue chronic Coumadin anticoagulation with a goal INR of 2.0 to 3.0. 5. Recommend supplementing Magnesium. 6. We will assess her ventricular response rate when she is up and moving around more. 7. The patient remains stable from a cardiac standpoint. TIGRE
--- NOTE | 2017-07-05 12:04 | NEPHROLOGY PROGRESS NOTE ---
DATE: 07/05/2017 SUBJECTIVE: Mrs. Barker says that she is feeling better. She has had no chills or fevers. She has no chest pain or shortness of breath. She says that she is making urine. She denies urinary frequency, urgency or dysuria. She does point out that the course of her urinary stream seems to be down and that she thinks she is making less urine than she generally does. She is pointed out lower urinary tract symptoms in the past, particularly slow urine stream to her transplant coordinators, but never mentioned them to me. She said that the transplant coordinators apparently took no action on the complaint. Currently, she has no chest pain or shortness of breath. OBJECTIVE: GENERAL: On physical exam when seen, Mrs. Barker appeared comfortable. She still appears to be somewhat flushed. VITAL SIGNS: She is afebrile (36.9), her blood pressure 132/57, her pulse is 73 and irregular, respiratory rate 20 and her pulse ox 91%-97% on room air. SKIN: Again shows her to be flushed. She has multiple scars from prior surgical procedures and trauma to her arms. Her scars include bilateral lower quadrant transplant scars. She also has a left upper arm AV fistula. LYMPHATICS: Show no palpable lymphadenopathy. HEAD: Normal. EYES: Grossly normal. The ocular fundi were not examined. EARS, NOSE, MOUTH AND THROAT: Unremarkable, although dentition is in poor repair. Oral mucous membranes are moist. NECK: Supple. There is no significant jugular venous distention while she is lying at about 10 degrees. She has no carotid bruit and no thyromegaly. CHEST: Clear to auscultation. CARDIAC: Shows periods of a regular rhythm with occasional brief periods of irregularity. S1 and S2 seem normal. She has a soft systolic murmur at the base and along the left sternal border. ABDOMEN: Nontender. She has no organomegaly or mass. Renal transplants are palpable in both lower quadrants. Neither are tender. She has a soft bruit over the left lower quadrant graft. EXTREMITIES: Show trace lower extremity edema and changes of venous stasis dermatitis on her distal lower extremities. She has multiple scars mentioned. NEUROLOGIC: Shows no lateralizing changes. LABORATORY DATA: Pertinent laboratory work done yesterday showed a hemoglobin of 11.2 with a hematocrit of 36.0. Her white count was 8640 with a normal differential. Her platelet count was 154,000. Her prothrombin time was 37.5 with an INR of 3.3. Her PTT was 34.2 with a PTTR of 1.3. Her clinical chemistries done yesterday showed a sodium of 133 mmol/L, potassium 4.3 mmol/L, chlorides 100 mmol/L, and CO2 content 20 mmol/L. Her BUN is down to 23 and her creatinine 1.36. Her serum magnesium was 1.6. Random blood sugar was 89. ASSESSMENT: Mrs. Barker appears to be improved. Currently, her heart rate is significantly slowed. This may at least in part be due to her diltiazem and atenolol. Her most recent electrocardiogram also shows that she is having a paced rhythm at least intermittently. She did not have laboratory work today to check as to whether or not she has had any further decrease in her BUN and creatinine. Cultures thus far remain negative. RECOMMENDATIONS: No change for now. I would continue her on ceftriaxone until her cultures are back given the fact that these episodes generally occur when the patient does have a urinary tract infection. It would seem to be less likely given her lack of fever at the current time as well as a lack of tenderness over her graft and a normal urinalysis. She does complain of a decreased force in her urinary stream. It may be helpful to check bladder scans on her and I have ordered them to be done twice daily after she voids. No other immediate recommendations. Assuming she does not have any significant issues with urinary retention and assuming her cultures are negative, she should be able to be discharged for outpatient followup.
[2017-07-05] MEDS: CEFTRIAXONE SOD INJ 1,000 MG in DEXTROSE 5% 50ML 50 ML IV SCH (12:13)
--- NOTE | 2017-07-05 14:06 | Progress Note ---
Subjective Date of Service: Jul 05, 2017. Subjective Pt evaluation today including: conversation w/ patient, physical exam, lab review, conversation w/ finance consultant, review of inpatient medication list Pain: no pain PO Intake: improved Voiding: voiding difficulty (slow stream) patient feels better overall denies CP, dyspnea, nausea, diarrhea reviewed labs, Cr stable, BUN trending down urine culture with no significant growth appreciate notes from Dr. Lin and Andres Del Valle Problem List Medical Problems: (1) Acute kidney injury Status: Acute (2) Acute kidney injury Status: Acute (3) Acute renal failure Status: Acute (4) Atrial fibrillation with RVR Status: Acute (5) Dehydration Status: Acute (6) Diarrhea Status: Acute (7) Hypomagnesemia Status: Acute (8) Immunocompromised Status: Acute (9) Leukocytosis Status: Acute (10) UTI (urinary tract infection) Status: Acute Social History Problems: (1) H/O kidney transplant Status: Acute (2) Renal transplant recipient Status: Acute Review of Systems Constitutional: + weakness, + fatigue Female : + problem reported (slow stream) All Other Systems: Reviewed and Negative Medications Current Inpatient Medications Medications (Trade) Dose Ordered Sig/Clarita Route Start Time Stop Time Status Last Admin Dose Admin Acetaminophen (Tylenol Tab) 650 mg Q4H PRN PO 07/03/17 22:30 08/02/17 22:29 Diltiazem HCl (Cardizem Cd Cap) 180 mg BID PO 07/04/17 09:00 08/03/17 08:59 07/05/17 09:29 180 MG Prednisone (PredniSONE TAB) 10 mg DAILY PO 07/04/17 09:00 08/03/17 08:59 07/05/17 09:33 10 MG Tacrolimus (Prograf Cap) 3 mg BID PO 07/04/17 09:00 08/03/17 08:59 07/05/17 09:32 3 MG Warfarin Sodium (Coumadin Tab) 2 mg DAILY@1600 PO 07/04/17 16:00 08/03/17 15:59 07/04/17 00:18 2 MG Mycophenolate Sodium (Myfortic Tab) 540 mg BID PO 07/04/17 09:00 08/03/17 08:59 07/05/17 09:32 540 MG Ondansetron HCl (Zofran Inj) 4 mg Q6H PRN IV 07/03/17 22:30 08/02/17 22:29 Atenolol (Tenormin Tab) 25 mg BID PO 07/04/17 21:00 08/03/17 20:59 07/05/17 09:33 25 MG Ceftriaxone Sodium 1000 mg/ Dextrose 60 ml @ 100 mls/hr DAILY@1200 IV 07/04/17 13:00 07/09/17 11:59 07/05/17 12:13 100 MLS/HR Objective Vital Signs Date Time Temp Pulse Resp B/P (MAP) Pulse Ox O2 Delivery O2 Flow Rate FiO2 07/05/17 11:16 Room Air 07/05/17 11:05 36.5 79 18 113/69 (84) 97 Room Air 07/05/17 10:49 37.0 77 17 97 07/05/17 10:43 37.0 77 17 112/69 (83) 97 Room Air 07/05/17 08:00 91 Room Air 07/05/17 07:28 36.9 73 20 132/57 (82) 96 Room Air 07/05/17 04:50 36.5 71 18 126/72 (90) 97 Room Air 07/05/17 04:00 97 Room Air 07/05/17 00:01 97 Room Air 07/04/17 23:49 36.6 70 18 130/79 (96) 96 Room Air 07/04/17 20:00 96 Room Air 07/04/17 19:49 37.4 61 16 147/75 (99) 93 Room Air 07/04/17 16:00 97 Room Air 07/04/17 15:34 36.9 76 18 117/54 (75) 97 Room Air Physical Exam General Appearance: no apparent distress, + obese Eyes: normal inspection, EOMI, sclerae normal ENT: normal ENT inspection, hearing grossly normal, pharynx normal Neck: supple, no adenopathy, no JVD, trachea midline Respiratory/Chest: chest non-tender, lungs clear, normal breath sounds, no respiratory distress, no accessory muscle use Cardiovascular: no edema, no gallop, no JVD, no murmur, + irregularly irregular Abdomen: normal bowel sounds, non tender, soft, no organomegaly Extremities: normal range of motion, non-tender, normal inspection, no pedal edema, no calf tenderness, pelvis stable 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, alert, normal mood/affect, oriented x 3 Skin: normal color, warm/dry, no rash Laboratory Results Last 24 Hours Test 07/05/17 06:54 White Blood Count 8.64 K/uL Red Blood Count 3.99 M/uL Hemoglobin 11.2 g/dL Hematocrit 36.0 % Mean Corpuscular Volume 90.2 fL Mean Corpuscular Hemoglobin 28.1 pg Mean Corpuscular Hemoglobin Concent 31.1 g/dl Platelet Count 154 K/uL Mean Platelet Volume 10.0 fL Neutrophils (%) (Auto) 77.4 % Lymphocytes (%) (Auto) 13.8 % Monocytes (%) (Auto) 7.9 % Eosinophils (%) (Auto) 0.3 % Basophils (%) (Auto) 0.1 % Neutrophils # (Auto) 6.69 K/uL Lymphocytes # (Auto) 1.19 K/uL Monocytes # (Auto) 0.68 K/uL Eosinophils # (Auto) 0.03 K/uL Basophils # (Auto) 0.01 K/uL RDW Standard Deviation 45.7 fL RDW Coefficient of Variation 13.9 % Immature Granulocyte % (Auto) 0.5 % Immature Granulocyte # (Auto) 0.04 K/uL Prothrombin Time 37.5 SECONDS Prothromb Time International Ratio 3.3 Activated Partial Thromboplast Time 34.2 SECONDS Partial Thromboplastin Ratio 1.3 Sodium Level 133 mmol/L Potassium Level 4.3 mmol/L Chloride Level 100 mmol/L Carbon Dioxide Level 20 mmol/L Anion Gap 13.0 mmol/L Blood Urea Nitrogen 23 mg/dl Creatinine 1.36 mg/dl Est Creatinine Clear Calc Drug Dose 47.6 ml/min Estimated GFR () 48.9 Estimated GFR (Non- 42.2 BUN/Creatinine Ratio 17.2 Random Glucose 89 mg/dl Calcium Level 9.3 mg/dl Magnesium Level 1.6 mg/dl Assessment and Plan 62 yo female with history of renal transplant, presented with dehydration, diarrhea, TATIANNA, metabolic acidosis and atrial fibrillation with RVR - Atrial fibrillation with RVR RVR resolved with Diltiazem 180mg BID and Atenolol 25mg BID Coumadin for anticoagulation, INR 3.3, continue to hold Coumadin - TATIANNA due to dehydration from diarrhea Cr improved to 1.3 since admission, BUN trending down, hold nephrotoxins, adequate UO Dr Lin following as well stop fluids today weak stream, will bladder scan after voiding - Acute diarrheal illness: resolved with Imodium and fasting if she has further diarrhea will check C diff and stool cultures no further diarrhea since admission - Metabolic acidosis: continues to improve but not quite resolved lactic acid was normal and not DKA diarrhea typically gives a non gapped acidosis - Possible UTI: treat with Rocephin empirically, follow up urine culture, no growth thus far, stop Rocephin tomorrow if no growth - Renal transplant: Cr 1.3, continue anti-rejection medications Plan: transfer to medical floor, likely d/c tomorrow
[2017-07-05] MEDS: WARFARIN SOD 2 MG TAB PO SCH (15:54)
--- NOTE | 2017-07-05 17:03 | Cardiology Follow-Up ---
Subjective Date of Service: Jul 05, 2017. Pt evaluation today including: conversation w/ patient, physical exam, chart review, lab review, review of studies History of Present Illness Assessment the patient claims to be feeling better. She states that her breathing is easier. She has not had any diarrhea. She has been tolerating a diet and appetite seems to be improved. He has been ambulating around the room without assistance. She denies significant dizziness or lightheadedness. Social History Smoking Status: Never Smoker History of Alcohol Use: No Review of Systems Respiratory: + cough Cardiac: + edema Objective Vital Signs Past 12 Hours Date Time Temp Pulse Resp B/P (MAP) Pulse Ox O2 Delivery O2 Flow Rate FiO2 07/05/17 14:59 36.6 71 16 109/68 (82) 97 Room Air 07/05/17 11:16 Room Air 07/05/17 11:05 36.5 79 18 113/69 (84) 97 Room Air 07/05/17 10:49 37.0 77 17 97 07/05/17 10:43 37.0 77 17 112/69 (83) 97 Room Air 07/05/17 08:00 91 Room Air 07/05/17 07:28 36.9 73 20 132/57 (82) 96 Room Air Last Recorded Weight-Kilograms: 85.900 Physical Exam She is alert and oriented x3. Mood affect appear normal. She answered all questions appropriately. HEENT: Sclerae are anicteric. Pupils are equal and reactive to light and accommodation. Extraocular movements were intact. Neuro: Cranial nerves intact Lungs: Lungs are clear to auscultation bilaterally. There are no rales wheezes or rhonchi. She has normal respiratory effort without use of accessory muscles. There is normal pulmonary excursion. Cardiac: The rhythm was regular. S1 and S2 were normal. Abdomen: The abdomen was soft and nontender. Extremities: Patient has bilateral radial pulses that are equal in intensity. There is no evidence cyanosis or clubbing. Skin: There are no rashes noted on examination today. Data Laboratory Results: Last 24 Hours Test 07/05/17 06:54 White Blood Count 8.64 K/uL Red Blood Count 3.99 M/uL Hemoglobin 11.2 g/dL Hematocrit 36.0 % Mean Corpuscular Volume 90.2 fL Mean Corpuscular Hemoglobin 28.1 pg Mean Corpuscular Hemoglobin Concent 31.1 g/dl Platelet Count 154 K/uL Mean Platelet Volume 10.0 fL Neutrophils (%) (Auto) 77.4 % Lymphocytes (%) (Auto) 13.8 % Monocytes (%) (Auto) 7.9 % Eosinophils (%) (Auto) 0.3 % Basophils (%) (Auto) 0.1 % Neutrophils # (Auto) 6.69 K/uL Lymphocytes # (Auto) 1.19 K/uL Monocytes # (Auto) 0.68 K/uL Eosinophils # (Auto) 0.03 K/uL Basophils # (Auto) 0.01 K/uL RDW Standard Deviation 45.7 fL RDW Coefficient of Variation 13.9 % Immature Granulocyte % (Auto) 0.5 % Immature Granulocyte # (Auto) 0.04 K/uL Prothrombin Time 37.5 SECONDS Prothromb Time International Ratio 3.3 Activated Partial Thromboplast Time 34.2 SECONDS Partial Thromboplastin Ratio 1.3 Sodium Level 133 mmol/L Potassium Level 4.3 mmol/L Chloride Level 100 mmol/L Carbon Dioxide Level 20 mmol/L Anion Gap 13.0 mmol/L Blood Urea Nitrogen 23 mg/dl Creatinine 1.36 mg/dl Est Creatinine Clear Calc Drug Dose 47.6 ml/min Estimated GFR () 48.9 Estimated GFR (Non- 42.2 BUN/Creatinine Ratio 17.2 Random Glucose 89 mg/dl Calcium Level 9.3 mg/dl Magnesium Level 1.6 mg/dl Imaging: EKG: Telemetry reviewed: Assessment and Plan 1. Atrial fibrillation: Patient claims feeling better. It appears that her heart rates are much improved. This is partially due to an intensification of her rate control regimen. There is not appear to be any untoward side effects currently, will need to monitor blood pressure closely. Her rhythm is currently regular. I doubt that she has converted back to sinus rhythm but could perform a device interrogation prior to discharge. Alternatively she can follow up in the Cardiology Clinic for evaluation routinely after discharge. She should continue her warfarin indefinitely.
[2017-07-05 23:52] LABS: FK506 TACROLIMUS HIGHLY SENS 23.2 MCG/L (5-20)
--- NOTE | 2017-07-06 06:23 | Progress Note ---
Progress Note Date of Service Jul 06, 2017. Progress Note High tacrolimus levels lab overnight. Day team to assess appropriateness of continuing this medication. The medication has been placed on hold pending medical team decision in the morning.
[2017-07-06 07:04] VITALS: BP 143/77; PULSE 73; TEMP 36.8; O2SAT 97
[2017-07-06 07:50] LABS: BASO % 0.1 %; BASO ABS # 0.01 K/uL (0-0.2); COMPLETE YES; EOS % 0.6 %; HEMATOCRIT 34.2 % (37-47); IG% 0.6 %; LYMPH % 13.1 %; LYMPH ABS # 0.95 K/uL (1.2-3.4); MEAN CELL VOLUME 90.5 fL (80-100); MEAN CORPUSCULAR HEMOGLOBIN 28.3 pg (25-34); MEAN CORPUSCULAR HGB CONC 31.3 g/dl (32-36); MEAN PLATELET VOLUME 9.9 fL (7.4-10.4); MONO % 8.1 %; NEUT % 77.5 %; PLATELET COUNT 146 K/uL (130-400); RED BLOOD COUNT 3.78 M/uL (4.2-5.4); WHITE BLOOD COUNT 7.25 K/uL (4.8-10.8)
[2017-07-06 08:05] LABS: INR 2.3 (0.9-1.1); PARTIAL THROMBOPLASTIN RATIO 1.1; PROTHROMBIN TIME (PATIENT) 25.6 SECONDS (9.0-12.0)
[2017-07-06 08:18] LABS: BUN/CREATININE RATIO 18.2 (10-20); CALCIUM 9.4 mg/dl (8.5-10.1); CREATININE 1.14 mg/dl (0.60-1.20); MAGNESIUM 1.4 mg/dl (1.8-2.4)
[2017-07-06] MEDS: MYCOPHENOLATE SODIUM 180 MG TAB PO SCH (08:29)
[2017-07-06] MEDS: DILTIAZEM HCL 180 MG CAPCR PO SCH (08:31)
[2017-07-06] MEDS ORDERED: TACR1CAP PO (10:24)
[2017-07-06] MEDS ORDERED: TNR25 PO (10:24)
[2017-07-06] MEDS ORDERED: CRDCD180 PO (10:24)
--- NOTE | 2017-07-06 10:31 | Discharge Instructions ---
Discharge Instructions Date of Service Jul 06, 2017. Admission Reason for Admission: Acute Kidney Injury, Atrial Fibrillation With Rvr Discharge Discharge Diagnosis / Problem: TATIANNA (resolved), Afib with RVR, elevated tacrolimus level Discharge Goals Goal(s): Decrease discomfort, Improve function Activity Recommendations Activity Limitations: resume your previous activity . Instructions / Follow-Up Instructions / Follow-Up Medications: - DILTIAZEM: 180mg twice a day, new prescription - ATENOLOL: 25mg twice a day, new prescription - TACROLIMUS: decrease to 2mg twice a day Acute renal failure: resolved, Cr down to 1.1 today, was due to dehydration with diarrhea which has resolved and Cr stable for two days now Elevated tacrolimus level: decrease to 2mg twice a day per transplant team, get repeat level in one week Atrial fibrillation with RVR: rates controlled, Diltiazem increased to 180mg twice a day and Atenolol added at 25mg BID, metoprolol stopped due to side effects FOLLOW UP - Dr. Lin next week, call to make appointment - [facility] cardiology, call for follow up with Andres Del Valle in 3-4 weeks, [phone] Current Hospital Diet Patient's current hospital diet: AHA Diet (Heart Healthy), Renal Diet Discharge Diet Recommended Diet: AHA Diet (Heart Healthy), Renal Diet Pending Studies Studies pending at discharge: no Medical Emergencies . Who to Call and When: Medical Emergencies: If at any time you feel your situation is an emergency, please call 911 immediately. . Non-Emergent Contact Non-Emergency issues call your: Primary Care Provider, Box Truck Driver Call Non-Emergent contact if: you have any medication questions . . "Provider Documentation" section prepared by Luis Fernando Franco. . VTE Core Measure Inpt VTE Proph given/why not?: Warfarin (Coumadin) [place] Drug Monitoring Program Search Results: no issues identified
[2017-07-06] MEDS ORDERED: INFLUENZA VACCINE HIGH DOSE 65+ 0.5 ML SYR IM. ONE (10:45)
--- NOTE | 2017-07-06 10:55 | NEPHROLOGY PROGRESS NOTE ---
DATE: 07/06/2017 SUBJECTIVE: Mrs. Barker says that she is feeling significantly better. She denies chest pain or shortness of breath. She denies having any chills or fever. She has no dysuria. In fact, she thinks that the force of her urinary stream has improved dramatically over the course of the past 24 hours. There are no particular lower urinary tract complaints including no frequency, urgency or dysuria. She has no diarrhea and she has no abdominal pain. OBJECTIVE: GENERAL: On physical examination, she appears relatively well and at her baseline. VITAL SIGNS: She is afebrile (36.8). Her blood pressure is 143/77, her pulse 73 and regular, respiratory rate 18, and her pulse ox 95%-97% on room air. SKIN: Shows normal skin turgor. She has no rash or infiltrative skin disease. She is slightly flushed in her face. She has multiple scars from prior surgical procedures including bilateral lower quadrant scars from renal transplants and scars on her arms from previous attempts at AV fistulas and her current AV fistula in the left upper arm. She has multiple scars on her arms as well from prior trauma. LYMPHATICS: Show no palpable lymphadenopathy. HEAD: Normal. EYES: Grossly normal. The ocular fundi were not examined. EARS, NOSE, MOUTH AND THROAT: Unremarkable other than poor dentition. Her oral mucous membranes are moist. NECK: Supple. There is no jugular venous distention, lying at about 20 degrees. She has no carotid bruit and no thyromegaly. CHEST: Clear to auscultation. CARDIAC: Shows a regular rhythm. She has no extrasystoles. S1 and S2 are normal. There is a soft systolic murmur at the base and along the left sternal border. She has a murmur transmitted into the left upper chest from her AV fistula. She has a palpable pacemaker beneath the distal left clavicle. ABDOMEN: Nontender. There is no organomegaly or mass. Renal transplants are palpable in both lower quadrants, neither are tender. She has a bruit over the left lower quadrant graft. EXTREMITIES: Show trace lower extremity edema and some changes of venous stasis dermatitis. She has the scars as mentioned. NEUROLOGIC: Unremarkable. PERTINENT LABORATORY WORK: From today shows a white count of 7250 with 77.5% neutrophils, 13.1% lymphocytes, 8.1% monocytes, 0.6% eosinophils and 0.1% basophils. Her hemoglobin is 10.7, hematocrit 34.2, and platelet count is 146,000. Her prothrombin time is 25.6 with an INR of 2.3. Her PTT is 27.3 with a PTTR of 1.1. Clinical chemistries from today show a sodium of 133 mmol/L, potassium 4.0 mmol/L, chloride is 99 mmol/L, and CO2 content 22 mmol/L. Her BUN is 21 and creatinine down to 1.14. Her serum calcium is 9.4 and her magnesium 1.4. Her tacrolimus trough level drawn at 06:44 on the morning of July 04 was 23.2. ASSESSMENT: Mrs. Barker appears to be back to her baseline. Her cultures, both of blood and urine are negative. Her white count is normal. There is no evidence of an infection. I presume that her symptoms were likely viral in etiology. Her renal function has returned to its baseline. Her tacrolimus trough level is elevated. I would simply adjust her dose of tacrolimus to 2 mg twice daily. Her lower urinary tract complaints appear to be improved and no further workup will be necessary at this time. RECOMMENDATIONS: As noted, reduce her tacrolimus to 2 mg twice daily. I think she can be discharged for outpatient followup. Prior to discharge, she should get her influenza vaccine. No other recommendations at this point. I have arranged a followup with her in about 2 weeks. She will have laboratory work drawn next week including another tacrolimus trough level.
[2017-07-06] MEDS ORDERED: INFLUENZA VIRUS QUAD VACCINE 0.5 ML SYR IM. ONE (11:00)
[2017-07-06] MEDS ORDERED: INFLUENZA ADMINISTRATION CHARGE ONE (11:00)
[2017-07-06 12:39] VITALS: BP 143/77; PULSE 73; TEMP 36.8; O2SAT 97
--- NOTE | 2017-07-07 09:43 | Discharge Summary ---
Discharge Summary Date of Service Jul 07, 2017. Discharge Summary Admission Date: Jul 03, 2017 at 22:18 Discharge Date: Jul 06, 2017 Discharge Disposition: Home Principal Diagnosis: TATIANNA, prerenal, dehydration Problems/Secondary Diagnoses: Paroxysmal atrial fibrillation Acute diarrheal illness, resolved H/o renal transplant Immunizations: Have You Had Influenza Vaccine: No Influenza Vaccine Date: Sep 04, 2005 History of Tetanus Vaccine?: No History of Pneumococcal: No Pneumococcal Date: Sep 04, 2005 History of Hepatitis B Vaccine: No Hepatitis Immunization Date: Sep 04, 2005 Procedures: none Consultations: Nephrology Cardiology Medication Reconciliation New Medications: Atenolol (Atenolol) 25 Mg Tab 25 MG PO BID, #60 TAB 3 Refills Diltiazem HCl (Diltiazem HCl ER) 180 Mg Capcr 180 MG PO BID, #60 CAP 3 Refills Changed Medications: Tacrolimus (Prograf) 1 Mg Cap 2 MG PO AMPM, #60 CAP 3 Refills (Changed from: 3 MG; Refills: ) Continued Medications: Furosemide (Lasix) 40 Mg Tab 40 MG PO DAILY PRN for FLUID ACCUMULATION, TAB Mycophenolate Sodium (Mycophenolic Acid Dr) 180 Mg Tab 540 MG PO BID Potassium Ext Rel (Klor-Con) 20 Meq Tabcr 20 MEQ PO UD TAKE ON DAYS YOU TAKE LASIX Prednisone (Prednisone) 5 Mg Tab 5 MG PO DAILY, TAB Warfarin Sodium (Coumadin) 2 Mg Tab 2 MG PO DAILY, TAB Discontinued Medications: Diltiazem Hcl Coated Beads (Diltiazem Hcl Er) 120 Mg Cap 120 MG PO DAILY Metoprolol Tartrate (Lopressor) (Lopressor) 100 Mg Tab 50 MG PO BID, TAB Discharge Exam Patient feeling well the day of discharge, eating well, no nausea. No diarrhea since time of admission. Cr was 1.1, baseline. Discussed the case with Dr. Lin. Tacrolimus level slightly elevated at 23, she discussed with transplant team, decrease Tacrolimus dose on discharge. Review of Systems: Constitutional: No fever, No chills, No sweats, No weight loss, No weakness , No fatigue, No problem reported Eyes: No worsening of vision, No eye pain, No redness, No discharge, No diplopia, No problem reported ENT: No hearing loss, No unusual epistaxis, No nasal symptoms, No sore throat, No tinnitus, No dental problems, No trouble swallowing, No problem reported Respiratory: No cough, No sputum, No wheezing, No shortness of breath, No dyspnea on exertion, No dyspnea at rest, No hemoptysis, No problem reported Cardiovascular: No chest pain, No orthopnea, No PND, No edema, No claudication, No palpitations, No problem reported Abdomen: No pain, No nausea, No vomiting, No diarrhea, No constipation, No GI bleeding, No problem reported Musculoskeletal: No joint pain, No muscle pain, No swelling, No calf pain, No problem reported Genitourinary - Female: No dysuria, No urinary frequency, No urinary urgency , No urinary incontinence, No urinary retention, No hematuria Neurologic: No memory loss, No paralysis, No weakness, No numbness/tingling , No vertigo, No balance problems, No problem reported Psychiatric: No depression symptoms, No anhedonism, No anxiety, No insomnia , No substance abuse, No problem reported Endocrine: No fatigue, No excessive thirst, No excessive urination, No problem reported Hematologic / Lymphatic: No abnormal bleeding/bruising, No clotting problems , No swollen lymph nodes, No night sweats, No problem reported Integumentary: No rash, No itch, No new/changing skin lesions, No color change, No bleeding, No problem reported Physical Exam: General Appearance: WD/WN, no apparent distress Eyes: normal inspection, EOMI, sclerae normal ENT: normal ENT inspection, hearing grossly normal, pharynx normal Neck: supple, no adenopathy, no JVD, trachea midline Respiratory/Chest: chest non-tender, lungs clear, normal breath sounds, no respiratory distress, no accessory muscle use Cardiovascular: regular rate, rhythm, no edema, no gallop, no JVD, no murmur , normal peripheral pulses Abdomen / GI: normal bowel sounds, non tender, soft, no organomegaly Extremities: normal inspection, no calf tenderness, normal capillary refill , no pedal edema, normal range of motion, pelvis stable Neurologic/Psychiatric: child support agent II-XII nml as tested, no motor/sensory deficits , alert, normal mood/affect, normal reflexes, oriented x 3 Skin: normal color, warm/dry, no rash Lymphatic: no adenopathy Hospital Course 62 yo female with history of renal transplant, presented with dehydration, diarrhea, TATIANNA, metabolic acidosis and atrial fibrillation with RVR - Atrial fibrillation with RVR RVR resolved with Diltiazem 180mg BID and Atenolol 25mg BID Coumadin for anticoagulation, INR therapeutic follow up with cardiology, continue the current above medications - TATIANNA due to dehydration from diarrhea Cr improved to 1.1 since admission, BUN trending down, hold nephrotoxins, adequate UO Dr Lin following as well no further need for fluids, drinking adequately TATIANNA resolved, follow up with Dr. Lin in a week - Acute diarrheal illness: resolved with Imodium and fasting if she has further diarrhea will check C diff and stool cultures no further diarrhea since admission, was likely just a self limiting viral illness - Metabolic acidosis: resolved lactic acid was normal and not DKA diarrhea typically gives a non gapped acidosis - Possible UTI: treat with Rocephin empirically, follow up urine culture, no growth thus far, stop Rocephin - Renal transplant: Cr 1.1 tacrolimus level high at 23, instructed to decrease dose to 2mg BID check tacrolimus level in one week Plan: d/c to home Total Time Spent: Greater than 30 minutes This includes examination of the patient, discharge planning, medication reconciliation, and communication with other providers. Discharge Instructions Please refer to the electronic Patient Visit Report (Discharge Instructions) for additional information. Follow-Up Dr. Lin in one week Cardiology in several weeks Additional Copies To Rich Lin M.D.; Andres Del Valle.,P.A.; Lul Fallon M.D.
== END 2017-07-06 14:50 | disposition home or self-care (01) | DRG 683 ==
LOC: C.EDB 18:04 → C.2T 22:18 → ENRESERV 22:39 → C.MS2W 07-05 10:18 → ENRESERV 07-05 10:25
PROVIDERS: ADMIT Hospitalist; ATTEND Internal Medicine
DX: N17.9 Acute kidney failure, unspecified (principal); Z94.0 Kidney transplant status; E87.2 Acidosis; E87.1 Hypo-osmolality and hyponatremia; I48.0 Paroxysmal atrial fibrillation; A08.4 Viral intestinal infection, unspecified; I10 Essential (primary) hypertension; Z91.128 Patient's intentional underdosing of medication regimen for other reason; Z87.440 Personal history of urinary (tract) infections; Z86.79 Personal history of other diseases of the circulatory system; Z95.0 Presence of cardiac pacemaker; Z79.01 Long term (current) use of anticoagulants; Z79.52 Long term (current) use of systemic steroids; Z79.899 Other long term (current) drug therapy; Z88.1 Allergy status to other antibiotic agents; Z82.49 Family history of ischemic heart disease and other diseases of the circulatory system; Z84.1 Family history of disorders of kidney and ureter

== ENCOUNTER 2017-09-23 13:49 | Inpatient (IN) | payer OTHER ==
[~2017-09-23] VITALS: Ht 162.6 cm; Wt 85.1 kg
[~2017-09-23 13:49] MED LIST changes: -ASPI81CH2 PO; +CRDCD180 PO; +FRS/40 PO; -LSX40 PO; -MCRK20 PO; -MGNO400 PO; +POTA20TA16 PO; -PRD5 PO; +PRED-301 PO; +TNR25 PO; -TPRSR/100 PO; +WARF2TAB PO; -WARF2TAB8 PO; -WARF3TAB6 PO
[2017-09-23] MEDS ORDERED: SODIUM CHLORIDE 0.9% 1000ML 1,000 ML IV ONE (15:51)
[2017-09-23] MEDS ORDERED: ONDANSETRON INJ 2 MG/ML 2 ML VIAL IV STA (15:51)
[2017-09-23] MEDS ORDERED: PIPERACILLIN/TAZOBACTAM 4.5 GM/100ML D5W IV STA (15:51)
[2017-09-23] MEDS ORDERED: WARF2TAB PO (16:23)
--- NOTE | 2017-09-23 16:31 | EMERGENCY ROOM VISIT NOTE ---
History Report prepared by Halie: Mayco Kerr Under the Supervision of: Dr. Andres Hickman M.D. First contact with patient: 15:48 Chief Complaint: URINARY SYMPTOMS Stated Complaint: FEVER,UTI Nursing Triage Summary: Patient reports history of kidney transplant. States she started having urinary frequency around 0230 this am. Urine is cloudy. Pt concerned about UTI History of Present Illness The patient is a 62 year old female who presents to the Emergency Room with persistent urinary frequency. The patient reports that she woke up at 0200 this morning and felt very hot and uncomfortable. Since she woke up, she states that she has been producing cloudy urine every hour. She reports that she has a subjective fever of 99.8, but has a baseline of 97.4. She denies any chills, vomiting, stuffy nose, coughing, or flank/back pain. The patient reports that she had a kidney transplant at [facility] in [place] on 2012; she is on a triple regiment for immunosuppression therapy. She has a nontender lump on her abdomen that she states has been present every since her kidney transplant in 2012. She states that she has a history of UTIs and has had to be hospitalized for them in the past. She feels that she has not had enough fluids today. Source of History: patient Onset: 12 hours ago. Position: other () Quality: other (Increased Freqency) Timing: other (Persistent ) Associated Symptoms: + fevers, + urinary symptoms (Freqent cloudy urination. ), No abdominal pain, No back pain Review of Systems See HPI for pertinent positives & negatives. A total of 10 systems reviewed and were otherwise negative. Past Medical & Surgical Medical Problems: (1) Diarrhea (2) Hypertension (3) Hypotension (4) Kidney disease (5) Pneumonia (6) Rapid atrial fibrillation (7) Urinary problem Surgical Problems: (1) Hx of cholecystectomy (2) Kidney transplant status, cadaveric (3) Kidney transplanted Family History FH: kidney disease FHx: heart disease Hypertension Social History Smoking Status: Never Smoker Alcohol Use: none Drug Use: none Marital Status: Housing Status: lives with significant other Occupation Status: employed Current/Historical Medications Scheduled Atenolol (Atenolol), 25 MG PO BID Diltiazem HCl (Diltiazem HCl ER), 180 MG PO BID Mycophenolate Sodium (Mycophenolic Acid Dr), 540 MG PO BID Potassium Ext Rel (Klor-Con), 20 MEQ PO UD Prednisone (Prednisone), 5 MG PO DAILY Tacrolimus (Prograf), 2 MG PO AMPM Warfarin Sodium (Coumadin), 2 MG PO 6XWK Warfarin Sodium (Coumadin), 3 MG PO THURSDAYS Scheduled PRN Furosemide (Lasix), 40 MG PO DAILY PRN for FLUID ACCUMULATION Allergies Coded Allergies: Quinolones (Verified Allergy, Intermediate, FLOXIN CAUSES HIVES, 03/09/17) HIVES Physical Exam Vital Signs Date Time Temp Pulse Resp B/P (MAP) Pulse Ox O2 Delivery O2 Flow Rate FiO2 09/23/17 19:32 38.4 77 18 152/61 95 Room Air 09/23/17 18:01 139/65 09/23/17 17:49 99 27 09/23/17 17:44 82 18 126/57 98 Room Air 09/23/17 17:40 126/57 09/23/17 16:00 98 Room Air 09/23/17 14:00 36.6 82 18 121/66 98 Room Air Physical Exam GENERAL: Patient is in no acute distress. HEENT: No acute trauma, normocephalic atraumatic, mucous membranes moist, no nasal congestion, no scleral icterus. NECK: No stridor, no adenopathy, no meningismus, trachea is midline. LUNGS: Clear to auscultation bilaterally, no wheeze, no rhonchi, breath sounds equal. HEART: Irregular with normal rate, no murmurs. ABDOMEN: Soft, nontender, bowel sounds positive, no hernias, no peritonitis. No discomfort over the area of her renal transplant. EXTREMITIES: No cyanosis or edema, full range of motion of all the joints without pain or difficulty, no signs for acute trauma. NEUROLOGIC: Oriented x 3, no acute motor or sensory deficits, no focal weakness. SKIN: No rash, no jaundice, no diaphoresis. Medical Decision & Procedures ER Provider Diagnostic Interpretation: Radiology results as stated below per my review and radiologist interpretation: CHEST ONE VIEW PORTABLE CLINICAL HISTORY: 62 years-old Female presenting with Sepsis. TECHNIQUE: Portable upright AP view of the chest was obtained. COMPARISON: 09/02/2016. FINDINGS: Right subclavian pacer with leads to the right atrium and right ventricular apex. Atherosclerosis of aortic arch. Cardiac silhouette moderately enlarged, unchanged. Prominence of pulmonary vasculature slightly increased from prior. Lungs and pleural spaces clear. Osseous structures normal. Upper abdomen normal. IMPRESSION: 1. Cardiomegaly with volume overload suspected. No iban pulmonary edema. Electronically signed by: Skip Santana M.D. 09/23/2017 4:30 PM Dictated Date/Time: 09/23/2017 4:29 PM Laboratory Results 09/23/17 17:24 Red Blood Count 3.80, Mean Corpuscular Volume 96.8, Mean Corpuscular Hemoglobin 30.0, Mean Corpuscular Hemoglobin Concent 31.0, Mean Platelet Volume 10.2, Neutrophils (%) (Auto) 88.2, Lymphocytes (%) (Auto) 3.3, Monocytes (%) (Auto) 7.9, Eosinophils (%) (Auto) 0.1, Basophils (%) (Auto) 0.1, Neutrophils # (Auto) 13.37, Lymphocytes # (Auto) 0.50, Monocytes # (Auto) 1.20, Eosinophils # (Auto) 0.01, Basophils # (Auto) 0.01 09/23/17 17:24 Test 09/23/17 16:53 09/23/17 17:24 09/23/17 17:46 Urine Color YELLOW Urine Appearance TURBID (CLEAR) Urine pH 6.0 (4.5-7.5) Urine Specific [place] 1.015 (1.000-1.030) Urine Protein 2+ (NEG) Urine Glucose (UA) NEG (NEG) Urine Ketones NEG (NEG) Urine Occult Blood 2+ (NEG) Urine Nitrite NEG (NEG) Urine Bilirubin NEG (NEG) Urine Urobilinogen NEG (NEG) Urine Leukocyte Esterase LARGE (NEG) Urine WBC (Auto) >30 /hpf (0-5) Urine RBC (Auto) 10-30 /hpf (0-4) Urine Hyaline Casts (Auto) 0 /lpf (0-5) Urine Epithelial Cells (Auto) >30 /lpf (0-5) Urine Bacteria (Auto) 4+ (NEG) Urine Pathogenic Casts /lpf (0) White Blood Count 15.15 K/uL (4.8-10.8) Red Blood Count 3.80 M/uL (4.2-5.4) Hemoglobin 11.4 g/dL (12.0-16.0) Hematocrit 36.8 % (37-47) Mean Corpuscular Volume 96.8 fL (80-100) Mean Corpuscular Hemoglobin 30.0 pg (25-34) Mean Corpuscular Hemoglobin Concent 31.0 g/dl (32-36) Platelet Count 142 K/uL (130-400) Mean Platelet Volume 10.2 fL (7.4-10.4) Neutrophils (%) (Auto) 88.2 % Lymphocytes (%) (Auto) 3.3 % Monocytes (%) (Auto) 7.9 % Eosinophils (%) (Auto) 0.1 % Basophils (%) (Auto) 0.1 % Neutrophils # (Auto) 13.37 K/uL (1.4-6.5) Lymphocytes # (Auto) 0.50 K/uL (1.2-3.4) Monocytes # (Auto) 1.20 K/uL (0.11-0.59) Eosinophils # (Auto) 0.01 K/uL (0-0.5) Basophils # (Auto) 0.01 K/uL (0-0.2) RDW Standard Deviation 49.1 fL (36.4-46.3) RDW Coefficient of Variation 13.9 % (11.5-14.5) Immature Granulocyte % (Auto) 0.4 % Immature Granulocyte # (Auto) 0.06 K/uL (0.00-0.02) Prothrombin Time 28.0 SECONDS (9.0-12.0) Prothromb Time International Ratio 2.7 (0.9-1.1) Activated Partial Thromboplast Time 37.8 SECONDS (21.0-31.0) Partial Thromboplastin Ratio 1.5 Anion Gap 11.0 mmol/L (3-11) Est Creatinine Clear Calc Drug Dose 41.7 ml/min Estimated GFR () 43.1 Estimated GFR (Non- 37.2 BUN/Creatinine Ratio 20.8 (10-20) Calcium Level 9.0 mg/dl (8.5-10.1) Total Bilirubin 0.9 mg/dl (0.2-1) Aspartate Amino Transf (AST/SGOT) 15 U/L (15-37) Alanine Aminotransferase (ALT/SGPT) 19 U/L (12-78) Alkaline Phosphatase 70 U/L (45-117) Total Protein 6.6 gm/dl (6.4-8.2) Albumin 3.2 gm/dl (3.4-5.0) Globulin 3.4 gm/dl (2.5-4.0) Albumin/Globulin Ratio 0.9 (0.9-2) Chemistry Specimen Hemolysis Bedside Lactic Acid Venous 2.06 mmol/L (0.90-1.70) Laboratory results reviewed by me. Medications Administered Medications (Trade) Dose Ordered Sig/Clarita Route Start Time Stop Time Status Last Admin Dose Admin Sodium Chloride 1,000 ml @ 999 mls/hr Q1H1M ONCE IV 09/23/17 15:51 09/23/17 16:51 DC 09/23/17 17:36 999 MLS/HR Piperacillin Sod/ Tazobactam Sod (Zosyn Iv) 4.5 gm ONE STAT IV 09/23/17 15:51 09/23/17 15:55 DC 09/23/17 17:36 4.5 GM Ondansetron HCl (Zofran Inj) 4 mg NOW STAT IV 09/23/17 15:51 09/23/17 15:55 DC 09/23/17 17:36 4 MG Acetaminophen (Tylenol Tab) 650 mg Q4H PRN PO 09/23/17 19:00 10/23/17 18:59 09/23/17 19:41 650 MG Prednisone (PredniSONE TAB) 40 mg NOW STAT PO 09/23/17 18:58 09/23/17 19:20 DC 09/23/17 19:34 40 MG ECG Indication: other (irregular rhythym) Rate (beats per minute): 73 Rhythm: atrial flutter Findings: paced rhythm, no ectopy, other (Extremely poor baseline with apparent paced beats occasionally. Old septal infarct. ) Comparison ECG Date: 07/05/17 Change: no significant change Change: Patient's electrocardiogram interpreted by me. ED Course 1550: The patient was evaluated in room c4. A complete history and physical exam was performed. 1550: Ordered Zosyn 4.5 gm IV, Zofran Inj 4mg IV, Sodium Chloride 1000 ml @ 999 mls/hr IV 6: I discussed the case with Dr. Miles - [facility] Hospitalist. He will evaluate the patient for further treatment. Medical Decision Differential Diagnoses include: UTI, Immunocompromise, renal injury, dehydration , transplant infection, pneumonia, or influenza. There is a moderate leukocytosis, this is consistent with infection. No concerning anemia. Renal panel testing shows some mild dehydration/renal insufficiency. No hepatitis. Urinalysis is consistent with infection. Urine culture and blood cultures are pending. Lactic acid level is mildly elevated consistent with infection and/or dehydration. Chest film does not show pneumonia. INR is therapeutic for someone using Coumadin. The patient received IV saline, IV Zofran and IV Zosyn, she is resting comfortably. The patient is immunocompromised and has a renal transplant. She has a UTI. Admission/observation is warranted. I spoke to the patient and case management. The on-call hospitalist was consulted. Medication Reconcilliation Current Medication List: was personally reviewed by me Blood Pressure Screening Patient's blood pressure: Normal blood pressure Consults Time Called: 1815 Consulting Physician: Dr. Jd SALAZAR Hospitalist Returned Call: [phone] I discussed the case with Dr. Jd SALAZAR Hospitalist. He will evaluate the patient for further treatment. Impression Primary Impression: Urinary tract infection Additional Impressions: Immunocompromised Status post kidney transplant Scribe Attestation The scribe's documentation has been prepared under my direction and personally reviewed by me in its entirety. I confirm that the note above accurately reflects all work, treatment, procedures, and medical decision making performed by me. Departure Information Dispostion Being Evaluated By Hospitalist Referrals Rich Lin M.D. (PCP) Patient Instructions My [facility] Problem Qualifiers
[2017-09-23 17:48] LABS: BASO % 0.1 %; BASO ABS # 0.01 K/uL (0-0.2); EOS % 0.1 %; EOS ABS # 0.01 K/uL (0-0.5); HEMATOCRIT 36.8 % (37-47); HEMOGLOBIN 11.4 g/dL (12.0-16.0); IG# 0.06 K/uL (0.00-0.02); LYMPH % 3.3 %; MEAN CELL VOLUME 96.8 fL (80-100); MEAN PLATELET VOLUME 10.2 fL (7.4-10.4); MONO % 7.9 %; NEUT % 88.2 %; NEUT ABS # 13.37 K/uL (1.4-6.5); PLATELET COUNT 142 K/uL (130-400); RED CELL DISTRIBUTION WIDTH CV 13.9 % (11.5-14.5); RED CELL DISTRIBUTION WIDTH SD 49.1 fL (36.4-46.3); WHITE BLOOD COUNT 15.15 K/uL (4.8-10.8)
[2017-09-23 18:01] LABS: INR 2.7 (0.9-1.1); PTT PATIENT 37.8 SECONDS (21.0-31.0)
[2017-09-23 18:10] LABS: ALBUMIN 3.2 gm/dl (3.4-5.0); CREATININE 1.51 mg/dl (0.60-1.20); POTASSIUM 5.1 mmol/L (3.5-5.1); TOTAL PROTEIN 6.6 gm/dl (6.4-8.2)
--- NOTE | 2017-09-23 18:45 | History and Physical ---
History & Physical Date & Time of Service: Sep 23, 2017 at 18:32 Chief Complaint: Fever,Uti Primary Care Physician: Rich Lin M.D. History of Present Illness Source: patient 62yo female with kidney transplant status, followed by Dr. Lin, who presents with concern of UTI. Yesterday she felt warm and then last evening she had urinary frequency with having to void every hour on the hour. No dysuria but urine was foul-smelling. No appetite today with little fluid intake. No myalgias or arthralgias. No sick contacts. Denies any back pain or abdominal pain. Renal transplant is LLQ. No history of kidney stone. Denies headaches. Denies recent UTI or antibiotic usage. Past Medical/Surgical History PMH: 1. 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 HTN 3. pacemaker status for tachy-blele syndrome ? 4. a. fib 5. chronic diastolic CHF no CAD, T2DM, or stroke PSH: (1) cholecystectomy (2) Kidney transplanted - January [address] - 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) Immunizations History of Influenza Vaccine: No Influenza Vaccine Date: Sep 04, 2005 History of Tetanus Vaccine?: No History of Pneumococcal: No Pneumococcal Date: Sep 04, 2005 History of Hepatitis B Vaccine: No Hepatitis Immunization Date: Sep 04, 2005 Multi-Drug Resistant Organisms History of MDRO: No Allergies Coded Allergies: Quinolones (Verified Allergy, Intermediate, FLOXIN CAUSES HIVES, 03/09/17) HIVES Home Medications Scheduled Atenolol (Atenolol), 25 MG PO BID Diltiazem HCl (Diltiazem HCl ER), 180 MG PO BID Mycophenolate Sodium (Mycophenolic Acid Dr), 540 MG PO BID Potassium Ext Rel (Klor-Con), 20 MEQ PO UD Prednisone (Prednisone), 5 MG PO DAILY Tacrolimus (Prograf), 2 MG PO AMPM Warfarin Sodium (Coumadin), 2 MG PO 6XWK Warfarin Sodium (Coumadin), 3 MG PO THURSDAYS Scheduled PRN Furosemide (Lasix), 40 MG PO DAILY PRN for FLUID ACCUMULATION Review of Systems Constitutional: + fever, + weight loss (intentional ), + fatigue (just today), No chills, No sweats Eyes: No worsening of vision ENT: No nasal symptoms, No sore throat, No trouble swallowing Respiratory: No cough, No sputum, No wheezing, No shortness of breath, No dyspnea on exertion, No dyspnea at rest, No hemoptysis Cardiovascular: No chest pain, No edema, No palpitations Abdomen: No pain, No vomiting, No diarrhea, No GI bleeding Genitourinary - Female: + urinary frequency, No hematuria, No vaginal bleeding Neurologic: No numbness/tingling Psychiatric: No depression symptoms, No anxiety Endocrine: + excessive urination, No excessive thirst Hematologic / Lymphatic: + abnormal bleeding/bruising Integumentary: + rash (dry skin), + problem reported (alopecia x 6 months) Physical Exam Vital Signs Date Time Temp Pulse Resp B/P (MAP) Pulse Ox O2 Delivery O2 Flow Rate FiO2 09/23/17 18:01 139/65 09/23/17 17:49 99 27 09/23/17 17:44 82 18 126/57 98 Room Air 09/23/17 17:40 126/57 09/23/17 16:00 98 Room Air 09/23/17 14:00 36.6 82 18 121/66 98 Room Air General Appearance: no apparent distress, + pertinent finding (nontoxic, alert/ oriented x 3) Head: normocephalic, atraumatic Eyes: PERRL, sclerae normal, + pertinent finding (lens implants b/l) ENT: TMs normal, pharynx normal (no thrush or lesions) Neck: supple, no adenopathy, thyroid normal, no JVD, no carotid bruits Respiratory/Chest: lungs clear, no respiratory distress, no accessory muscle use, + pertinent finding (pacemaker site right upper chest clean) Cardiovascular: + pertinent finding (irregular, s1, s2, 1-2/6 TALAT LSB) Abdomen/GI: normal bowel sounds, non tender, soft, no organomegaly, + pertinent finding (renal transplant palpable in the LLQ; overlying the transplant site is a nodule, about 2cm in size - scar tissue?) Extremities/Musculoskelatal: no pedal edema Neurologic/Psych: no motor/sensory deficits, alert, normal mood/affect, normal reflexes, oriented x 3 Skin: + pertinent finding (very dry skin on face, ears, chin, neck, and legs; multiple scars on arms from prior AV fistulas, graft, etc) Lymphatic: + cervical node abnormality (left supraclavicular??) Diagnostics Laboratory Results Results Past 24 Hours Test 09/23/17 16:53 09/23/17 17:24 09/23/17 17:46 Range/Units Urine Color YELLOW Urine Appearance TURBID CLEAR Urine pH 6.0 4.5-7.5 Urine Specific [place] 1.015 1.000-1.030 Urine Protein 2+ NEG Urine Glucose (UA) NEG NEG Urine Ketones NEG NEG Urine Occult Blood 2+ NEG Urine Nitrite NEG NEG Urine Bilirubin NEG NEG Urine Urobilinogen NEG NEG Urine Leukocyte Esterase LARGE NEG Urine WBC (Auto) >30 0-5 /hpf Urine RBC (Auto) 10-30 0-4 /hpf Urine Hyaline Casts (Auto) 0 0-5 /lpf Urine Epithelial Cells (Auto) >30 0-5 /lpf Urine Bacteria (Auto) 4+ NEG Urine Pathogenic Casts 0 /lpf White Blood Count 15.15 4.8-10.8 K/uL Red Blood Count 3.80 4.2-5.4 M/uL Hemoglobin 11.4 12.0-16.0 g/dL Hematocrit 36.8 37-47 % Mean Corpuscular Volume 96.8 80-100 fL Mean Corpuscular Hemoglobin 30.0 25-34 pg Mean Corpuscular Hemoglobin Concent 31.0 32-36 g/dl Platelet Count 142 130-400 K/uL Mean Platelet Volume 10.2 7.4-10.4 fL Neutrophils (%) (Auto) 88.2 % Lymphocytes (%) (Auto) 3.3 % Monocytes (%) (Auto) 7.9 % Eosinophils (%) (Auto) 0.1 % Basophils (%) (Auto) 0.1 % Neutrophils # (Auto) 13.37 1.4-6.5 K/uL Lymphocytes # (Auto) 0.50 1.2-3.4 K/uL Monocytes # (Auto) 1.20 0.11-0.59 K/uL Eosinophils # (Auto) 0.01 0-0.5 K/uL Basophils # (Auto) 0.01 0-0.2 K/uL RDW Standard Deviation 49.1 36.4-46.3 fL RDW Coefficient of Variation 13.9 11.5-14.5 % Immature Granulocyte % (Auto) 0.4 % Immature Granulocyte # (Auto) 0.06 0.00-0.02 K/uL Prothrombin Time 28.0 9.0-12.0 SECONDS Prothromb Time International Ratio 2.7 0.9-1.1 Activated Partial Thromboplast Time 37.8 21.0-31.0 SECONDS Partial Thromboplastin Ratio 1.5 Sodium Level 132 136-145 mmol/L Potassium Level 5.1 3.5-5.1 mmol/L Chloride Level 101 98-107 mmol/L Carbon Dioxide Level 20 21-32 mmol/L Anion Gap 11.0 3-11 mmol/L Blood Urea Nitrogen 31 7-18 mg/dl Creatinine 1.51 0.60-1.20 mg/dl Est Creatinine Clear Calc Drug Dose 41.7 ml/min Estimated GFR () 43.1 Estimated GFR (Non- 37.2 BUN/Creatinine Ratio 20.8 10-20 Random Glucose 119 70-99 mg/dl Calcium Level 9.0 8.5-10.1 mg/dl Total Bilirubin 0.9 0.2-1 mg/dl Aspartate Amino Transf (AST/SGOT) 15 15-37 U/L Alanine Aminotransferase (ALT/SGPT) 19 12-78 U/L Alkaline Phosphatase 70 45-117 U/L Total Protein 6.6 6.4-8.2 gm/dl Albumin 3.2 3.4-5.0 gm/dl Globulin 3.4 2.5-4.0 gm/dl Albumin/Globulin Ratio 0.9 0.9-2 Chemistry Specimen Hemolysis Bedside Lactic Acid Venous 2.06 0.90-1.70 mmol/L Microbiology Results 09/23/17 Blood Culture, Received Pending 09/23/17 Blood Culture, Received Pending 09/23/17 Urine Culture, Received Pending Diagnostic Radiology cxr - FINDINGS: Right subclavian pacer with leads to the right atrium and right ventricular apex. Atherosclerosis of aortic arch. Cardiac silhouette moderately enlarged, unchanged. Prominence of pulmonary vasculature slightly increased from prior. Lungs and pleural spaces clear. Osseous structures normal. Upper abdomen normal. IMPRESSION: 1. Cardiomegaly with volume overload suspected. No iban pulmonary edema. EKG EKG - my reading - Ventricular paced rhythm underlying a. flutter junctional beats seen I/AVL with ST segment depression - this is old in comparison to 06/2017 EKG Impression Assessment and Plan 62yo female with h/o ESRD, s/p renal transplant followed by Dr. Lin (on chronic prednisone, mycophenalate, & prograf), along with a. fib/pacemaker status/chronic diastolic CHF - presenting with UTI symptoms x 24 hours, sepsis, as well as lab evidence of acute kidney injury. 1. sepsis 2nd to UTI - due to her immunocompromised state from her renal transplant status she was given zosyn in the ER. Reasonable to give broad-spectrum IV antibiotics until culture returns. Will change to cefepime along with daptomycin (to cover enterococcus & MRSA). I chose daptomycin over vanco due to the presence of acute kidney injury. Follow blood/urine cx's. Moderate stress dose steroids. Telemetry. Repeat labs in am. She has no pain on examination of her renal transplant - I don't suspect an element of pyelonephritis at this time. Defer on imaging. 2. hyponatremia - 2nd to volume depletion. Was given a bolus of fluid in the ER and will continue IVF w/ NS at 100cc/hr overnight with repeat labs in the AM. 3. acute kidney injury in setting of CKD stage 2 (it appears baseline CrCl is in the 50s) - 2nd to #1. Baseline Cr is 1.1-1.2. Should improve with hydration. 4. renal transplant status - continue prograf, prednisone, and mycophenalate. Send prograf level in the AM (last was level was 06/2017; dose was decreased at that time). Nephrology consult w/ Dr. Lin requested. Stress dose steroids to be given in light of #1. Give extra 40mg tonight, then extra 30mg tomorrow, and so forth. 5. a. fib on chronic coumadin - place on telemetry, rates are stable. Cont BB , CCB. Cont coumadin per home dosing regimen. Daily INR while here. 6. chronic diastolic CHF - avoid excessive fluid while hospitalized. Watch volume status carefully. Daily weights, etc. Cont BB. Lasix prn. 7. mild anemia - check iron studies, b12, folate in the AM. 8. concern of alopecia - TSH in 06/2017 was wnl. Outpatient f/u recommended. 9. DVT proph - coumadin. 10. FEN - AHA diet, fluids as above, BMP in am. 11. ? lymph node in the left supraclavicular region - will ask one of the hospitalist team members or Dr. Lin to examine this region as well. Level of Care Telemetry Resuscitation Status FULL RESUSCITATION VTE Prophylaxis Risk Level: Low Given or contraindicated: Warfarin (Coumadin) Social Service Consult None Apply Note total time about 70 minutes Additional Copies To Rich Lin M.D.
[2017-09-23] MEDS ORDERED: ACETAMINOPHEN 325 MG TAB PO PRN (19:00)
[2017-09-23] MEDS ORDERED: DAPTOmycin IV 500 MG in SODIUM CHLORIDE 0.9% 50ML 50 ML IV SCH (19:00)
[2017-09-23] MEDS ORDERED: ONDANSETRON INJ 2 MG/ML 2 ML VIAL IV PRN (19:00)
[2017-09-23 20:45] VITALS: BP 122/74; PULSE 85; TEMP 37.2; O2SAT 97; Ht 162.6 cm; Wt 85.1 kg
[2017-09-23] MEDS ORDERED: CEFEPIME CONSULT ACTIVE PRN (21:15)
[2017-09-23] MEDS: DILTIAZEM HCL 180 MG CAPCR PO SCH (21:51)
[2017-09-23] MEDS: CEFEPIME IV 2,000 MG in SYRINGE 7.5 ML IV SCH (21:51)
[2017-09-23] MEDS: TACROLIMUS 1 MG CAP PO SCH (21:52)
[2017-09-23] MEDS: MYCOPHENOLATE SODIUM 180 MG TAB PO SCH (21:52)
[2017-09-23] MEDS: WARFARIN SOD 2 MG TAB PO SCH (21:53)
[2017-09-23] MEDS: SODIUM CHLORIDE 0.9% 1000ML 1,000 ML IV SCH (21:54)
[2017-09-23] MEDS ORDERED: DAPTOmycin IV 500 MG in SYRINGE 0 ML IV SCH (22:00)
[2017-09-23] MEDS ORDERED: CEFEPIME IV 1,000 MG in DEXTROSE 5% 100ML 100 ML IV SCH (23:00)
[2017-09-23 23:35] VITALS: BP 115/73; PULSE 76; TEMP 37; O2SAT 95
[2017-09-24] VITALS (7 sets, daily range): BP systolic 105–144; BP diastolic 57–90; PULSE 59–88; TEMP 36.4–37.2; O2SAT 96–100
[2017-09-24] MEDS: SODIUM CHLORIDE 0.9% 1000ML 1,000 ML IV SCH ×2 (06:22→16:41)
[2017-09-24] MEDS: DILTIAZEM HCL 180 MG CAPCR PO SCH ×2 (09:27→21:21)
[2017-09-24] MEDS: TACROLIMUS 1 MG CAP PO SCH ×2 (09:29→21:22)
[2017-09-24] MEDS: MYCOPHENOLATE SODIUM 180 MG TAB PO SCH ×2 (09:31→21:21)
[2017-09-24 10:01] LABS: HEMATOCRIT 32.6 % (37-47); HEMOGLOBIN 10.1 g/dL (12.0-16.0); MEAN CORPUSCULAR HEMOGLOBIN 30.1 pg (25-34); MEAN PLATELET VOLUME 9.8 fL (7.4-10.4); PLATELET COUNT 118 K/uL (130-400); RED CELL DISTRIBUTION WIDTH CV 14.1 % (11.5-14.5); RED CELL DISTRIBUTION WIDTH SD 49.9 fL (36.4-46.3)
[2017-09-24 10:09] LABS: INR 2.6 (0.9-1.1)
[2017-09-24 10:33] LABS: CALCIUM 8.6 mg/dl (8.5-10.1); CREATININE 1.23 mg/dl (0.60-1.20); POTASSIUM 4.6 mmol/L (3.5-5.1)
--- NOTE | 2017-09-24 11:50 | Medical Student: [facility] ---
Med Student History & Physical Date & Time of Service: Sep 24, 2017 at 11:30 Chief Complaint: Sepsis, Urinary Tract Infection Primary Care Physician: Rich Lin M.D. History of Present Illness Source: patient Melanie is a 62-year-old female with a history of kidney transplant x2 and recurrent UTIs who presented to the ED 09/23 with persistent urinary frequency and fever. She states that she woke up in the middle of the night feeling "very hot" and after that, she had to go the bathroom every hour. her urine was "foul smelling" and cloudy, and she had a temperature of 99.8F, which she says is high for her given her baseline of 97.4F. She has long history of renal problems that began in childhood and have resulted in two transplants; the first was in 1995, and due to chronic graft rejection and recurrent UTIs, she underwent a second transplant in 2012. She has been hospitalized on multiple occasion with UTIs after her most recent transplant. She was started on IV Zosyn in the ED and was transitioned to IV daptomycin and cefepime on admission. Today she is feeling better. She is eating and drinking well. She denies fever, chills, headache, shortness of breath, nausea, urinary urgency, incontinence, dysuria, abdominal pain, diarrhea. PMHx significant for diastolic dysfunction, afib, HTN, pacemaker. Past Medical/Surgical History Medical Problems: (1) Acute kidney injury Status: Acute (2) Acute renal failure Status: Acute (3) Diarrhea Status: Acute (4) Immunocompromised Status: Acute (5) Immunocompromised Status: Acute (6) Leukocytosis Status: Acute (7) Urinary tract infection Status: Acute (8) UTI (urinary tract infection) Status: Acute Social History Problems: (1) H/O kidney transplant Status: Acute (2) Renal transplant recipient Status: Acute (3) Status post kidney transplant Status: Acute Family History Other: heart disease, pertinent history of (kidney disease) Social History Smoking Status: Never Smoker Smokeless Tobacco Use: No Alcohol Use: none Drug Use: none Marital Status: (3 kids ) Housing status: lives with family (in [place] ) 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) Immunizations History of Influenza Vaccine: No Influenza Vaccine Date: Sep 04, 2005 History of Tetanus Vaccine?: No History of Pneumococcal: No Pneumococcal Date: Sep 04, 2005 History of Hepatitis B Vaccine: No Hepatitis Immunization Date: Sep 04, 2005 Allergies Coded Allergies: Quinolones (Verified Allergy, Intermediate, FLOXIN CAUSES HIVES, 03/09/17) HIVES Medications Atenolol (Atenolol), 25 MG PO BID Diltiazem HCl (Diltiazem HCl ER), 180 MG PO BID Furosemide (Lasix), 40 MG PO DAILY PRN for FLUID ACCUMULATION Mycophenolate Sodium (Mycophenolic Acid Dr), 540 MG PO BID Potassium Ext Rel (Klor-Con), 20 MEQ PO UD Prednisone (Prednisone), 5 MG PO DAILY Tacrolimus (Prograf), 2 MG PO AMPM Warfarin Sodium (Coumadin), 2 MG PO [id number] Warfarin Sodium (Coumadin), 3 MG PO THURSDAYS Review of Systems Constitutional: + fever, No chills, No sweats Eyes: No worsening of vision ENT: No hearing loss, No sore throat Respiratory: No cough, No sputum, No wheezing Cardiovascular: No chest pain, No edema Abdomen: No pain, No nausea, No vomiting, No diarrhea Musculoskeletal: No joint pain, No muscle pain Genitourinary - Female: + urinary frequency, No dysuria, No urinary urgency, No urinary incontinence, No urinary retention Neurologic: No weakness, No numbness/tingling Endocrine: + excessive urination Hematologic / Lymphatic: No abnormal bleeding/bruising Integumentary: No rash Physical Exam Vital Signs (24 Hours) Date Time Temp Pulse Resp B/P (MAP) Pulse Ox O2 Delivery O2 Flow Rate FiO2 09/24/17 08:00 Room Air 09/24/17 07:46 36.7 72 18 120/57 (78) 97 Room Air 09/24/17 04:16 36.6 59 20 105/67 (80) 96 Room Air 09/24/17 04:00 Room Air 09/24/17 00:00 Room Air 09/23/17 23:35 37.0 76 20 115/73 (87) 95 Room Air 09/23/17 20:45 37.2 85 20 122/74 97 Room Air 09/23/17 20:01 79 22 101/43 97 09/23/17 19:32 38.4 77 18 152/61 95 Room Air 09/23/17 18:01 139/65 09/23/17 17:49 99 27 09/23/17 17:44 82 18 126/57 98 Room Air 09/23/17 17:40 126/57 09/23/17 16:00 98 Room Air 09/23/17 14:00 36.6 82 18 121/66 98 Room Air General Appearance: + mild distress Head: normocephalic, atraumatic Eyes: normal inspection, PERRL ENT: normal ENT inspection, hearing grossly normal Neck: supple, no adenopathy Respiratory/Chest: chest non-tender, lungs clear, normal breath sounds Cardiovascular: regular rate, rhythm, no edema Abdomen/GI: normal bowel sounds, non tender, soft Back: normal inspection, no CVA tenderness Extremities/Musculoskelatal: normal inspection, no pedal edema Neurologic/Psych: alert, normal mood/affect, oriented x 3 Skin: + pertinent finding (excessive dryness ) Lymphatic: no adenopathy Diagnostics Laboratory Results Results Past 24 Hours Test 09/23/17 16:53 09/23/17 17:24 09/23/17 17:46 09/24/17 03:06 Range/Units Urine Color YELLOW Urine Appearance TURBID CLEAR Urine pH 6.0 4.5-7.5 Urine Specific [place] 1.015 1.000-1.030 Urine Protein 2+ NEG Urine Glucose (UA) NEG NEG Urine Ketones NEG NEG Urine Occult Blood 2+ NEG Urine Nitrite NEG NEG Urine Bilirubin NEG NEG Urine Urobilinogen NEG NEG Urine Leukocyte Esterase LARGE NEG Urine WBC (Auto) >30 0-5 /hpf Urine RBC (Auto) 10-30 0-4 /hpf Urine Hyaline Casts (Auto) 0 0-5 /lpf Urine Epithelial Cells (Auto) >30 0-5 /lpf Urine Bacteria (Auto) 4+ NEG Urine Pathogenic Casts 0 /lpf White Blood Count 15.15 4.8-10.8 K/uL Red Blood Count 3.80 4.2-5.4 M/uL Hemoglobin 11.4 12.0-16.0 g/dL Hematocrit 36.8 37-47 % Mean Corpuscular Volume 96.8 80-100 fL Mean Corpuscular Hemoglobin 30.0 25-34 pg Mean Corpuscular Hemoglobin Concent 31.0 32-36 g/dl Platelet Count 142 130-400 K/uL Mean Platelet Volume 10.2 7.4-10.4 fL Neutrophils (%) (Auto) 88.2 % Lymphocytes (%) (Auto) 3.3 % Monocytes (%) (Auto) 7.9 % Eosinophils (%) (Auto) 0.1 % Basophils (%) (Auto) 0.1 % Neutrophils # (Auto) 13.37 1.4-6.5 K/uL Lymphocytes # (Auto) 0.50 1.2-3.4 K/uL Monocytes # (Auto) 1.20 0.11-0.59 K/uL Eosinophils # (Auto) 0.01 0-0.5 K/uL Basophils # (Auto) 0.01 0-0.2 K/uL RDW Standard Deviation 49.1 36.4-46.3 fL RDW Coefficient of Variation 13.9 11.5-14.5 % Immature Granulocyte % (Auto) 0.4 % Immature Granulocyte # (Auto) 0.06 0.00-0.02 K/uL Prothrombin Time 28.0 9.0-12.0 SECONDS Prothromb Time International Ratio 2.7 0.9-1.1 Activated Partial Thromboplast Time 37.8 21.0-31.0 SECONDS Partial Thromboplastin Ratio 1.5 Sodium Level 132 136-145 mmol/L Potassium Level 5.1 3.5-5.1 mmol/L Chloride Level 101 98-107 mmol/L Carbon Dioxide Level 20 21-32 mmol/L Anion Gap 11.0 3-11 mmol/L Blood Urea Nitrogen 31 7-18 mg/dl Creatinine 1.51 0.60-1.20 mg/dl Est Creatinine Clear Calc Drug Dose 41.7 ml/min Estimated GFR () 43.1 Estimated GFR (Non- 37.2 BUN/Creatinine Ratio 20.8 10-20 Random Glucose 119 70-99 mg/dl Calcium Level 9.0 8.5-10.1 mg/dl Total Bilirubin 0.9 0.2-1 mg/dl Aspartate Amino Transf (AST/SGOT) 15 15-37 U/L Alanine Aminotransferase (ALT/SGPT) 19 12-78 U/L Alkaline Phosphatase 70 45-117 U/L Total Protein 6.6 6.4-8.2 gm/dl Albumin 3.2 3.4-5.0 gm/dl Globulin 3.4 2.5-4.0 gm/dl Albumin/Globulin Ratio 0.9 0.9-2 Chemistry Specimen Hemolysis Bedside Lactic Acid Venous 2.06 0.90-1.70 mmol/L Lactic Acid Level 0.6 0.4-2.0 mmol/L Test 09/24/17 06:34 09/24/17 09:45 09/24/17 10:49 Range/Units White Blood Count 11.00 4.8-10.8 K/uL Red Blood Count 3.36 4.2-5.4 M/uL Hemoglobin 10.1 12.0-16.0 g/dL Hematocrit 32.6 37-47 % Mean Corpuscular Volume 97.0 80-100 fL Mean Corpuscular Hemoglobin 30.1 25-34 pg Mean Corpuscular Hemoglobin Concent 31.0 32-36 g/dl RDW Standard Deviation 49.9 36.4-46.3 fL RDW Coefficient of Variation 14.1 11.5-14.5 % Platelet Count 118 130-400 K/uL Mean Platelet Volume 9.8 7.4-10.4 fL Prothrombin Time 26.8 9.0-12.0 SECONDS Prothromb Time International Ratio 2.6 0.9-1.1 Sodium Level 137 136-145 mmol/L Potassium Level 4.6 3.5-5.1 mmol/L Chloride Level 108 98-107 mmol/L Carbon Dioxide Level 20 21-32 mmol/L Anion Gap 9.0 3-11 mmol/L Blood Urea Nitrogen 32 7-18 mg/dl Creatinine 1.23 0.60-1.20 mg/dl Est Creatinine Clear Calc Drug Dose 51.4 ml/min Estimated GFR () 55.2 Estimated GFR (Non- 47.6 BUN/Creatinine Ratio 25.9 10-20 Random Glucose 118 70-99 mg/dl Calcium Level 8.6 8.5-10.1 mg/dl Iron Level 26 35-150 mcg/dl Total Iron Binding Capacity 215 250-450 mcg/dl Transferrin 171 200-360 mg/dl Transferrin % Saturation 11 15-50 % Ferritin 1752.4 8.0-388.0 ng/ml Microbiology Results 09/23/17 Blood Culture, Received Pending 09/23/17 Blood Culture, Received Pending 09/23/17 Urine Culture, Received Pending other (Cardiomegaly with volume overload) Impression Assessment and Plan Assessment: This is a 62 year old female with a history of kidney transplant x2 and recurrent UTIs who presented to the ED yesterday (/) with persistent urinary frequency and fever. DDx is UTI, pyelonephritis, graft infection, renal injury.TATIANNA, dehydration. Plan: Primary diagnosis: acute urinary tract infection -Continue IV cefepime until sensitivities result - E. coli -Can likely D/C daptomycin with no Enterococcus growth -Maintain hydration status through IV and/or PO fluids -Obtain blood cultures -Monitor WBC, BUN, Cr for infection and TATIANNA resolution - WBC decreased from 15 to 11; Cr from 1.5 to 1.2 Renal transplant: -Continue immunosuppressive therapy regimen - prednisone, Prograf, mycophenolate -Give stress dose of prednisone PRN -Baseline CR of 1.1 - monitor daily to ensure resolution Afib: -Continue outpatient medications -Monitor of telemetry CHF: -Daily weights -Lasix PRN, dosed for TATIANNA/decreased baseline kidney function -Monitor fluid status and BP Level of Care Telemetry Advanced Directives Existing Living Will: No Existing Power of Pyrometer Temperature Regulator: No Resuscitation Status FULL RESUSCITATION
--- NOTE | 2017-09-24 12:25 | NEPHROLOGY CONSULTATION ---
DATE OF CONSULTATION: 09/24/2017 REFERRING PHYSICIAN: [employer] [facility]. SUBJECTIVE: Mrs. Barker is a 62-year-old woman, well known to me. I have followed her since the late for problems and complications of her chronic renal disease. She was first referred to me because of renal failure in the late . Her blood pressure was elevated at that time and she had advanced renal failure. Biopsy of her kidneys was not done because of the level of her renal dysfunction. 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 Her blood pressure was controlled. However, by 1989, she developed symptoms of uremia and volume overload and was started on maintenance dialysis. After starting on hemodialysis, she was subsequently switched to CAPD. That was continued until 1994 when it was discontinued because of recurring episodes of peritonitis. She was returned to hemodialysis and remained on hemodialysis for about 1 year before getting her first kidney transplant at [facility] in 1995. 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 The transplant finally failed completely and she was returned to hemodialysis in 2005. She remained on hemodialysis without significant complication until her second transplant was done at [facility] in [place] in 2012. Complications of her second transplant and of her chronic kidney disease included recurrent urinary tract infections as well as hyperparathyroidism, for which she underwent a parathyroidectomy and also paroxysmal atrial fibrillation, which will be discussed below. Mrs. Barker has had multiple hospitalizations associated with this kidney transplant with associated urinary tract infections. She usually presents with symptoms of nausea with or without vomiting as well as diarrhea, chills and fever. She rarely has associated dysuria and rarely has pain over her transplanted kidney. More often or not, urine cultures are positive and blood cultures may or may not have been positive. The episodes were associated with the reduction in her renal function, which improves with volume repletion and treatment with antibiotics. Her most typical organisms have been an enterococcus, but she is also cultured out Klebsiella pneumoniae and Enterobacter as well as E. coli in the past. She has a history of intermittent episodes of diarrhea associated with urinary tract infections or fevers. However, it was decided to switch her from CellCept to Myfortic to reduce the likelihood of having episodes of diarrhea. This has not seemed to be particularly effective. Her other major issue is atrial fibrillation. She has had episodes of paroxysmal atrial fibrillation since having her second kidney transplant in 2012. Episodes were initially picked up during a visit to [facility]. Her treatment was anticoagulation with warfarin as well as treatment with diltiazem to help with her rate control. Generally, she was unaware of episodes of atrial fibrillation unless she developed significant palpitations, which was not always happening. 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 At that time, a dual-chamber [employer]. Alex pacemaker was placed. Other cardiac issues include a history of mitral regurgitation and diastolic dysfunction. She did undergo a cardiac catheterization in 2010. She was noted to have a 10%-20% mid LAD stenosis as the only finding. In 2012, she had an episode of chest discomfort, but a stress echocardiogram was negative. In 2013, she had an echocardiogram. Her ejection fraction was 65%-70%. No wall motion abnormalities were noted. She was noted to have mild to moderate pulmonary regurgitation at that time. For the most part, Mrs. Barker has been feeling well of late. She has not kept her outpatient appointments in our office for a quite some time. Her last visit was in April of 2017. She awoke early in the morning of September 23 with symptoms of feeling warm all over. She began to notice that she was having frequent urination without dysuria. Her urine was cloudy. She was not having diarrhea. She recognizes the symptoms of those of an early urinary tract infection and came to the hospital. Her urinalysis in the Emergency Room was consistent with an acute urinary tract infection. She had a low grade fever. Blood and urine cultures were done and she was started on a combination of cefepime and daptomycin. Currently, she is feeling generally well. Her serum creatinine was also noted to be somewhat elevated. It was associated with a low albumin and a relatively low blood pressure. She is being rehydrated with saline at the current time. CURRENT MEDICATIONS: Diltiazem CD 120 one daily, metoprolol succinate ER 100 mg daily, warfarin doses to keep her INR between 2 and 3, furosemide 40 mg daily, mag ox 400 mg daily when using Lasix, ketoconazole shampoo to use p.r.n. for symptoms of seborrheic dermatitis, Myfortic 540 mg twice daily, tacrolimus 2 mg in the morning and 3 mg in the evening, prednisone 5 mg daily, and potassium chloride 20 mEq daily when taking Lasix. ALLERGIES: QUINOLONES. The remainder of her past medical history, family history, social history and review of systems is present on her current admission note as well as previous admission notes and consults. There are no particular additions. OBJECTIVE: GENERAL: On physical exam when seen by me, Mrs. Barker appeared to be somewhat of a chronically ill woman, who was not in any distress. VITAL SIGNS: Her temperature 36.7, her blood pressure 120/57, her pulse 72 and irregularly irregular, respiratory rate 18, and her pulse ox 97% on room air. SKIN: Shows her to be somewhat plethoric. She has normal skin turgor. She has multiple scars from prior surgeries and trauma, particularly on her arms. She has bilateral lower abdominal scars from kidney transplants. The current transplant is present on the left. She has other striae on her abdomen as well. There is no other rash or infiltrative skin disease. LYMPHATICS: Show no palpable lymphadenopathy. HEAD: Normal. EYES: Grossly normal. The ocular fundi were not examined. EARS, NOSE, MOUTH AND THROAT: All unremarkable other than poor dentition. Her oral mucous membranes are moist. NECK: Supple. She has no jugular venous distention lying flat, but the exam is limited by her body habitus. She has no carotid bruit or thyromegaly. She has a scar at the base of her neck from parathyroid surgery. CHEST: Clear to auscultation. She does have a murmur radiating into her chest from her left upper arm AV fistula. CARDIAC: Shows an irregularly irregular rhythm. S1 and S2 are normal. She has a grade 2/6 systolic murmur at the base, radiating toward the neck. I hear no diastolic murmurs or gallops. ABDOMEN: Obese, but nontender. Her kidney transplant is palpable in the left lower quadrant. It is nontender. She has a bruit over the graft. There is no other organomegaly or mass. EXTREMITIES: Show no cyanosis or clubbing. She has trace lower extremity edema. She has a left upper arm AV fistula. Peripheral pulses in her feet are difficult to feel, but she has normal capillary refill in her fingers and toes. NEUROLOGIC: Shows no lateralizing findings. PERTINENT LABORATORY WORK: From this admission showed a white count on admission of 15,150 with 88.2% neutrophils, 3.3% lymphocytes, 7.9% monocytes, 0.1% eosinophils and 0.1% basophils. This morning, however, her white count has fallen to 11,000. Her hemoglobin on admission was 11.4 with a hematocrit of 36.8. With hydration, her hemoglobin has fallen to 10.1 with a hematocrit of 32.6 today. Her platelet count was initially 142,000 on admission and this morning 118,000. Her clinical chemistries from admission showed a sodium of 132 mmol/L, potassium of 5.1 mmol/L, chlorides of 101 mmol/L, and CO2 content of 20 mmol/L. Her BUN was 31 and her creatinine 1.51. A random blood sugar was 119 and her serum calcium 90. Her total bilirubin 0.9. Her AST was 15. Her ALT was 19. Her alkaline phosphatase was 70. Her total protein 6.6 with an albumin of 3.2. Today, however, her sodium is 137 mmol/L, potassium 4.6 mmol/L, chlorides 108 mmol/L, and CO2 content 20 mmol/L. Her BUN is 32 and her creatinine has fallen to 1.23. A random blood sugar today was 118. Her serum calcium is 8.6. Her serum iron was 26 with a total iron binding capacity of 215 and a transferrin saturation of 11%. Her ferritin is 1752.4. Her urinalysis on admission showed a specific gravity of 1.015. Her urine appeared to be cloudy. Her urine protein was 2+ on dipstick with 2+ occult blood. Her leukocyte esterase was positive. Her ____ showed greater than 30 white cells per high power field and 10-30 red cells per high power field as well as greater than 30 epithelial cells per low power field and 4+ bacteria. Other laboratory work is pending. Her chest x-ray on admission shows evidence of cardiomegaly with questionable volume overload, but no iban pulmonary edema. Blood and urine cultures were done and are pending. ASSESSMENT: Mrs. Barker is approaching 5 years status post her second kidney transplant. Her renal function has been normal. However, this transplant, as her previous transplant was, has been complicated by recurring infections. Common organism with those infections has been an enterococcus. Her current antibiotics should certainly cover her for that. As soon as her culture and sensitivities are back, however, more targeted therapy can be given. Her renal function has improved and falling back to baseline with hydration. RECOMMENDATIONS: Continue with her antibiotics for now, but alter them as soon as sensitivities are back assuming there is a positive culture. Continue with her current immunosuppression and warfarin. Continue with her current IV fluids for general hydration. No other immediate recommendations, but I will follow her with you and make further recommendations as her clinical status unfolds.
[2017-09-24] MEDS: WARFARIN SOD 2 MG TAB PO SCH (16:40)
--- NOTE | 2017-09-24 17:45 | Progress Note ---
Subjective Date of Service: Sep 24, 2017. Subjective Pt evaluation today including: conversation w/ patient, physical exam, chart review, lab review, review of inpatient medication list feeling better no f/c/s bored no other complaints Problem List Medical Problems: (1) Acute kidney injury Status: Acute (2) Acute renal failure Status: Acute (3) Diarrhea Status: Acute (4) Immunocompromised Status: Acute (5) Immunocompromised Status: Acute (6) Leukocytosis Status: Acute (7) Urinary tract infection Status: Acute (8) UTI (urinary tract infection) Status: Acute Social History Problems: (1) H/O kidney transplant Status: Acute (2) Renal transplant recipient Status: Acute (3) Status post kidney transplant Status: Acute Review of Systems all other ROS otherwise negative except for as above Objective Vital Signs Date Time Temp Pulse Resp B/P (MAP) Pulse Ox O2 Delivery O2 Flow Rate FiO2 09/24/17 15:19 36.5 73 18 144/77 (99) 100 Room Air 09/24/17 12:00 37.2 88 18 143/78 (99) 97 Room Air 09/24/17 12:00 Room Air 09/24/17 08:00 Room Air 09/24/17 07:46 36.7 72 18 120/57 (78) 97 Room Air 09/24/17 04:16 36.6 59 20 105/67 (80) 96 Room Air 09/24/17 04:00 Room Air 09/24/17 00:00 Room Air 09/23/17 23:35 37.0 76 20 115/73 (87) 95 Room Air 09/23/17 20:45 37.2 85 20 122/74 97 Room Air 09/23/17 20:01 79 22 101/43 97 09/23/17 19:32 38.4 77 18 152/61 95 Room Air 09/23/17 18:01 139/65 09/23/17 17:49 99 27 09/23/17 17:44 82 18 126/57 98 Room Air Physical Exam General Appearance: no apparent distress Eyes: EOMI ENT: hearing grossly normal Neck: trachea midline Respiratory/Chest: no respiratory distress, no accessory muscle use Neurologic/Psychiatric: investment manager II-XII nml as tested, alert, normal mood/affect Skin: normal color, warm/dry Laboratory Results Last 24 Hours Test 09/23/17 17:46 09/24/17 03:06 09/24/17 09:45 09/24/17 10:49 Bedside Lactic Acid Venous 2.06 mmol/L Lactic Acid Level 0.6 mmol/L White Blood Count 11.00 K/uL Red Blood Count 3.36 M/uL Hemoglobin 10.1 g/dL Hematocrit 32.6 % Mean Corpuscular Volume 97.0 fL Mean Corpuscular Hemoglobin 30.1 pg Mean Corpuscular Hemoglobin Concent 31.0 g/dl RDW Standard Deviation 49.9 fL RDW Coefficient of Variation 14.1 % Platelet Count 118 K/uL Mean Platelet Volume 9.8 fL Prothrombin Time 26.8 SECONDS Prothromb Time International Ratio 2.6 Sodium Level 137 mmol/L Potassium Level 4.6 mmol/L Chloride Level 108 mmol/L Carbon Dioxide Level 20 mmol/L Anion Gap 9.0 mmol/L Blood Urea Nitrogen 32 mg/dl Creatinine 1.23 mg/dl Est Creatinine Clear Calc Drug Dose 51.4 ml/min Estimated GFR () 55.2 Estimated GFR (Non- 47.6 BUN/Creatinine Ratio 25.9 Random Glucose 118 mg/dl Calcium Level 8.6 mg/dl Iron Level 26 mcg/dl Total Iron Binding Capacity 215 mcg/dl Transferrin 171 mg/dl Transferrin % Saturation 11 % Ferritin 1752.4 ng/ml Vitamin B12 Level 167 pg/mL Folate 14.86 ng/mL Assessment and Plan 1. sepsis secondary to UTI related to her immunocompromised state from her renal transplant status and chronic immunosuppressive therapy continue cefepime pending sensitivities - since E Coli can stop dapto improving Follow blood/urine cx's. Moderate stress dose steroids. stable for med surg Repeat labs in am. 2. hyponatremia - improved 3. acute kidney injury in setting of CKD stage 2 (it appears baseline CrCl is in the 50s) - 2nd to #1. Baseline Cr is 1.1-1.2. improved 4. renal transplant status - continue prograf, prednisone, and mycophenalate. prograf level sent, nephrology consulted Stress dose steroids to be given in light of #1. Give extra 40mg tonight, then extra 30mg tomorrow, and so forth. 5. a. fib on chronic coumadin -rate controlled. Cont BB, CCB. Cont coumadin per home dosing regimen. Daily INR while here. therapeutic 6. chronic diastolic CHF - appearing euvolemic Daily weights, etc. Cont BB. Lasix prn. 7. mild anemia - iron studies equivocal, B12 low - will replace 8. concern of alopecia - TSH in 06/2017 was wnl. Outpatient f/u recommended. 9. DVT proph - coumadin. 10. B12 deficiency - replace 11. ? lymph node in the left supraclavicular region - follow clinically
[2017-09-24] MEDS ORDERED: CYANOCOBALAMIN 1000 MCG/ML VIAL IM ONE (18:00)
[2017-09-24] MEDS: CEFEPIME IV 2,000 MG in SYRINGE 7.5 ML IV SCH (22:16)
[2017-09-25] MEDS: SODIUM CHLORIDE 0.9% 1000ML 1,000 ML IV SCH ×2 (02:50→13:00)
[2017-09-25] MEDS: DILTIAZEM HCL 180 MG CAPCR PO SCH (07:50)
[2017-09-25] MEDS: TACROLIMUS 1 MG CAP PO SCH (07:51)
[2017-09-25] MEDS: MYCOPHENOLATE SODIUM 180 MG TAB PO SCH (07:51)
[2017-09-25] MEDS ORDERED: CYANOCOBALAMIN 1000 MCG/ML VIAL IM SCH (08:00)
[2017-09-25 08:15] VITALS: BP 147/65; PULSE 74; TEMP 36.5; O2SAT 98
[2017-09-25] MEDS ORDERED: CYAN10005 PO (10:16)
[2017-09-25] MEDS ORDERED: CEPH500C2 PO (10:16)
--- NOTE | 2017-09-25 10:38 | Discharge Instructions ---
Discharge Instructions Date of Service Sep 25, 2017. Admission Reason for Admission: Sepsis, Urinary Tract Infection Discharge Discharge Diagnosis / Problem: Urinary tract infection, complicated Discharge Goals Goal(s): Decrease discomfort, Prevent Disease Progression Activity Recommendations Activity Limitations: resume your previous activity . Instructions / Follow-Up Instructions / Follow-Up Urinary tract infection -This is what brought you into the hospital in the first place - you did the right thing by coming in! -We started you on an antibiotic called "cefepime" through your IV while you were here. It is in a class of antibiotics called cephalosporins, and the bacteria in your urine were sensitive to that whole class. -Because this whole class is effective for you, we are going to send you home with a oral pill of an antibiotic called cephalexin (brand name is Keflex). This will need to be taken three times per day. -We will write your prescription for 14 days. However, because you seem to be getting better so quickly, we will want you to follow up with Dr. Lin (or one of his PAs) early next week. If they feel that you are doing well, they can stop the antibiotic at 7 or 10 days. If they feel like you should take it longer , you will already have the medication at home and won't need to get another prescription filled. -Keflex is very well-tolerated and shouldn't give you any side effects! However , it does occasionally cause an upset tummy. if that happens, take it with food. Vitamin B12 deficiency -You noticed that your hair was starting to fall out, and your skin was extra dry. This led us to check a vitamin B12 level, and we found out that it was low. -We have given you two B12 shots here in the hospital. Since you are being discharged, we recommend taking a B12 pill every day. We have written a prescription for this - 1,000 ug daily. This will be taken once per day. -This method works well for many people! However, we would like you to get your B12 level checked in 3 months just to make sure your levels have risen back into the normal range. Dr. Lin's office can help you with this. -If for some reason the B12 pills are not enough to bring your levels up, the B12 shots will be your next option. But don't worry about that for now. Let's cross our fingers that the pills do the trick! It was our pleasure taking care of you during your hospital stay. We hope to see you again - hopefully out and about in the community and not in here! All the best, Jovita and Dr. Freeman Current Hospital Diet Patient's current hospital diet: AHA Diet (Heart Healthy) Discharge Diet Recommended Diet: AHA Diet (Heart Healthy) Pending Studies Studies pending at discharge: no Medical Emergencies . Who to Call and When: Medical Emergencies: If at any time you feel your situation is an emergency, please call 911 immediately. . Non-Emergent Contact Non-Emergency issues call your: Primary Care Provider, Volleyball Referee . . "Provider Documentation" section prepared by Levi Freeman. . VTE Core Measure Inpt VTE Proph given/why not?: Warfarin (Coumadin)
[2017-09-25 10:46] VITALS: BP 147/65; PULSE 74; TEMP 36.5; O2SAT 98
--- NOTE | 2017-09-25 10:55 | NEPHROLOGY PROGRESS NOTE ---
DATE: 09/25/2017 SUBJECTIVE: Mrs. Barker says that she is feeling considerably better today. Overnight, she began to notice a dramatic increase in her urine output. She has had no tenderness over her left lower quadrant renal graft and she has had no dysuria. She has had no shaking chills or fevers. She has had no nausea or diarrhea. She has no symptoms of uremia or volume overload. OBJECTIVE: GENERAL: On physical exam, she appears relatively well, but still as a chronically ill, overweight middle aged white female. She appeared to be comfortable, however. VITAL SIGNS: Her temperature was 36.5, her blood pressure 147/65, her pulse 74 and regular, respiratory rate 18, and her pulse ox 98% on room air. SKIN: Shows normal skin turgor. She has no obvious rash or infiltrative skin disease. She is somewhat plethoric. She has multiple scars from prior surgical procedures, particularly on her arms. She has a left upper arm AV fistula. She has lower abdominal scars from kidney transplants with recurrent transplant being on the left. LYMPHATICS: Show no palpable adenopathy. HEAD: Normal. EYES: Grossly normal. The ocular fundi were not examined. EARS, NOSE, MOUTH AND THROAT: Unremarkable other than poor dentition. Oral mucous membranes are moist. NECK: Supple. There is no jugular venous distention at 90 degrees. The exam is limited by her body habitus. She has no carotid bruit or thyromegaly. There is a scar at the base of her neck from parathyroid surgery. CHEST: Clear to auscultation. She has a murmur radiating into her chest from her left upper arm AV fistula. CARDIAC: Currently shows a regular rhythm. S1 and S2 are normal. She has a grade 2/6 systolic murmur at the base radiating toward the neck. No diastolic murmurs are heard. ABDOMEN: Obese, but nontender. Her renal graft is palpable in the left lower quadrant. It is nontender. There is no bruit over the graft. She has no other organomegaly or mass. EXTREMITIES: Show no cyanosis or clubbing. She has trace lower extremity edema. There is a left upper arm AV fistula. Peripheral pulses in her feet are difficult to feel. She has normal capillary refill in fingers and toes. NEUROLOGIC: Shows no lateralizing changes. No laboratory work was apparently drawn today. Her urine culture is positive for an E. coli. It is sensitive to cefazolin and cefepime. It is also sensitive to trimethoprim sulfa. Most of the other antibiotics to which ____ sensitive to are intravenous preparations only other than nitrofurantoin. ASSESSMENT: Mrs. Barker appears to be significantly better and recovering from yet another urinary tract infection. The organism that she has is an Escherichia coli and it has sensitivity to oral medications including cefoxitin and trimethoprim sulfa. RECOMMENDATIONS: I think I would transition her to oral antibiotics. If there are no other particular reasons to keep her, she might be able to be discharged today or tomorrow. She should be discharged with 2 weeks of oral antibiotics. I think I would lean forward to Keflex as opposed to trimethoprim sulfa. She should continue with all of her other medications. If discharged today, I can schedule her to be seen in our office in followup in about 1 week. I instructed her that when she is discharged to call us if she has any symptoms of recurrence of her urinary tract infection. No other immediate recommendations.
--- NOTE | 2017-09-25 19:01 | Discharge Summary ---
Discharge Summary Date of Service Sep 25, 2017. Discharge Summary Admission Date: Sep 23, 2017 at 19:14 Discharge Date: Sep 25, 2017 Discharge Disposition: Home Principal Diagnosis: Sepsis from UTI in immunocompromised state Immunizations: Have You Had Influenza Vaccine: No Influenza Vaccine Date: Sep 04, 2005 History of Tetanus Vaccine?: No History of Pneumococcal: No Pneumococcal Date: Sep 04, 2005 History of Hepatitis B Vaccine: No Hepatitis Immunization Date: Sep 04, 2005 Procedures: urine culture showing cephalosporin sensitive E Coli Consultations: nephrology Medication Reconciliation New Medications: Cephalexin Monohydrate (Keflex) 500 Mg Cap 500 MG PO TID, #39 CAP Cyanocobalamin (Vitamin B-12) 1,000 Mcg Tab 1000 MCG PO DAILY, #30 TAB Continued Medications: Atenolol (Atenolol) 25 Mg Tab 25 MG PO BID, #60 TAB 3 Refills Diltiazem HCl (Diltiazem HCl ER) 180 Mg Capcr 180 MG PO BID, #60 CAP 3 Refills Furosemide (Lasix) 40 Mg Tab 40 MG PO DAILY PRN for FLUID ACCUMULATION, TAB Mycophenolate Sodium (Mycophenolic Acid Dr) 180 Mg Tab 540 MG PO BID Potassium Ext Rel (Klor-Con) 20 Meq Tabcr 20 MEQ PO UD TAKE ON DAYS YOU TAKE LASIX Prednisone (Prednisone) 5 Mg Tab 5 MG PO DAILY, TAB Tacrolimus (Prograf) 1 Mg Cap 2 MG PO AMPM, #60 CAP 3 Refills Warfarin Sodium (Coumadin) 2 Mg Tab 2 MG PO 6XWK, TAB TAKE 6 DAYS A WEEK, ON TAKE 3 MG Warfarin Sodium (Coumadin) 2 Mg Tab 3 MG PO THURSDAYS, TAB Discharge Exam Physical Exam: General Appearance: no apparent distress Eyes: EOMI ENT: hearing grossly normal Neck: trachea midline Respiratory/Chest: no respiratory distress, no accessory muscle use 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 sepsis secondary to UTI related to her immunocompromised state from her renal transplant status and chronic immunosuppressive therapy sensitivities noted - safe for home on cephalosporins - keflex x7-14 days depending on clinical progress improving stable for home PCP f/u next week 2. hyponatremia - improved - outpt f/u 3. acute kidney injury in setting of CKD stage 2 (it appears baseline CrCl is in the 50s) - 2nd to #1. Baseline Cr is 1.1-1.2. improved 4. renal transplant status - continue prograf, prednisone, and mycophenalate. prograf level sent, nephrology consulted Stress dose steroids were given, safe for home on base doses 5. a. fib on chronic coumadin -rate controlled. Cont BB, CCB. Cont coumadin per home dosing regimen. INR therapeutic, fairly low risk for interaction w keflex. outpt f/u 6. chronic diastolic CHF - appearing euvolemic Cont BB. Lasix prn. has been stable 7. mild anemia - iron studies equivocal, B12 low - will replace orally for now , repeat levels in 3 months, if not improving then change to IM 8. concern of alopecia - TSH in 06/2017 was wnl. alopecia probably related to low B12 9. DVT proph - coumadin. 10. B12 deficiency - replace as above - PO for now then f/u 3 months 11. ? lymph node in the left supraclavicular region - follow clinically -- follow up as outpt next week stable for home Total Time Spent: Less than 30 minutes This includes examination of the patient, discharge planning, medication reconciliation, and communication with other providers. Discharge Instructions Please refer to the electronic Patient Visit Report (Discharge Instructions) for additional information. Additional Copies To Rich Lin M.D.
[2017-09-27] MEDS ORDERED: WARFARIN SOD 3 MG TAB PO SCH (16:00)
== END 2017-09-25 15:02 | disposition home or self-care (01) | DRG 872 ==
LOC: C.EDB 13:51 → C.2T 19:14 → ENRESERV 19:29 → C.MS4W 09-24 18:43
PROVIDERS: ADMIT Internal Medicine; ATTEND Family Medicine
DX: A41.9 Sepsis, unspecified organism (principal); N39.0 Urinary tract infection, site not specified; R65.20 Severe sepsis without septic shock; N17.9 Acute kidney failure, unspecified; E87.1 Hypo-osmolality and hyponatremia; Z94.0 Kidney transplant status; I50.32 Chronic diastolic (congestive) heart failure; I13.0 Hypertensive heart and chronic kidney disease with heart failure and stage 1 through stage 4 chronic kidney disease, or unspecified chronic kidney disease; B96.20 Unspecified Escherichia coli [E. coli] as the cause of diseases classified elsewhere; T45.1X5A Adverse effect of antineoplastic and immunosuppressive drugs, initial encounter; D64.9 Anemia, unspecified; N18.2 Chronic kidney disease, stage 2 (mild); I48.0 Paroxysmal atrial fibrillation; L65.9 Nonscarring hair loss, unspecified; E53.8 Deficiency of other specified B group vitamins; Z51.81 Encounter for therapeutic drug level monitoring; Z79.899 Other long term (current) drug therapy; Z79.52 Long term (current) use of systemic steroids; Z79.01 Long term (current) use of anticoagulants; Z87.440 Personal history of urinary (tract) infections; Z95.0 Presence of cardiac pacemaker; Z88.1 Allergy status to other antibiotic agents; Z82.49 Family history of ischemic heart disease and other diseases of the circulatory system

== ENCOUNTER → 2017-10-04 | Outpatient (CLI) | payer OTHER ==
[~2017-10-04] MED LIST changes: +CEPH500C2 PO; +CYAN10005 PO
[2017-10-04 16:41] LABS: BASO % 0.2 %; BASO ABS # 0.02 K/uL (0-0.2); EOS % 0.4 %; EOS ABS # 0.05 K/uL (0-0.5); HEMOGLOBIN 11.2 g/dL (12.0-16.0); IG# 0.17 K/uL (0.00-0.02); LYMPH % 8.5 %; LYMPH ABS # 1.08 K/uL (1.2-3.4); MEAN CELL VOLUME 95.2 fL (80-100); MEAN CORPUSCULAR HEMOGLOBIN 29.6 pg (25-34); MEAN CORPUSCULAR HGB CONC 31.1 g/dl (32-36); MEAN PLATELET VOLUME 9.1 fL (7.4-10.4); MONO % 4.8 %; MONO ABS # 0.61 K/uL (0.11-0.59); NEUT % 84.8 %; NEUT ABS # 10.75 K/uL (1.4-6.5); PLATELET COUNT 231 K/uL (130-400); RED CELL DISTRIBUTION WIDTH CV 14.3 % (11.5-14.5); RED CELL DISTRIBUTION WIDTH SD 49.3 fL (36.4-46.3); WHITE BLOOD COUNT 12.68 K/uL (4.8-10.8)
[2017-10-04 16:49] LABS: BLOOD UREA NITROGEN 23 mg/dl (7-18); CALCIUM 9.9 mg/dl (8.5-10.1); CARBON DIOXIDE 22 mmol/L (21-32); CREATININE 1.51 mg/dl (0.60-1.20); GLUCOSE 127 mg/dl (70-99); POTASSIUM 5.4 mmol/L (3.5-5.1); SODIUM 136 mmol/L (136-145)
[2017-10-04 16:59] LABS: INR 3.7 (0.9-1.1)
== END | disposition home or self-care (01) ==
LOC: C.LAB1850 15:29
PROVIDERS: ATTEND Internal Medicine
DX: N39.0 Urinary tract infection, site not specified (principal); R79.89 Other specified abnormal findings of blood chemistry; I48.91 Unspecified atrial fibrillation; Z94.0 Kidney transplant status; Z87.440 Personal history of urinary (tract) infections

== ENCOUNTER → 2018-03-28 | Outpatient (CLI) | payer OTHER ==
[~2018-03-28] MED LIST changes: +ACET-1256 PO; -CEPH500C2 PO; +CRAN200C PO; +POTA-639 PO; -POTA20TA16 PO
[2018-03-28 17:33] LABS: BASO % 0.1 %; BASO ABS # 0.01 K/uL (0-0.2); EOS % 0.3 %; EOS ABS # 0.03 K/uL (0-0.5); HEMATOCRIT 38.2 % (37-47); HEMOGLOBIN 11.9 g/dL (12.0-16.0); IG# 0.02 K/uL (0.00-0.02); LYMPH % 9.6 %; LYMPH ABS # 0.86 K/uL (1.2-3.4); MEAN CORPUSCULAR HEMOGLOBIN 28.7 pg (25-34); MEAN CORPUSCULAR HGB CONC 31.2 g/dl (32-36); MEAN PLATELET VOLUME 9.8 fL (7.4-10.4); MONO % 6.2 %; MONO ABS # 0.55 K/uL (0.11-0.59); NEUT % 83.6 %; NEUT ABS # 7.46 K/uL (1.4-6.5); PLATELET COUNT 174 K/uL (130-400); RED CELL DISTRIBUTION WIDTH CV 13.7 % (11.5-14.5); RED CELL DISTRIBUTION WIDTH SD 45.6 fL (36.4-46.3); WHITE BLOOD COUNT 8.93 K/uL (4.8-10.8)
[2018-03-28 18:01] LABS: BLOOD UREA NITROGEN 15 mg/dl (7-18); CARBON DIOXIDE 19 mmol/L (21-32); CREATININE 1.45 mg/dl (0.60-1.20); GLUCOSE 161 mg/dl (70-99); POTASSIUM 4.4 mmol/L (3.5-5.1); SODIUM 135 mmol/L (136-145)
== END | disposition home or self-care (01) ==
LOC: C.LAB1850 16:40
PROVIDERS: ATTEND Physician Assistant
DX: Z94.0 Kidney transplant status (principal)

== ENCOUNTER 2018-11-16 11:33 | Inpatient (IN) ==
[2018-11-16] MEDS ORDERED: SODIUM CHLORIDE 0.9% 1000ML 1,000 ML IV SCH (12:15)
[2018-11-16 12:43] LABS: Basophils # (auto) 0.01 K/uL (0-0.2); Basophils % (auto) 0.1 %; Eosinophils # (auto) 0.04 K/uL (0-0.5); Eosinophils % (auto) 0.3 %; Hematocrit (blood only) 39.2 % (37-47); Hemoglobin 12.1 g/dL (12.0-16.0); Immature Granulocytes # (auto) 0.06 K/uL (0.00-0.02); Immature Granulocytes % (auto) 0.4 %; Lymphocytes # (auto) 1.08 K/uL (1.2-3.4); Mean Corpuscular Hgb Conc 30.9 g/dL (32-36); Mean Platelet Volume 9.6 fL (7.4-10.4); Monocytes # (auto) 0.75 K/uL (0.11-0.59); Monocytes % (auto) 4.9 %; Neutrophils # (auto) 13.39 K/uL (1.4-6.5); Neutrophils % (auto) 87.3 %; Platelet Count 125 K/uL (130-400); RDW Coefficient of Variation 13.4 % (11.5-14.5); RDW Standard Deviation 44.6 fL (36.4-46.3); Red Blood Count 4.31 M/uL (4.2-5.4); White Blood Count 15.33 K/uL (4.8-10.8)
--- NOTE | 2018-11-16 12:43 | XRay Report ---
XR chest 1V portable CLINICAL HISTORY: Fever. COMPARISON STUDY: Chest radiograph September 23, 2017. FINDINGS: A dual lead right pacemaker is unchanged in position. A vascular stent within the left arm is noted. There is no pneumothorax or pleural effusion. No evidence for pulmonary edema. Cardiomegaly is unchanged. No consolidation is identified. IMPRESSION: No acute cardiopulmonary findings. No change in appearance of the chest. Electronically signed by: Jose Manuel Wheeler M.D. 11/16/2018 12:41 PM
[2018-11-16 12:52] LABS: INR 2.4 (0.9-1.1)
[2018-11-16 12:59] LABS: Alanine Aminotransferase 17 U/L (12-78); Albumin Level 3.5 gm/dl (3.4-5.0); Aspartate Aminotransferase 16 U/L (15-37); Blood Urea Nitrogen 29 mg/dl (7-18); Calcium 9.3 mg/dl (8.5-10.1); Carbon Dioxide 25 mmol/L (21-32); Chloride 105 mmol/L (98-107); Creatinine Clr Calc Pharmacy 42.3 ml/min; Est GFR (African American) 45.7; Est GFR (Non-African American) 39.4; Glucose 119 mg/dl (70-99); Potassium 3.8 mmol/L (3.5-5.1); Sodium 137 mmol/L (136-145)
[2018-11-16 13:04] LABS: Alkaline Phosphatase 117 U/L (45-117); Globulin 3.4 gm/dl (2.5-4.0); Total Protein 6.9 gm/dl (6.4-8.2); Troponin I < 0.015 ng/ml (0-0.045)
--- NOTE | 2018-11-16 13:48 | CT Scan Report ---
CT OF THE ABDOMEN AND PELVIS WITHOUT CONTRAST CLINICAL HISTORY: Vomiting. Fever. Renal transplant. COMPARISON STUDY: CT of the abdomen and pelvis January 20, 2018. TECHNIQUE: Axial images of the abdomen and pelvis were obtained without IV contrast. Images were revi ewed in the axial, sagittal, and coronal planes. Automated exposure control was utilized for the sayda dy. A dose lowering technique was utilized adhering to the principles of ALARA. FINDINGS: Pacer leads are partially imaged. There is moderate cardiomegaly. No pneumatosis, free air or portal venous gas is present. Mild biliary ductal dilatation is unchanged and likely related to pr evious cholecystectomy. There is no peripancreatic infiltration. There is no pancreatic ductal dilata tion. Diverticulum of the second duodenum are noted. Unenhanced images of the spleen and adrenal glan ds are unremarkable. Marked bilateral renal atrophy is noted. There is no evidence for a bowel obstru ction. The appendix is normal. A bilobed cystic left adnexal lesion is unchanged. This remains indete rminate but stable. Mild bladder wall thickening is noted. A few bladder diverticula are noted. Left lower quadrant renal allograft is noted. There is no graft hydronephrosis. Mild perigraft is unchange d since prior exam. Note is made of sigmoid diverticulosis without evidence for acute diverticulitis. No suspicious osseous lesions are noted. IMPRESSION: 1. No significant change since previous exam. Stable appearance of the left lower quadrant renal allo graft without hydronephrosis. Mild perigraft infiltration is unchanged however could be correlated wi th urinalysis. 2. No bowel obstruction. Normal appendix. Sigmoid diverticulosis without evidence for acute diverticu litis. 3. No change in a bilobed cystic left adnexal lesion which remains indeterminate. Electronically signed by: Jose Manuel Wheeler M.D. 11/16/2018 1:46 PM
[2018-11-16 13:56] LABS: Appearance Urine Cloudy (Clear); Bilirubin Urine Negative (Negative); Blood Urine 3+ (Negative); Color Urine Yellow; Epithelial Cell Urine Auto >30 /lpf (0-5); Glucose Urine UA Negative (Negative); Ketones Urine Negative (Negative); Leukocyte Esterase Urine 2+ (Negative); Nitrite Urine Negative (Negative); Protein Urine 1+ (Negative); Specific Gravity Urine 1.015 (1.000-1.030); Urobilinogen Urine Negative (Negative); WBC Urine Automated >30 /hpf (0-5)
[2018-11-16 14:26] LABS: Bacteria Urine Automated 1+ (Negative)
[2018-11-16] MEDS ORDERED: CEFEPIME 2,000 MG in SYRINGE 7.5 ML IV STA (14:42)
[2018-11-16] MEDS ORDERED: CEFEPIME 2,000 MG/20 ML VIAL ONE (14:49)
--- NOTE | 2018-11-16 15:40 | History & Physical Report ---
Date of Service November 16, 2018 Assessment & Plan (1) Urinary tract infection: UA on 11/16 indicated infection. Urine culture & blood cultures pending. These symptoms are typical for her UTIs (last one in 09/2017). I am considering this a complicated cystitis given her systemic symptoms and fever in a patient with a kidney transplant. - Zosyn IV - Per UpToDate, should cover with agent that also covers Pseudomonas while awaiting culture results & also will need to treat for at least 7-10 days - Consult for Dr. 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 Kidney function at baseline with Cr of ~1.4. - Continue immunosuppression medications - Renally-dose medications for transplant - Consult Dr. Lin (3) Diarrhea: Repots 4-5 episodes of watery diarrhea today in setting of fevers, chills. No sick contacts, no recent dietary changes, no recent abx. From outpatient notes, this appears similar to prior UTIs, but would not want to miss infectious cause of diarrhea. - C. diff & stool testing given her immunosuppression (4) Atrial fibrillation: Permenant. Also with tachy-belle syndrome. S/p pacemaker. - Continue anticoagulation - Monitor INR - Continue beta-carlitos and diltiazem for rate-control (5) Hypertension: On long-standing atenolol and diltiazem for HTN and rate-control. - Continue home meds - Monitor BP (6) DVT prophylaxis: On warfarin for afib - INR in therapeutic range History of Present Illness Primary Care Provider: Joey Lin MD 63-year-old female with a history of DDT kidney transplant in 1995 (right) and 2012 (left) who presents for UTI. Patient was in her normal state of health when she went to bed last night, but awoke with chills. She then had objective fever measured at home, along with nausea, vomiting, and diarrhea. She also notes some pain over her left kidney transplant site. This is fairly typical course for her UTIs, of which she has had many. Her most recent one was approximately [address] Lin's outpatient notes, he has concern for prior complicated cystitis with some involvement of her transplant kidney. She denies any dysuria, polyuria, suprapubic pain, or incomplete voiding. At present, she reports no fevers, chills, chest pain, abdominal pain, shortness of breath, focal weakness, or other symptoms. Allergies Allergy/AdvReac Type Severity Reaction Status Date / Time Quinolones Allergy Intermediate FLOXIN Verified 11/16/18 12:26 CAUSES HIVES Home Medications Home Medications Medication Instructions Recorded Confirmed Type atenolol 25 mg PO BID 11/16/18 11/16/18 History cranberry 500 mg PO BID 11/16/18 11/16/18 History cyanocobalamin (vitamin B-12) 1,000 mcg PO DAILY 11/16/18 11/16/18 History [Vitamin B-12] diltiazem HCl 180 mg PO BID 11/16/18 11/16/18 History mycophenolate sodium 540 mg PO BID 11/16/18 11/16/18 History prednisone 5 mg PO DAILY 11/16/18 11/16/18 History tacrolimus 2 mg PO Q12H 11/16/18 11/16/18 History warfarin 1 dose PO UD 11/16/18 11/16/18 History Past Med/Surg History Medical History Kidney disease (Chronic) Hypomagnesemia (Acute) Hyponatremia (Acute) Sepsis (Acute 07/26/13) S/P parathyroidectomy (Acute) Acute kidney injury (Acute) Atrial fibrillation with RVR (Acute) Creatinine elevation (Acute) Dehydration (Acute) Diarrhea Fever (Acute) Hx of kidney transplant (Acute) Hypokalemia (Acute) Hypomagnesemia (Acute) Hypotension Intractable diarrhea (Acute 12/20/13) Nausea vomiting and diarrhea (Acute) Prerenal azotemia (Acute) Rapid atrial fibrillation Right flank pain (Acute) Urinary tract infection (Acute 08/27/14) Surgical History Hx of cholecystectomy (Resolved) Kidney transplant status, cadaveric Family History Mother Heart disease Social History Preferred Language: British Communication Ability: Effective Director Government Required: No Beliefs That Will Affect Care: None Current Living Situation: Spouse Other Information That Helps Us Care for You: No Feels Safe at Home: Yes Safety Concerns: Feels Safe At This Time Smoking Status: Never smoker Hx Alcohol Use: No Hx Substance Use: No Review of Systems Constitutional: + fever, + chills, + fatigue, + malaise and + weakness; no sweats Eyes: no diplopia Ear, Nose, Mouth, Throat: no ear trauma, no nasal discharge and no dental pain Respiratory: no cough, no chest congestion and no dyspnea Cardiovascular: no chest pain, no dyspnea on exertion, no palpitations and no syncope Gastrointestinal: + nausea, + vomiting and + diarrhea/loose stools; no abdominal pain, no belching, no hematemesis, no constipation, no blood in stools and no melena Musculoskeletal: no back pain, no joint pain and no muscle weakness Integumentary: no rash, no skin ulcer and no erythema Neurologic: no generalized weakness, no loss of sensation, no numbness and no paresthesia Psychiatric: no depression and no anxiety Endocrine: no fatigue, no polydipsia and no polyphagia Physical Exam Vital Signs (Past 24 Hours): Last Vital Signs Temp 37.1 C 11/16/18 11:43 Pulse 82 11/16/18 15:01 Resp 17 11/16/18 15:01 BP 139/71 11/16/18 15:01 Pulse Ox 94 11/16/18 15:01 Constitutional: WD/WN, vitals as above well nourished, + acute distress and + lethargic Eyes: EOM intact bilaterally; no conjunctival abnormality ENMT: external ear and nose normal, oropharynx normal Neck: trachea midline, no thyromegaly normal visual inspection Respiratory: normal respiratory effort, lungs clear to auscultation no respiratory distress Cardiovascular: RRR, no murmur, no edema Gastrointestinal (Abdomen): Inspection/Auscultation: abdomen normal to inspection; abdomen not distended Percussion/Palpation: abdomen soft; abdomen nontender, no guarding and abdomen not rigid Musculoskeletal: no cyanosis or clubbing, extremities motor strength 5/5 Skin: no rashes, warm and dry Neurologic: moves all extremities and awake Psychiatric: Orientation: alert, oriented to person and cooperative Genitourinary: Left transplant site non-tender
[2018-11-16] MEDS ORDERED: PIPERACILL/TAZOBAC CONSULT ACTIVE PRN (16:10)
[2018-11-16] MEDS ORDERED: ONDANSETRON INJ 2 MG/ML 2 ML VIAL IV PRN (16:10)
[2018-11-16] MEDS ORDERED: PIPERACILLIN/TAZOBACTAM 3.375 GM in DEXTROSE 5% 100 ML IV ONE (17:15)
[2018-11-16] MEDS: WARFARIN SOD 2 MG TAB PO SCH (17:59)
[2018-11-16] MEDS: NORMOSOL-R 1,000 ML IV SCH (18:02)
--- NOTE | 2018-11-16 19:25 | Emergency Department Note ---
Entered by Jesus Bradley acting as a scribe for History of Present Illness General Chief complaint: Flu Like Symptoms Stated complaint: CHILLS,FEVER,VOMITING,DIARRHEA Source: patient History of Present Illness Onset (ago): day(s) (this morning) Pain Consistency: + constant Maximum Pain Intensity: 0 Quality: + other (flu-like symptoms) Associated symptoms: + other (Positive for chills, nausea, vomiting, diarrhea, and a fever. Negative for bloody diarrhea, urinary symptoms, SOB, a cough, and abdominal pain.) The patient is a 63 year old female who presents to the emergency department with complaints of constant flu-like symptoms beginning this morning. The patient states that she woke up this morning with chills. She notes that she also developed nausea, vomiting, diarrhea, and a fever throughout the day. She reports that she vomited twice, but she states that she feels better after vomiting. She notes that her fever reached a high of 99.7. She denies any bloody diarrhea, urinary symptoms, SOB, cough, and abdominal pain. She reports that she currently has a dental abscess. The patient states that she has a history of UTIs, and she notes that she received a kidney transplant in 2012. She reports that she did not eat any unusual foods recently. Home Medications Home Medications Medication Instructions Recorded Confirmed Type atenolol 25 mg PO BID 11/16/18 11/16/18 History cranberry 500 mg PO BID 11/16/18 11/16/18 History cyanocobalamin (vitamin B-12) 1,000 mcg PO DAILY 11/16/18 11/16/18 History [Vitamin B-12] diltiazem HCl 180 mg PO BID 11/16/18 11/16/18 History mycophenolate sodium 540 mg PO BID 11/16/18 11/16/18 History prednisone 5 mg PO DAILY 11/16/18 11/16/18 History tacrolimus 2 mg PO Q12H 11/16/18 11/16/18 History warfarin 1 dose PO UD 11/16/18 11/16/18 History Allergies Allergy/AdvReac Type Severity Reaction Status Date / Time Quinolones Allergy Intermediate FLOXIN Verified 11/16/18 12:26 CAUSES HIVES Past Med/Surg History Medical History Kidney disease (Chronic) Hypomagnesemia (Acute) Hyponatremia (Acute) Sepsis (Acute 07/26/13) S/P parathyroidectomy (Acute) Acute kidney injury (Acute) Atrial fibrillation with RVR (Acute) Creatinine elevation (Acute) Dehydration (Acute) Diarrhea Fever (Acute) Hx of kidney transplant (Acute) Hypokalemia (Acute) Hypomagnesemia (Acute) Hypotension Intractable diarrhea (Acute 12/20/13) Nausea vomiting and diarrhea (Acute) Prerenal azotemia (Acute) Rapid atrial fibrillation Right flank pain (Acute) Urinary tract infection (Acute 08/27/14) Surgical History Hx of cholecystectomy (Resolved) Kidney transplant status, cadaveric Family History Mother Heart disease Social History Preferred Language: Indonesian Communication Ability: Effective Cold Storage Worker Required: No Beliefs That Will Affect Care: None Current Living Situation: Spouse Other Information That Helps Us Care for You: No Feels Safe at Home: Yes Safety Concerns: Feels Safe At This Time Smoking Status: Never smoker Hx Alcohol Use: No Hx Substance Use: No Review of Systems See HPI for pertinent positives & negatives. and A total of 10 systems reviewed and were otherwise negative Physical Exam Vital Signs Vital Signs - 24 hr 11/16/18 11:43 11/16/18 13:31 11/16/18 15:01 Temperature 37.1 C Temperature Source Oral Sepsis Recent Fever Within 48 Hours No Sepsis New/Unexplained Change in Mental Status No Sepsis Action Taken by Nursing No Action Required Pulse Rate 71 Pulse Rate [Apical] 72 82 Pulse Rate [Left Finger] Respiratory Rate 18 21 17 Respiratory Effort / Characteristics Non-Labored Non-Labored Spontaneous Non-Labored Spontaneous Respiratory Depth Normal Normal Normal Respiratory Pattern Regular Regular Regular Blood Pressure 117/63 Blood Pressure [Right Arm] 130/64 139/71 Blood Pressure Mean 81 Blood Pressure Mean [Right Arm] 86 93 Blood Pressure Position Sitting Pulse Oximetry 96 96 94 Oxygen Delivery Method Room Air Room Air Room Air 11/16/18 15:45 11/16/18 15:58 11/16/18 16:21 Temperature 37.9 C H 37.0 C Temperature Source Oral Oral Sepsis Recent Fever Within 48 Hours Sepsis New/Unexplained Change in Mental Status Sepsis Action Taken by Nursing Pulse Rate 81 Pulse Rate [Apical] Pulse Rate [Left Finger] 88 Respiratory Rate 26 H 18 Respiratory Effort / Characteristics Non-Labored Spontaneous Respiratory Depth Normal Respiratory Pattern Regular Blood Pressure 139/71 Blood Pressure [Right Arm] 147/77 H Blood Pressure Mean Blood Pressure Mean [Right Arm] 100 Blood Pressure Position Pulse Oximetry 98 97 Oxygen Delivery Method Room Air Room Air GENERAL: Awake, alert, weak appearing, in no distress HENT: Normocephalic, atraumatic. Poor dentition. EYES: Normal conjunctiva. Sclera non-icteric. NECK: Supple. No nuchal rigidity. RESPIRATORY: Clear to auscultation. No wheezes. Normal respiratory effort. CARDIAC: Normal rate. Normal rhythm. Extremities warm and well perfused. GI: Soft, non-distended. No tenderness to palpation. No rebound or guarding. No masses. RECTAL: Deferred. MUSCULOSKELETAL: Atraumatic. Chest examination reveals no tenderness. LOWER EXTREMITIES: Calves are equal size bilaterally and non-tender. No edema NEURO: Normal sensorium. No sensory or motor deficits noted. No facial droop. SKIN: Warm and dry. No rash or jaundice noted. Course 1157: Past medical records reviewed. The patient was evaluated in room A10, and a complete history and physical examination were performed. 1445: Upon reevaluation, the patient is stable. I discussed the results and treatment plan with the patient. She verbalizes understanding and agreement. I discussed the patient's case with MARTIN Salas. The patient will be evaluated for further management and care. Consultations Consultation #1: I reviewed the patient's case with MARTIN Salas. He will evaluate the patient for further management. Time: 14:45 Administered Medications Parenteral Electrolytes (Normosol-R) 1,000 mls @ 50 mls/hr IV .Q20H LEON Stop: 12/16/18 16:09 Last Admin: 11/16/18 18:02 Dose: 50 mls/hr Documented by: [id number] Warfarin Sodium (Coumadin) 2 mg PO DAILY@1600 LEON Stop: 12/16/18 16:09 Last Admin: 11/16/18 17:59 Dose: 2 mg Documented by: [id number] Discontinued Medications Cefepime HCl (Maxipime) Confirm Administered Dose 2,000 mg .ROUTE .STK-MED ONE Stop: 11/16/18 14:50 Last Admin: 11/16/18 14:53 Dose: Not Given Documented by: [id number] Sodium Chloride (Nss 1000ml) 1,000 mls @ 999 mls/hr IV .Q1H1M LEON Stop: 11/16/18 13:15 Last Infusion: 11/16/18 13:51 Dose: 0 mls/hr Documented by: [id number] Admin: 11/16/18 12:50 Dose: 999 mls/hr Documented by: [id number] Cefepime HCl 2,000 mg/ Syringe 20 mls @ 5.5 mls/min IV NOW STA Stop: 11/16/18 14:45 Last Admin: 11/16/18 14:54 Dose: 5.5 mls/min Documented by: [id number] Piperacillin Sod/Tazobactam (Sod 3.375 gm/ Dextrose) 115 mls @ 230 mls/hr IV 1715 ONE; Protocol Stop: 11/16/18 17:44 Last Infusion: 11/16/18 18:35 Dose: 0 mls/hr Documented by: [id number] Admin: 11/16/18 17:55 Dose: 230 mls/hr Documented by: [id number] Medical Decision Making Differential Diagnosis Differential diagnosis: Etiologies such as viral syndrome, otitis, pharyngitis, pneumonia, influenza, meningitis, urinary tract infection, septic arthritis, soft tissue infectious process, intra-abdominal process, sepsis, bacteremia, as well as others were entertained. Medical Records Attestation: I reviewed the patient's medical records. Home Medications Current Medication List: was personally reviewed by me Laboratory Data Attestation: I reviewed the patient's lab results. Result diagrams: 11/16/18 12:26 11/16/18 12:26 Lab Results 11/16/18 11/16/18 11/16/18 Range/Units 12:13 12:26 12:26 WBC 15.33 H (4.8-10.8) K/uL RBC 4.31 (4.2-5.4) M/uL Hgb 12.1 (12.0-16.0) g/dL Hct 39.2 (37-47) % MCV 91.0 (80-100) fL MCH 28.1 (25-34) pg MCHC 30.9 L (32-36) g/dL RDW Std Deviation 44.6 (36.4-46.3) fL RDW Coeff of Josh 13.4 (11.5-14.5) % Plt Count 125 L (130-400) K/uL MPV 9.6 (7.4-10.4) fL Immature Gran % (Auto) 0.4 % Neut % (Auto) 87.3 % Lymph % (Auto) 7.0 % [place] % (Auto) 4.9 % Eos % (Auto) 0.3 % Baso % (Auto) 0.1 % Immature Gran # (Auto) 0.06 H (0.00-0.02) K/uL Neut # (Auto) 13.39 H (1.4-6.5) K/uL Lymph # (Auto) 1.08 L (1.2-3.4) K/uL [place] # (Auto) 0.75 H (0.11-0.59) K/uL Eos # (Auto) 0.04 (0-0.5) K/uL Baso # (Auto) 0.01 (0-0.2) K/uL PT 23.0 H (9.0-12.0) Seconds INR 2.4 H (0.9-1.1) Sodium (136-145) mmol/L Potassium (3.5-5.1) mmol/L Chloride (98-107) mmol/L Carbon Dioxide (21-32) mmol/L Anion Gap (3-11) BUN (7-18) mg/dl Creatinine (0.6-1.2) mg/dl Est Cr Clr Drug Dosing ml/min Est GFR ( Amer) Est GFR (Non-Af Amer) BUN/Creatinine Ratio (10-20) Glucose (70-99) mg/dl POC Lactic Acid Edvin (0.90-1.70) mmol/L Calcium (8.5-10.1) mg/dl Total Bilirubin (0.2-1) mg/dl AST (15-37) U/L ALT (12-78) U/L Alkaline Phosphatase (45-117) U/L Troponin I (0-0.045) ng/ml Total Protein (6.4-8.2) gm/dl Albumin (3.4-5.0) gm/dl Globulin (2.5-4.0) gm/dl Albumin/Globulin Ratio (0.9-2) Lipase (73-393) U/L Urine Color Urine Appearance (Clear) Urine pH (4.5-7.5) Ur Specific Hamilton (1.000-1.030) Urine Protein (Negative) Urine Glucose (UA) (Negative) Urine Ketones (Negative) Urine Blood (Negative) Urine Nitrite (Negative) Urine Bilirubin (Negative) Urine Urobilinogen (Negative) Ur Leukocyte Esterase (Negative) Urine WBC (Auto) (0-5) /hpf Urine RBC (Auto) (0-4) /hpf U Hyaline Cast (Auto) (0-5) /lpf U Epithel Cells (Auto) (0-5) /lpf Urine Bacteria (Auto) (Negative) Urine Yeast (None Prsent) Influenza Type A Ag Neg for Influ A (Neg) Influenza Type B Ag Neg for Influ B (Neg) 11/16/18 11/16/18 11/16/18 Range/Units 12:26 12:34 13:38 WBC (4.8-10.8) K/uL RBC (4.2-5.4) M/uL Hgb (12.0-16.0) g/dL Hct (37-47) % MCV (80-100) fL MCH (25-34) pg MCHC (32-36) g/dL RDW Std Deviation (36.4-46.3) fL RDW Coeff of Josh (11.5-14.5) % Plt Count (130-400) K/uL MPV (7.4-10.4) fL Immature Gran % (Auto) % Neut % (Auto) % Lymph % (Auto) % [place] % (Auto) % Eos % (Auto) % Baso % (Auto) % Immature Gran # (Auto) (0.00-0.02) K/uL Neut # (Auto) (1.4-6.5) K/uL Lymph # (Auto) (1.2-3.4) K/uL [place] # (Auto) (0.11-0.59) K/uL Eos # (Auto) (0-0.5) K/uL Baso # (Auto) (0-0.2) K/uL PT (9.0-12.0) Seconds INR (0.9-1.1) Sodium 137 (136-145) mmol/L Potassium 3.8 (3.5-5.1) mmol/L Chloride 105 (98-107) mmol/L Carbon Dioxide 25 (21-32) mmol/L Anion Gap 7.0 (3-11) BUN 29 H (7-18) mg/dl Creatinine 1.43 H (0.6-1.2) mg/dl Est Cr Clr Drug Dosing 42.3 ml/min Est GFR ( Amer) 45.7 Est GFR (Non-Af Amer) 39.4 BUN/Creatinine Ratio 20.0 (10-20) Glucose 119 H (70-99) mg/dl POC Lactic Acid Edvin 1.21 (0.90-1.70) mmol/L Calcium 9.3 (8.5-10.1) mg/dl Total Bilirubin 1.0 (0.2-1) mg/dl AST 16 (15-37) U/L ALT 17 (12-78) U/L Alkaline Phosphatase 117 (45-117) U/L Troponin I < 0.015 (0-0.045) ng/ml Total Protein 6.9 (6.4-8.2) gm/dl Albumin 3.5 (3.4-5.0) gm/dl Globulin 3.4 (2.5-4.0) gm/dl Albumin/Globulin Ratio 1.0 (0.9-2) Lipase 70 L (73-393) U/L Urine Color Yellow Urine Appearance Cloudy H (Clear) Urine pH 5.0 (4.5-7.5) Ur Specific Hamilton 1.015 (1.000-1.030) Urine Protein 1+ H (Negative) Urine Glucose (UA) Negative (Negative) Urine Ketones Negative (Negative) Urine Blood 3+ H (Negative) Urine Nitrite Negative (Negative) Urine Bilirubin Negative (Negative) Urine Urobilinogen Negative (Negative) Ur Leukocyte Esterase 2+ H (Negative) Urine WBC (Auto) >30 H (0-5) /hpf Urine RBC (Auto) 10-30 H (0-4) /hpf U Hyaline Cast (Auto) 1-5 (0-5) /lpf U Epithel Cells (Auto) >30 H (0-5) /lpf Urine Bacteria (Auto) 1+ H (Negative) Urine Yeast Present H (None Prsent) Influenza Type A Ag (Neg) Influenza Type B Ag (Neg) Imaging Data Radiologist's Impression: Radiology results as stated below per my review and the radiologist's interpretation: CT OF THE ABDOMEN AND PELVIS WITHOUT CONTRAST FINDINGS: Pacer leads are partially imaged. There is moderate cardiomegaly. No pneumatosis, free air or portal venous gas is present. Mild biliary ductal dilatation is unchanged and likely related to previous cholecystectomy. There is no peripancreatic infiltration. There is no pancreatic ductal dilatation. Diverticulum of the second duodenum are noted. Unenhanced images of the spleen and adrenal glands are unremarkable. Marked bilateral renal atrophy is noted. There is no evidence for a bowel obstruction. The appendix is normal. A bilobed cystic left adnexal lesion is unchanged. This remains indeterminate but stable. Mild bladder wall thickening is noted. A few bladder diverticula are noted. Left lower quadrant renal allograft is noted. There is no graft hydronephrosis. Mild perigraft is unchanged since prior exam. Note is made of sigmoid diverticulosis without evidence for acute diverticulitis. No suspicious osseous lesions are noted. IMPRESSION: 1. No significant change since previous exam. Stable appearance of the left lower quadrant renal allograft without hydronephrosis. Mild perigraft infiltration is unchanged however could be correlated with urinalysis. 2. No bowel obstruction. Normal appendix. Sigmoid diverticulosis without evidence for acute diverticulitis. 3. No change in a bilobed cystic left adnexal lesion which remains indeterminate. Electronically signed by: Jose Manuel Wheeler M.D. 11/16/2018 1:46 PM XR chest 1V portable FINDINGS: A dual lead right pacemaker is unchanged in position. A vascular stent within the left arm is noted. There is no pneumothorax or pleural effusion. No evidence for pulmonary edema. Cardiomegaly is unchanged. No consolidation is identified. IMPRESSION: No acute cardiopulmonary findings. No change in appearance of the chest. Electronically signed by: Jose Manuel Wheeler M.D. 11/16/2018 12:41 PM ECG Data Attestation: I personally reviewed and interpreted this ECG as follows: Indication: nausea Rate (beats per minute): 70 Rhythm: other (Ventricularly paced.) Findings: no PVC and no ST elevation Comparison ECG Date: from (09/23/2017) Change: the following changes noted (Compared to prior, the patient is not entirely ventricularly paced.) Blood Pressure Blood Pressure Findings: Normal blood pressure Blood Pressure Disposition: did not require urgent referral MDM Narrative 63-year-old female with a history of renal transplant, UTIs, atrial fibrillation on Coumadin presenting today with complaint of fever, nausea, diarrhea with weak ness and chills starting this morning. Afebrile upon arrival and not hypotensive or tachycardic. Patient does report poor dentition. Patient denies significant URI symptoms or cough. Vomited some yellow substance and now feels improved without abdominal tenderness. Flu, chest x-ray, CT abdomen pelvis, basic labs and blood cultures were obtained. Given IV fluid bolus. Denies any nausea or abdominal discomfort just generalized fatigue at this point. Negative influenza. Kidney function at baseline. Negative troponin no evidence of significant electrolyte abnormalities or renal or liver dysfunction. INR therapeutic. Leukocytosis of 15 seems new. Chest x-ray is unremarkable. CT scan shows no significant acute pathology other than questionable inflammation around the transplant. Urinalysis concerning for infection. Given her immunosuppressed status given a dose of cefepime and discussed with the hospitalist for admission. Impression & Plan UTI (urinary tract infection) Discharge Plan Visit Data *Final* Discharge Date/Time: 11/16/18 15:58 Chief Complaint: Flu Like Symptoms Stated Complaint: CHILLS,FEVER,VOMITING,DIARRHEA ED Provider: Tono Mariscal Discharge Problem: UTI (urinary tract infection) Patient Disposition: Admitted As Inpatient Discharge Instructions Interventions: ED Discharge Assessment Last Done: 11/16/18 15:58 Discharge Problem: UTI (urinary tract infection) Qualifiers: Urinary tract infection type: site unspecified Hematuria presence: without hematuria Qualified Code(s): N39.0 - Urinary tract infection, site not specified The scribe's documentation has been prepared under my direction and personally reviewed by me in its entirety. I confirm that the note above accurately reflects all work, treatment, procedures, and medical decision making performed by me.
[2018-11-16] MEDS: ATENOLOL 25 MG TABLET PO SCH (21:16)
[2018-11-16] MEDS: MYCOPHENOLATE SODIUM 180 MG TAB PO SCH (21:17)
[2018-11-16] MEDS: dilTIAZem ER 180 MG CAPCR PO SCH (21:17)
[2018-11-16] MEDS: TACROLIMUS 1 MG CAP PO SCH (21:17)
[2018-11-16] MEDS: PIPERACILLIN/TAZOBACTAM 3.375 GM in DEXTROSE 5% 100 ML IV SCH (21:18)
[2018-11-17] MEDS: ACETAMINOPHEN 325 MG TAB PO PRN ×2 (00:15→07:33)
[2018-11-17] MEDS: PIPERACILLIN/TAZOBACTAM 3.375 GM in DEXTROSE 5% 100 ML IV SCH ×3 (05:51→23:07)
[2018-11-17 07:25] LABS: Hematocrit (blood only) 36.9 % (37-47); Hemoglobin 11.5 g/dL (12.0-16.0); Mean Corpuscular Hgb Conc 31.2 g/dL (32-36); Mean Corpuscular Volume 90.4 fL (80-100); RDW Coefficient of Variation 13.5 % (11.5-14.5); RDW Standard Deviation 44.9 fL (36.4-46.3); Red Blood Count 4.08 M/uL (4.2-5.4)
[2018-11-17] MEDS: predniSONE 5 MG TAB PO SCH (07:34)
[2018-11-17] MEDS: ATENOLOL 25 MG TABLET PO SCH ×2 (07:34→21:08)
[2018-11-17] MEDS: dilTIAZem ER 180 MG CAPCR PO SCH ×2 (07:34→21:10)
[2018-11-17] MEDS: MYCOPHENOLATE SODIUM 180 MG TAB PO SCH ×2 (07:34→21:08)
[2018-11-17 07:39] LABS: INR 2.1 (0.9-1.1); Prothrombin Time 20.6 Seconds (9.0-12.0)
[2018-11-17 07:48] LABS: BUN Creatinine Ratio 18.6 (10-20); Creatinine Clr Calc Pharmacy 39.8 ml/min; Est GFR (African American) 42.4; Est GFR (Non-African American) 36.6; Magnesium 1.4 mg/dl (1.8-2.4); Potassium 3.7 mmol/L (3.5-5.1)
[2018-11-17 07:50] LABS: Mean Platelet Volume 9.5 fL (7.4-10.4); Platelet Count 96 K/uL (130-400); Platelet Estimate Decreased (Normal)
[2018-11-17] MEDS: TACROLIMUS 1 MG CAP PO SCH ×2 (08:16→21:08)
--- NOTE | 2018-11-17 09:53 | Hospitalist Progress Note ---
Date of Service November 17, 2018 Assessment & Plan (1) Urinary tract infection: UA on 11/16 indicated infection. Urine culture suggestive of E coli . complicated cystitis given her systemic symptoms and fever in a patient with a kidney transplant. - Zosyn IV, with persistent fevers may consider may need to consider if resistant to Zosyn - Per UpToDate, should cover with agent that also covers Pseudomonas while awaiting culture results & also will need to treat for at least 7-10 days (2) Hx of kidney transplant: Left-sided DDT in 2012. Kidney function at baseline with Cr of ~1.4. Continue current Rx: prograf 2 mg BID, Myfortic 540 BID, prednisone 5 mg daily. watch for need of stress coverage of steroids (3) Diarrhea: Repots 4-5 episodes of watery diarrhea today in setting of fevers, chills. No sick contacts, no recent dietary changes, no recent abx. From outpatient notes, this appears similar to prior UTIs, but would not want to miss infectious cause of diarrhea. - C. diff & stool testing given her immunosuppression (4) Atrial fibrillation: Permenant. Also with tachy-belle syndrome. S/p pacemaker. - Continue anticoagulation - Monitor INR - Continue beta-carlitos and diltiazem for rate-control (5) Hypertension: On long-standing atenolol and diltiazem for HTN and rate-control. (6) DVT prophylaxis: On warfarin for afib - INR in therapeutic range Subjective Patient has some fluctuant blood pressure today she looks somewhat ill with low- grade temperatures in the morning. He offers no focal complaints Review of Systems ROS: Feels weak and tired and "wiped out" No double vision blurry vision No problems with speech or swallowing No palpitations, chest pain or pressure No Wheezing or breathing issues No abdominal pain nausea vomiting has had some diarrhea No overt urinary symptoms may be some mild dysuria if any No focal joint pain or muscle pain No skin rashes or oral lesions No unusual bruising or bleeding No focused back pain or numbness or loss of strength No changes in memory or confusion Physical Exam Vital Signs (Past 24 Hours): Last Vital Signs Temp 36.9 C 11/17/18 09:43 Pulse 90 11/17/18 09:43 Resp 20 11/17/18 09:43 BP 86/50 L 11/17/18 09:50 Pulse Ox 95 11/17/18 09:43 The patient appeared chronically ill Vital signs as documented. Lower blood pressure and temp in the 38 Celsius range Head exam is unremarkable. normocephalic, atraumatic Neck is without jugular venous distension, thyromegaly, or lymphademopathy Lungs are clear to auscultation decreased at the base of the effort Cardiac exam reveals Rhythm is regular. First and second heart sounds normal. Abdominal exam reveals normal bowel sounds, no masses, no organomegaly no focal tenderness Extremities are mild edematous to the lower legs Neurologic exam is A&Ox3, no focal deficits, strength is equal bilateral Psychologically seems depressed Skin is warm Dry without bruises or lesions
[2018-11-17] MEDS: NORMOSOL-R 1,000 ML IV SCH (13:23)
--- NOTE | 2018-11-17 14:27 | Nephrology Consultation ---
Date of Consultation November 17, 2018 Assessment & Plan (1) Urinary tract infection: UA on 11/16 indicated infection. Urine culture + E coli. These symptoms are typical for her UTIs (last one in 09/2017). Remains on Zosyn (2) Hx of kidney transplant: Left-sided DDT in 2012. Kidney function at baseline with Cr of ~1.4. Continue current Rx: prograf 2 mg BID, Myfortic 540 BID, prednisone 5 mg daily. Monitor metabolic profile daily. Medications are appropriately dosed for kidney function. (3) Diarrhea: Stool studies have been sent. Symptoms improving. Symptoms are consistent with prior UTI. (4) Atrial fibrillation: Permenant. Also with tachy-belle syndrome. S/p pacemaker. Anticoagulated. (5) Hypertension: BP and volume status are acceptable. History of Present Illness Reason for Consultation: TATIANNA, CKD, kidney transplant Requesting Physician: Salvador Miles MD Attending Physician: Salvador Miles MD History of Present Illness Mrs. 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 She has a functioning renal allograft with a baseline creatinine of approximately 1.2-1.4 mg/dL. Melanie follows in the outpatient nephrology clinic with Dr. Lin. Medical history is also notable for hypertension, atrial fibrillation with tachy-belle syndrome s/p pacer, as well as recurrent UTI. Melanie developed fevers and chills yesterday morning. She describes generalized fatigue and malaise. Appetite was poor. She had a few loose bowel movements. Symptoms are similar to prior UTI. She denies any respiratory symptoms. She denies dysuria or change in urine output. She presented to the ED for additional evaluation. A dose of Cefepime was provided. UA/microscopy was consistent with possible UTI. She was admitted to general medical floor and continued on Zosyn. Melanie is tolerating treatment well. She describes some early improvement in symptoms. Melanie initially presented to Dr. Lin for nephrologic evaluation in the . Renal dysfunction was advanced at the time of initial assessment. She was hypertensive. Renal biopsy was deferred due to the advanced nature of her kidney disease. 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 She progressed to end-stage renal disease in 1989. She was initially managed with hemodialysis that was later switched to PD. That was continued until 1994. However, because of recurring episodes of peritonitis the peritoneal catheter was removed and she was returned to hemodialysis. One year later, she received her 1st kidney transplant at the [facility]. 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 Her kidney transplant finally failed a and she was returned to hemodialysis in 2005. Melanie remained on hemodialysis until 2012 at which time s he received her 2nd kidney transplant at [facility] in [place]. The transplant has functioned well. However, she continues to suffer from recurring urinary tract infections. Her usual symptoms at the time of onset include diarrhea, fever and dysuria. She has had several different organisms involved including enterococcus, Enterobacter, E coli and Klebsiella. Generally, these organisms have been sensitive to oral antibiotics. Each episode is usually associated with a slight rise in her serum creatinine which is felt to be related to volume depletion related to her symptoms. Additionally, we have been concerned that she does have some renal involvement with her infections. Usually however her renal function improves with IV fluids. Her last episode of a urinary tract infection requiring hospitalization here was in September of 2017. Since that time, she has been taking cranberry extract twice daily. Having done so, her frequency of urinary symptoms seems to have significantly decreased. Her current immunosuppression includes tacrolimus 2 milligrams twice daily and Myfortic 540 milligrams taken twice daily. She is also on prednisone 5 milligrams daily. Her serum creatinine has been stable between 1.2 and 1.4 milligrams/deciliter. Her other issues include a history of atrial fibrillation and a tachy-belle syndrome. She has a dual-chamber pacemaker in place. She is anticoagulated with warfarin with INRs within a stable range. Her rate is controlled with a combination of atenolol 25 milligrams twice daily and diltiazem ER 180 milligrams taken twice daily. She has no palpitations or chest pain. She has had no bleeding complications of warfarin. She has a history of hypertension which has been controlled with the atenolol and diltiazem noted above. She is no longer using furosemide. She has had no target organ symptoms of hypertension other than her problem of atrial fibrillation. She did have a cardiac catheterization done in the past, in 2010 which showed only minimal coronary disease in the left anterior descending artery. Additionally, in 2012 she had an evaluation for chest discomfort. A stress echocardiogram was unremarkable. In 2013, another echocardiogram was done. Her ejection fraction was 65-70 percent and no wall motion abnormalities were noted. She has had no new cardiac symptoms since that time. Allergies Allergy/AdvReac Type Severity Reaction Status Date / Time Quinolones Allergy Intermediate FLOXIN Verified 11/16/18 12:26 CAUSES HIVES Home Medications Home Medications Medication Instructions Recorded Confirmed Type atenolol 25 mg PO BID 11/16/18 11/16/18 History cranberry 500 mg PO BID 11/16/18 11/16/18 History cyanocobalamin (vitamin B-12) 1,000 mcg PO DAILY 11/16/18 11/16/18 History [Vitamin B-12] diltiazem HCl 180 mg PO BID 11/16/18 11/16/18 History mycophenolate sodium 540 mg PO BID 11/16/18 11/16/18 History prednisone 5 mg PO DAILY 11/16/18 11/16/18 History tacrolimus 2 mg PO Q12H 11/16/18 11/16/18 History warfarin 1 dose PO UD 11/16/18 11/16/18 History Patient History Medical History Kidney disease (Chronic) Hypomagnesemia (Acute) Hyponatremia (Acute) Sepsis (Acute 07/26/13) S/P parathyroidectomy (Acute) Acute kidney injury (Acute) Atrial fibrillation with RVR (Acute) Creatinine elevation (Acute) Dehydration (Acute) Diarrhea Fever (Acute) Hx of kidney transplant (Acute) Hypokalemia (Acute) Hypomagnesemia (Acute) Hypotension Intractable diarrhea (Acute 12/20/13) Nausea vomiting and diarrhea (Acute) Prerenal azotemia (Acute) Rapid atrial fibrillation Right flank pain (Acute) Urinary tract infection (Acute 08/27/14) Surgical History Hx of cholecystectomy (Resolved) Kidney transplant status, cadaveric Family History Mother Heart disease Social History Preferred Language: Mauritian Communication Ability: Effective Wide Area Network Engineer Required: No Beliefs That Will Affect Care: None Current Living Situation: Spouse Other Information That Helps Us Care for You: No Feels Safe at Home: Yes Safety Concerns: Feels Safe At This Time Smoking Status: Never smoker Hx Alcohol Use: No Hx Substance Use: No Review of Systems Constitutional: + fever, + chills, + fatigue and + weakness Eyes: no problem reported Ear, Nose, Mouth, Throat: no problem reported Respiratory: no cough and no dyspnea Cardiovascular: no chest pain, no palpitations, no edema and no problem reported Gastrointestinal: + diarrhea/loose stools; no abdominal pain and no vomiting Genitourinary (Female): no dysuria, no hematuria and no problem reported Musculoskeletal: no problem reported Integumentary: no problem reported Neurologic: no problem reported Psychiatric: no problem reported Endocrine: no problem reported Hematologic / Lymphatic: no problem reported Physical Exam Vital Signs (Past 24 Hours): Last Vital Signs Temp 36.9 C 11/17/18 09:43 Pulse 86 11/17/18 10:23 Resp 20 11/17/18 09:43 BP 101/65 11/17/18 10:23 Pulse Ox 95 11/17/18 09:43 Constitutional: well developed, + ill appearing, + obese and + lethargic Eyes: EOM intact bilaterally; no conjunctival abnormality ENMT: Mouth: + dry oral mucous membranes; no oral mucosal abnormality Neck: normal visual inspection and trachea midline Respiratory: normal respiratory effort, lungs clear to auscultation no respiratory distress Cardiovascular: RRR, no murmur, no edema Gastrointestinal (Abdomen): Inspection/Auscultation: abdomen normal to inspection; abdomen not distended Percussion/Palpation: abdomen soft; abdomen nontender, no guarding and abdomen not rigid left and right lower quadrant renal allograft palpated without tenderness, no abdominal bruit Musculoskeletal: no cyanosis or clubbing, extremities motor strength 5/5 Skin: no rashes, warm and dry Neurologic: moves all extremities and awake Psychiatric: Orientation: alert, oriented to person and cooperative Results & Data Laboratory Results Laboratory Results - last 24 hr 11/17/18 11/17/18 11/17/18 04:30 07:03 07:03 WBC 14.90 H RBC 4.08 L Hgb 11.5 L Hct 36.9 L MCV 90.4 MCH 28.2 MCHC 31.2 L RDW Std Deviation 44.9 RDW Coeff of Josh 13.5 Plt Count 96 L MPV 9.5 Platelet Estimate Decreased PT 20.6 H INR 2.1 H Sodium Potassium Chloride Carbon Dioxide Anion Gap BUN Creatinine Est Cr Clr Drug Dosing Est GFR ( Amer) Est GFR (Non-Af Amer) BUN/Creatinine Ratio Glucose Calcium Magnesium Stl C. diff Tox B Gene Negative Cdiff Gene 11/17/18 07:03 WBC RBC Hgb Hct MCV MCH MCHC RDW Std Deviation RDW Coeff of Josh Plt Count MPV Platelet Estimate PT INR Sodium 136 Potassium 3.7 Chloride 106 Carbon Dioxide 21 Anion Gap 9.0 BUN 28 H Creatinine 1.52 H Est Cr Clr Drug Dosing 39.8 Est GFR ( Amer) 42.4 Est GFR (Non-Af Amer) 36.6 BUN/Creatinine Ratio 18.6 Glucose 104 H Calcium 9.0 Magnesium 1.4 L Stl C. diff Tox B Gene
[2018-11-17] MEDS: WARFARIN SOD 2 MG TAB PO SCH (16:00)
[2018-11-18] MEDS: PIPERACILLIN/TAZOBACTAM 3.375 GM in DEXTROSE 5% 100 ML IV SCH ×3 (05:22→21:11)
[2018-11-18 07:27] LABS: Prothrombin Time 19.5 Seconds (9.0-12.0)
[2018-11-18] MEDS: TACROLIMUS 1 MG CAP PO SCH ×2 (07:54→21:15)
[2018-11-18] MEDS: ATENOLOL 25 MG TABLET PO SCH ×2 (07:54→21:16)
[2018-11-18] MEDS: predniSONE 5 MG TAB PO SCH (07:54)
[2018-11-18] MEDS: dilTIAZem ER 180 MG CAPCR PO SCH ×2 (07:54→21:16)
[2018-11-18] MEDS: MYCOPHENOLATE SODIUM 180 MG TAB PO SCH ×2 (07:54→21:15)
[2018-11-18] MEDS: NORMOSOL-R 1,000 ML IV SCH (08:00)
--- NOTE | 2018-11-18 11:42 | Progress Note ---
DATE: 11/18/2018 RENAL PROGRESS NOTE SUBJECTIVE: Mrs. Barker still was not feeling back to her normal state. However, she does feel a bit better since admitted to the hospital and started on antibiotics. Her medical history, particularly with regard to her kidney transplant and recurrent urinary tract infections as well summarized on Dr. Hubbard's initial consultation of yesterday. Her presentation was typical. She was awakened with chills on the morning of November 16. She had a low-grade fever at that time. She did not notice any significant dysuria initially. However, she went on to develop symptoms of diarrhea and shaking chills. Both have been typical regarding her recurrent urinary tract infections. For that reason, she came to the Emergency Room. Her initial evaluation there showed an abnormal urinalysis with greater than 30 white cells per high power field. She did have many epithelial cells per high power field, both yeast and bacteria were present. She had a positive leukocyte esterase. Her urine culture thus far has grown out both an E. coli as well as a strep. Sensitivities show that she is sensitive to piperacillin/tazobactam. She had been started on that antibiotic at the time of admission. She has also been receiving IV fluids. Early this morning at about 5:00 a.m., she did have an episode of nausea and vomiting of a small amount of emesis. There was no associated blood with her emesis. She also had some fecal incontinence of diarrheal stool. She is yet to regain her appetite. Her serum creatinine which is typically in the range of about 1.1 mg/dL was elevated to 1.43 at the time of her admission on November 16 and luis to 1.52 by the following morning. Repeat laboratory work was not done today yet. Additionally, her white blood cell count was initially elevated at 15,330 at the time of presentation. It had begun to trend downward as of yesterday, but was not repeated today. OBJECTIVE: GENERAL: At the current time, on physical examination, Mrs. Barker appears as a somewhat chronically ill-appearing woman who was a bit anxious, but did not appear to be in any significant distress at this point. VITAL SIGNS: Her blood pressure was 103/56, her pulse 79 and regular, respiratory rate 16, her temperature 37.5. Her oxygen saturation is 90% on room air. SKIN: Shows normal skin turgor. She has multiple scars from prior surgical procedures. She has no palpable lymphadenopathy. HEAD: Normal. EYES: Grossly normal. The ocular fundi were not examined. EARS, NOSE, MOUTH AND THROAT: Unremarkable other than poor dentition. Oral mucous membranes are moist. NECK: Supple. She has a scar from prior parathyroid surgery. There is no jugular venous distention or carotid bruit. She has no thyromegaly. CHEST: Shows a few scattered atelectatic rales. However, these clear with deep breathing. CARDIAC: Shows a regular rhythm. S1 and S2 are normal. She has a very soft systolic murmur at the base. ABDOMEN: Shows scars from prior surgical procedures, both from the implantation of a peritoneal dialysis catheter as well as scars in both lower quadrants from kidney transplants. Her current transplant is in the left lower quadrant. At the superior and lateral aspect of her abdominal scar, there is a subcutaneous lump consistent with some heaped-up granulation tissue or muscle tissue at the site of her incision. She has a very soft bruit over her transplant. The transplant in the left lower quadrant is not tender. EXTREMITIES: Show no cyanosis or clubbing. She has no peripheral edema at the current time. NEUROLOGIC: Shows no lateralizing changes. She is alert to time, place and person. LABORATORY DATA: No laboratory work from today. ASSESSMENT: Mrs. Barker has a history of recurrent urinary tract infections. Her presentation with this episode is very similar to that that she has had with other episodes. Her urine culture is positive for an E. coli and she is on appropriate antibiotics. RECOMMENDATIONS: Continue with her antibiotic therapy and slow fluid resuscitation. Would continue to daily, monitor her CBC and basic metabolic profiles. Hopefully, she will continue to respond, then be capable of discharge soon.
--- NOTE | 2018-11-18 16:07 | Hospitalist Progress Note ---
Date of Service November 18, 2018 Assessment & Plan (1) Urinary tract infection: UA on 11/16 indicated infection. Urine culture growing E coli and Group B strep sensitive to Zosyn, will continue for now repeat WBC tomorrow, was 15k yesterday complicated cystitis given her systemic symptoms and fever in a patient with a kidney transplant. plan to treat for 7-10 days (2) Hx of kidney transplant: Left-sided DDT in 2012. Kidney function at baseline with Cr of ~1.1 Continue current Rx: prograf 2 mg BID, Myfortic 540 BID, prednisone 5 mg daily. watch for need of stress coverage of steroids Cr up to 1.5 yesterday, so technically a mild TATIANNA in setting of infection will continue gentle IV fluids today repeat BMP in the morning making adequate urine (3) Diarrhea: Repots 4-5 episodes of watery diarrhea today in setting of fevers, chills. No sick contacts, no recent dietary changes, no recent abx. From outpatient notes, this appears similar to prior UTIs, but would not want to miss infectious cause of diarrhea. C diff and stool culture negative symptoms improving slowly (4) Atrial fibrillation: Permenant. Also with tachy-belle syndrome. S/p pacemaker. - Continue anticoagulation - INR 2.0 today - Continue beta-carlitos and diltiazem for rate-control (5) Hypertension: On long-standing atenolol and diltiazem for HTN and rate-control. BP stable today (6) DVT prophylaxis: On warfarin for afib - INR in therapeutic range check labs in the AM likely transition to PO antibiotics in next 24-48 hours and then discharge Subjective patient says she is feeling better, more energy appetite improving slowly discussed with Dr. Lin, appreciate his input reviewed labs and chart since admission urine culture growing E coli, sensitive to Zosyn updated family member at the bedside Review of Systems All systems reviewed & are unremarkable except as noted in HPI & below Constitutional: + fatigue and + weakness Gastrointestinal: + early satiety; no abdominal pain, no nausea, no vomiting, no constipation and no diarrhea/loose stools Physical Exam Vital Signs (Past 24 Hours): Last Vital Signs Temp 37.1 C 11/18/18 15:24 Pulse 70 11/18/18 15:24 Resp 17 11/18/18 15:24 BP 102/54 L 11/18/18 15:24 Pulse Ox 90 11/18/18 15:24 Constitutional: WD/WN, vitals as above + obese Eyes: PERRL, conjunctivae normal, anicteric sclerae ENMT: external ear and nose normal, oropharynx normal Neck: trachea midline, no thyromegaly Respiratory: normal respiratory effort, lungs clear to auscultation Cardiovascular: RRR, no murmur, no edema Gastrointestinal (Abdomen): normal bowel sounds, soft, nontender, no hepatosplenomegaly Musculoskeletal: no cyanosis or clubbing, extremities motor strength 5/5 Skin: no rashes, warm and dry Neurologic: patellar DTR's 2+ bilat, sensation intact and PERRL, EOMI, accommodation nl, no face palsy, no dysarthria Psychiatric: A+Ox3, euthymic affect Lymphatic: no cervical or axillary lymphadenopathy Results & Data Laboratory Results Laboratory Results - last 24 hr 11/18/18 06:39 PT 19.5 H INR 2.0 H Medications Administered Current Inpatient Medications Acetaminophen (Tylenol) 650 mg PO Q4H PRN PRN Reason: pain/fever Stop: 12/16/18 16:09 Last Admin: 11/17/18 07:33 Dose: 650 mg Documented by: Atenolol (Tenormin) 25 mg PO BID [facility] Stop: 12/16/18 20:59 Last Admin: 11/18/18 07:54 Dose: 25 mg Documented by: Diltiazem HCl (Tiazac) 180 mg PO BID [facility] Stop: 12/16/18 20:59 Last Admin: 11/18/18 07:54 Dose: 180 mg Documented by: Parenteral Electrolytes (Normosol-R) 1,000 mls @ 50 mls/hr IV .Q20H [facility] Stop: 12/16/18 16:09 Last Infusion: 11/18/18 07:43 Dose: 50 mls/hr Documented by: Piperacillin Sod/Tazobactam (Sod 3.375 gm/ Dextrose) 115 mls @ 28.75 mls/hr IV Q8H [facility]; Protocol Stop: 11/26/18 21:59 Last Admin: 11/18/18 14:46 Dose: 28.8 mls/hr Documented by: Miscellaneous Information (Consult) 1 ea N/A UD PRN PRN Reason: Consult Stop: 12/16/18 16:09 Mycophenolate Sodium (Myfortic) 540 mg PO BID [facility] Stop: 12/16/18 20:59 Last Admin: 11/18/18 07:54 Dose: 540 mg Documented by: Ondansetron HCl (Zofran) 4 mg IV Q4H PRN PRN Reason: Nausea Stop: 12/16/18 16:09 Last Admin: 11/18/18 05:20 Dose: 4 mg Documented by: Prednisone (Prednisone) 5 mg PO DAILY [facility] Stop: 12/17/18 08:59 Last Admin: 11/18/18 07:54 Dose: 5 mg Documented by: Tacrolimus (Prograf) 2 mg PO Q12 [facility] Stop: 12/16/18 20:59 Last Admin: 11/18/18 07:54 Dose: 2 mg Documented by: Warfarin Sodium (Coumadin) 2 mg PO DAILY@1600 [facility] Stop: 12/16/18 16:09 Last Admin: 11/17/18 16:00 Dose: 2 mg Documented by:
[2018-11-18] MEDS: WARFARIN SOD 2 MG TAB PO SCH (16:33)
[2018-11-19] MEDS: NORMOSOL-R 1,000 ML IV SCH ×2 (01:15→10:10)
[2018-11-19] MEDS: PIPERACILLIN/TAZOBACTAM 3.375 GM in DEXTROSE 5% 100 ML IV SCH ×3 (05:43→21:14)
[2018-11-19 05:58] LABS: Basophils # (auto) 0.01 K/uL (0-0.2); Basophils % (auto) 0.1 %; Eosinophils # (auto) 0.09 K/uL (0-0.5); Eosinophils % (auto) 0.8 %; Hematocrit (blood only) 32.2 % (37-47); Immature Granulocytes # (auto) 0.02 K/uL (0.00-0.02); Immature Granulocytes % (auto) 0.2 %; Lymphocytes # (auto) 0.45 K/uL (1.2-3.4); Lymphocytes % (auto) 4.2 %; Mean Corpuscular Hgb Conc 31.1 g/dL (32-36); Mean Corpuscular Volume 91.2 fL (80-100); Mean Platelet Volume 9.5 fL (7.4-10.4); Monocytes # (auto) 0.91 K/uL (0.11-0.59); Monocytes % (auto) 8.5 %; Neutrophils # (auto) 9.24 K/uL (1.4-6.5); Neutrophils % (auto) 86.2 %; Platelet Count 108 K/uL (130-400); RDW Coefficient of Variation 13.9 % (11.5-14.5); Red Blood Count 3.53 M/uL (4.2-5.4); White Blood Count 10.72 K/uL (4.8-10.8)
[2018-11-19 06:35] LABS: BUN Creatinine Ratio 20.2 (10-20); Calcium 9.2 mg/dl (8.5-10.1); Creatinine Clr Calc Pharmacy 41.7 ml/min; Est GFR (African American) 44.9; Est GFR (Non-African American) 38.8
[2018-11-19 06:36] LABS: INR 2.5 (0.9-1.1); Prothrombin Time 23.8 Seconds (9.0-12.0)
[2018-11-19] MEDS: TACROLIMUS 1 MG CAP PO SCH ×2 (08:24→21:16)
[2018-11-19] MEDS: ATENOLOL 25 MG TABLET PO SCH ×2 (08:25→21:15)
[2018-11-19] MEDS: predniSONE 5 MG TAB PO SCH (08:25)
[2018-11-19] MEDS: MYCOPHENOLATE SODIUM 180 MG TAB PO SCH ×2 (08:25→21:15)
[2018-11-19] MEDS: dilTIAZem ER 180 MG CAPCR PO SCH ×2 (08:25→21:16)
[2018-11-19] MEDS ORDERED: HYDROCORTISONE SOD SUCCINATE 100 MG/2 ML VIAL IV STA (10:23)
--- NOTE | 2018-11-19 10:30 | Hospitalist Progress Note ---
Date of Service November 19, 2018 Assessment & Plan (1) Urinary tract infection: UA on 11/16 indicated infection. Urine culture growing E coli and Group B strep sensitive to Zosyn, will continue for now WBC down to 10k today from 15k no fever but still with malaise will change to Keflex on discharge, complete 7 more days after discharge complicated cystitis given her systemic symptoms and fever in a patient with a kidney transplant. (2) Hx of kidney transplant: Left-sided DDT in 2012. Kidney function at baseline with Cr of ~1.1 Continue current Rx: prograf 2 mg BID, Myfortic 540 BID, prednisone 5 mg daily. since patient is feeling fatigued, slow to improve despite appropriate treatment, will give her Hydrocortisone 50mg IV q8 for 24 hours see if symptoms improve Cr is stable at 1.4 patient feels like this is her baseline for the past year making urine cut concentrated continue IV fluids until this bag complete (3) Diarrhea: Reports 4-5 episodes of watery diarrhea today in setting of fevers, chills. No sick contacts, no recent dietary changes, no recent abx. From outpatient notes, this appears similar to prior UTIs, but would not want to miss infectious cause of diarrhea. C diff and stool culture negative symptoms improving, no diarrhea reported today (4) Atrial fibrillation: Permenant. Also with tachy-belle syndrome. S/p pacemaker. - Continue anticoagulation - INR 2.5 today - Continue beta-carlitos and diltiazem for rate-control (5) Hypertension: On long-standing atenolol and diltiazem for HTN and rate-control. BP stable today (6) DVT prophylaxis: On warfarin for afib - INR in therapeutic range check labs in the AM likely transition to PO antibiotics in next 24-48 hours and then discharge Subjective patient c/o fatigue and malaise says that normally she has a lot more energy admits that she does not sleep as well here discussed that maybe it is due to stress and on Prednisone chronically still no appetite, no nausea making urine but appears more concentrated labs reviewed, Cr is 1.4 today patient wants to stay and I agree she is not quite ready for discharge Review of Systems All systems reviewed & are unremarkable except as noted in HPI & below Constitutional: + fatigue and + weakness Gastrointestinal: + early satiety; no abdominal pain, no nausea, no vomiting, no constipation and no diarrhea/loose stools Physical Exam Vital Signs (Past 24 Hours): Last Vital Signs Temp 37.4 C 11/19/18 07:51 Pulse 78 11/19/18 07:51 Resp 20 11/19/18 07:51 BP 145/65 H 11/19/18 07:51 Pulse Ox 97 11/19/18 07:51 Constitutional: WD/WN, vitals as above + obese Eyes: PERRL, conjunctivae normal, anicteric sclerae ENMT: external ear and nose normal, oropharynx normal Neck: trachea midline, no thyromegaly Respiratory: normal respiratory effort, lungs clear to auscultation Cardiovascular: RRR, no murmur, no edema Gastrointestinal (Abdomen): normal bowel sounds, soft, nontender, no hepatosplenomegaly Musculoskeletal: no cyanosis or clubbing, extremities motor strength 5/5 Skin: no rashes, warm and dry Neurologic: patellar DTR's 2+ bilat, sensation intact and PERRL, EOMI, accommodation nl, no face palsy, no dysarthria Psychiatric: A+Ox3, euthymic affect Lymphatic: no cervical or axillary lymphadenopathy Results & Data Laboratory Results Laboratory Results - last 24 hr 11/19/18 11/19/18 11/19/18 05:41 05:41 05:41 WBC 10.72 RBC 3.53 L Hgb 10.0 L Hct 32.2 L MCV 91.2 MCH 28.3 MCHC 31.1 L RDW Std Deviation 46.0 RDW Coeff of Josh 13.9 Plt Count 108 L MPV 9.5 Immature Gran % (Auto) 0.2 Neut % (Auto) 86.2 Lymph % (Auto) 4.2 Tompkins % (Auto) 8.5 Eos % (Auto) 0.8 Baso % (Auto) 0.1 Immature Gran # (Auto) 0.02 Neut # (Auto) 9.24 H Lymph # (Auto) 0.45 L Tompkins # (Auto) 0.91 H Eos # (Auto) 0.09 Baso # (Auto) 0.01 PT 23.8 H INR 2.5 H Sodium 136 Potassium 4.0 Chloride 104 Carbon Dioxide 20 L Anion Gap 13.0 H BUN 29 H Creatinine 1.45 H Est Cr Clr Drug Dosing 41.7 Est GFR ( Amer) 44.9 Est GFR (Non-Af Amer) 38.8 BUN/Creatinine Ratio 20.2 H Glucose 68 L Calcium 9.2 Medications Administered Current Inpatient Medications Acetaminophen (Tylenol) 650 mg PO Q4H PRN PRN Reason: pain/fever Stop: 12/16/18 16:09 Last Admin: 11/17/18 07:33 Dose: 650 mg Documented by: Atenolol (Tenormin) 25 mg PO BID [facility] Stop: 12/16/18 20:59 Last Admin: 11/19/18 08:25 Dose: 25 mg Documented by: Diltiazem HCl (Tiazac) 180 mg PO BID [facility] Stop: 12/16/18 20:59 Last Admin: 11/19/18 08:25 Dose: 180 mg Documented by: Hydrocortisone Sodium Succinate (Solu-Cortef) 50 mg IV NOW [facility] Stop: 11/19/18 10:24 Parenteral Electrolytes (Normosol-R) 1,000 mls @ 50 mls/hr IV .Q20H [facility] Stop: 12/16/18 16:09 Last Admin: 11/19/18 10:10 Dose: Not Given Documented by: Piperacillin Sod/Tazobactam (Sod 3.375 gm/ Dextrose) 115 mls @ 28.75 mls/hr IV Q8H [facility]; Protocol Stop: 11/26/18 21:59 Last Infusion: 11/19/18 10:11 Dose: Infused Documented by: Hydrocortisone Sodium (Succinate 50 mg/ Syringe) 1 mls @ 4 mls/min IV Q8 [facility] Stop: 12/19/18 13:59 Miscellaneous Information (Consult) 1 ea N/A UD PRN PRN Reason: Consult Stop: 12/16/18 16:09 Mycophenolate Sodium (Myfortic) 540 mg PO BID [facility] Stop: 12/16/18 20:59 Last Admin: 11/19/18 08:25 Dose: 540 mg Documented by: Ondansetron HCl (Zofran) 4 mg IV Q4H PRN PRN Reason: Nausea Stop: 12/16/18 16:09 Last Admin: 11/18/18 05:20 Dose: 4 mg Documented by: Prednisone (Prednisone) 5 mg PO DAILY [facility] Stop: 12/17/18 08:59 Last Admin: 11/19/18 08:25 Dose: 5 mg Documented by: Tacrolimus (Prograf) 2 mg PO Q12 [facility] Stop: 12/16/18 20:59 Last Admin: 11/19/18 08:24 Dose: 2 mg Documented by: Warfarin Sodium (Coumadin) 2 mg PO DAILY@1600 [facility] Stop: 12/16/18 16:09 Last Admin: 11/18/18 16:33 Dose: 2 mg Documented by:
--- NOTE | 2018-11-19 12:12 | Progress Note ---
DATE: 11/19/2018 RENAL PROGRESS NOTE SUBJECTIVE: Mrs. Barker says she is feeling somewhat better. She has not had any diarrheal stools within the past 12 hours or so. Her appetite is not particularly good, but she denies having any nausea and has had no vomiting for the past 24 hours. She denies having dysuria. She says her urine is looking somewhat more clear. She has no dysuria. She has no pain or tenderness over her left lower quadrant renal graft. OBJECTIVE: GENERAL: On physical exam at the current time, Mrs. Barker appears as somewhat of a chronically ill woman and of about her stated age of 63. VITAL SIGNS: Her blood pressure this morning is 145/65, her pulse is 78 and regular, respiratory rate 20, her pulse ox is 97%. Her temperature is 37.4. SKIN: Shows normal skin turgor. She is slightly plethoric. She has some changes on her face consistent with rosacea. She has multiple scars from prior surgical procedures. She has no palpable lymphadenopathy. HEAD: Normal. EYES: Grossly normal. The ocular fundi were not examined. EARS, NOSE, MOUTH AND THROAT: Unremarkable other than poor dentition. Oral mucous membranes are moist. NECK: Supple. She has a scar from a prior parathyroid surgery. There is no jugular venous distention or carotid bruit. She has no thyromegaly. CHEST: Clear to auscultation. CARDIAC: Shows a regular rhythm. S1 and S2 are normal. There is a soft systolic murmur at the base radiating toward the neck. ABDOMEN: Shows scars from prior surgical procedures. Her transplant is in the left lower quadrant. She still has a nontender subcutaneous lump consistent with granulation tissue or muscle tissue at the site of her incision. There is a soft bruit over the transplant. The transplant is not tender. EXTREMITIES: Show no cyanosis or clubbing. There is no peripheral edema. NEUROLOGIC: Shows no lateralizing changes. PERTINENT LABORATORY WORK: From today shows a white count down to 10,720 but still with somewhat of a shift to the left with 86.2% neutrophils, 4.2% lymphocytes, 8.5% monocytes, 0.8% eosinophils and 0.1% basophils. Her hemoglobin is 10.0, her hematocrit is 32.2, platelet count is 108,000. Her clinical chemistries from today show a sodium of 136 mmol/L, potassium 4.0 mmol/L, chloride is 104 mmol/L, and CO2 content 20 mmol/L. Her BUN is 29. Her creatinine is 1.45. A random blood sugar was 68. Her serum calcium is 9.2. Her urine culture again grew out both an E. coli and beta strep. The E. coli is sensitive to piperacillin/tazobactam, which the patient is receiving. ASSESSMENT: Slow improvement. PLAN: Continue with IV antibiotics for today as well as encourage hydration in both IV and p.o. Hopefully, we will be able to stop her IV rehydration within the next 24 hours. No other particular intervention at this time. I will continue to follow her with you.
[2018-11-19] MEDS: HYDROCORTISONE SOD 50 MG in SYRINGE 0 ML IV SCH ×3 (12:34→21:15)
[2018-11-19] MEDS: WARFARIN SOD 2 MG TAB PO SCH (15:18)
[2018-11-20] MEDS: HYDROCORTISONE SOD 50 MG in SYRINGE 0 ML IV SCH ×2 (05:48→13:42)
[2018-11-20] MEDS: PIPERACILLIN/TAZOBACTAM 3.375 GM in DEXTROSE 5% 100 ML IV SCH ×2 (05:48→13:42)
[2018-11-20 07:19] LABS: Hematocrit (blood only) 33.5 % (37-47); Hemoglobin 10.4 g/dL (12.0-16.0); Immature Granulocytes # (auto) 0.02 K/uL (0.00-0.02); Immature Granulocytes % (auto) 0.3 %; Lymphocytes # (auto) 0.32 K/uL (1.2-3.4); Lymphocytes % (auto) 5.5 %; Mean Corpuscular Volume 89.1 fL (80-100); Mean Platelet Volume 10.6 fL (7.4-10.4); Monocytes # (auto) 0.38 K/uL (0.11-0.59); Monocytes % (auto) 6.6 %; Neutrophils # (auto) 5.07 K/uL (1.4-6.5); Neutrophils % (auto) 87.6 %; Platelet Count 114 K/uL (130-400); RDW Coefficient of Variation 13.6 % (11.5-14.5); RDW Standard Deviation 44.4 fL (36.4-46.3); Red Blood Count 3.76 M/uL (4.2-5.4); White Blood Count 5.79 K/uL (4.8-10.8)
[2018-11-20 07:38] LABS: INR 3.4 (0.9-1.1); Prothrombin Time 32.3 Seconds (9.0-12.0)
[2018-11-20 07:50] LABS: BUN Creatinine Ratio 18.6 (10-20); Calcium 8.8 mg/dl (8.5-10.1); Est GFR (African American) 42.8; Est GFR (Non-African American) 36.9; Potassium 3.9 mmol/L (3.5-5.1)
[2018-11-20] MEDS ORDERED: SODIUM BICARBONATE 8.4% 75 MEQ in SODIUM CHLORIDE 0.45 % 1,000 ML IV SCH (08:15)
[2018-11-20] MEDS: MYCOPHENOLATE SODIUM 180 MG TAB PO SCH (08:57)
[2018-11-20] MEDS: TACROLIMUS 1 MG CAP PO SCH (08:57)
[2018-11-20] MEDS: dilTIAZem ER 180 MG CAPCR PO SCH (08:57)
[2018-11-20] MEDS: ATENOLOL 25 MG TABLET PO SCH (08:57)
[2018-11-20] MEDS: predniSONE 5 MG TAB PO SCH (08:57)
[2018-11-20 11:06] LABS: BUN Creatinine Ratio 17.7 (10-20); Est GFR (African American) 45.3; Est GFR (Non-African American) 39.1; Potassium 3.7 mmol/L (3.5-5.1)
--- NOTE | 2018-11-20 13:04 | Progress Note ---
DATE: 11/20/2018 RENAL PROGRESS NOTE SUBJECTIVE: Mrs. Barker says she is feeling much better this morning. She ate breakfast without any problems with nausea or vomiting. She denies abdominal pain. She is having one bowel movement a day. They are formed. She denies any diarrhea or crampy abdominal pain. She says that her urine "looks better." By that, she means that it seems to be clear. She has no dysuria and has had no gross hematuria. She has no pain over her left lower quadrant transplanted kidney. She has no symptoms of uremia or volume overload. She has no shaking chills. OBJECTIVE: GENERAL: On physical exam this morning, she appears to be at her baseline. VITAL SIGNS: Her blood pressure is 114/73, her pulse is 75 and regular, respiratory rate is 18, her pulse ox is 97% on room air, her temperature is 36.5 degrees. SKIN: Shows her to be slightly plethoric. She has no rash or infiltrative skin disease. She has multiple scars from prior surgical procedures. LYMPHATICS: Show no palpable adenopathy. HEAD: Normal. EYES: Grossly normal. The ocular fundi were not examined. EARS, NOSE, MOUTH AND THROAT: Unremarkable other than poor dentition. Oral mucous membranes are moist. NECK: Supple. She has a scar from prior parathyroid surgery. There is no jugular venous distention or carotid bruit. She has no thyromegaly. CHEST: Clear to auscultation. She has a palpable pacemaker beneath the distal right clavicle. CARDIAC: Shows a regular rhythm. S1 and S2 are normal. She has a systolic murmur at the base radiating toward the neck. ABDOMEN: Shows scars from prior surgical procedures. Her transplant is palpable in the left lower quadrant. It is not tender. She does have a lump over the superior portion of the scar consistent with heaped up muscle or granulation tissue. The area is not tender. She has a soft bruit over the transplant. EXTREMITIES: Show no cyanosis or clubbing. She has trace lower extremity edema. NEUROLOGIC: Normal. PERTINENT LABORATORY WORK: From today shows a white blood cell count down to 5790. She still has 87.6% neutrophils, 5.5% lymphocytes, 6.6% monocytes. She has no eosinophils or basophils noted. Her hemoglobin is 10.4, hematocrit 33.5, her platelet count is 114,000. Clinical chemistries from today show a sodium of 135 mmol/L, potassium 3.7 mmol/L, chloride is 101 mmol/L, and CO2 content 23 mmol/L. Her BUN is 26. Her creatinine is down to 1.44. A random blood sugar this morning was 211, but all other blood sugars have been normal. Her serum calcium is 9.0. ASSESSMENT: Continued improvement. PLAN: Certainly I would agree that it is appropriate now for her to be discharged on oral antibiotics for another 7-10 days. I think I should see her in the office in 1 week and told her so. We will recheck a laboratory work at that time including a basic metabolic profile, CBC and urinalysis. She can be discharged on all of her usual medications including her usual immunosuppression as well as antibiotics.
--- NOTE | 2018-11-20 13:44 | Discharge Summary ---
Date of Service November 20, 2018 Admission HPI Per Admitting Provider 63-year-old female with a history of DDT kidney transplant in 1995 (right) and 2012 (left) who presents for UTI. Patient was in her normal state of health when she went to bed last night, but awoke with chills. She then had objective fever measured at home, along with nausea, vomiting, and diarrhea. She also notes some pain over her left kidney transplant site. This is fairly typical course for her UTIs, of which she has had many. Her most recent one was approximately [address] Lin's outpatient notes, he has concern for prior complicated cystitis with some involvement of her transplant kidney. She denies any dysuria, polyuria, suprapubic pain, or incomplete voiding. At present, she reports no fevers, chills, chest pain, abdominal pain, shortness of breath, focal weakness, or other symptoms. Admission Exam Per Admitting Provider Constitutional: WD/WN, vitals as above well nourished, + acute distress and + lethargic Eyes: EOM intact bilaterally; no conjunctival abnormality ENMT: external ear and nose normal, oropharynx normal Neck: trachea midline, no thyromegaly normal visual inspection Respiratory: normal respiratory effort, lungs clear to auscultation no respiratory distress Cardiovascular: RRR, no murmur, no edema Gastrointestinal (Abdomen): Inspection/Auscultation: abdomen normal to inspection; abdomen not distended Percussion/Palpation: abdomen soft; abdomen nontender, no guarding and abdomen not rigid Musculoskeletal: no cyanosis or clubbing, extremities motor strength 5/5 Skin: no rashes, warm and dry Neurologic: moves all extremities and awake Psychiatric: Orientation: alert, oriented to person and cooperative Genitourinary: Left transplant site non-tender Principal Diagnosis E coli UTI Discharge Exam Constitutional WD/WN, vitals as above + obese Eyes PERRL, conjunctivae normal, anicteric sclerae ENMT external ear and nose normal, oropharynx normal Neck trachea midline, no thyromegaly Respiratory normal respiratory effort, lungs clear to auscultation Cardiovascular RRR, no murmur, no edema Gastrointestinal (Abdomen) normal bowel sounds, soft, nontender, no hepatosplenomegaly Musculoskeletal no cyanosis or clubbing, extremities motor strength 5/5 Skin no rashes, warm and dry Neurologic patellar DTR's 2+ bilat, sensation intact and PERRL, EOMI, accommodation nl, no face palsy, no dysarthria Psychiatric A+Ox3, euthymic affect Lymphatic no cervical or axillary lymphadenopathy Discharge Data Allergies Allergy/AdvReac Type Severity Reaction Status Date / Time Quinolones Allergy Intermediate FLOXIN Verified 11/16/18 12:26 CAUSES HIVES Consultations 11/16/18 14:47 ED Decision to Admit Stat 11/16/18 16:10 Consult Nephrology Routine Ordered Studies 11/16/18 12:05 CT abd pelvis wo con Stat Hospital Course (1) Urinary tract infection: UA on 11/16 indicated infection. Urine culture growing E coli and Group B strep sensitive to Zosyn, will continue for now WBC down to normal level from 15k on admission no fever, malaise improved with stress dose steroids will d/c home on Keflex 500mg BID for 7 more days, will give total of 10 days of treatment (2) Hx of kidney transplant: Left-sided DDT in 2012. Kidney function at baseline with Cr of ~1.1 Continue current Rx: prograf 2 mg BID, Myfortic 540 BID, prednisone 5 mg daily. patient fatigued, slow to improve despite appropriate treatment, responded well to Hydrocortisone 50mg IV q8 for 24 hours likely just needed the stress dose steroids can resume Prednisone 5mg on discharge Cr is stable at 1.44 today making urine no further fluids needed (3) Diarrhea: Reports 4-5 episodes of watery diarrhea today in setting of fevers, chills. No sick contacts, no recent dietary changes, no recent abx. From outpatient notes, this appears similar to prior UTIs, but would not want to miss infectious cause of diarrhea. C diff and stool culture negative symptoms improving, no diarrhea reported for two days (4) Atrial fibrillation: Permenant. Also with tachy-belle syndrome. S/p pacemaker. - Continue anticoagulation - INR 3 today - Continue beta-carlitos and diltiazem for rate-control (5) Hypertension: On long-standing atenolol and diltiazem for HTN and rate-control. BP stable today (6) DVT prophylaxis: On warfarin for afib - INR in therapeutic range check labs in the AM likely transition to PO antibiotics in next 24-48 hours and then discharge Total Time Total Time Spent Total Time Spent (In Minutes): 35 minutes Total Time Includes: Examination of the Patient, Discharge Planning, Medication Reconciliation and Communication With Other Providers (Dr. Lin) Discharge Plan Discharge Items Patient Disposition: Home - Self-Care Reason For Visit: UTI,DIARRHEA Discharge Diagnosis: UTI - E coli Condition: Good Discharge Goals: Improve disease control and Improve function Activity: Resume your previous activity Lifting: None Bathing: No limitations Sexual Activity: When tolerated Exercise/Sports: None Non-emergency contact: Primary Care Provider and Nutrition Director Call non-emergency contact if: you have any medication questions, your symptoms worsen, your pain is not controlled and you have a fever Follow-up/Referrals: Joey Lin MD [Primary Care Provider] - (Please follow up with Dr. Lin. The nurse from the office will call you with details of appointment. If you have any questions, please call the office at [phone]) Diet: Heart Healthy Addtl Provider Instructions: Medications - KEFLEX: antibiotic to treat UTI, take 500mg twice a day for 7 more days UTI due to E coli, caused cystitis and weakness improved with treatment with Zosyn urine culture shows that the E coli is sensitive to cephalosporins complete 7 more days of Keflex CKD with h/o renal transplant renal function stable, Cr is 1.44 today follow up with Dr. Lin Prescriptions: New cephalexin [Keflex] 500 mg capsule 500 mg PO Q12H 7 Days Qty: 14 RF: 0 Continued diltiazem HCl 180 mg capsule,extended release 24 hr 180 mg PO BID RF: 0 prednisone 5 mg Tablet 5 mg PO DAILY RF: 0 atenolol 25 mg Tablet 25 mg PO BID RF: 0 cyanocobalamin (vitamin B-12) [Vitamin B-12] 1,000 mcg Tablet 1,000 mcg PO DAILY RF: 0 warfarin 2 mg tablet 1 dose PO UD RF: 0 tacrolimus 1 mg Capsule 2 mg PO Q12H RF: 0 cranberry 500 mg Capsule 500 mg PO BID RF: 0 mycophenolate sodium 180 mg Tablet,Delayed Release (Dr/Ec) 540 mg PO BID RF: 0 Stand-Alone Forms: [facility] Discharge Orders: Discharge Order (Routine); Ordered 11/20/18 Ordered By: Luis Fernando Franco Admission Data Admit Date/Time: 11/19/18 14:29 Attending Provider: Salvador Miles Admit Provider: Mitchell Doherty Primary Care Provider: Joey Lin Other Providers: Mitchell Doherty ; Joey Lin ; Luis Fernando Franco Service: Medical Other Interventions: Discharge Summary Assessment (RN) Last Done: 11/20/18 13:43
[2018-11-20] MEDS: WARFARIN SOD 2 MG TAB PO SCH (16:08)
== END 2018-11-20 19:17 | disposition home or self-care (01) | DRG 690 ==
LOC: ED 11:33 → 4W 11:33 → SUATTDRO 16:04

== ENCOUNTER 2019-09-09 06:53 | Inpatient (IN) ==
[2019-09-09] MEDS ORDERED: SODIUM CHLORIDE 0.9% 1000ML 1,000 ML IV ONE ×4 (07:03→10:18)
[2019-09-09] MEDS ORDERED: GI COCKTAIL ED USE PO ONE (07:16)
[2019-09-09] MEDS ORDERED: ONDANSETRON INJ 2 MG/ML 2 ML VIAL IV STA (07:16)
[2019-09-09 07:32] LABS: Basophils # (auto) 0.01 K/uL (0-0.2); Basophils % (auto) 0.1 %; Eosinophils # (auto) 0.05 K/uL (0-0.5); Eosinophils % (auto) 0.4 %; Hemoglobin 11.5 g/dL (12.0-16.0); Immature Granulocytes # (auto) 0.04 K/uL (0.00-0.02); Immature Granulocytes % (auto) 0.4 %; Lymphocytes # (auto) 0.62 K/uL (1.2-3.4); Lymphocytes % (auto) 5.6 %; Mean Corpuscular Hemoglobin 27.6 pg (25-34); Mean Corpuscular Hgb Conc 30.3 g/dL (32-36); Mean Corpuscular Volume 91.1 fL (80-100); Mean Platelet Volume 9.3 fL (7.4-10.4); Monocytes # (auto) 0.97 K/uL (0.11-0.59); Monocytes % (auto) 8.7 %; Neutrophils # (auto) 9.43 K/uL (1.4-6.5); Neutrophils % (auto) 84.8 %; Platelet Count 105 K/uL (130-400); RDW Coefficient of Variation 13.7 % (11.5-14.5); RDW Standard Deviation 45.5 fL (36.4-46.3); Red Blood Count 4.17 M/uL (4.2-5.4); White Blood Count 11.12 K/uL (4.8-10.8)
--- NOTE | 2019-09-09 07:32 | Emergency Department Note ---
ED Visit Note I assisted in the care of this patient with Dr. Mckeon. . Resident Activity Tracking Resident Involvement: Resident Care Provided Care Provided: Adult ED
[2019-09-09 07:50] LABS: Albumin Level 3.2 gm/dl (3.4-5.0); BUN Creatinine Ratio 15.9 (10-20); Calcium 9.1 mg/dl (8.5-10.1); Creatinine Clr Calc Pharmacy 37.9 ml/min; Est GFR (African American) 39.6; Est GFR (Non-African American) 34.2; Magnesium 1.1 mg/dl (1.8-2.4); Potassium 4.1 mmol/L (3.5-5.1)
[2019-09-09] MEDS ORDERED: ACETAMINOPHEN 325 MG TAB PO STA (07:55)
[2019-09-09] MEDS: MAGNESIUM SULFATE / D5W 1 GM/100 ML BAG IV SCH ×2 (08:00→09:00)
[2019-09-09 08:12] LABS: Bilirubin,Total 0.7 mg/dl (0.2-1); Globulin 3.3 gm/dl (2.5-4.0); Phosphorus 1.5 mg/dl (2.5-4.9); Total Protein 6.5 gm/dl (6.4-8.2)
[2019-09-09] MEDS ORDERED: SODIUM PHOSPHATE 3 MMOL/1 ML 5 ML VIAL IV ONE (08:15)
[2019-09-09 08:18] LABS: Influenza A virus by PCR Neg for Influ A (Neg); Influenza B virus by PCR Neg for Influ B (Neg)
[2019-09-09] MEDS ORDERED: SODIUM PHOSPHATE 30 MMOL in SODIUM CHLORIDE 0.9% 500 ML IV ONE (08:30)
[2019-09-09 09:29] LABS: Appearance Urine Cloudy (Clear); Bacteria Urine Automated Negative (Negative); Bilirubin Urine Negative (Negative); Blood Urine 1+ (Negative); Color Urine Yellow; Epithelial Cell Urine Auto 20-30 /lpf (0-5); Glucose Urine UA Negative (Negative); Ketones Urine Negative (Negative); Leukocyte Esterase Urine 2+ (Negative); Nitrite Urine Negative (Negative); Protein Urine 1+ (Negative); RBC Urine Automated 0-4 /hpf (0-4); Specific Gravity Urine 1.011 (1.000-1.030); Urobilinogen Urine Negative (Negative); WBC Urine Automated >30 /hpf (0-5)
[2019-09-09] MEDS ORDERED: cefTRIAXone SODIUM 1,000 MG/50 ML BAG IV STA (09:34)
[2019-09-09] MEDS ORDERED: cephALEXin 250 MG CAP PO ONE (09:34)
--- NOTE | 2019-09-09 09:36 | Emergency Department Note ---
Entered by Kacey Rodríguez acting as a scribe for Levi Mckeon DO History of Present Illness General Chief complaint: Illness Stated complaint: CHILLS,DRYHEAVES/VOMITING,DIARRHEA Time Seen by Provider: 09/09/19 07:01 Source: patient History of Present Illness Onset (ago): hour(s) (0100 today) Location: head (Chills) Pain Consistency: + other (persistent) Quality: + other (Chills) Exacerbated By: not by eating Associated symptoms: + fever/chills (Positive chills. Negative fevers. ), + nausea/vomiting and + other (Positive rhinorrhea, dry heaving, soft bowel movements, pressure around bladder. Negative abdominal pain, sore throat, dysuria, polyuria.); no chest pain, no cough and no shortness of breath Treatments prior to arrival: none The patient is a 64 year old female presenting to the Emergency Department complaining of persistent chills starting at 0100. The patient reports that she woke up this morning with chills. She state that she then went to the bathroom and vomited up tuna she ate for dinner the night before. She explains that she has also been dry heaving all morning. She notes that she has had several soft bowel movements but that they were not diarrhea. She adds that she doesnt believe food contributed to her symptoms as she hasnt ate out recently. The patient reports that she has pressure around her bladder. She states that she has persistent rhinorrhea. She explains that she suffers with chronic renal insufficiency and has had 2 kidney transplants. She notes that she took no medications [employer] for her symptoms. She adds that she regularly takes Coumadin. The patient denies chest pain, shortness of breath, cough, sore throat, abdominal pain, dysuria and polyuria. Home Medications Home Medications Medication Instructions Recorded Confirmed Type atenolol 25 mg tablet 25 mg PO BID #180 tab 04/30/19 09/09/19 History cranberry 400 mg capsule 400 mg PO BID cap 04/30/19 09/09/19 History cyanocobalamin (vitamin B-12) 1,000 mcg PO QAM tab 04/30/19 09/09/19 History 1,000 mcg tablet diltiazem HCl 180 mg 180 mg PO BID #180 cap 04/30/19 09/09/19 History capsule,extended release 24 hr mycophenolate sodium 180 mg 540 mg PO BID tab 04/30/19 09/09/19 History tablet,delayed release prednisone 5 mg tablet 5 mg PO QAM #90 tab 04/30/19 09/09/19 History tacrolimus 1 mg capsule 2 mg PO Q12H #450 cap 04/30/19 09/09/19 History warfarin 2 mg tablet 2 mg PO DAILY #90 tab 06/25/19 09/09/19 Rx warfarin 3 mg tablet 3 mg PO DAILY #90 tab 06/25/19 09/09/19 Rx Allergies Allergy/AdvReac Type Severity Reaction Status Date / Time Quinolones Allergy Intermediate FLOXIN Verified 05/26/19 13:32 CAUSES HIVES ofloxacin [From Floxin] Allergy Unknown HIVES Verified 05/26/19 13:32 Past Med/Surg History Medical History Acute kidney injury (Acute) Anemia (Chronic) Atrial fibrillation with RVR (Acute) Cardiac pacemaker (Chronic) Creatinine elevation (Acute) Dehydration (Acute) Diarrhea Fever (Acute) History of recurrent UTI (urinary tract infection) (Chronic) Hx of kidney transplant (Acute) Hyperglycemia (Chronic) Hypokalemia (Acute) Hypomagnesemia (Acute) Hypomagnesemia (Acute) Hyponatremia (Acute) Hypotension Intractable diarrhea (Acute 12/20/13) Kidney disease (Chronic) Laryngopharyngeal reflux (Chronic) Low serum vitamin B12 (Chronic) Nausea vomiting and diarrhea (Acute) Prerenal azotemia (Acute) Rapid atrial fibrillation Right flank pain (Acute) S/P parathyroidectomy (Acute) Sepsis (Acute 07/26/13) Tinnitus (Chronic) Urinary tract infection (Acute 08/27/14) Surgical History Hx of cholecystectomy (Resolved) Kidney transplant status, cadaveric Family History Mother Heart disease Social History Preferred Language: Stateless Communication Ability: Effective Dispatcher Street Department Required: No Beliefs That Will Affect Care: None Current Living Situation: Spouse Other Information That Helps Us Care for You: No Feels Safe at Home: Yes Safety Concerns: Feels Safe At This Time Smoking Status: Never smoker Do You Dip or Chew Tobacco: No ; Second Hand Exposure: No ; Tobacco Cessation Education Requested by Patient: No Hx Alcohol Use: No Hx Substance Use: No Review of Systems See HPI for pertinent positives & negatives. and A total of 10 systems reviewed and were otherwise negative Physical Exam Vital Signs Vital Signs - 24 hr 09/09/19 06:58 09/09/19 07:22 09/09/19 07:28 Temperature 37.6 C H Temperature Source Oral Pulse Rate 74 99 H Pulse Rate from SpO2 Sensor 101 H Respiratory Rate 16 26 H Respiratory Effort / Characteristics Spontaneous Blood Pressure 113/68 114/55 L Blood Pressure Mean 83 71 Blood Pressure Position Sitting Pulse Oximetry 97 94 95 Oxygen Delivery Method Room Air Room Air Room Air Sepsis Recent Fever Within 48 Hours Yes Sepsis New/Unexplained Change in Mental Status No Sepsis Action Taken by Nursing No Action Required 09/09/19 07:30 09/09/19 08:01 09/09/19 08:35 Temperature Temperature Source Pulse Rate 100 H 106 H 99 H Pulse Rate from SpO2 Sensor 98 H 103 H 100 H Respiratory Rate 22 22 24 Respiratory Effort / Characteristics Blood Pressure 119/57 L 113/47 L 95/42 L Blood Pressure Mean 68 72 59 Blood Pressure Position Pulse Oximetry 94 94 94 Oxygen Delivery Method Room Air Room Air Room Air Sepsis Recent Fever Within 48 Hours Sepsis New/Unexplained Change in Mental Status Sepsis Action Taken by Nursing 09/09/19 08:39 09/09/19 09:00 09/09/19 10:11 Temperature 37.6 C H Temperature Source Oral Pulse Rate 99 H 86 Pulse Rate from SpO2 Sensor 99 H 88 Respiratory Rate 23 22 Respiratory Effort / Characteristics Blood Pressure 104/43 L 84/43 L Blood Pressure Mean 69 65 Blood Pressure Position Pulse Oximetry 93 92 Oxygen Delivery Method Room Air Room Air Sepsis Recent Fever Within 48 Hours Sepsis New/Unexplained Change in Mental Status Sepsis Action Taken by Nursing 09/09/19 10:17 09/09/19 10:30 Temperature Temperature Source Pulse Rate 92 H 86 Pulse Rate from SpO2 Sensor 92 H 85 Respiratory Rate 19 22 Respiratory Effort / Characteristics Blood Pressure 83/46 L 97/46 L Blood Pressure Mean 50 71 Blood Pressure Position Pulse Oximetry 93 94 Oxygen Delivery Method Room Air Room Air Sepsis Recent Fever Within 48 Hours Sepsis New/Unexplained Change in Mental Status Sepsis Action Taken by Nursing GENERAL: Patient is sitting up in bed. Disheveled. Wearing hospital gown. Non- toxic. EYE EXAM: normal conjunctiva. OROPHARYNX: no exudate, no erythema, lips, buccal mucosa, and tongue normal and mucous membranes are moist NECK: supple, no nuchal rigidity, no adenopathy, non-tender LUNGS: Clear to auscultation. Normal chest wall mechanics HEART: no murmurs, S1 normal and S2 normal ABDOMEN: Old incision on abdomen. Minimal tenderness over the renal transplant. Abdomen soft, non-tender, normo-active bowel sounds, no rebound or guarding. BACK: Back is symmetrical on inspection and there is no deformity, no midline tenderness, no CVA tenderness. SKIN: no rashes and no bruising UPPER EXTREMITIES: upper extremities are grossly normal. LOWER EXTREMITIES: No pitting edema. NEURO EXAM: Normal sensorium, cranial nerves II-XII grossly intact, normal speech, no gross weakness of arms, no gross weakness of legs. Course Course ED COURSE: Vital signs were reviewed and normal. The patients medical record was reviewed The above diagnostic studies were performed and reviewed. ED treatments and interventions as stated above. 0704: The patient was evaluated in room A10. A complete history and physical examination was performed. 0943: I reevaluated the patient at this time. We discussed the patients disposition. 1022: I discussed the patient's case with Dr. Abimael Garcia [facility] hospitalist. She will evaluate the patient for further management. 1030: Upon reevaluation, I discussed my findings with the patient and she understands and agrees with the treatment plan. Based on the patients age, coexisting illnesses, exam and lab findings the decision to treat as an inpatient was made. The patient remained stable while under my care. The patient will be evaluated for further management. Administered Medications Sodium Phosphate 30 mmol/ (Sodium Chloride) 510 mls @ 88 mls/hr IV ONE ONE Stop: 09/09/19 14:17 Last Admin: 09/09/19 08:35 Dose: 88 mls/hr Documented by: [id number] Discontinued Medications Acetaminophen (Tylenol) 650 mg PO NOW STA Stop: 09/09/19 07:56 Last Admin: 09/09/19 08:00 Dose: 650 mg Documented by: [id number] Al Hydrox/Mg Hydrox/Simethicone () 1 dose PO ONE ONE Stop: 09/09/19 07:17 Last Admin: 09/09/19 07:36 Dose: 1 dose Documented by: [id number] Cephalexin HCl (Keflex) 500 mg PO NOW ONE Stop: 09/09/19 09:35 Last Admin: 09/09/19 11:25 Dose: Not Given Documented by: [id number] Sodium Chloride (Nss 1000ml) 1,000 mls @ 999 mls/hr IV .Q1H1M ONE Stop: 09/09/19 08:03 Last Infusion: 09/09/19 08:30 Dose: 0 mls/hr Documented by: [id number] Admin: 09/09/19 07:28 Dose: 999 mls/hr Documented by: [id number] Sodium Chloride (Nss 1000ml) 1,000 mls @ 999 mls/hr IV .Q1H1M ONE Stop: 09/09/19 08:16 Last Admin: 09/09/19 11:25 Dose: Not Given Documented by: [id number] Sodium Chloride (Nss 1000ml) 1,000 mls @ 999 mls/hr IV .Q1H1M ONE Stop: 09/09/19 08:51 Last Infusion: 09/09/19 09:02 Dose: 0 mls/hr Documented by: [id number] Admin: 09/09/19 08:00 Dose: 999 mls/hr Documented by: [id number] Magnesium Sulfate/Dextrose (Magnesium Sulfate / D5w) 1 gm in 100 mls @ 100 mls/hr IV Q1H LEON Stop: 09/09/19 09:59 Last Infusion: 09/09/19 10:06 Dose: 0 mls/hr Documented by: [id number] Admin: 09/09/19 09:00 Dose: 100 mls/hr Documented by: [id number] Infusion: 09/09/19 09:00 Dose: 0 mls/hr Documented by: [id number] Admin: 09/09/19 08:00 Dose: 100 mls/hr Documented by: [id number] Ceftriaxone Sodium (Rocephin) 1,000 mg in 50 mls @ 100 mls/hr IV NOW STA Stop: 09/09/19 10:03 Last Infusion: 09/09/19 10:38 Dose: 0 mls/hr Documented by: [id number] Admin: 09/09/19 10:05 Dose: 100 mls/hr Documented by: [id number] Sodium Chloride (Nss 1000ml) 1,000 mls @ 999 mls/hr IV .Q1H1M ONE Stop: 09/09/19 11:18 Last Infusion: 09/09/19 11:26 Dose: 0 mls/hr Documented by: [id number] Admin: 09/09/19 10:25 Dose: 999 mls/hr Documented by: [id number] Mycophenolate Sodium (Myfortic) 540 mg PO ONE ONE Stop: 09/09/19 12:31 Last Admin: 09/09/19 12:26 Dose: Not Given Documented by: [id number] Ondansetron HCl (Zofran) 4 mg IV NOW STA Stop: 09/09/19 07:17 Last Admin: 09/09/19 07:35 Dose: 4 mg Documented by: [id number] Sodium Phosphate (Sodium Phosphate) 30 mmol IV ONE ONE Stop: 09/09/19 08:16 Last Admin: 09/09/19 08:35 Dose: Not Given Documented by: [id number] Tacrolimus (Prograf) 2 mg PO Q12H LEON Stop: 10/09/19 12:14 Last Admin: 09/09/19 12:25 Dose: Not Given Documented by: [id number] Medical Decision Making Differential Diagnosis Differential diagnoses includes but is not limited to gastritis, peptic ulcer disease, GERD, gallbladder disease, pancreatitis, small bowel obstruction, acute coronary syndrome, pericarditis, ischemic bowel, irritable bowel disease, irritable bowel syndrome, appendicitis, diverticulitis, malignancy, hernia, urinary tract infection, torsion, perforation, trauma, infectious. Medical Records Attestation: I reviewed the patient's medical records. Home Medications Current Medication List: was personally reviewed by me Laboratory Data Attestation: I reviewed the patient's lab results. Result diagrams: 09/09/19 07:14 09/09/19 07:14 Lab Results 09/09/19 09/09/19 09/09/19 Range/Units 07:14 07:14 07:32 WBC 11.12 H (4.8-10.8) K/uL RBC 4.17 L (4.2-5.4) M/uL Hgb 11.5 L (12.0-16.0) g/dL Hct 38.0 (37-47) % MCV 91.1 (80-100) fL MCH 27.6 (25-34) pg MCHC 30.3 L (32-36) g/dL RDW Std Deviation 45.5 (36.4-46.3) fL RDW Coeff of Josh 13.7 (11.5-14.5) % Plt Count 105 L (130-400) K/uL MPV 9.3 (7.4-10.4) fL Immature Gran % (Auto) 0.4 % Neut % (Auto) 84.8 % Lymph % (Auto) 5.6 % [place] % (Auto) 8.7 % Eos % (Auto) 0.4 % Baso % (Auto) 0.1 % Immature Gran # (Auto) 0.04 H (0.00-0.02) K/uL Neut # (Auto) 9.43 H (1.4-6.5) K/uL Lymph # (Auto) 0.62 L (1.2-3.4) K/uL [place] # (Auto) 0.97 H (0.11-0.59) K/uL Eos # (Auto) 0.05 (0-0.5) K/uL Baso # (Auto) 0.01 (0-0.2) K/uL Sodium 136 (136-145) mmol/L Potassium 4.1 (3.5-5.1) mmol/L Chloride 107 (98-107) mmol/L Carbon Dioxide 24 (21-32) mmol/L Anion Gap 5.0 (3-11) BUN 25 H (7-18) mg/dl Creatinine 1.60 H (0.6-1.2) mg/dl Est Cr Clr Drug Dosing 37.9 ml/min Est GFR ( Amer) 39.6 Est GFR (Non-Af Amer) 34.2 BUN/Creatinine Ratio 15.9 (10-20) Glucose 127 H (70-99) mg/dl Lactate (0.4-2.0) mmol/L Calcium 9.1 (8.5-10.1) mg/dl Phosphorus 1.5 L* (2.5-4.9) mg/dl Magnesium 1.1 L (1.8-2.4) mg/dl Total Bilirubin 0.7 (0.2-1) mg/dl AST 11 L (15-37) U/L ALT 11 L (12-78) U/L Alkaline Phosphatase 84 (45-117) U/L Total Protein 6.5 (6.4-8.2) gm/dl Albumin 3.2 L (3.4-5.0) gm/dl Globulin 3.3 (2.5-4.0) gm/dl Albumin/Globulin Ratio 1.0 (0.9-2) Lipase 76 (73-393) U/L Specimen Hemolysis Urine Color Urine Appearance (Clear) Urine pH (4.5-7.5) Ur Specific [place] (1.000-1.030) Urine Protein (Negative) Urine Glucose (UA) (Negative) Urine Ketones (Negative) Urine Blood (Negative) Urine Nitrite (Negative) Urine Bilirubin (Negative) Urine Urobilinogen (Negative) Ur Leukocyte Esterase (Negative) Urine WBC (Auto) (0-5) /hpf Urine RBC (Auto) (0-4) /hpf U Hyaline Cast (Auto) (0-5) /lpf U Epithel Cells (Auto) (0-5) /lpf Urine Bacteria (Auto) (Negative) POC Ur Test (NEG) Influenza Type A (PCR) Neg for Influ A (Neg) Influenza Type B (PCR) Neg for Influ B (Neg) 09/09/19 09/09/19 09/09/19 Range/Units 09:12 09:12 10:11 WBC (4.8-10.8) K/uL RBC (4.2-5.4) M/uL Hgb (12.0-16.0) g/dL Hct (37-47) % MCV (80-100) fL MCH (25-34) pg MCHC (32-36) g/dL RDW Std Deviation (36.4-46.3) fL RDW Coeff of Josh (11.5-14.5) % Plt Count (130-400) K/uL MPV (7.4-10.4) fL Immature Gran % (Auto) % Neut % (Auto) % Lymph % (Auto) % [place] % (Auto) % Eos % (Auto) % Baso % (Auto) % Immature Gran # (Auto) (0.00-0.02) K/uL Neut # (Auto) (1.4-6.5) K/uL Lymph # (Auto) (1.2-3.4) K/uL [place] # (Auto) (0.11-0.59) K/uL Eos # (Auto) (0-0.5) K/uL Baso # (Auto) (0-0.2) K/uL Sodium (136-145) mmol/L Potassium (3.5-5.1) mmol/L Chloride (98-107) mmol/L Carbon Dioxide (21-32) mmol/L Anion Gap (3-11) BUN (7-18) mg/dl Creatinine (0.6-1.2) mg/dl Est Cr Clr Drug Dosing ml/min Est GFR ( Amer) Est GFR (Non-Af Amer) BUN/Creatinine Ratio (10-20) Glucose (70-99) mg/dl Lactate 2.2 H* (0.4-2.0) mmol/L Calcium (8.5-10.1) mg/dl Phosphorus (2.5-4.9) mg/dl Magnesium (1.8-2.4) mg/dl Total Bilirubin (0.2-1) mg/dl AST (15-37) U/L ALT (12-78) U/L Alkaline Phosphatase (45-117) U/L Total Protein (6.4-8.2) gm/dl Albumin (3.4-5.0) gm/dl Globulin (2.5-4.0) gm/dl Albumin/Globulin Ratio (0.9-2) Lipase (73-393) U/L Specimen Hemolysis Urine Color Yellow Urine Appearance Cloudy A (Clear) Urine pH 5.0 (4.5-7.5) Ur Specific [place] 1.011 (1.000-1.030) Urine Protein 1+ H (Negative) Urine Glucose (UA) Negative (Negative) Urine Ketones Negative (Negative) Urine Blood 1+ H (Negative) Urine Nitrite Negative (Negative) Urine Bilirubin Negative (Negative) Urine Urobilinogen Negative (Negative) Ur Leukocyte Esterase 2+ H (Negative) Urine WBC (Auto) >30 H (0-5) /hpf Urine RBC (Auto) 0-4 (0-4) /hpf U Hyaline Cast (Auto) 1-5 (0-5) /lpf U Epithel Cells (Auto) 20-30 H (0-5) /lpf Urine Bacteria (Auto) Negative (Negative) POC Ur Test NEG (NEG) Influenza Type A (PCR) (Neg) Influenza Type B (PCR) (Neg) Blood Pressure Blood Pressure Findings: Low blood pressure Blood Pressure Disposition: further management by hospitalist FATOU Narrative Is a 64-year-old female who is immune compromised the presents the ER for nausea vomiting and diarrhea with 2 previous renal transplants on tacrolimus. Patient admits to the nausea vomiting and loose bowel movements associated with runny nose. Denies any chest pain or shortness of breath. Previous history of tac hybradycardia syndrome as well. IV was established blood work was obtained and showed no significant anemia. Mild leukocytosis 11,000. BMP with a creatinine 1.6 off of baseline of about 1.4. Lactic acid was slightly elevated. Phosphorus low as well as magnesium at 1.1. Magnesium and phosphate were repleted. Patient was given 2 L IV fluids. She dropped her pressure into the 70s and was given additional liter. UA with white cells leukocytes and epithelial cells. Clearly contaminated. was negative. Influenza negative. Patient was covered with IV antibiotics and discussed with hospitalist for admission likely secondary to sepsis as she dropped pressures in the 70s but rebounded after third liter into the low 90s. Impression & Plan Sepsis, Hypotension, Acute UTI Discharge Plan Visit Data *Final* Discharge Date/Time: 09/09/19 11:45 Chief Complaint: Illness Stated Complaint: CHILLS,DRYHEAVES/VOMITING,DIARRHEA ED Provider: Levi Mckeon ED Midlevel Provider: Hermes Choi Discharge Problem: Sepsis, Hypotension, Acute UTI Patient Disposition: Admitted As Inpatient Discharge Instructions Interventions: ED Discharge Assessment Last Done: 09/09/19 11:45 Discharge Problem: Sepsis Qualifiers: Sepsis type: sepsis due to unspecified organism Sepsis acute organ dysfunction status: unspecified Qualified Code(s): A41.9 - Sepsis, unspecified organism Hypotension Qualifiers: Hypotension type: unspecified hypotension type Qualified Code(s): I95.9 - Hypotension, unspecified The scribe's documentation has been prepared under my direction and personally reviewed by me in its entirety. I confirm that the note above accurately reflects all work, treatment, procedures, and medical decision making performed by me.
--- NOTE | 2019-09-09 10:56 | History & Physical Report ---
Date of Service September 09, 2019 Assessment & Plan (1) Sepsis: Admit to PCU on telemetry for sepsis. Vital signs every 4 hours. Start sepsis protocol Repeat lactic acid. Initial lactic acid 2.2. Monitor magnesium and phosphorus closely. Consult dietitian. If no improvement in renal function would consider consulting nephrology. DVT prophylaxis continue warfarin Monitor INR Full code Present on Admission?: Yes (2) Hypotension: Patient was hypotensive initially, but after receiving 4 L of fluid in the ER she was able to maintain her blood pressure. Most likely due to sepsis and urinary tract infection. Blood pressure improved. Continue monitoring. Continue gentle IV fluid rehydration. Keep n.p.o. Since patient appears to have gastroenteritis. Present on Admission?: Yes (3) Acute UTI: Started ceftriaxone 2 g IV daily empirically. Urine culture pending. Blood cultures pending. Follow-up sensitivity and specificity. And readjust antibiotic as per cultures. Present on Admission?: Yes (4) Anemia: H&H stable. Most likely due to chronic kidney insufficiency. Continue monitoring. Present on Admission?: Yes (5) Atrial fibrillation: Continue diltiazem 180 mg extended release p.o. twice daily for rate control, Continue atenolol 25 mg p.o. twice daily starting tomorrow Continue warfarin 2 mg p.o. daily and 3 mg p.o. daily as needed to maintain INR between 2 and 3. Continue monitoring on telemetry. Present on Admission?: Yes (6) Hypophosphatemia: Patient already received 30 mmol IV x1. Continue monitoring. A.m. labs pending. Present on Admission?: Yes (7) Hypomagnesemia: Magnesium was also replenished in the ER. Patient received 1 g of magnesium sulfate IV x 1. Continue monitoring. Morning labs pending. Present on Admission?: Yes History of Present Illness Chief Complaint: Nausea and vomiting Primary Care Provider: Rich Lin MD The patient is a 65 years old female with past medical history of kidney transplant cadaveric, frequent urinary tract infections, A. fib's with RVR, ventricularly paced rhythm patient has a pacemaker who presents to the emergency room with feeling sick, nausea vomiting and not being able to keep anything down. Patient denies sick contact. She has renal transplant since 2012. She also has dialysis fistula in her right arm which is not new since she received kidney. Patient reports chills starting at 1 AM this morning. She went to the bathroom and vomited her tuna dinner. Patient continued to have heaves all morning. Patient reports having several bowel movements but they were not diarrhea. Patient does not believe she has food poisoning. She reports having some pressure around her bladder and she has persistent rhinorrhea. Patient reports having chronic renal insufficiency and had 2 kidney transplants. This morning patient did not take her medication because she did not feel okay. She regularly takes Coumadin for A. fib's with RVR. Patient denies chest pain shortness of breath cough sore throat abdominal pain polyuria dysuria syncope or near syncope. Labs are reviewed which shows general electrolyte imbalance with sodium 136, potassium 4.1, chloride 107,Carbon dioxide 24, anion gap 5, BUN 25, creatinine 1.6 /34.2 which is elevated from her baseline 1.24 and GFR of 46.8, lactate is elevated to 2.2, phosphorus 1.5, magnesium 1.1, total bilirubin 0.7, AST 11, ALT 11, BNP pending, TSH pending, albumin 3.2,Lipase 76. WBC is 11.12, hemoglobin 11.5, hematocrit 38, platelets 105. Urine cloudy, urine protein 1, urine blood 1+, leukocyte esterase 2+, over 30 of WBCs, also present epithelial cells. Tacrolimus pending. Decision was made to admit patient for urinary tract infection, sepsis, electrolyte imbalance to the PCU on telemetry. Allergies Allergy/AdvReac Type Severity Reaction Status Date / Time Quinolones Allergy Intermediate FLOXIN Verified 05/26/19 13:32 CAUSES HIVES ofloxacin [From Floxin] Allergy Unknown HIVES Verified 05/26/19 13:32 Home Medications Home Medications Medication Instructions Recorded Confirmed Type atenolol 25 mg tablet 25 mg PO BID #180 tab 04/30/19 09/09/19 History cranberry 400 mg capsule 400 mg PO BID cap 04/30/19 09/09/19 History cyanocobalamin (vitamin B-12) 1,000 mcg PO QAM tab 04/30/19 09/09/19 History 1,000 mcg tablet diltiazem HCl 180 mg 180 mg PO BID #180 cap 04/30/19 09/09/19 History capsule,extended release 24 hr mycophenolate sodium 180 mg 540 mg PO BID tab 04/30/19 09/09/19 History tablet,delayed release prednisone 5 mg tablet 5 mg PO QAM #90 tab 04/30/19 09/09/19 History tacrolimus 1 mg capsule 2 mg PO Q12H #450 cap 04/30/19 09/09/19 History warfarin 2 mg tablet 2 mg PO DAILY #90 tab 06/25/19 09/09/19 Rx warfarin 3 mg tablet 3 mg PO DAILY #90 tab 06/25/19 09/09/19 Rx Past Med/Surg History Medical History Acute kidney injury (Acute) Anemia (Chronic) Atrial fibrillation with RVR (Acute) Cardiac pacemaker (Chronic) Creatinine elevation (Acute) Dehydration (Acute) Diarrhea Fever (Acute) History of recurrent UTI (urinary tract infection) (Chronic) Hx of kidney transplant (Acute) Hyperglycemia (Chronic) Hypokalemia (Acute) Hypomagnesemia (Acute) Hypomagnesemia (Acute) Hyponatremia (Acute) Hypotension Intractable diarrhea (Acute 12/20/13) Kidney disease (Chronic) Laryngopharyngeal reflux (Chronic) Low serum vitamin B12 (Chronic) Nausea vomiting and diarrhea (Acute) Prerenal azotemia (Acute) Rapid atrial fibrillation Right flank pain (Acute) S/P parathyroidectomy (Acute) Sepsis (Acute 07/26/13) Tinnitus (Chronic) Urinary tract infection (Acute 08/27/14) Surgical History Hx of cholecystectomy (Resolved) Kidney transplant status, cadaveric Family History Mother Heart disease Social History Preferred Language: [place] Communication Ability: Effective 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 Beliefs That Will Affect Care: None Current Living Situation: Spouse Other Information That Helps Us Care for You: No Feels Safe at Home: Yes Safety Concerns: Feels Safe At This Time Smoking Status: Never smoker Do You Dip or Chew Tobacco: No ; Second Hand Exposure: No ; Tobacco Cessation Education Requested by Patient: No Hx Alcohol Use: No Hx Substance Use: No Review of Systems Review of Systems: All systems reviewed & are unremarkable except as noted in HPI & below Physical Exam Constitutional: WD/WN, vitals as above well developed and + ill appearing Eyes: PERRL, conjunctivae normal, anicteric sclerae ENMT: external ear and nose normal, oropharynx normal Neck: trachea midline, no thyromegaly Respiratory: normal respiratory effort, lungs clear to auscultation Cardiovascular: Heart Sounds: normal S1 and normal S2 Vessels: dorsalis pedis pulses present Gastrointestinal (Abdomen): Inspection/Auscultation: normal bowel sounds Percussion/Palpation: + abdomen tender and abdomen soft Musculoskeletal: no cyanosis or clubbing, extremities motor strength 5/5 Skin: no rashes, warm and dry Neurologic: patellar DTR's 2+ bilat, sensation intact Psychiatric: A+Ox3, euthymic affect Genitourinary: Positive suprapubic tenderness Lymphatic: no cervical or axillary lymphadenopathy Results & Data Vital Signs (Past 12 Hours) Vital Signs Temp Pulse Resp BP Pulse Ox 09/09/19 10:30 86 22 97/46 L 94 09/09/19 10:17 92 H 19 83/46 L 93 09/09/19 10:11 86 22 84/43 L 92 09/09/19 09:00 99 H 23 104/43 L 93 09/09/19 08:39 37.6 C H 09/09/19 08:35 99 H 24 95/42 L 94 09/09/19 08:01 106 H 22 113/47 L 94 09/09/19 07:30 100 H 22 119/57 L 94 09/09/19 07:28 99 H 26 H 114/55 L 95 09/09/19 07:22 94 09/09/19 06:58 37.6 C H 74 16 113/68 97 Code Status & VTE Plan Code Status Full code VTE Prophylaxis Plan VTE Prophylaxis will be ordered: Yes PG Care Time/CCT Total # of Minutes Spent Total Time Spent with Patient: Total time spent is greater than 50% in coordination of care (as documented) at patient's floor/unit and/or counseling patient: (1) Sepsis Sepsis acute organ dysfunction status: unspecified Sepsis type: sepsis due to unspecified organism Qualified Code(s): A41.9 - Sepsis, unspecified organism (2) Hypotension Hypotension type: unspecified hypotension type Qualified Code(s): I95.9 - Hypotension, unspecified
[2019-09-09] MEDS ORDERED: SODIUM CHLORIDE 0.9% 1000ML 1,000 ML IV SCH (11:54)
[2019-09-09] MEDS ORDERED: PROMETHAZINE HCL 25 MG in SODIUM CHLORIDE 0.9% 50 ML IV PRN (11:54)
[2019-09-09] MEDS ORDERED: ALUMINUM/MAGNESIUM SUSP 30 ML UDC PO PRN (11:54)
[2019-09-09] MEDS ORDERED: MAGNESIUM HYDROXIDE SUSP 30 ML UDC PO PRN (11:54)
[2019-09-09] MEDS ORDERED: ONDANSETRON INJ 2 MG/ML 2 ML VIAL IV PRN (11:54)
[2019-09-09] MEDS ORDERED: POLYETHYLENE (MIRALAX) 17 GM PACK PO PRN (11:54)
[2019-09-09] MEDS ORDERED: TACROLIMUS 1 MG CAP PO SCH (12:15)
[2019-09-09] MEDS ORDERED: MYCOPHENOLATE SODIUM 180 MG TAB PO ONE (12:30)
[2019-09-09 12:41] LABS: INR 2.2 (0.9-1.1); Prothrombin Time 21.5 Seconds (9.0-12.0)
[2019-09-09 13:01] LABS: Thyroid Stimulating Hormone 2.26 uIu/ml (0.300-4.500)
--- NOTE | 2019-09-09 14:53 | Ultrasound Report ---
EXAMINATION: RENAL ULTRASOUND CLINICAL HISTORY: nausea and vomiting, kidney transplant COMPARISON STUDY: 05/08/2016 FINDINGS: The right kidney measures 9.8 cm. The left kidney measures 7 cm. Both [place] kidneys are a trophic and echogenic. There is no hydronephrosis. There is a left lower quadrant transplant kidney measuring 12.9 x 6.0 x 7.4 cm. There is no significa nt hydronephrosis. The transplant renal artery and vein were patent. Renal transplant resistive indices ranged between 0 .66 and 0.79 Neither ureteral jet was visualized. No bladder lesions were demonstrated. IMPRESSION : 1. Bilateral atrophic [place] kidneys 2. Left lower quadrant transplant kidney. No renal masses identified. No evidence of significant hydr onephrosis. Patent transplant renal artery and vein. ACT 112: Negative or not required by law. Electronically signed by: Juan Carlos Herrera M.D. 09/09/2019 2:52 PM
[2019-09-09] MEDS: dilTIAZem HCL 180 MG CAPCR PO SCH (19:12)
[2019-09-09] MEDS: TACROLIMUS 1 MG CAP PO SCH (19:12)
[2019-09-09] MEDS: MYCOPHENOLATE SODIUM 180 MG TAB PO SCH (19:13)
[2019-09-09] MEDS: CRANBERRY EXTRACT PO SCH (19:15)
[2019-09-09] MEDS: ATENOLOL 25 MG TABLET PO SCH (19:41)
[2019-09-09] MEDS: ACETAMINOPHEN 325 MG TAB PO PRN (23:44)
--- NOTE | 2019-09-10 06:41 | XRay Report ---
XR chest 1V portable CLINICAL HISTORY: possible pulmonary congestion SHORTNESS OF BREATH COMPARISON STUDY: 11/16/2018 FINDINGS: The heart is mildly enlarged. There is a right subclavian dual-chamber central venous pacem evelin. There is subtle elevation of the interstitium suggesting mild vascular congestion. There is no lobar consolidation. There are no large pleural effusions.[ IMPRESSION: Cardiomegaly and suspected mild pulmonary vascular congestion. No evidence of focal pulmo nary consolidation ACT 112: Negative or not required by law. Electronically signed by: Juan Carlos Herrera M.D. 09/10/2019 6:40 AM
[2019-09-10 07:45] LABS: Hematocrit (blood only) 35.7 % (37-47); Hemoglobin 10.7 g/dL (12.0-16.0); Mean Corpuscular Hemoglobin 27.6 pg (25-34); Mean Corpuscular Volume 92.2 fL (80-100); RDW Coefficient of Variation 13.9 % (11.5-14.5); RDW Standard Deviation 46.7 fL (36.4-46.3); Red Blood Count 3.87 M/uL (4.2-5.4); White Blood Count 9.82 K/uL (4.8-10.8)
[2019-09-10 08:00] LABS: INR 1.8 (0.9-1.1); Prothrombin Time 17.5 Seconds (9.0-12.0)
[2019-09-10] MEDS: ACETAMINOPHEN 325 MG TAB PO PRN (08:05)
[2019-09-10] MEDS: dilTIAZem HCL 180 MG CAPCR PO SCH ×2 (08:06→20:45)
[2019-09-10] MEDS: VITAMIN B12 PO SCH (08:06)
[2019-09-10] MEDS: MYCOPHENOLATE SODIUM 180 MG TAB PO SCH ×2 (08:07→20:45)
[2019-09-10] MEDS: CRANBERRY EXTRACT PO SCH ×2 (08:07→20:44)
[2019-09-10] MEDS: ATENOLOL 25 MG TABLET PO SCH ×2 (08:08→20:44)
[2019-09-10] MEDS: TACROLIMUS 1 MG CAP PO SCH ×2 (08:08→20:44)
[2019-09-10] MEDS: predniSONE 5 MG TAB PO SCH (08:08)
[2019-09-10 08:11] LABS: Basophils # (auto) 0.02 K/uL (0-0.2); Basophils % (auto) 0.2 %; Echinocytes 1+; Eosinophils # (auto) 0.02 K/uL (0-0.5); Eosinophils % (auto) 0.2 %; Immature Granulocytes # (auto) 0.03 K/uL (0.00-0.02); Immature Granulocytes % (auto) 0.3 %; Lymphocytes # (auto) 0.37 K/uL (1.2-3.4); Lymphocytes % (auto) 3.8 %; Mean Platelet Volume 9.6 fL (7.4-10.4); Monocytes # (auto) 0.48 K/uL (0.11-0.59); Monocytes % (auto) 4.9 %; Neutrophils % (auto) 90.6 %; Platelet Count 82 K/uL (130-400); Platelet Estimate Decreased (Normal)
[2019-09-10 08:15] LABS: Albumin Level 2.7 gm/dl (3.4-5.0); BUN Creatinine Ratio 17.2 (10-20); Calcium 9.1 mg/dl (8.5-10.1); Creatinine Clr Calc Pharmacy 48.8 ml/min; Est GFR (African American) 53.4; Est GFR (Non-African American) 46.1; Magnesium 1.6 mg/dl (1.8-2.4); Potassium 3.9 mmol/L (3.5-5.1)
[2019-09-10 08:20] LABS: Albumin Globulin Ratio 0.8 (0.9-2); Bilirubin,Total 0.7 mg/dl (0.2-1); Globulin 3.2 gm/dl (2.5-4.0); Phosphorus 3.1 mg/dl (2.5-4.9); Total Protein 5.9 gm/dl (6.4-8.2)
[2019-09-10 08:24] LABS: Estimated Average Glucose 117 mg/dl; Hemoglobin A1C 5.7 % (4.5-5.6)
[2019-09-10] MEDS ORDERED: CYANOCOBALAMIN 500 MCG TABLET (VITAMIN B-12) PO SCH (09:00)
[2019-09-10] MEDS ORDERED: ATENOLOL 25 MG TABLET PO SCH (09:00)
[2019-09-10] MEDS ORDERED: WARFARIN SOD 3 MG TAB PO SCH (09:00)
--- NOTE | 2019-09-10 10:56 | Nephrology Consultation ---
Date of Consultation September 10, 2019 Assessment & Plan (1) Kidney transplant status, cadaveric: (2) Nausea vomiting and diarrhea: (3) UTI (urinary tract infection): (4) Acute on chronic renal insufficiency: (5) Acute UTI: Mrs. Barker is a 64-year-old woman now on her second kidney transplant. The transplant has been in place since 2012. Her renal transplant has been complicated by multiple urinary tract infections associated with acute renal insufficiency and hypotension. Symptoms are generally those of nausea and diarrhea associated with fever. The current episode is typical for those that have occurred in the past. Her urinalysis is consistent with an acute urinary tract infection. She does have acute renal insufficiency as well but that improved with volume expansion. Additionally, she has been placed on a broad- spectrum antibiotic (ceftriaxone). She has improved significantly but not completely to date. For now, until her cultures are back I would continue with gentle hydration and the continuation of her ceftriaxone. I would continue her on all of her usual immunosuppressant medications, tacrolimus 2 mg every 12 hours and mycophenolate sodium 540 mg twice daily. In general, stress dose steroids have not been needed for her. I would continue her on her usual dose of 5 mg daily. She should continue on her other usual medications which would include atenolol 25 mg twice daily, diltiazem 180 mg twice daily, warfarin 5 mg daily as well as her vitamin B12 thousand micrograms orally on a daily basis. She is also been using cranberry extract 400 mg twice daily. I appreciate the opportunity to be involved in her inpatient care and will continue to follow her with you. History of Present Illness Reason for Consultation: Mrs. Barker is a 64-year-old white female well-known to me. I have followed her since the late for problems and complications of her chronic renal disease. She was first referred to me because of renal failure in the late . Her blood pressure was elevated at that time. She had advanced renal failure. A biopsy of her kidneys were not done because of the level of her renal dysfunction. 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 No obvious urologic abnormalities were noted. Her blood pressure was brought under control. However, by 1989 she developed symptoms of uremia and volume overload and was begun on maintenance dialysis. After starting hemodialysis she was subsequently switched to CAPD. That was continued until 1994 when it was discontinued because of recurring episodes of peritonitis. She was returned to hemodialysis and remained on hemodialysis for 1 year before getting her first kidney transplant at the [facility] in 1995. 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 The transplant finally failed completely and she was returned to hemodialysis in 2005. She remained on hemodialysis without significant complications until her second transplant was done at [facility] in [place] in 2012. Complications of her second transplant and of her chronic kidney disease included recurrent urinary tract infections as well as hyperparathyroidism for which she had a parathyroidectomy done. She also developed paroxysmal atrial fibrillation. She has had multiple hospitalizations associated with her kidney transplant and associated urinary tract infections. She usually presents with symptoms of nausea with or without vomiting as well as diarrhea, chills and fever. She will occasionally but not always have associated dysuria and rarely has pain over her transplanted kidney. More often than not, urine cultures are positive and blood cultures may or may not have been positive. The episodes are generally associated with a transient reduction of her renal function which improves with volume repletion and the treatment with antibiotics. Her most typical organisms have been an enterococcus but she is also cultured out Klebsiella pneumonia and Enterobacter as well as E. coli in the past. She has a history of intermittent episodes of diarrhea associated with urinary tract infections and fevers. However, it was decided to switch her immunosuppression from mycophenolate mofetil to mycophenolate sodium in an effort to decrease her episodes of diarrhea. This has not been effective. Her other major issues include atrial fibrillation. She had episodes of paroxysmal atrial fibrillation since having her second kidney transplant in 2012. Episodes were initially diagnosed during a visit to [facility]. Her treatments were initially included anticoagulation with warfarin as well as the use of diltiazem to help with rate control. Generally, she was unaware of episodes of atrial fibrillation unless she developed significant palpitations which was not a usual symptom. She developed a tachybradycardia syndrome in April 2016 and had the placement of a dual-chamber [place] pacemaker placed at the time. Other cardiac issues include a history of mitral regurgitation and diastolic dysfunction. She did have a cardiac catheterization done in 2010 after an episode of chest pain which proved to be noncardiac. However, she was noted to have a 10 to 20% mid LAD stenosis is the only finding. In 2012, she developed an episode of chest discomfort but a stress echocardiogram was negative. In 2013 she had an echocardiogram. Her ejection fraction was 65 to 70% and no wall motion abnormalities were noted. She did hav e mild to moderate pulmonary regurgitation at that time. She has been having recurrent urinary tract infections requiring admissions to the hospital at least once a year for fevers, diarrhea, volume reduction and acute superimposed on her chronic renal insufficiency. She generally responds to broad-spectrum antibiotics. The organisms that were associated with the infection were noted above. Her current admission is similar. Apparently, she was awakened the day prior to admission with symptoms of nausea and occasional vomiting. She had several stools but no iban diarrhea. She went on to develop chills and a fever. She had some nonspecific lower urinary tract pressure but no iban dysuria. Nonetheless, she recognized that she probably had another urinary tract infection and came to the emergency room. She was hypotensive. Her serum creatinine had climbed to 1.6 from a baseline of about 1.2. Admitted and started on volume repletion. She was appropriately cultured and placed on broad-spectrum antibiotics. This morning, she said that she is feeling somewhat better. Her serum creatinine is back down to 1.25. Her blood pressure is back up to her usual normal range. Attending Physician: Mitchell Doherty MD Allergies Allergy/AdvReac Type Severity Reaction Status Date / Time Quinolones Allergy Intermediate FLOXIN Verified 05/26/19 13:32 CAUSES HIVES ofloxacin [From Floxin] Allergy Unknown HIVES Verified 05/26/19 13:32 Home Medications Home Medications Medication Instructions Recorded Confirmed Type atenolol 25 mg tablet 25 mg PO BID #180 tab 04/30/19 09/09/19 History cranberry 400 mg capsule 400 mg PO BID cap 04/30/19 09/09/19 History cyanocobalamin (vitamin B-12) 1,000 mcg PO QAM tab 04/30/19 09/09/19 History 1,000 mcg tablet diltiazem HCl 180 mg 180 mg PO BID #180 cap 04/30/19 09/09/19 History capsule,extended release 24 hr mycophenolate sodium 180 mg 540 mg PO BID tab 04/30/19 09/09/19 History tablet,delayed release prednisone 5 mg tablet 5 mg PO QAM #90 tab 04/30/19 09/09/19 History tacrolimus 1 mg capsule 2 mg PO Q12H #450 cap 04/30/19 09/09/19 History warfarin 2 mg tablet 2 mg PO DAILY #90 tab 06/25/19 09/09/19 Rx warfarin 3 mg tablet 3 mg PO DAILY #90 tab 06/25/19 09/09/19 Rx Patient History Medical History Acute kidney injury (Acute) Anemia (Chronic) Atrial fibrillation with RVR (Acute) Cardiac pacemaker (Chronic) Creatinine elevation (Acute) Dehydration (Acute) Diarrhea Fever (Acute) History of recurrent UTI (urinary tract infection) (Chronic) Hx of kidney transplant (Acute) Hyperglycemia (Chronic) Hypokalemia (Acute) Hypomagnesemia (Acute) Hypomagnesemia (Acute) Hyponatremia (Acute) Hypotension Intractable diarrhea (Acute 12/20/13) Kidney disease (Chronic) Laryngopharyngeal reflux (Chronic) Low serum vitamin B12 (Chronic) Nausea vomiting and diarrhea (Acute) Prerenal azotemia (Acute) Rapid atrial fibrillation Right flank pain (Acute) S/P parathyroidectomy (Acute) Sepsis (Acute 07/26/13) Tinnitus (Chronic) Urinary tract infection (Acute 08/27/14) Surgical History Hx of cholecystectomy (Resolved) Kidney transplant status, cadaveric Family History Mother Heart disease Social History Preferred Language: American Communication Ability: Effective Laboratory Animal Facility Supervisor Required: No Beliefs That Will Affect Care: None Current Living Situation: Spouse Other Information That Helps Us Care for You: No Feels Safe at Home: Yes Safety Concerns: Feels Safe At This Time Smoking Status: Never smoker Do You Dip or Chew Tobacco: No ; Second Hand Exposure: No ; Tobacco Cessation Education Requested by Patient: No Hx Alcohol Use: No Hx Substance Use: No Physical Exam Physical Exam: On her current physical examination, she appears a bit lethargic but is easily aroused and answers questions appropriately. Her blood pressure is 138/85. Her pulse is 112 and irregular. Respiratory rate is 18. Her temperature is 37.7 C. Her oxygen saturation is 94% on 2 L of oxygen via nasal cannula. Her skin shows her to be somewhat plethoric. Her skin turgor seems normal. There are multiple scars from prior surgical procedures and trauma particularly on her arms. She has bilateral lower abdominal scars from prior kidney transplants. Her current transplant is in the left lower quadrant. She has 3 over her abdomen is well. She has no iban rash or infiltrative skin disease. She does have a few scattered ecchymoses. Lymphatics show no palpable lymphadenopathy. Her head is grossly normal. Eyes are grossly normal. She has no conjunctival icterus. Extraocular movements are intact and pupils react to light. The ocular fundi were not examined. Ears, nose, mouth and throat are remarkable for her being edentulous. Oral mucous membranes are moist. Her neck is supple. She has no jugular venous distention lying at about 30 degrees. I hear no carotid bruits. She has no thyromegaly. She does have a scar at the anterior base of her neck from her parathyroid surgery. Her chest is clear to auscultation except for a few crackles at the left base. These do not seem to improve with deep breathing. Cardiac exam shows an irregular rhythm. S1 and S2 seem normal. She has a grade 2/6 to 3/6 systolic murmur at the base radiating toward the neck. She has no diastolic murmurs or gallops. Her abdomen is obese. It is nontender. Her renal transplant is barely palpable in the left lower quadrant. It is nontender. She does have a very soft bruit over the graft. There was no other organomegaly or mass. Extremities show no cyanosis or clubbing. She has no current peripheral edema. She has a left upper arm AV fistula with a good bruit radiating into her chest. Peripheral pulses in her feet are difficult to feel. However, she does have normal capillary refill of her fingers and toes. Her neurologic exam shows her to be a bit lethargic but there are no lateralizing findings. Results & Data Vital Signs (Past 12 Hours) Vital Signs Temp Pulse Pulse Pulse Resp BP Pulse Ox 09/10/19 10:08 112 H 09/10/19 09:20 37.7 C H 09/10/19 07:33 39.2 C H 97 H 18 138/85 94 09/10/19 04:29 37.2 C 107 H 18 128/71 97 09/09/19 23:42 95 09/09/19 23:41 38.1 C H 103 H 19 150/73 H 86 L Laboratory Results Laboratory Results - last 48 hr 09/09/19 09/09/19 09/09/19 07:14 07:14 07:32 WBC 11.12 H RBC 4.17 L Hgb 11.5 L Hct 38.0 MCV 91.1 MCH 27.6 MCHC 30.3 L RDW Std Deviation 45.5 RDW Coeff of Josh 13.7 Plt Count 105 L MPV 9.3 Immature Gran % (Auto) 0.4 Neut % (Auto) 84.8 Lymph % (Auto) 5.6 [place] % (Auto) 8.7 Eos % (Auto) 0.4 Baso % (Auto) 0.1 Immature Gran # (Auto) 0.04 H Neut # (Auto) 9.43 H Lymph # (Auto) 0.62 L [place] # (Auto) 0.97 H Eos # (Auto) 0.05 Baso # (Auto) 0.01 Platelet Estimate Echinocytes PT INR Sodium 136 Potassium 4.1 Chloride 107 Carbon Dioxide 24 Anion Gap 5.0 BUN 25 H Creatinine 1.60 H Est Cr Clr Drug Dosing 37.9 Est GFR ( Amer) 39.6 Est GFR (Non-Af Amer) 34.2 BUN/Creatinine Ratio 15.9 Glucose 127 H Estimat Average Glucose Hemoglobin A1c Lactate Calcium 9.1 Phosphorus 1.5 L* Magnesium 1.1 L Total Bilirubin 0.7 AST 11 L ALT 11 L Alkaline Phosphatase 84 Troponin I NT-Pro-B Natriuret Pep Total Protein 6.5 Albumin 3.2 L Globulin 3.3 Albumin/Globulin Ratio 1.0 Triglycerides Cholesterol LDL Cholesterol, Calc VLDL Cholesterol, Calc HDL Cholesterol Cholesterol/HDL Ratio Lipase 76 TSH Specimen Hemolysis Urine Color Urine Appearance Urine pH Ur Specific Carver Urine Protein Urine Glucose (UA) Urine Ketones Urine Blood Urine Nitrite Urine Bilirubin Urine Urobilinogen Ur Leukocyte Esterase Urine WBC (Auto) Urine RBC (Auto) U Hyaline Cast (Auto) U Epithel Cells (Auto) Urine Bacteria (Auto) POC Ur Test Influenza Type A (PCR) Neg for Influ A Influenza Type B (PCR) Neg for Influ B 09/09/19 09/09/19 09/09/19 09:12 09:12 10:11 WBC RBC Hgb Hct MCV MCH MCHC RDW Std Deviation RDW Coeff of Josh Plt Count MPV Immature Gran % (Auto) Neut % (Auto) Lymph % (Auto) [place] % (Auto) Eos % (Auto) Baso % (Auto) Immature Gran # (Auto) Neut # (Auto) Lymph # (Auto) [place] # (Auto) Eos # (Auto) Baso # (Auto) Platelet Estimate Echinocytes PT INR Sodium Potassium Chloride Carbon Dioxide Anion Gap BUN Creatinine Est Cr Clr Drug Dosing Est GFR ( Amer) Est GFR (Non-Af Amer) BUN/Creatinine Ratio Glucose Estimat Average Glucose Hemoglobin A1c Lactate 2.2 H* Calcium Phosphorus Magnesium Total Bilirubin AST ALT Alkaline Phosphatase Troponin I NT-Pro-B Natriuret Pep Total Protein Albumin Globulin Albumin/Globulin Ratio Triglycerides Cholesterol LDL Cholesterol, Calc VLDL Cholesterol, Calc HDL Cholesterol Cholesterol/HDL Ratio Lipase TSH Specimen Hemolysis Urine Color Yellow Urine Appearance Cloudy A Urine pH 5.0 Ur Specific Carver 1.011 Urine Protein 1+ H Urine Glucose (UA) Negative Urine Ketones Negative Urine Blood 1+ H Urine Nitrite Negative Urine Bilirubin Negative Urine Urobilinogen Negative Ur Leukocyte Esterase 2+ H Urine WBC (Auto) >30 H Urine RBC (Auto) 0-4 U Hyaline Cast (Auto) 1-5 U Epithel Cells (Auto) 20-30 H Urine Bacteria (Auto) Negative POC Ur Test NEG Influenza Type A (PCR) Influenza Type B (PCR) 09/09/19 09/09/19 09/09/19 10:17 12:08 12:08 WBC RBC Hgb Hct MCV MCH MCHC RDW Std Deviation RDW Coeff of Josh Plt Count MPV Immature Gran % (Auto) Neut % (Auto) Lymph % (Auto) [place] % (Auto) Eos % (Auto) Baso % (Auto) Immature Gran # (Auto) Neut # (Auto) Lymph # (Auto) [place] # (Auto) Eos # (Auto) Baso # (Auto) Platelet Estimate Echinocytes PT 21.5 H INR 2.2 H Sodium Potassium Chloride Carbon Dioxide Anion Gap BUN Creatinine Est Cr Clr Drug Dosing Est GFR ( Amer) Est GFR (Non-Af Amer) BUN/Creatinine Ratio Glucose Estimat Average Glucose Hemoglobin A1c Lactate 1.1 Calcium Phosphorus Magnesium Total Bilirubin AST ALT Alkaline Phosphatase Troponin I NT-Pro-B Natriuret Pep 6033 H Total Protein Albumin Globulin Albumin/Globulin Ratio Triglycerides Cholesterol LDL Cholesterol, Calc VLDL Cholesterol, Calc HDL Cholesterol Cholesterol/HDL Ratio Lipase TSH 2.260 Specimen Hemolysis Urine Color Urine Appearance Urine pH Ur Specific Carver Urine Protein Urine Glucose (UA) Urine Ketones Urine Blood Urine Nitrite Urine Bilirubin Urine Urobilinogen Ur Leukocyte Esterase Urine WBC (Auto) Urine RBC (Auto) U Hyaline Cast (Auto) U Epithel Cells (Auto) Urine Bacteria (Auto) POC Ur Test Influenza Type A (PCR) Influenza Type B (PCR) 09/09/19 09/10/19 09/10/19 23:45 07:31 07:31 WBC 9.82 RBC 3.87 L Hgb 10.7 L Hct 35.7 L MCV 92.2 MCH 27.6 MCHC 30.0 L RDW Std Deviation 46.7 H RDW Coeff of Josh 13.9 Plt Count 82 L MPV 9.6 Immature Gran % (Auto) 0.3 Neut % (Auto) 90.6 Lymph % (Auto) 3.8 [place] % (Auto) 4.9 Eos % (Auto) 0.2 Baso % (Auto) 0.2 Immature Gran # (Auto) 0.03 H Neut # (Auto) 8.90 H Lymph # (Auto) 0.37 L [place] # (Auto) 0.48 Eos # (Auto) 0.02 Baso # (Auto) 0.02 Platelet Estimate Decreased L Echinocytes 1+ PT 17.5 H INR 1.8 H Sodium Potassium Chloride Carbon Dioxide Anion Gap BUN Creatinine Est Cr Clr Drug Dosing Est GFR ( Amer) Est GFR (Non-Af Amer) BUN/Creatinine Ratio Glucose Estimat Average Glucose Hemoglobin A1c Lactate Calcium Phosphorus Magnesium Total Bilirubin AST ALT Alkaline Phosphatase Troponin I 0.394 H* NT-Pro-B Natriuret Pep Total Protein Albumin Globulin Albumin/Globulin Ratio Triglycerides Cholesterol LDL Cholesterol, Calc VLDL Cholesterol, Calc HDL Cholesterol Cholesterol/HDL Ratio Lipase TSH Specimen Hemolysis Urine Color Urine Appearance Urine pH Ur Specific Carver Urine Protein Urine Glucose (UA) Urine Ketones Urine Blood Urine Nitrite Urine Bilirubin Urine Urobilinogen Ur Leukocyte Esterase Urine WBC (Auto) Urine RBC (Auto) U Hyaline Cast (Auto) U Epithel Cells (Auto) Urine Bacteria (Auto) POC Ur Test Influenza Type A (PCR) Influenza Type B (PCR) 09/10/19 09/10/19 09/10/19 07:31 07:31 07:31 WBC RBC Hgb Hct MCV MCH MCHC RDW Std Deviation RDW Coeff of Josh Plt Count MPV Immature Gran % (Auto) Neut % (Auto) Lymph % (Auto) [place] % (Auto) Eos % (Auto) Baso % (Auto) Immature Gran # (Auto) Neut # (Auto) Lymph # (Auto) [place] # (Auto) Eos # (Auto) Baso # (Auto) Platelet Estimate Echinocytes PT INR Sodium 137 Potassium 3.9 Chloride 108 H Carbon Dioxide 22 Anion Gap 7.0 BUN 22 H Creatinine 1.25 H D Est Cr Clr Drug Dosing 48.8 Est GFR ( Amer) 53.4 Est GFR (Non-Af Amer) 46.1 BUN/Creatinine Ratio 17.2 Glucose 97 Estimat Average Glucose 117 Hemoglobin A1c 5.7 H Lactate Calcium 9.1 Phosphorus 3.1 D Magnesium 1.6 L Total Bilirubin 0.7 AST 10 L ALT 9 L Alkaline Phosphatase 71 Troponin I 0.716 H* NT-Pro-B Natriuret Pep Total Protein 5.9 L Albumin 2.7 L Globulin 3.2 Albumin/Globulin Ratio 0.8 L Triglycerides 107 Cholesterol 134 LDL Cholesterol, Calc 44 VLDL Cholesterol, Calc 21 HDL Cholesterol 69 Cholesterol/HDL Ratio 2 Lipase TSH Specimen Hemolysis Urine Color Urine Appearance Urine pH Ur Specific Carver Urine Protein Urine Glucose (UA) Urine Ketones Urine Blood Urine Nitrite Urine Bilirubin Urine Urobilinogen Ur Leukocyte Esterase Urine WBC (Auto) Urine RBC (Auto) U Hyaline Cast (Auto) U Epithel Cells (Auto) Urine Bacteria (Auto) POC Ur Test Influenza Type A (PCR) Influenza Type B (PCR) PG Care Time/CCT Total # of Minutes Spent Total Time Spent: 60 Total Time Spent with Patient: Total time spent is greater than 50% in coordination of care (as documented) at patient's floor/unit and/or counseling patient:
[2019-09-10] MEDS: cefTRIAXone SODIUM 2,000 MG in DEXTROSE 5% 50 ML IV SCH (11:15)
--- NOTE | 2019-09-10 12:52 | Hospitalist Progress Note ---
Date of Service September 10, 2019 Assessment & Plan (1) Acute UTI: UA indicates possible infection with high WBCs, though no bacteria. Urine culture is contaminated with >3 types of bacteria. - Started ceftriaxone 2 g IV daily empirically. - Blood cultures not done. - Discussed with Dr. Lin; unfortunately, this is a frequent occurrence for her. - Will order repeat urine culture and blood cultures given her fever this morning. (2) Kidney transplanted: History of kidney transplant. Baseline Cr is ~1.1. - On admission, she had TATIANNA with Cr up to 1.6. - Down to 1.25 on 09/[address] Lin feels is essentially her baseline. - Continue tacrolimus, mycophenolate, and prednisone. - Will add stress-dose steroids today as she continues to have lower blood pressures (back down to 95/65). (3) Hypotension: Patient was hypotensive initially, but after receiving 4 L of fluid in the ER she was able to maintain her blood pressure. Most likely due to sepsis and urinary tract infection. - Continue monitoring. (4) Sepsis: Initial lactic acid 2.2. Reflex was 1.1. - My sepsis follow up exam indicates good cap refill and normal BP. (5) Anemia: Baseline hgb is ~11-12. Most likely due to chronic kidney insufficiency. - On 09/10, she had a small drop from 11.5 to 10.7. Likely dilutional from IV fluids. - Continue monitoring. (6) Atrial fibrillation: Presently with HR in the 90s. - Continue atenolol & diltiazem - Continue warfarin (7) Thrombocytopenia: Platelets seem to run slightly low in general in the ~100 range. Seems to lower with sickness. - Presently a bit lower at 80. Likely due to UTI. - Monitor (8) DVT prophylaxis: On warfarin for aib - INR on 09/10 was 1.8. Subjective Feelings tired and wiped out. Overall, no further shortness of breath this morning after getting her home medications. Reports no fevers/chills, chest pain, shortness of breath, abdominal pain, nausea, or vomiting. Physical Exam Constitutional: WD/WN, vitals as above Eyes: EOM intact bilaterally; no conjunctival abnormality ENMT: external ear and nose normal, oropharynx normal Neck: trachea midline, no thyromegaly normal visual inspection Respiratory: normal respiratory effort, lungs clear to auscultation no respiratory distress Cardiovascular: Rate/Rhythm: + tachycardic and + irregularly irregular Heart Sounds: normal S1 and normal S2 Vessels: no JVD Extremities: no edema Gastrointestinal (Abdomen): Inspection/Auscultation: abdomen normal to inspection; abdomen not distended Musculoskeletal: no cyanosis or clubbing, extremities motor strength 5/5 Skin: no rashes, warm and dry Neurologic: moves all extremities and awake Psychiatric: Orientation: alert, oriented to person and cooperative Results & Data Vital Signs (Past 12 Hours) Vital Signs Temp Pulse Pulse Pulse Resp BP Pulse Ox 09/10/19 11:21 38.1 C H 94 H 18 95/64 L 96 09/10/19 10:08 112 H 09/10/19 09:20 37.7 C H 09/10/19 07:33 39.2 C H 97 H 18 138/85 94 09/10/19 04:29 37.2 C 107 H 18 128/71 97 PG Care Time/CCT Total # of Minutes Spent Total Time Spent with Patient: Total time spent is greater than 50% in coordination of care (as documented) at patient's floor/unit and/or counseling patient: (1) Sepsis Sepsis acute organ dysfunction status: unspecified Sepsis type: sepsis due to unspecified organism Qualified Code(s): A41.9 - Sepsis, unspecified organism (2) Hypotension Hypotension type: unspecified hypotension type Qualified Code(s): I95.9 - Hypotension, unspecified
[2019-09-10] MEDS: HYDROCORTISONE SOD 50 MG in SYRINGE 0 ML IV SCH ×2 (13:27→18:23)
[2019-09-10] MEDS: MAGNESIUM SULFATE / D5W 1 GM/100 ML BAG IV SCH ×2 (13:27→14:19)
[2019-09-10] MEDS ORDERED: WARFARIN SOD 2 MG TAB PO SCH (16:00)
--- NOTE | 2019-09-10 23:43 | Electrocardiogram Report ---
Test Reason : Blood Pressure : / mmHG Vent. Rate : 102 BPM Atrial Rate : 102 BPM P-R Int : 000 ms QRS Dur : 110 ms QT Int : 320 ms P-R-T Axes : 000 -49 120 degrees QTc Int : 417 ms Atrial flutter with variable A-V block with occasional ventricular-paced complexes Left axis deviation Low voltage QRS Septal infarct , age undetermined Abnormal ECG When compared with ECG of 16-NOV-2018 12:12, Vent. rate has increased BY 32 BPM Confirmed by Liam Trejo ([id number]) on 09/10/2019 11:43:08 PM Referred By: REFERRED SELF Confirmed By:Liam Trejo
[2019-09-11] MEDS: HYDROCORTISONE SOD 50 MG in SYRINGE 0 ML IV SCH ×3 (00:21→13:37)
[2019-09-11 07:36] LABS: INR 1.5 (0.9-1.1); Prothrombin Time 14.9 Seconds (9.0-12.0)
[2019-09-11 07:38] LABS: Basophils # (auto) 0.01 K/uL (0-0.2); Basophils % (auto) 0.1 %; Hematocrit (blood only) 34.2 % (37-47); Hemoglobin 10.4 g/dL (12.0-16.0); Immature Granulocytes # (auto) 0.02 K/uL (0.00-0.02); Immature Granulocytes % (auto) 0.2 %; Lymphocytes # (auto) 0.32 K/uL (1.2-3.4); Lymphocytes % (auto) 3.7 %; Mean Corpuscular Hemoglobin 27.7 pg (25-34); Mean Corpuscular Hgb Conc 30.4 g/dL (32-36); Monocytes # (auto) 0.39 K/uL (0.11-0.59); Monocytes % (auto) 4.5 %; Neutrophils # (auto) 7.85 K/uL (1.4-6.5); Neutrophils % (auto) 91.5 %; Platelet Count 107 K/uL (130-400); RDW Coefficient of Variation 13.8 % (11.5-14.5); RDW Standard Deviation 45.7 fL (36.4-46.3); Red Blood Count 3.76 M/uL (4.2-5.4); White Blood Count 8.59 K/uL (4.8-10.8)
[2019-09-11 07:41] LABS: Albumin Level 2.4 gm/dl (3.4-5.0); BUN Creatinine Ratio 18.8 (10-20); Calcium 9.1 mg/dl (8.5-10.1); Creatinine Clr Calc Pharmacy 51.9 ml/min; Est GFR (African American) 57.8; Est GFR (Non-African American) 49.9; Potassium 4.6 mmol/L (3.5-5.1)
[2019-09-11 07:44] LABS: Albumin Globulin Ratio 0.7 (0.9-2); Bilirubin,Total 0.2 mg/dl (0.2-1); Globulin 3.5 gm/dl (2.5-4.0); Total Protein 5.9 gm/dl (6.4-8.2)
[2019-09-11] MEDS: dilTIAZem HCL 180 MG CAPCR PO SCH ×2 (08:41→19:58)
[2019-09-11] MEDS: TACROLIMUS 1 MG CAP PO SCH ×2 (08:41→19:57)
[2019-09-11] MEDS: predniSONE 5 MG TAB PO SCH (08:41)
[2019-09-11] MEDS: MYCOPHENOLATE SODIUM 180 MG TAB PO SCH ×2 (08:41→19:58)
[2019-09-11] MEDS: ATENOLOL 25 MG TABLET PO SCH ×2 (08:41→19:58)
[2019-09-11] MEDS: VITAMIN B12 PO SCH (08:42)
[2019-09-11] MEDS: CRANBERRY EXTRACT PO SCH ×2 (08:42→19:57)
[2019-09-11] MEDS: cefTRIAXone SODIUM 2,000 MG in DEXTROSE 5% 50 ML IV SCH (08:57)
--- NOTE | 2019-09-11 10:35 | Nephrology Progress Note ---
Date of Service September 11, 2019 Assessment & Plan (1) Kidney transplant status, cadaveric: (2) Nausea vomiting and diarrhea: (3) UTI (urinary tract infection): (4) Acute on chronic renal insufficiency: Mrs. Barker is considerably better. With volume repletion her renal function has returned to normal. She is afebrile on broad-spectrum antibiotics (ceftriaxone). Cultures thus far are unrevealing including blood cultures and urine cultures although her urine cultures did grow out 3 types of organisms. Would continue on ceftriaxone and her usual medications. Given her prior history and despite the fact that her urine culture and blood cultures are negative so far. I would plan on discharging her on a broad-spectrum oral antibiotic such as either ampicillin or possibly Keflex. Present on Admission?: Yes Subjective Mrs. Barker says she is feeling significantly better. Her nausea and vomiting have resolved. She is not having any abdominal pain. She has no diarrhea. She denies having any chest pain or shortness of breath. She is having no chills. She has had no night sweats. She denies having dysuria. She says that her urine does appear somewhat dark and she is not urinating as much as usual. She has no gross hematuria. She denies having any palpitations. She has not noticed any lower extremity swelling. The remainder of her review of systems is unremarkable. Physical Exam Physical Exam: On physical examination, Mrs. Barker appears a somewhat of a chronically ill woman of about her stated age of 64 or perhaps a bit older. She was sitting in a chair beside her bed and appeared to be returning to her baseline status. Her blood pressure is 125/80 seated with a pulse of 76 and irregular. Respiratory rate is 18 with a pulse ox of 98% on 2 L of oxygen via nasal cannula. She is afebrile (36.7). Her skin shows no rash or infiltrative skin disease. Her face appears somewhat plethoric. This may represent some mild rosacea. She has multiple scars from prior surgeries particularly scars over her arms from prior AV fistulas as well as trauma. She has bilateral lower quadrant scars from her kidney transplant. Her skin turgor is normal. She has no palpable lymphadenopathy. Her head is grossly normal. Eyes are grossly normal. She has no conjunctival icterus. The ocular fundi were not examined. Ears, nose, mouth and throat are unremarkable. She is edentulous. Oral mucous membranes are moist. Her neck is supple. There is no jugular venous distention, carotid bruit or thyromegaly. Her chest is clear to auscultation. Cardiac exam shows an irregular rhythm with a controlled rate. She has a grade 2/6 to 3/6 systolic murmur loudest at the base and radiating toward the neck. She does not have a gallop. She has no pericardial friction rubs. Her abdomen is somewhat obese but nontender. She has no organomegaly or mass. Her renal graft is palpable in the left lower quadrant. It is nontender. She has a very soft systolic bruit over the graft. Her bowel sounds are normal. Extremities show no cyanosis, clubbing or peripheral edema. Peripheral pulses are intact. Her neurologic exam shows no lateralizing findings. Results & Data Vital Signs (Past 12 Hours) Vital Signs Temp Pulse Pulse Resp BP Pulse Ox 09/11/19 07:44 76 09/11/19 07:35 36.7 C 76 18 125/80 98 09/11/19 04:34 36.7 C 73 18 134/69 99 09/10/19 23:36 36.6 C 76 18 124/69 99 Laboratory Results Laboratory Results - last 24 hr 09/09/19 09/10/19 09/11/19 07:14 12:04 07:12 WBC RBC Hgb Hct MCV MCH MCHC RDW Std Deviation RDW Coeff of Josh Plt Count MPV Immature Gran % (Auto) Neut % (Auto) Lymph % (Auto) Carlisle % (Auto) Eos % (Auto) Baso % (Auto) Immature Gran # (Auto) Neut # (Auto) Lymph # (Auto) Carlisle # (Auto) Eos # (Auto) Baso # (Auto) PT 14.9 H INR 1.5 H Sodium Potassium Chloride Carbon Dioxide Anion Gap BUN Creatinine Est Cr Clr Drug Dosing Est GFR ( Amer) Est GFR (Non-Af Amer) BUN/Creatinine Ratio Glucose Calcium Total Bilirubin AST ALT Alkaline Phosphatase Troponin I 0.898 H* Total Protein Albumin Globulin Albumin/Globulin Ratio Tacrolimus 4.9 L 09/11/19 09/11/19 07:12 07:12 WBC 8.59 RBC 3.76 L Hgb 10.4 L Hct 34.2 L MCV 91.0 MCH 27.7 MCHC 30.4 L RDW Std Deviation 45.7 RDW Coeff of Josh 13.8 Plt Count 107 L MPV 10.0 Immature Gran % (Auto) 0.2 Neut % (Auto) 91.5 Lymph % (Auto) 3.7 Carlisle % (Auto) 4.5 Eos % (Auto) 0.0 Baso % (Auto) 0.1 Immature Gran # (Auto) 0.02 Neut # (Auto) 7.85 H Lymph # (Auto) 0.32 L Carlisle # (Auto) 0.39 Eos # (Auto) 0.00 Baso # (Auto) 0.01 PT INR Sodium 137 Potassium 4.6 D Chloride 109 H Carbon Dioxide 20 L Anion Gap 8.0 BUN 22 H Creatinine 1.17 Est Cr Clr Drug Dosing 51.9 Est GFR ( Amer) 57.8 Est GFR (Non-Af Amer) 49.9 BUN/Creatinine Ratio 18.8 Glucose 115 H Calcium 9.1 Total Bilirubin 0.2 D AST 13 L ALT 9 L Alkaline Phosphatase 63 Troponin I Total Protein 5.9 L Albumin 2.4 L Globulin 3.5 Albumin/Globulin Ratio 0.7 L Tacrolimus PG Care Time/CCT Total # of Minutes Spent Total Time Spent: 35 Total Time Spent with Patient: Total time spent is greater than 50% in coordination of care (as documented) at patient's floor/unit and/or counseling patient:
--- NOTE | 2019-09-11 14:34 | Hospitalist Progress Note ---
Date of Service September 11, 2019 Assessment & Plan (1) Acute UTI: UA indicates possible infection with high WBCs, though no bacteria. Urine culture was contaminated with >3 types of bacteria. - Started ceftriaxone 2 g IV daily empirically. - Discussed with Dr. Lin; unfortunately, this is a frequent occurrence for her. - Repeat urine culture and blood cultures ordered on 09/10 for fever - Urine negative again; blood culture without growth as of 09/11. (2) Kidney transplanted: History of kidney transplant. Baseline Cr is ~1.1. - On admission, she had TATIANNA with Cr up to 1.6. - Down to 1.17 on 09/11 - Continue tacrolimus, mycophenolate, and prednisone. Tacrolimus level was 4.9 on 09/09. - Added stress-dose steroids on 09/10 for lower blood pressures. -> Taper today. (3) Hypotension: Patient was hypotensive initially, but after receiving 4 L of fluid in the ER she was able to maintain her blood pressure. Most likely due to sepsis and urinary tract infection. - Continue monitoring. (4) Sepsis: Initial lactic acid 2.2. Reflex was 1.1. - My sepsis follow up exam indicates good cap refill and normal BP. (5) Anemia: Baseline hgb is ~11-12. Most likely due to chronic kidney insufficiency. - On 09/10, she had a small drop from 11.5 to 10.7. Likely dilutional from IV fluids. Stable today. (6) Atrial fibrillation: Presently with HR in the 80s. - Continue atenolol & diltiazem - Continue warfarin (7) Thrombocytopenia: Platelets seem to run slightly low in general in the ~100 range. Seems to lower with sickness. - As low as 80. Likely due to UTI. Rebounding today to 107. (8) DVT prophylaxis: On warfarin for afib - INR on 09/11 was 1.5. Subjective Feeling better. Less tired. Reports no fevers/chills, chest pain, shortness of b reath, abdominal pain, nausea, or vomiting. Physical Exam Constitutional: WD/WN, vitals as above Eyes: EOM intact bilaterally; no conjunctival abnormality ENMT: external ear and nose normal, oropharynx normal Neck: trachea midline, no thyromegaly normal visual inspection Respiratory: normal respiratory effort, lungs clear to auscultation no respiratory distress Cardiovascular: Rate/Rhythm: + tachycardic and + irregularly irregular Heart Sounds: normal S1 and normal S2 Vessels: no JVD Extremities: no edema Gastrointestinal (Abdomen): Inspection/Auscultation: abdomen normal to inspection; abdomen not distended Musculoskeletal: no cyanosis or clubbing, extremities motor strength 5/5 Skin: no rashes, warm and dry Neurologic: moves all extremities and awake Psychiatric: Orientation: alert, oriented to person and cooperative Results & Data Vital Signs (Past 12 Hours) Vital Signs Temp Pulse Pulse Resp BP Pulse Ox 09/11/19 11:12 36.5 C 78 18 138/82 96 09/11/19 07:44 76 09/11/19 07:35 36.7 C 76 18 125/80 98 09/11/19 04:34 36.7 C 73 18 134/69 99 PG Care Time/CCT Total # of Minutes Spent Total Time Spent with Patient: Total time spent is greater than 50% in coordination of care (as documented) at patient's floor/unit and/or counseling patient: Coding Level of Care Code 91496 Subseq Hosp Care Lvl 3 Diagnoses Acute UTI N39.0 Kidney transplanted Z94.0 Hypotension I95.9 Hypotension type: unspecified hypotension type Sepsis A41.9 Sepsis acute organ dysfunction status: unspecified Sepsis type: sepsis due to unspecified organism Anemia D64.9 Atrial fibrillation I48.91 Thrombocytopenia D69.6 DVT prophylaxis Z29.9 (1) Hypotension Hypotension type: unspecified hypotension type Qualified Code(s): I95.9 - Hypotension, unspecified (2) Sepsis Sepsis acute organ dysfunction status: unspecified Sepsis type: sepsis due to unspecified organism Qualified Code(s): A41.9 - Sepsis, unspecified organism
[2019-09-11] MEDS ORDERED: WARFARIN SOD 3 MG TAB PO SCH (16:00)
[2019-09-11] MEDS: HYDROCORTISONE SOD 25 MG in SYRINGE 0 ML IV SCH ×2 (16:37→22:56)
[2019-09-12] MEDS: HYDROCORTISONE SOD 25 MG in SYRINGE 0 ML IV SCH ×3 (04:25→12:04)
[2019-09-12 04:49] VITALS: O2SAT 95
[2019-09-12 05:50] LABS: Hematocrit (blood only) 33.2 % (37-47); Hemoglobin 10.2 g/dL (12.0-16.0); Mean Corpuscular Hemoglobin 27.6 pg (25-34); Mean Corpuscular Hgb Conc 30.7 g/dL (32-36); Mean Platelet Volume 9.7 fL (7.4-10.4); Platelet Count 110 K/uL (130-400); RDW Coefficient of Variation 13.6 % (11.5-14.5); RDW Standard Deviation 44.8 fL (36.4-46.3); Red Blood Count 3.69 M/uL (4.2-5.4); White Blood Count 6.99 K/uL (4.8-10.8)
[2019-09-12 06:03] LABS: INR 1.8 (0.9-1.1); Prothrombin Time 17.7 Seconds (9.0-12.0)
[2019-09-12 06:15] LABS: BUN Creatinine Ratio 21.8 (10-20); Calcium 8.9 mg/dl (8.5-10.1); Creatinine Clr Calc Pharmacy 47.8 ml/min; Est GFR (African American) 52.4; Est GFR (Non-African American) 45.2; Magnesium 1.7 mg/dl (1.8-2.4); Potassium 3.8 mmol/L (3.5-5.1)
[2019-09-12] MEDS: CRANBERRY EXTRACT PO SCH (08:49)
[2019-09-12] MEDS: VITAMIN B12 PO SCH (08:50)
[2019-09-12] MEDS: TACROLIMUS 1 MG CAP PO SCH (08:50)
[2019-09-12] MEDS: MYCOPHENOLATE SODIUM 180 MG TAB PO SCH (08:51)
[2019-09-12] MEDS: ATENOLOL 25 MG TABLET PO SCH (08:51)
[2019-09-12] MEDS: dilTIAZem HCL 180 MG CAPCR PO SCH (08:51)
[2019-09-12] MEDS: predniSONE 5 MG TAB PO SCH (08:51)
--- NOTE | 2019-09-12 09:32 | Nephrology Progress Note ---
Date of Service September 12, 2019 Assessment & Plan (1) Kidney transplant status, cadaveric: (2) Nausea vomiting and diarrhea: (3) UTI (urinary tract infection): (4) Acute on chronic renal insufficiency: Mrs. Barker seems back to her baseline. Although she was obviously quite ill related to a probable urinary tract infection when she was admitted to the hospital, she seems to have recovered. All cultures, however, were negative. Nonetheless, given her immunosuppressed status and her history of recurrent urinary tract infections with evidence of sepsis I think she should be continued on outpatient antibiotics for a total of an additional 11 days which would give her 2 weeks worth of antibiotic treatments. She has responded to ceftriaxone. In the past, she did well with Keflex 500 mg 3 times daily and I would recommend that she be discharged on that medication for an additional 11 days. She should continue with all of her other medications. I will see her in follow-up in about 10 days. She knows to call if she has any additional issues or problems. Subjective Mrs. Barker continues to do well. She has had no chills or fevers. She has no nausea or vomiting. She has not had diarrhea. She has no lower abdominal discomfort or tenderness over her kidney transplant. She has no symptoms of dysuria. She has no symptoms of uremia or volume overload. In general, she says that she feels back to her normal state. Physical Exam Physical Exam: On physical examination, Mrs. Barker appears as an elderly somewhat chronically ill woman of her stated age of 64 or perhaps a bit older. She is obviously overweight. She is afebrile (36.9) her blood pressure 153/83 with a pulse of 77 and slightly irregular. Respiratory rate is 16 and her pulse ox 95% on room air. Her skin shows multiple scars from prior surgical procedures as well as trauma. Her skin turgor seems normal. She has some wrinkling consistent with her age. She has significant ecchymoses particularly on her upper extremities and most notably on her right hand. There is no palpable lymphadenopathy. Her head is grossly normal. Eyes are grossly normal. There is no conjunctival icterus. Ears, nose, mouth and throat are unremarkable. She is edentulous. Oral mucous membranes are moist. Her neck is supple. She has no jugular venous distention, carotid bruit or thyromegaly. S he has a lower anterior neck scar from prior parathyroid surgery. Her chest is clear to auscultation. Cardiac exam shows a slightly irregular rhythm. S1 and S2 seem normal. She has a soft systolic murmur at the base radiating toward the neck. Her abdomen is somewhat obese but nontender. There is no organomegaly or mass. Her renal transplant is palpable in the left lower quadrant. There is no tenderness over the graft. She has a soft systolic bruit over the graft. Extremities show some slight puffiness of her arms. She has no lower extremity edema. She has the ecchymoses noted above. Her neurologic exam shows no lateralizing changes. Results & Data Vital Signs (Past 12 Hours) Vital Signs Temp Pulse Pulse Resp BP Pulse Ox 09/12/19 07:58 77 09/12/19 07:28 36.9 C 74 16 153/83 H 95 09/12/19 04:46 36.7 C 72 18 125/74 95 09/11/19 23:05 36.4 C L 78 20 173/80 H 98 Laboratory Results Laboratory Results - last 24 hr 09/12/19 09/12/19 09/12/19 05:34 05:34 05:34 WBC 6.99 RBC 3.69 L Hgb 10.2 L Hct 33.2 L MCV 90.0 MCH 27.6 MCHC 30.7 L RDW Std Deviation 44.8 RDW Coeff of Josh 13.6 Plt Count 110 L MPV 9.7 PT 17.7 H INR 1.8 H Sodium 138 Potassium 3.8 D Chloride 107 Carbon Dioxide 26 Anion Gap 5.0 BUN 28 H Creatinine 1.27 H Est Cr Clr Drug Dosing 47.8 Est GFR ( Amer) 52.4 Est GFR (Non-Af Amer) 45.2 BUN/Creatinine Ratio 21.8 H Glucose 135 H Calcium 8.9 Magnesium 1.7 L PG Care Time/CCT Total # of Minutes Spent Total Time Spent: 35 Total Time Spent with Patient: Total time spent is greater than 50% in coordination of care (as documented) at patient's floor/unit and/or counseling patient: Coding Level of Care Code 09112 Subseq Hosp Care Lvl 3 Diagnoses Kidney transplant status, cadaveric Z94.0 Nausea vomiting and diarrhea R11.2; R19.7 UTI (urinary tract infection) N39.0 Acute on chronic renal insufficiency N28.9; N18.9
[2019-09-12] MEDS: cefTRIAXone SODIUM 2,000 MG in DEXTROSE 5% 50 ML IV SCH ×2 (10:49→12:03)
[2019-09-12 11:01] VITALS: TEMP 97.9
[2019-09-12] MEDS ORDERED: cephALEXin 500 MG CAP PO ONE (11:30)
[2019-09-12 12:41] VITALS: BP 105/59; PULSE 107
--- NOTE | 2019-09-12 16:53 | Discharge Summary ---
Date of Service September 12, 2019 Admission HPI Per Admitting Provider The patient is a 65 years old female with past medical history of kidney transplant cadaveric, frequent urinary tract infections, A. fib's with RVR, ventricularly paced rhythm patient has a pacemaker who presents to the emergency room with feeling sick, nausea vomiting and not being able to keep anything down. Patient denies sick contact. She has renal transplant since 2013. She also has dialysis fistula in her right arm which is not new since she received kidney. Patient reports chills starting at 1 AM this morning. She went to the bathroom and vomited her tuna dinner. Patient continued to have heaves all morning. Patient reports having several bowel movements but they were not diarrhea. Patient does not believe she has food poisoning. She reports having some pressure around her bladder and she has persistent rhinorrhea. Patient reports having chronic renal insufficiency and had 2 kidney transplants. This morning patient did not take her medication because she did not feel okay. She regularly takes Coumadin for A. fib's with RVR. Patient denies chest pain shortness of breath cough sore throat abdominal pain polyuria dysuria syncope or near syncope. Labs are reviewed which shows general electrolyte imbalance with sodium 136, potassium 4.1, chloride 107,Carbon dioxide 24, anion gap 5, BUN 25, creatinine 1.6 /34.2 which is elevated from her baseline 1.24 and GFR of 46.8, lactate is elevated to 2.2, phosphorus 1.5, magnesium 1.1, total bilirubin 0.7, AST 11, ALT 11, BNP pending, TSH pending, albumin 3.2,Lipase 76. WBC is 11.12, hemoglobin 11.5, hematocrit 38, platelets 105. Urine cloudy, urine protein 1, urine blood 1+, leukocyte esterase 2+, over 30 of WBCs, also present epithelial cells. Tacrolimus pending. Decision was made to admit patient for urinary tract infection, sepsis, electrolyte imbalance to the PCU on telemetry. Principal Diagnosis UTI Discharge Exam Constitutional WD/WN, vitals as above Eyes EOM intact bilaterally; no conjunctival abnormality ENMT external ear and nose normal, oropharynx normal Neck trachea midline, no thyromegaly normal visual inspection Respiratory normal respiratory effort, lungs clear to auscultation no respiratory distress Cardiovascular Rate/Rhythm: + tachycardic and + irregularly irregular Heart Sounds: normal S1 and normal S2 Vessels: no JVD Extremities: no edema Gastrointestinal (Abdomen) Inspection/Auscultation: abdomen normal to inspection; abdomen not distended Musculoskeletal no cyanosis or clubbing, extremities motor strength 5/5 Skin no rashes, warm and dry Neurologic moves all extremities and awake Psychiatric Orientation: alert, oriented to person and cooperative Discharge Data Allergies Allergy/AdvReac Type Severity Reaction Status Date / Time Quinolones Allergy Intermediate FLOXIN Verified 05/26/19 13:32 CAUSES HIVES ofloxacin [From Floxin] Allergy Unknown HIVES Verified 05/26/19 13:32 Consultations 09/09/19 10:03 ED Decision to Admit Stat 09/10/19 07:34 Consult Nephrology Routine Ordered Studies 09/09/19 13:05 US renal/blad retro comp Stat Hospital Course (1) Acute UTI: UA indicates possible infection with high WBCs, though no bacteria. Urine culture was contaminated with >3 types of bacteria. - Started ceftriaxone 2 g IV daily empirically. - Discussed with Dr. Lin; unfortunately, this is a frequent occurrence for her. - All cultures negative. - Discharged on Keflex x 7 days. This is usual course for her and she does well on it. Will see Dr. Lin in clinic in 1-2 weeks. Call sooner with issues. (2) Kidney transplanted: History of kidney transplant. Baseline Cr is ~1.1. - On admission, she had TATIANNA with Cr up to 1.6. - Down to 1.17 on 09/11 - Continued tacrolimus, mycophenolate, and prednisone. Tacrolimus level was 4.9 on 09/09. - Added stress-dose steroids on 09/10 for lower blood pressures. -> Tapered prior to discharge. Back to home dosing on discharge. (3) Hypotension: Patient was hypotensive initially, but after receiving 4L of fluid in the ER she was able to maintain her blood pressure. Most likely due to sepsis and urinary tract infection. - Continue monitoring. (4) Sepsis: Initial lactic acid 2.2. Reflex was 1.1. - My sepsis follow up exam indicates good cap refill and normal BP. (5) Anemia: Baseline hgb is ~11-12. Most likely due to chronic kidney insufficiency. - On 09/10, she had a small drop from 11.5 to 10.7. Likely dilutional from IV fluids. Stable in 2 days prior to discharge. (6) Atrial fibrillation: Presently with HR in the 80s. - Continued atenolol & diltiazem - Continued warfarin - INR on 09/12 was 1.8. Will need to follow up with anticoagulation clinic. (7) Thrombocytopenia: Platelets seem to run slightly low in general in the ~100 range. Seems to lower with sickness. - As low as 80. Likely due to UTI. Rebounded to 110 prior to discharge. (8) DVT prophylaxis: On warfarin for afib - INR on 09/12 was 1.8. Will need to follow up with anticoagulation clinic. Total Time Total Time Spent Total Time Spent (In Minutes): 35 Discharge Plan Discharge Items Patient Disposition: Home - Self-Care Reason For Visit: GASTROENTERITIS Discharge Diagnosis: Urinary tract infection Activity: Resume your previous activity Non-emergency contact: Primary Care Provider Call non-emergency contact if: your symptoms worsen, your pain is not controlled, your pain is worsening and your temperature is above 101 Follow-up/Referrals: Rich Lin MD [Primary Care Provider] - Diet: Dialysis Renal Addtl Attending Provider Instructions: You were admitted to the hospital for a urinary tract infection that caused some kidney stress. We gave you antibiotics, and everything has improved. Please take the Keflex 2 times per day for 7 more days. Follow up with Dr. Lin in 2 weeks, or sooner if you have any problems. Pending Studies at Discharge: No Stand-Alone Forms: My [facility] Object Matrix, Smoking Cessation Medications and DC Order Prescriptions: New cephalexin [Keflex] 500 mg capsule 500 mg PO BID 7 Days Qty: 14 RF: 0 Continued warfarin 2 mg tablet 2 mg PO DAILY Qty: 90 RF: 2 warfarin 3 mg tablet 3 mg PO DAILY Qty: 90 RF: 2 cyanocobalamin (vitamin B-12) 1,000 mcg tablet 1,000 mcg PO QAM RF: 0 atenolol 25 mg tablet 25 mg PO BID Qty: 180 RF: 0 diltiazem HCl 180 mg capsule,extended release 24hr 180 mg PO BID Qty: 180 RF: 0 prednisone 5 mg tablet 5 mg PO QAM Qty: 90 RF: 0 mycophenolate sodium 180 mg tablet,delayed release (DR/EC) 540 mg PO BID RF: 0 tacrolimus 1 mg capsule 2 mg PO Q12H Qty: 450 RF: 0 cranberry 400 mg capsule 400 mg PO BID RF: 0 Discharge Orders: Discharge Order (Routine); Ordered 09/12/19 Ordered By: Mitchell Ambrocio/Other Patient Handouts: Cephalexin Monohydrate Oral tablet Admission Data Admit Date/Time: 09/09/19 10:52 Attending Provider: Mitchell Doherty Admit Provider: Dimple Varghese Primary Care Provider: Rich Lin Other Providers: Mitchell Doherty ; Rich Lin Other Interventions: Discharge Summary Assessment (RN) Last Done: 09/12/19 12:36 DC Date/Time DO NOT enter until pt leaves facility: 09/12/19 14:55 Coding Level of Care Code D/C Day Management >30 mins Diagnoses Acute UTI N39.0 Kidney transplanted Z94.0 Hypotension I95.9 Hypotension type: unspecified hypotension type Sepsis A41.9 Sepsis acute organ dysfunction status: unspecified Sepsis type: sepsis due to unspecified organism Anemia D64.9 Atrial fibrillation I48.91 Thrombocytopenia D69.6 DVT prophylaxis Z29.9
== END 2019-09-12 14:55 | disposition home or self-care (01) | DRG 872 ==
LOC: ED 06:53 → SUATTDRO 10:52 → 2S 10:52

== ENCOUNTER 2020-05-25 17:27 | Inpatient (IN) ==
[2020-05-25] MEDS ORDERED: SODIUM CHLORIDE 0.9% 1000ML 500 ML IV ONE (18:24)
[2020-05-25] MEDS ORDERED: ONDANSETRON INJ 2 MG/ML 2 ML VIAL IV STA (18:28)
--- NOTE | 2020-05-25 18:29 | Emergency Department Note ---
History of Present Illness General Chief complaint: Flu Like Symptoms Stated complaint: FEVER, CHILLS Time Seen by Provider: 05/25/20 18:13 Source: patient and family History of Present Illness Provider complaint: Abdominal pain Onset (ago): hour(s) Location: abdomen Radiation: non-radiation Severity: moderate Pain Consistency: + now resolved Quality: + dull Relieved By: + none Associated symptoms: + fever/chills (Temperature of 99), + nausea/vomiting and + other (6 episodes of watery diarrhea without blood); no chest pain, no cough, no headaches and no shortness of breath This is a 65-year-old female with a history of kidney transplant in 2012 presenting with pain in her bladder as well as her kidney transplant starting th morning. She states the pain was a dull pain. No modifying factors. Her pain was originally in her bladder and then seemed to radiate toward her kidney transplant on the left side. She stated it lasted 3 hours and she no longer has any pain at this time. She did also develop nausea with dry heaves and 6 episodes of watery diarrhea without blood. She did take some Imodium which helped with her diarrhea. She denies any fever but states that her temperature was 99. She has had no cough or cold symptoms, chest pain, shortness of breath or known exposure to COVID-19. No sick contacts at home. She feels like she might have a UTI. She stated that her last UTI was about a year ago. She does note that she has had some decreased urinary output without hematuria or pain with urination. She also notes that her fistula from her prior dialysis has been enlarging over the past 2 years. She states it was originally small about the size of a golf ball but now is steadily increasing in size. Home Medications Home Medications Medication Instructions Recorded Confirmed Type atenolol 25 mg tablet 25 mg PO BID #180 tab 04/30/19 05/25/20 History cranberry 400 mg capsule 400 mg PO BID cap 04/30/19 05/25/20 History cyanocobalamin (vitamin B-12) 1,000 mcg PO QAM tab 04/30/19 05/25/20 History 1,000 mcg tablet mycophenolate sodium 180 mg 540 mg PO BID tab 04/30/19 05/25/20 History tablet,delayed release prednisone 5 mg tablet 5 mg PO QAM #90 tab 04/30/19 05/25/20 History tacrolimus 1 mg capsule 2 mg PO Q12H #450 cap 04/30/19 05/25/20 History diltiazem HCl 180 mg 180 mg PO BID #180 cap 12/08/19 05/25/20 Rx capsule,extended release 24 hr warfarin 2 mg PO QPM 05/25/20 05/25/20 History warfarin 3 mg PO DIRECTED PRN 05/25/20 05/25/20 History Allergies Allergy/AdvReac Type Severity Reaction Status Date / Time Quinolones Allergy Intermediate FLOXIN Verified 05/25/20 22:02 CAUSES HIVES ofloxacin [From Floxin] Allergy Unknown HIVES Verified 05/25/20 22:02 Past Med/Surg History Medical History Acute kidney injury Anemia Atrial fibrillation with RVR Cardiac pacemaker Creatinine elevation Dehydration Diarrhea Fever History of recurrent UTI (urinary tract infection) Hx of kidney transplant Hyperglycemia Hypokalemia Hypomagnesemia Hypomagnesemia Hyponatremia Hypotension Intractable diarrhea (12/20/13) Kidney disease Laryngopharyngeal reflux Low serum vitamin B12 Nausea vomiting and diarrhea Prerenal azotemia Rapid atrial fibrillation Right flank pain S/P parathyroidectomy Sepsis (07/26/13) Tinnitus Urinary tract infection (08/27/14) Surgical History Hx of cholecystectomy Kidney transplant status, cadaveric Family History Mother Heart disease Social History Smoking Status: Never smoker Second Hand Exposure: No; Hx Alcohol Use: No Hx Substance Use: No Preferred Language: Algerian Communication Ability: Effective Concrete Fence Builder Required: No Beliefs That Will Affect Care: None Current Living Situation: Spouse Feels Safe at Home: Yes Assistive Devices: None Review of Systems See HPI for pertinent positives & negatives. and A total of 10 systems reviewed and were otherwise negative Physical Exam Vital Signs Vital Signs - 24 hr 05/25/20 17:33 05/25/20 18:24 05/25/20 19:26 Temperature 37.4 C Temperature Source Oral Pulse Rate 121 H Pulse Rate [Bilateral Apical] 98 H Respiratory Rate 18 20 Respiratory Effort / Characteristics Respiratory Depth Blood Pressure 132/68 Blood Pressure [Right Arm] 128/110 H Blood Pressure Mean 89 Blood Pressure Mean [Right Arm] 116 Pulse Oximetry 97 96 97 Oxygen Delivery Method Room Air Room Air Sepsis Recent Fever Within 48 Hours Yes Sepsis New/Unexplained Change in Mental Status No Sepsis Action Taken by Nursing No Action Required 05/25/20 20:20 05/25/20 21:47 05/25/20 22:55 Temperature Temperature Source Pulse Rate Pulse Rate [Bilateral Apical] 108 H 101 H 83 Respiratory Rate 20 22 20 Respiratory Effort / Characteristics Non-Labored Respiratory Depth Normal Blood Pressure Blood Pressure [Right Arm] 137/81 118/63 126/52 L Blood Pressure Mean Blood Pressure Mean [Right Arm] 99 81 76 Pulse Oximetry 94 94 92 Oxygen Delivery Method Room Air Room Air Sepsis Recent Fever Within 48 Hours Sepsis New/Unexplained Change in Mental Status Sepsis Action Taken by Nursing Constitutional: Vital signs reviewed. Eyes: Pupils are equal round reactive to light. Conjunctiva are noninjected. ENT: Pharynx is clear without erythema or exudate. Mucous membranes are slightly dry. Neck supple without meningeal signs. Respiratory: Clear to auscultation bilaterally. Breath sounds are equal bilaterally. Cardiovascular: Tachycardic. Regular rhythm. GI: Soft, nondistended and nontender. No tenderness over her allograft on the left lower abdomen. Bowel sounds are present. Musculoskeletal: Approximately 7 cm spherical mass arising from her right upper extremity with palpable thrill. Integumentary: No cyanosis. or jaundice. Neurological: The patient is awake and alert. No focal deficits. Psychiatric: Normal affect. Not anxious appearing. Course Administered Medications Discontinued Medications Diltiazem HCl (Diltiazem Hcl 180 Mg Capcr) 180 mg PO NOW STA Stop: 05/25/20 23:05 Last Admin: 05/25/20 23:23 Dose: 180 mg Documented by: [id number] Sodium Chloride (Nss 1000ml) 500 mls @ 999 mls/hr IV .Q31M ONE Stop: 05/25/20 18:54 Last Infusion: 05/25/20 20:03 Dose: 0 mls/hr Documented by: [id number] Admin: 05/25/20 19:24 Dose: 999 mls/hr Documented by: [id number] Cefepime HCl (Maxipime) 2,000 mg in 20 mls @ 5 mls/min IV NOW STA; Protocol Stop: 05/25/20 22:58 Last Admin: 05/25/20 23:23 Dose: 5 mls/min Documented by: [id number] Ondansetron HCl (Ondansetron Inj 2 Mg/Ml 2 Ml Vial) 4 mg IV NOW STA Stop: 05/25/20 18:29 Last Admin: 05/25/20 19:24 Dose: 4 mg Documented by: [id number] Tacrolimus (Tacrolimus 1 Mg Cap) 2 mg PO NOW STA Stop: 05/25/20 23:05 Last Admin: 05/25/20 23:23 Dose: 2 mg Documented by: [id number] Medical Decision Making Differential Diagnosis Acute rejection, UTI, enteritis, colitis, TATIANNA, pseudoaneurysm Medical Records Attestation: I reviewed the patient's medical records. I did perform a limited focused review of portions of the patient's old chart on the electronic medical record. The patient was seen here in August of this year for UTI and hypotension. She was admitted to the hospital. Her urine culture was negative. She did have a urine culture from January of last year which grew out Enterococcus faecalis. Home Medications Current Medication List: was personally reviewed by me Laboratory Data Attestation: I reviewed the patient's lab results. Result diagrams: 05/25/20 18:58 05/25/20 18:58 Lab Results 05/25/20 05/25/20 05/25/20 Range/Units 18:58 18:58 18:58 WBC 16.06 H (4.8-10.8) K/uL RBC 4.12 L (4.2-5.4) M/uL Hgb 11.3 L (12.0-16.0) g/dL Hct 36.9 L (37-47) % MCV 89.6 (80-100) fL MCH 27.4 (25-34) pg MCHC 30.6 L (32-36) g/dL RDW Std Deviation 45.4 (36.4-46.3) fL RDW Coeff of Josh 13.8 (11.5-14.5) % Plt Count 134 (130-400) K/uL MPV 9.5 (7.4-10.4) fL Immature Gran % (Auto) 0.4 % Neut % (Auto) 89.6 % Lymph % (Auto) 3.9 % [place] % (Auto) 5.9 % Eos % (Auto) 0.1 % Baso % (Auto) 0.1 % Neut # (Auto) 14.40 H (1.4-6.5) K/uL Lymph # (Auto) 0.62 L (1.2-3.4) K/uL [place] # (Auto) 0.95 H (0.11-0.59) K/uL Eos # (Auto) 0.02 (0-0.5) K/uL Baso # (Auto) 0.01 (0-0.2) K/uL Immature Gran # (Auto) 0.06 H (0.00-0.02) K/uL PT 21.9 H (9.0-12.0) Seconds INR 2.2 H (0.9-1.1) APTT 31.0 (21.0-31.0) Seconds PTT Ratio 1.1 Sodium 134 L (136-145) mmol/L Potassium 4.4 (3.5-5.1) mmol/L Chloride 104 (98-107) mmol/L Carbon Dioxide 23 (21-32) mmol/L Anion Gap 7.0 (3-11) BUN 22 H (7-18) mg/dl Creatinine 1.41 H (0.6-1.2) mg/dl Est Cr Clr Drug Dosing 41.4 ml/min Est GFR ( Amer) 45.8 Est GFR (Non-Af Amer) 39.5 BUN/Creatinine Ratio 15.7 (10-20) Glucose 118 H (70-99) mg/dl Lactate (0.4-2.0) mmol/L Calcium 9.1 (8.5-10.1) mg/dl Magnesium 1.5 L (1.8-2.4) mg/dl Total Bilirubin 1.0 (0.2-1) mg/dl AST 8 L (15-37) U/L ALT 11 L (12-78) U/L Alkaline Phosphatase 75 (45-117) U/L Total Protein 6.9 (6.4-8.2) gm/dl Albumin 3.5 (3.4-5.0) gm/dl Globulin 3.4 (2.5-4.0) gm/dl Albumin/Globulin Ratio 1.0 (0.9-2) Urine Color Urine Appearance (Clear) Urine pH (4.5-7.5) Ur Specific [place] (1.000-1.030) Urine Protein (Negative) Urine Glucose (UA) (Negative) Urine Ketones (Negative) Urine Blood (Negative) Urine Nitrite (Negative) Urine Bilirubin (Negative) Urine Urobilinogen (Negative) Ur Leukocyte Esterase (Negative) Urine WBC (Auto) (0-5) /hpf Urine RBC (Auto) (0-4) /hpf U Hyaline Cast (Auto) (0-5) /lpf U Epithel Cells (Auto) (0-5) /lpf Urine Bacteria (Auto) (Negative) 05/25/20 05/25/20 Range/Units 18:58 22:00 WBC (4.8-10.8) K/uL RBC (4.2-5.4) M/uL Hgb (12.0-16.0) g/dL Hct (37-47) % MCV (80-100) fL MCH (25-34) pg MCHC (32-36) g/dL RDW Std Deviation (36.4-46.3) fL RDW Coeff of Josh (11.5-14.5) % Plt Count (130-400) K/uL MPV (7.4-10.4) fL Immature Gran % (Auto) % Neut % (Auto) % Lymph % (Auto) % [place] % (Auto) % Eos % (Auto) % Baso % (Auto) % Neut # (Auto) (1.4-6.5) K/uL Lymph # (Auto) (1.2-3.4) K/uL [place] # (Auto) (0.11-0.59) K/uL Eos # (Auto) (0-0.5) K/uL Baso # (Auto) (0-0.2) K/uL Immature Gran # (Auto) (0.00-0.02) K/uL PT (9.0-12.0) Seconds INR (0.9-1.1) APTT (21.0-31.0) Seconds PTT Ratio Sodium (136-145) mmol/L Potassium (3.5-5.1) mmol/L Chloride (98-107) mmol/L Carbon Dioxide (21-32) mmol/L Anion Gap (3-11) BUN (7-18) mg/dl Creatinine (0.6-1.2) mg/dl Est Cr Clr Drug Dosing ml/min Est GFR ( Amer) Est GFR (Non-Af Amer) BUN/Creatinine Ratio (10-20) Glucose (70-99) mg/dl Lactate 0.8 (0.4-2.0) mmol/L Calcium (8.5-10.1) mg/dl Magnesium (1.8-2.4) mg/dl Total Bilirubin (0.2-1) mg/dl AST (15-37) U/L ALT (12-78) U/L Alkaline Phosphatase (45-117) U/L Total Protein (6.4-8.2) gm/dl Albumin (3.4-5.0) gm/dl Globulin (2.5-4.0) gm/dl Albumin/Globulin Ratio (0.9-2) Urine Color Yellow Urine Appearance Clear (Clear) Urine pH 6.5 (4.5-7.5) Ur Specific [place] 1.012 (1.000-1.030) Urine Protein 1+ H (Negative) Urine Glucose (UA) Negative (Negative) Urine Ketones Negative (Negative) Urine Blood 2+ H (Negative) Urine Nitrite Negative (Negative) Urine Bilirubin Negative (Negative) Urine Urobilinogen Negative (Negative) Ur Leukocyte Esterase 2+ H (Negative) Urine WBC (Auto) >30 H (0-5) /hpf Urine RBC (Auto) 5-10 H (0-4) /hpf U Hyaline Cast (Auto) 1-5 (0-5) /lpf U Epithel Cells (Auto) 10-20 H (0-5) /lpf Urine Bacteria (Auto) Negative (Negative) Imaging Data Radiologist's Impression: SINGLE VIEW CHEST CLINICAL HISTORY: Sepsis. FINDINGS: An AP, portable, upright chest radiograph is compared to study dated 09/09/2019. A 2-lead cardiac pacemaker is unchanged in position and partially obscures the right lower chest. The heart is enlarged noting atherosclerotic calcification of the thoracic aorta. There is pulmonary vascular congestion. Atelectasis is noted at the lung bases. No airspace consolidation or large pleural effusion is identified. No pneumothorax is seen. The skeletal structures are osteopenic. The bony thorax is grossly intact. IMPRESSION: Cardiomegaly and cardiac pacemaker with evidence of congestive failure. ACT 112: Negative or not required by law. Electronically signed by: Andres Mathew M.D. 05/25/2020 7:03 PM ULTRASOUND RENAL TRANSPLANT CLINICAL HISTORY: Fever and chills. Renal transplant. COMPARISON STUDY: Renal ultrasound dated 09/09/2019. Pelvic CT dated 11/16/2018. TECHNIQUE: Multiple barnett scale, color Doppler, and spectral Doppler sonograms of the transplanted kidney were obtained in the transverse and longitudinal planes. 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 Renal echotexture is within normal limits with no evidence of hydronephrosis. Mild pelviectasis is similar to previous. A 2 cm cyst is noted in the lower pole. The resistive index in the segmental arterial branches ranges from 0.59 and 1.0 . Velocities within the renal artery measure up to 74 cm/s. Question focally elevated velocities at the anastomosis measuring 3.52 cm/s. The main renal vein is patent. Iliac vessels are patent. No perirenal fluid collection is seen. IMPRESSION: 1. The renal transplant is normal in size and echotexture with no hydronephrosis. 2. Question elevated arterial velocities at the anastomosis. 3. Persistent indices as above. ACT 112: Negative or not required by law. Electronically signed by: Andres aMthew M.D. 05/25/2020 9:06 PM US OTHER - Hemodialysis access : 5.9 x 6.0 x 4.6cm complex area noted in the right antecubital fossa at the area of enlargement. No flow is detected in complex area surrounding likely non-functioning fistula. Velocity of 196cm/s within fistula. Arterial anastomosis seen, [id number]. No venous anastomosis seen. Radiologist: Josue Christensen M.D. Study ready at 21:39 and initial results transmitted at 22:33 MDM Narrative I did evaluate the patient as noted above. Patient is presenting with vomiting, weakness and abdominal pain. IV access was established. I did place an order for continuous cardiac monitoring. The monitor showed normal sinus rhythm at a rate of 118 bpm. I did order and personally reviewed the images of the patient's chest x-ray as described above. She does not have a pneumonia. She does have cardiomegaly. I did order a urine analysis. She does appear to have a UTI. I did order and review the patient's blood work as noted in the electronic medical record. Her creatinine is at baseline at 1.4. CBC demonstrates leukocytosis with a white count over 16,000. She does have chronic anemia. Hemoglobin is 11.3. INR is 2.2. I did order an ultrasound of the right upper extremity fistula as well as her kidney transplant. I did review the images myself as well as the radiology report as described above. The fistula demonstrates a 6 cm complex area without any flow. The kidney ultrasound demonstrates that the transplant is normal in size and echotexture with no hydronephrosis. There was some question of elevated arterial velocities at the anastomosis. I did discuss the test results with the patient and her hus band. I did discuss the case with Dr. Valentin of transplant surgery at [facility] in [place]. She agreed with the plan to admit for IV antibiotics locally and did not see a need for transfer. I did treat the patient with cefepime 2 g IV. I did give the patient her nighttime dose of Cardizem, tacrolimus and mycophenolate. I did discuss case with the hospitalist and special education case manager. Impression & Plan UTI (urinary tract infection), Immunocompromised patient, Anticoagulated on warfarin, Vomiting and diarrhea Discharge Plan Visit Data Chief Complaint: Flu Like Symptoms Stated Complaint: FEVER, CHILLS ED Provider: Salvador Echeverria Discharge Problem: UTI (urinary tract infection), Immunocompromised patient, Anticoagulated on warfarin, Vomiting and diarrhea Patient Disposition: Being Evaluated by Hospitalist Forms Stand Alone Forms: My [facility] Prescriptions Prescriptions: No Action diltiazem HCl 180 mg capsule,extended release 24hr 180 mg PO BID Qty: 180 RF: 3 cyanocobalamin (vitamin B-12) 1,000 mcg tablet 1,000 mcg PO QAM RF: 0 atenolol 25 mg tablet 25 mg PO BID Qty: 180 RF: 0 prednisone 5 mg tablet 5 mg PO QAM Qty: 90 RF: 0 mycophenolate sodium 180 mg tablet,delayed release (DR/EC) 540 mg PO BID RF: 0 tacrolimus 1 mg capsule 2 mg PO Q12H Qty: 450 RF: 0 cranberry 400 mg capsule 400 mg PO BID RF: 0 warfarin 3 mg tablet 3 mg PO DIRECTED PRN (Reason: Provider Entry) RF: 0 warfarin 2 mg tablet 2 mg PO QPM RF: 0 Referrals Referrals: Rich Lin MD [Primary Care Provider] - Discharge Problem: UTI (urinary tract infection) Qualifiers: Urinary tract infection type: site unspecified Hematuria presence: with hematuria Qualified Code(s): N39.0 - Urinary tract infection, site not specified
--- NOTE | 2020-05-25 19:05 | XRay Report ---
SINGLE VIEW CHEST CLINICAL HISTORY: Sepsis. FINDINGS: An AP, portable, upright chest radiograph is compared to study dated 09/09/2019. A 2-lead ca rdiac pacemaker is unchanged in position and partially obscures the right lower chest. The heart is e nlarged noting atherosclerotic calcification of the thoracic aorta. There is pulmonary vascular conge stion. Atelectasis is noted at the lung bases. No airspace consolidation or large pleural effusion is identified. No pneumothorax is seen. The skeletal structures are osteopenic. The bony thorax is dominique sly intact. IMPRESSION: Cardiomegaly and cardiac pacemaker with evidence of congestive failure. ACT 112: Negative or not required by law. Electronically signed by: Andres Mathew M.D. 05/25/2020 7:03 PM
[2020-05-25 19:11] LABS: Basophils # (auto) 0.01 K/uL (0-0.2); Basophils % (auto) 0.1 %; Eosinophils # (auto) 0.02 K/uL (0-0.5); Eosinophils % (auto) 0.1 %; Hematocrit (blood only) 36.9 % (37-47); Hemoglobin 11.3 g/dL (12.0-16.0); Immature Granulocytes # (auto) 0.06 K/uL (0.00-0.02); Immature Granulocytes % (auto) 0.4 %; Lymphocytes # (auto) 0.62 K/uL (1.2-3.4); Lymphocytes % (auto) 3.9 %; Mean Corpuscular Hemoglobin 27.4 pg (25-34); Mean Corpuscular Hgb Conc 30.6 g/dL (32-36); Mean Corpuscular Volume 89.6 fL (80-100); Mean Platelet Volume 9.5 fL (7.4-10.4); Monocytes # (auto) 0.95 K/uL (0.11-0.59); Monocytes % (auto) 5.9 %; Neutrophils % (auto) 89.6 %; Platelet Count 134 K/uL (130-400); RDW Coefficient of Variation 13.8 % (11.5-14.5); RDW Standard Deviation 45.4 fL (36.4-46.3); Red Blood Count 4.12 M/uL (4.2-5.4); White Blood Count 16.06 K/uL (4.8-10.8)
[2020-05-25 19:22] LABS: INR 2.2 (0.9-1.1); Partial Thromboplastin Ratio 1.1; Prothrombin Time 21.9 Seconds (9.0-12.0)
[2020-05-25 19:29] LABS: Albumin Level 3.5 gm/dl (3.4-5.0); BUN Creatinine Ratio 15.7 (10-20); Calcium 9.1 mg/dl (8.5-10.1); Creatinine Clr Calc Pharmacy 41.4 ml/min; Est GFR (African American) 45.8; Est GFR (Non-African American) 39.5; Magnesium 1.5 mg/dl (1.8-2.4); Potassium 4.4 mmol/L (3.5-5.1)
[2020-05-25 19:31] LABS: Globulin 3.4 gm/dl (2.5-4.0); Total Protein 6.9 gm/dl (6.4-8.2)
--- NOTE | 2020-05-25 21:07 | Ultrasound Report ---
ULTRASOUND RENAL TRANSPLANT CLINICAL HISTORY: Fever and chills. Renal transplant. COMPARISON STUDY: Renal ultrasound dated 09/09/2019. Pelvic CT dated 11/16/2018. TECHNIQUE: Multiple barnett scale, color Doppler, and spectral Doppler sonograms of the transplanted debra cabrales were obtained in the transverse and longitudinal planes. 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 Renal echotexture is within normal l imits with no evidence of hydronephrosis. Mild pelviectasis is similar to previous. A 2 cm cyst is no aurelio in the lower pole. The resistive index in the segmental arterial branches ranges from 0.59 and 1. 0 . Velocities within the renal artery measure up to 74 cm/s. Question focally elevated velocities at the anastomosis measuring 3.52 cm/s. The main renal vein is patent. Iliac vessels are patent. No per irenal fluid collection is seen. IMPRESSION: 1. The renal transplant is normal in size and echotexture with no hydronephrosis. 2. Question elevated arterial velocities at the anastomosis. 3. Persistent indices as above. ACT 112: Negative or not required by law. Electronically signed by: Andres Mathew M.D. 05/25/2020 9:06 PM
[2020-05-25 22:18] LABS: Appearance Urine Clear (Clear); Bacteria Urine Automated Negative (Negative); Bilirubin Urine Negative (Negative); Blood Urine 2+ (Negative); Color Urine Yellow; Glucose Urine UA Negative (Negative); Ketones Urine Negative (Negative); Leukocyte Esterase Urine 2+ (Negative); Nitrite Urine Negative (Negative); Protein Urine 1+ (Negative); Specific Gravity Urine 1.012 (1.000-1.030); Urobilinogen Urine Negative (Negative); WBC Urine Automated >30 /hpf (0-5); pH Urine 6.5 (4.5-7.5)
[2020-05-25] MEDS ORDERED: CEFEPIME 2,000 MG/20 ML VIAL IV STA (22:55)
[2020-05-25] MEDS ORDERED: MYCOPHENOLATE SODIUM 540 MG PO STA (23:04)
[2020-05-25] MEDS ORDERED: TACROLIMUS 1 MG CAP PO STA (23:04)
[2020-05-25] MEDS ORDERED: dilTIAZem HCL 180 MG CAPCR PO STA (23:04)
[2020-05-25] MEDS ORDERED: MYCOPHENOLATE SODIUM 180 MG TAB PO STA (23:41)
[2020-05-26] MEDS ORDERED: HYDROCORTISONE SOD SUCCINATE 100 MG/2 ML VIAL IV SCH (01:00)
[2020-05-26] MEDS ORDERED: WARFARIN SOD 3 MG TAB PO PRN (01:18)
[2020-05-26] MEDS ORDERED: ONDANSETRON INJ 2 MG/ML 2 ML VIAL IV PRN (01:18)
[2020-05-26] MEDS ORDERED: NON-FORMULARY MEDICATION (Cranberry 400 MG) PO SCH (01:18)
[2020-05-26] MEDS ORDERED: DAPTOmycin 225 MG in SYRINGE 0 ML IV SCH (02:00)
[2020-05-26] MEDS: SODIUM CHLORIDE 0.9% 1000ML 1,000 ML IV SCH ×3 (02:19→18:01)
[2020-05-26] MEDS: ATENOLOL 25 MG TABLET PO SCH ×3 (02:26→20:54)
[2020-05-26] MEDS: ACETAMINOPHEN 325 MG TAB PO PRN (02:26)
[2020-05-26] MEDS ORDERED: HYDROCORTISONE SOD 100 MG in SYRINGE 0 ML IV SCH (03:00)
[2020-05-26] MEDS ORDERED: CEFEPIME CONSULT ACTIVE PRN (03:40)
--- NOTE | 2020-05-26 04:39 | History & Physical Report ---
Date of Service May 26, 2020 Assessment & Plan (1) UTI (urinary tract infection): Recurrent urinary tract infections in immunocompromised patient- History includes 02/03/2019 due to Enterococcus faecalis. 11/16/2018 due to E. coli and group B beta strep. Urinalysis is not completely convincing, however, her symptoms are similar to those in the past. Follow urine culture and sensitivity, and blood culture and sensitivities. Symptoms included fevers and chills. WBC elevated 16.[address] empirically on daptomycin IV and cefepime IV. Present on Admission?: Yes (2) Immunocompromised patient: Continue immunosuppression with mycophenolate sodium 540 mg p.o. twice daily, and tacrolimus 2 mg p.o. every 12 hours. Hold prednisone [address] on stress dose hydrocortisone 100 mg IV every 8 hours x2 days, then return to prednisone 5 mg daily Present on Admission?: Yes (3) Kidney transplanted: Kidney transplant and left renal pelvis/acute kidney injury- Creatinine upon admission 1.41, with range 1.17-1.4, with high 1.60. Avoid nephrotoxins, and will therefore place on daptomycin IV as opposed to vancomycin IV. NSS at 80 mils per hour Repeat CBC with differential, BMP ,magnesium level and phosphorus in a.m. 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 Lin Present on Admission?: Yes (4) Acute kidney injury: See above Present on Admission?: Yes (5) Atrial fibrillation: Atrial fibrillation/hypertension- Continue atenolol 25 mg p.o. twice daily, diltiazem extended release 180 mg p.o. twice daily, and warfarin at current dosing. Present on Admission?: Yes (6) Anticoagulated on warfarin: INR therapeutic at 2.2. Continue current dosing of warfarin Present on Admission?: Yes (7) Hypertension: See above Present on Admission?: Yes (8) Hypomagnesemia: Give magnesium sulfate 2 g IV, repeat labs in a.m. Present on Admission?: Yes (9) History of recurrent UTI (urinary tract infection): As noted above Present on Admission?: Yes Admission and Anticipated Discharge Date Admission Date: May 26, 2020 History of Present Illness Chief Complaint: The patient presents to the emergency department with flulike symptoms, fevers, chills, pelvic pressure over left renal transplant, and 6-7 bowel movements today, which she reports usually happens when she has a urinary tract infection Primary Care Provider: Rich Lin MD The patient is a 65-year-old female with a past medical history including history of renal transplant in left pelvis, immunocompromised, recurrent urinary tract infections, rapid atrial fibrillation, hypotension, status post parathyroidectomy, status post cholecystectomy, hypomagnesemia, hypophosphatemia, hyponatremia, pneumonia, hyponatremia, hypertension, long-term use of anticoagulants on warfarin, laryngopharyngeal reflux and status post pacer. She presents with symptoms as noted above, which she feels are consistent with her previous urinary tract infections. She denies any recent travels or sick exposures, including to [place]. Allergies Allergy/AdvReac Type Severity Reaction Status Date / Time Quinolones Allergy Intermediate FLOXIN Verified 05/25/20 22:02 CAUSES HIVES ofloxacin [From Floxin] Allergy Unknown HIVES Verified 05/25/20 22:02 Home Medications Home Medications Medication Instructions Recorded Confirmed Type atenolol 25 mg tablet 25 mg PO BID #180 tab 04/30/19 05/25/20 History cranberry 400 mg capsule 400 mg PO BID cap 04/30/19 05/25/20 History cyanocobalamin (vitamin B-12) 1,000 mcg PO QAM tab 04/30/19 05/25/20 History 1,000 mcg tablet mycophenolate sodium 180 mg 540 mg PO BID tab 04/30/19 05/25/20 History tablet,delayed release prednisone 5 mg tablet 5 mg PO QAM #90 tab 04/30/19 05/25/20 History tacrolimus 1 mg capsule 2 mg PO Q12H #450 cap 04/30/19 05/25/20 History diltiazem HCl 180 mg 180 mg PO BID #180 cap 12/08/19 05/25/20 Rx capsule,extended release 24 hr warfarin 2 mg PO QPM 05/25/20 05/25/20 History warfarin 3 mg PO DIRECTED PRN 05/25/20 05/25/20 History Past Med/Surg History Medical History Acute kidney injury Anemia Atrial fibrillation with RVR Cardiac pacemaker Creatinine elevation Dehydration Diarrhea Fever History of recurrent UTI (urinary tract infection) Hx of kidney transplant Hyperglycemia Hypokalemia Hypomagnesemia Hypomagnesemia Hyponatremia Hypotension Intractable diarrhea (12/20/13) Kidney disease Laryngopharyngeal reflux Low serum vitamin B12 Nausea vomiting and diarrhea Prerenal azotemia Rapid atrial fibrillation Right flank pain S/P parathyroidectomy Sepsis (07/26/13) Tinnitus Urinary tract infection (08/27/14) Surgical History Hx of cholecystectomy Kidney transplant status, cadaveric Family History Mother Heart disease Social History Smoking Status: Never smoker Second Hand Exposure: No; Do You Dip or Chew Tobacco: No; Hx Alcohol Use: No Hx Substance Use: No Preferred Language: Yoruba Communication Ability: Effective Bush Regenerator Required: No Beliefs That Will Affect Care: None Current Living Situation: Spouse Other Information That Helps Us Care for You: No Feels Safe at Home: Yes Safety Concerns: Feels Safe At This Time Assistive Devices: Denture - Upper and Denture - Lower Review of Systems Review of Systems: The patient denies chest pain, palpitations, shortness of breath, dyspnea on exertion, cough, lower extremity swelling, sore throat, sweats, nausea, vomiting, abdominal pain, blood in urine or stool, lightheadedness, dizziness, headache, memory loss, loss of consciousness, rash, abnormal bruising or bleeding, imbalance, focal or generalized weakness, numbness or tingling in arms or legs, generalized arthralgias or myalgias, back or neck pain, or night sweats. The review of systems is otherwise negative other than for that already noted above, and at least 10 systems have been reviewed. Physical Exam Physical Exam: The patient is awake, alert and oriented 3, well developed and well nourished, normocephalic and atraumatic, lying in bed and in no acute distress. HEENT--PERRL, EOMI, mucous membranes and oropharynx dry. Neck--supple. No JVD. No bruits. Thyroid normal, trachea midline, no adenopathy. Heart--normal S1 and S2. No murmurs, rubs or gallops. Lungs--clear bilaterally, no respiratory distress, no accessory muscle use. Abdomen--normal bowel sounds and soft. Nontender. Nondistended. Extremities--no cyanosis or clubbing. No edema. Dermatologic--normal skin turgor, normal color, no abnormal lymph nodes, no rash. Neurologic--cranial nerves II through XII grossly intact. Rheumatologic--normal range of motion. Psychiatric--normal affect. Results & Data Results & Data ([facility]) Vital Signs (Past 12 Hours) Vital Signs Temp Pulse Pulse Pulse Pulse Resp BP 05/26/20 03:07 99.3 F 05/26/20 02:17 100.6 F H 97 H 05/26/20 01:14 100.2 F H 122 H 14 05/26/20 00:40 85 20 05/25/20 22:55 83 20 05/25/20 21:47 101 H 22 05/25/20 20:20 108 H 20 05/25/20 19:26 98 H 20 05/25/20 18:24 05/25/20 17:33 99.3 F 121 H 18 132/68 BP Pulse Ox 05/26/20 03:07 05/26/20 02:17 125/70 05/26/20 01:14 137/84 95 05/26/20 00:40 132/82 95 05/25/20 22:55 126/52 L 92 05/25/20 21:47 118/63 94 05/25/20 20:20 137/81 94 05/25/20 19:26 128/110 H 97 05/25/20 18:24 96 05/25/20 17:33 97 Laboratory Results Laboratory Results WBC 16.06 K/uL (4.8-10.8) H 05/25/20 18:58 RBC 4.12 M/uL (4.2-5.4) L 05/25/20 18:58 Hgb 11.3 g/dL (12.0-16.0) L 05/25/20 18:58 Hct 36.9 % (37-47) L 05/25/20 18:58 MCV 89.6 fL (80-100) 05/25/20 18:58 MCH 27.4 pg (25-34) 05/25/20 18:58 MCHC 30.6 g/dL (32-36) L 05/25/20 18:58 RDW Std Deviation 45.4 fL (36.4-46.3) 05/25/20 18:58 RDW Coeff of Josh 13.8 % (11.5-14.5) 05/25/20 18:58 Plt Count 134 K/uL (130-400) 05/25/20 18:58 MPV 9.5 fL (7.4-10.4) 05/25/20 18:58 Immature Gran % (Auto) 0.4 % 05/25/20 18:58 Neut % (Auto) 89.6 % 05/25/20 18:58 Lymph % (Auto) 3.9 % 05/25/20 18:58 [place] % (Auto) 5.9 % 05/25/20 18:58 Eos % (Auto) 0.1 % 05/25/20 18:58 Baso % (Auto) 0.1 % 05/25/20 18:58 Neut # (Auto) 14.40 K/uL (1.4-6.5) H 05/25/20 18:58 Lymph # (Auto) 0.62 K/uL (1.2-3.4) L 05/25/20 18:58 [place] # (Auto) 0.95 K/uL (0.11-0.59) H 05/25/20 18:58 Eos # (Auto) 0.02 K/uL (0-0.5) 05/25/20 18:58 Baso # (Auto) 0.01 K/uL (0-0.2) 05/25/20 18:58 Immature Gran # (Auto) 0.06 K/uL (0.00-0.02) H 05/25/20 18:58 PT 21.9 Seconds (9.0-12.0) H 05/25/20 18:58 INR 2.2 (0.9-1.1) H 05/25/20 18:58 APTT 31.0 Seconds (21.0-31.0) 05/25/20 18:58 PTT Ratio 1.1 05/25/20 18:58 Sodium 134 mmol/L (136-145) L 05/25/20 18:58 Potassium 4.4 mmol/L (3.5-5.1) 05/25/20 18:58 Chloride 104 mmol/L (98-107) 05/25/20 18:58 Carbon Dioxide 23 mmol/L (21-32) 05/25/20 18:58 Anion Gap 7.0 (3-11) 05/25/20 18:58 BUN 22 mg/dl (7-18) H 05/25/20 18:58 Creatinine 1.41 mg/dl (0.6-1.2) H 05/25/20 18:58 Est Cr Clr Drug Dosing 41.4 ml/min 05/25/20 18:58 Est GFR ( Amer) 45.8 05/25/20 18:58 Est GFR (Non-Af Amer) 39.5 05/25/20 18:58 BUN/Creatinine Ratio 15.7 (-20) 05/25/20 18:58 Glucose 118 mg/dl (70-99) H 05/25/20 18:58 Lactate 0.8 mmol/L (0.4-2.0) 05/25/20 18:58 Calcium 9.1 mg/dl (8.5-10.1) 05/25/20 18:58 Magnesium 1.5 mg/dl (1.8-2.4) L 05/25/20 18:58 Total Bilirubin 1.0 mg/dl (0.2-1) 05/25/20 18:58 AST 8 U/L (15-37) L 05/25/20 18:58 ALT 11 U/L (12-78) L 05/25/20 18:58 Alkaline Phosphatase 75 U/L (45-117) 05/25/20 18:58 Total Protein 6.9 gm/dl (6.4-8.2) 05/25/20 18:58 Albumin 3.5 gm/dl (3.4-5.0) 05/25/20 18:58 Globulin 3.4 gm/dl (2.5-4.0) 05/25/20 18:58 Albumin/Globulin Ratio 1.0 (0.9-2) 05/25/20 18:58 Urine Color Yellow 05/25/20 22:00 Urine Appearance Clear (Clear) 05/25/20 22:00 Urine pH 6.5 (4.5-7.5) 05/25/20 22:00 Ur Specific [place] 1.012 (1.000-1.030) 05/25/20 22:00 Urine Protein 1+ (Negative) H 05/25/20 22:00 Urine Glucose (UA) Negative (Negative) 05/25/20 22:00 Urine Ketones Negative (Negative) 05/25/20 22:00 Urine Blood 2+ (Negative) H 05/25/20 22:00 Urine Nitrite Negative (Negative) 05/25/20 22:00 Urine Bilirubin Negative (Negative) 05/25/20 22:00 Urine Urobilinogen Negative (Negative) 05/25/20 22:00 Ur Leukocyte Esterase 2+ (Negative) H 05/25/20 22:00 Urine WBC (Auto) >30 /hpf (0-5) H 05/25/20 22:00 Urine RBC (Auto) 5-10 /hpf (0-4) H 05/25/20 22:00 U Hyaline Cast (Auto) 1-5 /lpf (0-5) 05/25/20 22:00 U Epithel Cells (Auto) 10-20 /lpf (0-5) H 05/25/20 22:00 Urine Bacteria (Auto) Negative (Negative) 05/25/20 22:00 Diagnostic Findings [place], [place] [phone] XRay Report Patient: MARLA ARANGO Date: 05/25/20 MR#: [id number] Acct ID:[id number]: [address] Date: 1955ty Zip: [place] [address] Age: 65Location: ED Sex: FRoom/Bed: Att Phy:Diagnosis: FEVER, CHILLS Jocelyn Phy: Rich Lin MDService Date: 05/25/20 Fam Phy:Interpreting Phy: Andres Mathew MD Admit Phy: Ordering Phy: Salvador Echeverria MD cc: ~ SINGLE VIEW CHEST CLINICAL HISTORY: Sepsis. FINDINGS: An AP, portable, upright chest radiograph is compared to study dated 09/09/2019. A 2-lead cardiac pacemaker is unchanged in position and partially obscures the right lower chest. The heart is enlarged noting atherosclerotic calcification of the thoracic aorta. There is pulmonary vascular congestion. Atelectasis is noted at the lung bases. No airspace consolidation or large pleural effusion is identified. No pneumothorax is seen. The skeletal structures are osteopenic. The bony thorax is grossly intact. IMPRESSION: Cardiomegaly and cardiac pacemaker with evidence of congestive failure. ACT 112: Negative or not required by law. Electronically signed by: Andres Mathew M.D. 05/25/2020 7:03 PM Dictated: 05/25/201901 Transcribed: 05/25/201901 [facility], [place] [phone] Ultrasound Report Patient: MARLA ARANGO Date: 05/25/20 MR#: [id number] [address] Acct ID:[id number]: [address] Date: 1955City Zip: [place] [address] Age: 65Location: ED Sex: FRoom/Bed: Att Phy:Diagnosis: FEVER, CHILLS Jocelyn Phy: Rich Lin MDService Date: 05/25/20 Fam Phy:Interpreting Phy: Andres Mathew MD Admit Phy: Ordering Phy: Salvador Echeverria MD cc: ~ ULTRASOUND RENAL TRANSPLANT CLINICAL HISTORY: Fever and chills. Renal transplant. COMPARISON STUDY: Renal ultrasound dated 09/09/2019. Pelvic CT dated 11/16/2018. TECHNIQUE: Multiple barnett scale, color Doppler, and spectral Doppler sonograms of the transplanted kidney were obtained in the transverse and longitudinal planes. 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 Renal echotexture is within normal limits with no evidence of hydronephrosis. Mild pelviectasis is similar to previous. A 2 cm cyst is noted in the lower pole. The resistive index in the segmental arterial branches ranges from 0.59 and 1.0 . Velocities within the renal artery measure up to 74 cm/s. Question focally elevated velocities at the anastomosis measuring 3.52 cm/s. The main renal vein is patent. Iliac vessels are patent. No perirenal fluid collection is seen. IMPRESSION: 1. The renal transplant is normal in size and echotexture with no hydronephrosis. 2. Question elevated arterial velocities at the anastomosis. 3. Persistent indices as above. ACT 112: Negative or not required by law. Electronically signed by: Andres Mahtew M.D. 05/25/2020 9:06 PM Dictated: 05/25/202101 Transcribed: 05/25/202101 Code Status & VTE Plan Code Status Full code VTE Prophylaxis Plan VTE Prophylaxis will be ordered: Yes PG Care Time/CCT Total # of Minutes Spent Total Time Spent with Patient: Total time spent is greater than 50% in coordination of care (as documented) at patient's floor/unit and/or counseling patient: Coding Level of Care Code 25165 Initial Inpt Care Lvl 3 Diagnoses UTI (urinary tract infection) N39.0; R31.9 Hematuria presence: with hematuria Urinary tract infection type: site unspecified Immunocompromised patient D84.9 Kidney transplanted Z94.0 Acute kidney injury N17.9 Atrial fibrillation I48.91 Anticoagulated on warfarin Z79.01 Hypertension I10 Hypomagnesemia E83.42 History of recurrent UTI (urinary tract infection) Z87.440 (1) UTI (urinary tract infection) Hematuria presence: with hematuria Urinary tract infection type: site unspecified Qualified Code(s): N39.0 - Urinary tract infection, site not specified; R31.9 - Hematuria, unspecified
[2020-05-26] MEDS: MAGNESIUM SULFATE / D5W 1 GM/100 ML BAG IV SCH ×2 (05:34→07:49)
--- NOTE | 2020-05-26 08:36 | Hospitalist Progress Note ---
Date of Service May 26, 2020 Assessment & Plan (1) UTI (urinary tract infection): * Recurrent urinary tract infections in immunocompromised patient. Sepsis with fever Tmax 38.1c and tachycardic on admission, Lactic 0.8. * History includes 02/03/2019 due to Enterococcus faecalis.In October 2018 due to E.Coli and group B beta strep * UA - 1+ protein, 2+ blood, 2+ leuk est, >30WBC, 5-10 RBC, 10-20 epi, negative for bacteria * Urine culture pending * Placed empirically on Daptomycin and Cefepime but discussed with pharmacist and transitioned to Zosyn * WBC trending down, 12.1k. Continue to monitor * Did have temp up to 38.1C last evening * Blood cultures pending * COVID swab ordered this morning -- negative * Continue IVF but increased to 100cc/hr given increase in Cr despite bolus in ER and maintenance fluids although she admits she has not had great PO intake over the past couple days * Nephrology on consult -- appreciate assistance * Continue to monitor (2) Immunocompromised patient: * Continue immunosuppression with mycophenolate sodium 540 mg p.o. twice daily, and tacrolimus 2 mg p.o. every 12 hours. * Held prednisone 5 mg p.o. daily and was initially placed on stress dose hydrocortisone 100mg Q8H on admission, reduced to 50mg Q8H and will discontinue as she has remained stable and no indication at this time for continued stress steroids * Will resume home prednisone 5mg daily in AM (3) Kidney transplanted: * Hx 1st transplant 1995 at [place] and failed. Second transplanted at [place] in [place] 2012. * Kidney transplant and left renal pelvis/acute kidney injury- Follows with Dr. Lin locally * Creatinine upon admission 1.41, with range 1.17-1.4. Baseline appears to be closer to 1.2-1.3 range. * Avoid nephrotoxins, and will therefore place on daptomycin IV as opposed to vancomycin IV --> subsequently has been discontinued as above * Nephrology on consult -- appreciate assistance * Non-tender on examination * US does show increased velocities suggesting some stenosis * Cr worsened to 1.49 on AM labs * IVF increased to 100cc/hr while poor PO intake, to be d/c'd once taking more * BMP in AM (4) Acute kidney injury: See above under kidney transplanted (5) Atrial fibrillation: * Started after second transplant * EKG with ventricular paced rhythm * Did not get her dose of Coumadin last evening --> she states it had been 2.6 at her home check last Sunday when she sent it in. She notes when it is low she will take 3mg dose. * Ordered additional 2mg Coumadin this evening as INR subtherapeutic at 1.5 but suspect rise as on abx too * Continue atenolol 25mg BID, diltiazem 180mg BID * Regular rhythm on examination * Continue to monitor clinically (6) Anticoagulated on warfarin: * INR 1.5 -- ordered extra 2mg in addition to home dose as she missed dose last evening * INR in AM (7) Hypertension: * BP controlled, currently 117/64 * Continue home atenolol 25mg BID, diltiazem 180mg BID * Continue to monitor (8) Hypomagnesemia: * Mag 1.5 on admission -- ordered 2gm IV * Mag 2.3, resolved (9) History of recurrent UTI (urinary tract infection): * As noted above (10) DVT prophylaxis: * Warfarin as above, subtherapeutic on AM labs and ordered extra dose this evening. Repeat INR in AM Admission and Anticipated Discharge Date Admission Date: May 26, 2020 Supervising Physician Co-Signing Physician Notes HERNANDEZ Supervision Note: I did not personally see or examine the patient today, but I verified all dial points of HERNANDEZ Hyde's assessment and plan with the following exceptions/additions: None Subjective Patient evaluated this morning. Concerned as to why her Cr is elevated although she does note less UO, darker in color than usual as well as poor PO intake. Did not have much to eat yesterday and only had two drinks. Discussed continuing IVF until able to keep up with PO. Discussed changing ABX as she has never had a history of MRSA. Denies fevers currently despite temp last evening. Cultures pending. Denies chest pain, shortness of breath, abdominal pain, nausea, vomiting, dysuria or hematuria. Denies passing gas or BM, but denies pain and has active BS on examination. Questions/concerns addressed at this time. She was hopeful for discharge today but agreeable to stay as we are awaiting cultures and she continues to need hydration via IVF. Review of Systems Review of Systems: All systems reviewed & are unremarkable except as noted in HPI & below Physical Exam Constitutional: WD/WN, vitals as above well developed and well nourished; no acute distress Eyes: PERRL, conjunctivae normal, anicteric sclerae ENMT: external ear and nose normal, oropharynx normal Ears: no hearing impairment Neck: trachea midline Respiratory: normal respiratory effort, lungs clear to auscultation Auscultation: no crackles, no rales and no wheezes Cardiovascular: RRR, no murmur, no edema Extremities: + AV fistula ( left UE AV fistula with palpable thrill and bruit.) Gastrointestinal (Abdomen): normal bowel sounds, soft, nontender, no hepatosplenomegaly Percussion/Palpation: abdomen nontender, no guarding and a bdomen not rigid Nontender over left renal allograft Musculoskeletal: Extremities: extremities normal to inspection Gait: normal gait Skin: no rashes, warm and dry Neurologic: moves all extremities and awake Psychiatric: A+Ox3, euthymic affect Lymphatic: no cervical or axillary lymphadenopathy Results & Data Results & Data ([facility]) Vital Signs (Past 12 Hours) Vital Signs Temp Pulse Pulse Pulse Resp BP Pulse Ox 05/26/20 07:52 36.8 C 77 16 118/70 94 05/26/20 03:07 37.4 C 05/26/20 02:17 38.1 C H 97 H 125/70 05/26/20 01:14 37.9 C H 122 H 14 137/84 95 05/26/20 00:40 85 20 132/82 95 05/25/20 22:55 83 20 126/52 L 92 05/25/20 21:47 101 H 22 118/63 94 Laboratory Results 05/26/20 05/26/20 05/26/20 Range/Units 08:22 08:22 08:22 WBC (4.8-10.8) K/uL RBC (4.2-5.4) M/uL Hgb (12.0-16.0) g/dL Hct (37-47) % MCV (80-100) fL MCH (25-34) pg MCHC (32-36) g/dL RDW Std Deviation (36.4-46.3) fL RDW Coeff of Josh (11.5-14.5) % Plt Count (130-400) K/uL MPV (7.4-10.4) fL Immature Gran % (Auto) % Neut % (Auto) % Lymph % (Auto) % Z[place]ata % (Auto) % Eos % (Auto) % Baso % (Auto) % Neut # (Auto) (1.4-6.5) K/uL Lymph # (Auto) (1.2-3.4) K/uL Z[place]ata # (Auto) (0.11-0.59) K/uL Eos # (Auto) (0-0.5) K/uL Baso # (Auto) (0-0.2) K/uL Immature Gran # (Auto) (0.00-0.02) K/uL PT 17.9 H (9.0-12.0) Seconds INR 1.7 H (0.9-1.1) APTT (21.0-31.0) Seconds PTT Ratio Sodium 135 L (136-145) mmol/L Potassium 4.2 (3.5-5.1) mmol/L Chloride 105 (98-107) mmol/L Carbon Dioxide 21 (21-32) mmol/L Anion Gap 8.0 (3-11) BUN 28 H (7-18) mg/dl Creatinine 1.49 H (0.6-1.2) mg/dl Est Cr Clr Drug Dosing 39.2 ml/min Est GFR ( Amer) 42.9 Est GFR (Non-Af Amer) 37.0 BUN/Creatinine Ratio 18.5 (10-20) Glucose 122 H (70-99) mg/dl Lactate (0.4-2.0) mmol/L Calcium 9.5 (8.5-10.1) mg/dl Phosphorus 3.3 (2.5-4.9) mg/dl Magnesium 2.3 (1.8-2.4) mg/dl Total Bilirubin 1.0 (0.2-1) mg/dl AST 8 L (15-37) U/L ALT 10 L (12-78) U/L Alkaline Phosphatase 70 (45-117) U/L Total Protein 6.4 (6.4-8.2) gm/dl Albumin 3.1 L (3.4-5.0) gm/dl Globulin 3.3 (2.5-4.0) gm/dl Albumin/Globulin Ratio 0.9 (0.9-2) Urine Color Urine Appearance (Clear) Urine pH (4.5-7.5) Ur Specific Langston (1.000-1.030) Urine Protein (Negative) Urine Glucose (UA) (Negative) Urine Ketones (Negative) Urine Blood (Negative) Urine Nitrite (Negative) Urine Bilirubin (Negative) Urine Urobilinogen (Negative) Ur Leukocyte Esterase (Negative) Urine WBC (Auto) (0-5) /hpf Urine RBC (Auto) (0-4) /hpf U Hyaline Cast (Auto) (0-5) /lpf U Epithel Cells (Auto) (0-5) /lpf Urine Bacteria (Auto) (Negative) 05/26/20 05/25/20 05/25/20 Range/Units 08:22 22:00 18:58 WBC 12.11 H (4.8-10.8) K/uL RBC 3.91 L (4.2-5.4) M/uL Hgb 10.7 L (12.0-16.0) g/dL Hct 35.8 L (37-47) % MCV 91.6 (80-100) fL MCH 27.4 (25-34) pg MCHC 29.9 L (32-36) g/dL RDW Std Deviation 46.2 (36.4-46.3) fL RDW Coeff of Josh 13.9 (11.5-14.5) % Plt Count 112 L (130-400) K/uL MPV 9.2 (7.4-10.4) fL Immature Gran % (Auto) 0.3 % Neut % (Auto) 93.6 % Lymph % (Auto) 3.4 % Zapata % (Auto) 2.6 % Eos % (Auto) 0.0 % Baso % (Auto) 0.1 % Neut # (Auto) 11.33 H (1.4-6.5) K/uL Lymph # (Auto) 0.41 L (1.2-3.4) K/uL Zapata # (Auto) 0.32 (0.11-0.59) K/uL Eos # (Auto) 0.00 (0-0.5) K/uL Baso # (Auto) 0.01 (0-0.2) K/uL Immature Gran # (Auto) 0.04 H (0.00-0.02) K/uL PT (9.0-12.0) Seconds INR (0.9-1.1) APTT (21.0-31.0) Seconds PTT Ratio Sodium (136-145) mmol/L Potassium (3.5-5.1) mmol/L Chloride (98-107) mmol/L Carbon Dioxide (21-32) mmol/L Anion Gap (3-11) BUN (7-18) mg/dl Creatinine (0.6-1.2) mg/dl Est Cr Clr Drug Dosing ml/min Est GFR ( Amer) Est GFR (Non-Af Amer) BUN/Creatinine Ratio (10-20) Glucose (70-99) mg/dl Lactate 0.8 (0.4-2.0) mmol/L Calcium (8.5-10.1) mg/dl Phosphorus (2.5-4.9) mg/dl Magnesium (1.8-2.4) mg/dl Total Bilirubin (0.2-1) mg/dl AST (15-37) U/L ALT (12-78) U/L Alkaline Phosphatase (45-117) U/L Total Protein (6.4-8.2) gm/dl Albumin (3.4-5.0) gm/dl Globulin (2.5-4.0) gm/dl Albumin/Globulin Ratio (0.9-2) Urine Color Yellow Urine Appearance Clear (Clear) Urine pH 6.5 (4.5-7.5) Ur Specific Langston 1.012 (1.000-1.030) Urine Protein 1+ H (Negative) Urine Glucose (UA) Negative (Negative) Urine Ketones Negative (Negative) Urine Blood 2+ H (Negative) Urine Nitrite Negative (Negative) Urine Bilirubin Negative (Negative) Urine Urobilinogen Negative (Negative) Ur Leukocyte Esterase 2+ H (Negative) Urine WBC (Auto) >30 H (0-5) /hpf Urine RBC (Auto) 5-10 H (0-4) /hpf U Hyaline Cast (Auto) 1-5 (0-5) /lpf U Epithel Cells (Auto) 10-20 H (0-5) /lpf Urine Bacteria (Auto) Negative (Negative) 05/25/20 05/25/20 05/25/20 Range/Units 18:58 18:58 18:58 WBC 16.06 H (4.8-10.8) K/uL RBC 4.12 L (4.2-5.4) M/uL Hgb 11.3 L (12.0-16.0) g/dL Hct 36.9 L (37-47) % MCV 89.6 (80-100) fL MCH 27.4 (25-34) pg MCHC 30.6 L (32-36) g/dL RDW Std Deviation 45.4 (36.4-46.3) fL RDW Coeff of Josh 13.8 (11.5-14.5) % Plt Count 134 (130-400) K/uL MPV 9.5 (7.4-10.4) fL Immature Gran % (Auto) 0.4 % Neut % (Auto) 89.6 % Lymph % (Auto) 3.9 % Zapata % (Auto) 5.9 % Eos % (Auto) 0.1 % Baso % (Auto) 0.1 % Neut # (Auto) 14.40 H (1.4-6.5) K/uL Lymph # (Auto) 0.62 L (1.2-3.4) K/uL Zapata # (Auto) 0.95 H (0.11-0.59) K/uL Eos # (Auto) 0.02 (0-0.5) K/uL Baso # (Auto) 0.01 (0-0.2) K/uL Immature Gran # (Auto) 0.06 H (0.00-0.02) K/uL PT 21.9 H (9.0-12.0) Seconds INR 2.2 H (0.9-1.1) APTT 31.0 (21.0-31.0) Seconds PTT Ratio 1.1 Sodium 134 L (136-145) mmol/L Potassium 4.4 (3.5-5.1) mmol/L Chloride 104 (98-107) mmol/L Carbon Dioxide 23 (21-32) mmol/L Anion Gap 7.0 (3-11) BUN 22 H (7-18) mg/dl Creatinine 1.41 H (0.6-1.2) mg/dl Est Cr Clr Drug Dosing 41.4 ml/min Est GFR ( Amer) 45.8 Est GFR (Non-Af Amer) 39.5 BUN/Creatinine Ratio 15.7 (10-20) Glucose 118 H (70-99) mg/dl Lactate (0.4-2.0) mmol/L Calcium 9.1 (8.5-10.1) mg/dl Phosphorus (2.5-4.9) mg/dl Magnesium 1.5 L (1.8-2.4) mg/dl Total Bilirubin 1.0 (0.2-1) mg/dl AST 8 L (15-37) U/L ALT 11 L (12-78) U/L Alkaline Phosphatase 75 (45-117) U/L Total Protein 6.9 (6.4-8.2) gm/dl Albumin 3.5 (3.4-5.0) gm/dl Globulin 3.4 (2.5-4.0) gm/dl Albumin/Globulin Ratio 1.0 (0.9-2) Urine Color Urine Appearance (Clear) Urine pH (4.5-7.5) Ur Specific Langston (1.000-1.030) Urine Protein (Negative) Urine Glucose (UA) (Negative) Urine Ketones (Negative) Urine Blood (Negative) Urine Nitrite (Negative) Urine Bilirubin (Negative) Urine Urobilinogen (Negative) Ur Leukocyte Esterase (Negative) Urine WBC (Auto) (0-5) /hpf Urine RBC (Auto) (0-4) /hpf U Hyaline Cast (Auto) (0-5) /lpf U Epithel Cells (Auto) (0-5) /lpf Urine Bacteria (Auto) (Negative) PG Care Time/CCT Total # of Minutes Spent Total Time Spent with Patient: Total time spent is greater than 50% in coordination of care (as documented) at patient's floor/unit and/or counseling patient: Coding Level of Care Code 88454 Subseq Hosp Care Lvl 3 Diagnoses UTI (urinary tract infection) N39.0; R31.9 Hematuria presence: with hematuria Urinary tract infection type: site unspecified Immunocompromised patient D84.9 Kidney transplanted Z94.0 Acute kidney injury N17.9 Atrial fibrillation I48.91 Anticoagulated on warfarin Z79.01 Hypertension I10 Hypomagnesemia E83.42 History of recurrent UTI (urinary tract infection) Z87.440 DVT prophylaxis Z29.9 (1) UTI (urinary tract infection) Hematuria presence: with hematuria Urinary tract infection type: site unspecified Qualified Code(s): N39.0 - Urinary tract infection, site not specified; R31.9 - Hematuria, unspecified
[2020-05-26 09:02] LABS: Basophils # (auto) 0.01 K/uL (0-0.2); Basophils % (auto) 0.1 %; Hematocrit (blood only) 35.8 % (37-47); Hemoglobin 10.7 g/dL (12.0-16.0); INR 1.7 (0.9-1.1); Immature Granulocytes # (auto) 0.04 K/uL (0.00-0.02); Immature Granulocytes % (auto) 0.3 %; Lymphocytes # (auto) 0.41 K/uL (1.2-3.4); Lymphocytes % (auto) 3.4 %; Mean Corpuscular Hemoglobin 27.4 pg (25-34); Mean Corpuscular Hgb Conc 29.9 g/dL (32-36); Mean Corpuscular Volume 91.6 fL (80-100); Mean Platelet Volume 9.2 fL (7.4-10.4); Monocytes # (auto) 0.32 K/uL (0.11-0.59); Monocytes % (auto) 2.6 %; Neutrophils # (auto) 11.33 K/uL (1.4-6.5); Neutrophils % (auto) 93.6 %; Platelet Count 112 K/uL (130-400); Prothrombin Time 17.9 Seconds (9.0-12.0); RDW Coefficient of Variation 13.9 % (11.5-14.5); RDW Standard Deviation 46.2 fL (36.4-46.3); Red Blood Count 3.91 M/uL (4.2-5.4); White Blood Count 12.11 K/uL (4.8-10.8)
[2020-05-26 09:13] LABS: Albumin Level 3.1 gm/dl (3.4-5.0); BUN Creatinine Ratio 18.5 (10-20); Calcium 9.5 mg/dl (8.5-10.1); Creatinine Clr Calc Pharmacy 39.2 ml/min; Est GFR (African American) 42.9; Potassium 4.2 mmol/L (3.5-5.1)
[2020-05-26 09:15] LABS: Albumin Globulin Ratio 0.9 (0.9-2); Globulin 3.3 gm/dl (2.5-4.0); Phosphorus 3.3 mg/dl (2.5-4.9); Total Protein 6.4 gm/dl (6.4-8.2)
--- NOTE | 2020-05-26 09:25 | Ultrasound Report ---
ULTRASOUND RIGHT UPPER EXTREMITY HEMODIALYSIS ACCESS CLINICAL HISTORY: Nonfunctioning fistula. Aneurysm. COMPARISON STUDY: No priors. FINDINGS: Real-time, grayscale, and color Doppler sonography of the patient's right upper extremity h emodialysis access side is performed. There is a 6.0 x 4.6 x 5.9 cm complex structure [facility]cubital fossa at the site of palpable concern. This likely represents the patient's fistula w ith internal flow and peripheral thrombus. Velocities within the fistula measure up to 196 cm/s. Velo cities at the arterial anastomosis measure up to 415 cm/s. No venous anastomosis is identified. IMPRESSION: 1. 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 2. There is flow at the arterial end with no flow at the venous anastomosis. Electronically signed by: Andres Mathew M.D. 05/26/2020 9:24 AM
--- NOTE | 2020-05-26 09:57 | Nephrology Consultation ---
Date of Consultation May 26, 2020 Assessment & Plan (1) Acute on chronic renal insufficiency: Bishnu has mild allograft dysfunction with baseline creatinine around 1.3- 1.4, admitted with recurrent urinary tract infection. P.o. intake seems to be somewhat poor, has been getting IV fluid. On empiric antibiotics pending blood and urine culture. Blood pressure has been well controlled. Renal ultrasound was otherwise unremarkable. Slight change in creatinine to 1.5 this morning, s pretty close to her baseline, electrolyte acceptable. -- Overall she is clinically feeling much better with IV hydration and antibiotics, agree with continuing on antibiotic pending blood and urine culture -- okay to continue on IV fluid as p.o. intake seems to remain poor, encourage p.o. intake, if p.o. intake adequate IV fluid can be discontinued -- continue on tacrolimus, mycophenolate and oral prednisone 5 milligram, discontinue stress dose of steroid, patient has been clinically and hemodynamically stable, no indication for continued stress dose steroid. she did not have any vomiting although did have dry heaving which currently improved, has been able to take her oral medications. -- continue to monitor renal function daily renal panel Will follow Thank you for allowing me to participate in your patient's care. It was a pleasure to see bishnu (2) UTI (urinary tract infection): (3) Anemia: (4) Hypertension: (5) Immunocompromised patient: (6) Kidney transplanted: History of Present Illness Attending Physician: Rosaura Blanc MD History of Present Illness Bishnu Barker is a 65-Y O F with PMH significant for prior history of renal transplant, h/o recurrent urinary tract infection, atrial fibrillation, secondary hyperparathyroidism and anemia admitted to the hospital with an episode of urinary tract infection. Nephrology consult was requested to manage chronic kidney disease, immunosuppression with history of renal transplant. EMR records reviewed in detail during patient's visit. Bishnu reports that she was awakened at night with symptoms of nausea and dry heaving as well as left flank pain, low grade fever and chills without significant dysuria. she had 6 episodes of watery diarrhea without blood. With her prior history of recurrent urinary tract infection, she recognized these symptoms were similar to her prior urinary tract infection episode which prompted her to come to ER. on admission her vital signs are stable, no hypotensive episode. She was found to have mild leukocytosis and her temperature was 99.8. Urinalysis showed pyuria, positive nitrite but no bacteria. She was empirically started on cefepime and daptomycin pending blood and urine culture. Also started on IV fluid. Her p.o. intake has been relatively poor. On admission her creatinine was 1.4 with baseline creatinine somewhat variable from 1.2-1.3. Allograft ultrasound showed otherwise normal kidney with no perinephric stranding suggestive of pyelonephritis. She is overall feeling much better this morning, discomfort for over allograft area resolved. She was initially diagnosed with renal failure in late when she was also having elevated blood pressure. At that time she was seen by Dr. 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 Her blood pressure eventually became better controlled however by she developed symptom of uremia and volume overload and started on hemodialysis and subsequently subsequently switched to CAPD and continued until 1994 when it was discontinued because of recurring episodes of peritonitis, returned to hemodialysis for 1 year before getting her first kidney transplant at the [facility] [place]. 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 The transplant finally failed completely and she was returned to hemodialysis in 2005 until her second transplant, DDRT at [facility] in [place] in 2012. she has been on tacrolimus 2 milligram twice a day, prednisone 5 mg and mycophenolate. Had parathyroidectomy for hyperparathyroidism. Had multiple hospitalizations associated with her kidney transplant and associated urinary tract infections with Enterococcus Enterobacter, E coli as well as Klebsiella in the past. She usually presents with symptoms of nausea with or without vomiting as well as di arrhea, chills and fever. She will occasionally but not always have associated dysuria and rarely has pain over her transplanted kidney. She had episodes of paroxysmal atrial fibrillation since having her second kidney transplant in 2012. Episodes were initially diagnosed during a visit to [facility]. Her treatments were initially included anticoagulation with warfarin as well as the use of diltiazem to help with rate control. She developed a tachybradycardia syndrome in April 2016 and had the placement of a dual-chamber [employer] pacemaker placed at the time. Other cardiac issues include a history of mitral regurgitation and diastolic dysfunction. Had cardiac catheterization done in 2010 after an episode of chest pain which proved to be noncardiac, 10 to 20% mid LAD stenosis is the only finding. In 2012, she developed an episode of chest discomfort but a stress echocardiogram was negative. In 2013 she had an echocardiogram. Her ejection fraction was 65 to 7 0% and no wall motion abnormalities were noted. She did have mild to moderate pulmonary regurgitation at that time. Allergies Allergy/AdvReac Type Severity Reaction Status Date / Time Quinolones Allergy Intermediate FLOXIN Verified 05/25/20 22:02 CAUSES HIVES ofloxacin [From Floxin] Allergy Unknown HIVES Verified 05/25/20 22:02 Home Medications Home Medications Medication Instructions Recorded Confirmed Type atenolol 25 mg tablet 25 mg PO BID #180 tab 04/30/19 05/25/20 History cranberry 400 mg capsule 400 mg PO BID cap 04/30/19 05/25/20 History cyanocobalamin (vitamin B-12) 1,000 mcg PO QAM tab 04/30/19 05/25/20 History 1,000 mcg tablet mycophenolate sodium 180 mg 540 mg PO BID tab 04/30/19 05/25/20 History tablet,delayed release prednisone 5 mg tablet 5 mg PO QAM #90 tab 04/30/19 05/25/20 History tacrolimus 1 mg capsule 2 mg PO Q12H #450 cap 04/30/19 05/25/20 History diltiazem HCl 180 mg 180 mg PO BID #180 cap 12/08/19 05/25/20 Rx capsule,extended release 24 hr warfarin 2 mg PO QPM 05/25/20 05/25/20 History warfarin 3 mg PO DIRECTED PRN 05/25/20 05/25/20 History Patient History Medical History Acute kidney injury Anemia Atrial fibrillation with RVR Cardiac pacemaker Creatinine elevation Dehydration Diarrhea Fever History of recurrent UTI (urinary tract infection) Hx of kidney transplant Hyperglycemia Hypokalemia Hypomagnesemia Hypomagnesemia Hyponatremia Hypotension Intractable diarrhea (12/20/13) Kidney disease Laryngopharyngeal reflux Low serum vitamin B12 Nausea vomiting and diarrhea Prerenal azotemia Rapid atrial fibrillation Right flank pain S/P parathyroidectomy Sepsis (07/26/13) Tinnitus Urinary tract infection (08/27/14) Surgical History Hx of cholecystectomy Kidney transplant status, cadaveric Family History Mother Heart disease Social History Smoking Status: Never smoker Second Hand Exposure: No; Do You Dip or Chew Tobacco: No; Hx Alcohol Use: No Hx Substance Use: No Preferred Language: [place] Communication Ability: Effective Element Winding Machine Tender Required: No Beliefs That Will Affect Care: None marital status: Current Living Situation: Spouse Other Information That Helps Us Care for You: No Feels Safe at Home: Yes Safety Concerns: Feels Safe At This Time Assistive Devices: Denture - Upper and Denture - Lower Review of Systems Review of Systems: All systems reviewed & are unremarkable except as noted in HPI & below Physical Exam Constitutional: WD/WN, vitals as above well developed and well nourished; no acute distress Eyes: PERRL, conjunctivae normal, anicteric sclerae ENMT: external ear and nose normal, oropharynx normal Ears: no hearing impairment Neck: trachea midline Respiratory: normal respiratory effort, lungs clear to auscultation no cough Auscultation: no crackles, no rales and no wheezes Cardiovascular: RRR, no murmur, no edema Extremities: + AV fistula ( left brachiocephalic AV fistula with thrill and bruit.) Gastrointestinal (Abdomen): normal bowel sounds, soft, nontender, no hepatosplenomegaly Percussion/Palpation: abdomen nontender, no guarding and abdomen not rigid Nontender over left renal allograft Musculoskeletal: Extremities: extremities normal to inspection Gait: normal gait Skin: no rashes, warm and dry Neurologic: moves all extremities and awake Psychiatric: A+Ox3, euthymic affect Results & Data ([facility]) Vital Signs (Past 12 Hours) Vital Signs Temp Pulse Pulse Pulse Resp BP Pulse Ox 05/26/20 07:52 36.8 C 77 16 118/70 94 05/26/20 03:07 37.4 C 05/26/20 02:17 38.1 C H 97 H 125/70 05/26/20 01:14 37.9 C H 122 H 14 137/84 95 05/26/20 00:40 85 20 132/82 95 05/25/20 22:55 83 20 126/52 L 92 PG Care Time/CCT Total # of Minutes Spent Total Time Spent with Patient: Total time spent is greater than 50% in coordination of care (as documented) at patient's floor/unit and/or counseling patient: Coding Level of Care Code 79915 Inpt Consult Level 5 Diagnoses Acute on chronic renal insufficiency N28.9; N18.9 UTI (urinary tract infection) N39.0; R31.9 Hematuria presence: with hematuria Urinary tract infection type: site unspecified Anemia D64.9 Hypertension I10 Immunocompromised patient D84.9 Kidney transplanted Z94.0 (1) UTI (urinary tract infection) Hematuria presence: with hematuria Urinary tract infection type: site unspecified Qualified Code(s): N39.0 - Urinary tract infection, site not specified; R31.9 - Hematuria, unspecified
[2020-05-26] MEDS: TACROLIMUS 1 MG CAP PO SCH ×2 (09:58→20:54)
[2020-05-26] MEDS: MYCOPHENOLATE SODIUM 180 MG TAB PO SCH ×2 (09:58→20:54)
[2020-05-26] MEDS: CYANOCOBALAMIN 500 MCG TABLET (VITAMIN B-12) PO SCH (09:58)
[2020-05-26] MEDS: dilTIAZem HCL 180 MG CAPCR PO SCH ×2 (09:58→20:55)
--- NOTE | 2020-05-26 11:55 | Electrocardiogram Report ---
Test Reason : Blood Pressure : / mmHG Vent. Rate : 074 BPM Atrial Rate : 129 BPM P-R Int : 000 ms QRS Dur : 138 ms QT Int : 428 ms P-R-T Axes : 000 -76 084 degrees QTc Int : 475 ms Ventricular-paced rhythm with occasional Premature ventricular complexes Abnormal ECG When compared with ECG of 10-SEP-2019 08:17, Premature ventricular complexes are now Present Vent. rate has decreased BY 28 BPM Confirmed by Richy Courtney ([id number]) on 05/26/2020 11:55:20 AM Referred By: Rich Lin Confirmed By:Babatunde Courtney
[2020-05-26] MEDS: HYDROCORTISONE SOD 50 MG in SYRINGE 0 ML IV SCH ×2 (12:05→19:15)
[2020-05-26] MEDS ORDERED: PIPERACILL/TAZOBAC CONSULT ACTIVE PRN (12:56)
[2020-05-26] MEDS ORDERED: WARFARIN SOD 2 MG TAB PO ONE (14:00)
[2020-05-26] MEDS: POLYETHYLENE (MIRALAX) 17 GM PACK PO SCH (14:23)
[2020-05-26] MEDS: DOCUSATE SODIUM 100 MG CAP PO SCH ×2 (14:23→20:54)
[2020-05-26] MEDS: WARFARIN SOD 2 MG TAB PO SCH (15:36)
[2020-05-26] MEDS ORDERED: PIPERACILLIN/TAZOBACTAM 3.375 GM in DEXTROSE 5% 100 ML IV ONE (22:00)
[2020-05-26] MEDS ORDERED: CEFEPIME 2,000 MG in SYRINGE 0 ML IV SCH (22:00)
[2020-05-27] MEDS: SODIUM CHLORIDE 0.9% 1000ML 1,000 ML IV SCH (03:57)
[2020-05-27] MEDS: PIPERACILLIN/TAZOBACTAM 3.375 GM in DEXTROSE 5% 100 ML IV SCH ×3 (03:57→19:56)
[2020-05-27 08:07] LABS: Eosinophils # (auto) 0.03 K/uL (0-0.5); Eosinophils % (auto) 0.3 %; Hematocrit (blood only) 33.5 % (37-47); Hemoglobin 10.2 g/dL (12.0-16.0); Immature Granulocytes # (auto) 0.03 K/uL (0.00-0.02); Immature Granulocytes % (auto) 0.3 %; Lymphocytes # (auto) 0.52 K/uL (1.2-3.4); Lymphocytes % (auto) 5.2 %; Mean Corpuscular Hemoglobin 27.5 pg (25-34); Mean Corpuscular Hgb Conc 30.4 g/dL (32-36); Mean Corpuscular Volume 90.3 fL (80-100); Mean Platelet Volume 9.4 fL (7.4-10.4); Monocytes # (auto) 0.95 K/uL (0.11-0.59); Monocytes % (auto) 9.6 %; Neutrophils # (auto) 8.39 K/uL (1.4-6.5); Neutrophils % (auto) 84.6 %; Platelet Count 123 K/uL (130-400); RDW Coefficient of Variation 13.7 % (11.5-14.5); RDW Standard Deviation 45.3 fL (36.4-46.3); Red Blood Count 3.71 M/uL (4.2-5.4); White Blood Count 9.92 K/uL (4.8-10.8)
[2020-05-27 08:15] LABS: INR 2.1 (0.9-1.1); Prothrombin Time 21.7 Seconds (9.0-12.0)
[2020-05-27 08:37] LABS: Albumin Level 2.7 gm/dl (3.4-5.0); Calcium 9.4 mg/dl (8.5-10.1); Creatinine Clr Calc Pharmacy 43.3 ml/min; Est GFR (African American) 48.3; Est GFR (Non-African American) 41.7; Potassium 3.7 mmol/L (3.5-5.1)
[2020-05-27 08:47] LABS: Albumin Globulin Ratio 0.8 (0.9-2); Bilirubin,Total 0.4 mg/dl (0.2-1); Globulin 3.4 gm/dl (2.5-4.0); Phosphorus 2.8 mg/dl (2.5-4.9); Total Protein 6.1 gm/dl (6.4-8.2)
[2020-05-27] MEDS: predniSONE 5 MG TAB PO SCH (08:48)
[2020-05-27] MEDS: CYANOCOBALAMIN 500 MCG TABLET (VITAMIN B-12) PO SCH (08:48)
[2020-05-27] MEDS: ATENOLOL 25 MG TABLET PO SCH ×2 (08:48→20:03)
[2020-05-27] MEDS: TACROLIMUS 1 MG CAP PO SCH ×2 (08:48→20:04)
[2020-05-27] MEDS: dilTIAZem HCL 180 MG CAPCR PO SCH ×2 (08:48→20:03)
[2020-05-27] MEDS: MYCOPHENOLATE SODIUM 180 MG TAB PO SCH ×2 (08:49→20:03)
[2020-05-27] MEDS: POLYETHYLENE (MIRALAX) 17 GM PACK PO SCH (08:49)
[2020-05-27] MEDS: DOCUSATE SODIUM 100 MG CAP PO SCH ×2 (08:49→20:02)
--- NOTE | 2020-05-27 09:02 | Hospitalist Progress Note ---
Date of Service May 27, 2020 Assessment & Plan (1) UTI (urinary tract infection): * Recurrent urinary tract infections in immunocompromised patient. Sepsis with fever Tmax 38.1c and tachycardic on admission, Lactic 0.8. COVID negative * History includes 02/03/2019 due to Enterococcus faecalis.In October 2018 due to E.Coli and group B beta strep * UA - 1+ protein, 2+ blood, 2+ leuk est, >30WBC, 5-10 RBC, 10-20 epi, negative for bacteria * Urine culture with 3 mixed/moderate --> repeating culture as likely contaminated * Continue with Zosyn for now (day 2) * T max 38.1C on 05/26, afebrile since that time * BCx NGTD * WBC continues to trend down, 9.92k (16k on admission) * Nephrology on consult * IVF discontinued as Cr almost to baseline at 1.35 and patient taking adequate PO Await repeat culture (2) Immunocompromised patient: * Continue immunosuppression with mycophenolate sodium 540 mg p.o. twice daily, and tacrolimus 2 mg p.o. every 12 hours. * Continue prednisone 5mg daily (3) Acute kidney injury: * Creatinine upon admission 1.41, with range 1.17-1.4. Baseline appears to be closer to 1.2-1.3 range. * Avoid nephrotoxins * Nephrology on consult -- appreciate assistance * Non-tender on examination * US does show increased velocities suggesting some stenosis * IVF increased on 05/26 and Cr improved to 1.35 and was subsequently discontinued as above * BMP in AM (4) Hypertension: * BP controlled, currently 124/63 * Continue home atenolol 25mg BID, diltiazem 180mg BID * Continue to monitor (5) Atrial fibrillation: * Chronic. Started after second transplant. She checks her INR at home -- last 2.6 on Sunday * EKG with ventricular paced rhythm * Given extra 2mg coumadin last evening for INR 1.5 as she missed dose evening of admission * INR 2.1 on AM labs * Continue atenolol 25mg BID, diltiazem 180mg BID * Regular rhythm on examination * Continue to monitor clinically (6) Chronic ischemic heart disease: * Follows with Dr. Singleton from [facility]. Discussed with cardiology implementation engineer for most recent outpt notes * Patient with chronic ischemic heart disease with prior apical inf by nuclear study --> + stress test, March 2019 Lexiscan with hypokinesis of apex at ant wall at rest * Last ECHO May 2019 with EF 50-54%, Mild LVH, Mild TR, anterior wall hypokinesis * Appears no cardiac cath pursued given patient with one transplanted kidney and without angina, however she does endorse dyspnea on exertion at baseline * Continue atenolol 25mg BID (7) Otitis externa: * Neomycin/polymyxin/hydrocotrisone 4drops TID (8) Abdominal pain: * Colicky in nature although patient states LLQ pain /low abd pain 1-1.5 hours following eating. She states earlier this year symptoms preceded UTI and she still feels like that is possibility. Repeating urine culture as well as stool studies given mucoid/loose stool reported this morning. cdiff negative * hx colonoscopy in past 4-5 years with diverticulosis without diverticulitis * Given negative (but likely contaminated urine sample) but symptomatology and fever without abd imaging, ordered CTA/P with ORAL contrast given hx diverticulosis as well as renal transplant --> does note a stable bilobed cystic left adnexal lesion, likely ovarian * Recommend pelvic ultrasound as an outpatient and follow-up with ENGINEER SYSTEMS (9) History of recurrent UTI (urinary tract infection): * As noted above (10) Anticoagulated on warfarin: * Now therapeutic -- INR 2.1 * Continue to monitor (11) Kidney transplanted: * Hx 1st transplant 1995 at [place] and failed. Second transplanted at [place] in [place] 2012. * Kidney transplant and left renal pelvis/acute kidney injury- Follows with Dr. Lin locally (12) Hypomagnesemia: * Mag 1.5 on admission -- ordered 2gm IV * Mag 2.0, resolved (13) DVT prophylaxis: * Warfarin as above-- INR now therapeutic at 2.1 * Repeat INR in AM Admission and Anticipated Discharge Date Admission Date: May 26, 2020 Supervising Physician Co-Signing Physician Notes PA Supervision Note: I did not personally see or examine the patient today, but I verified all dial points of HERNANDEZ Hyde's assessment and plan with the following exceptions/additions: None Subjective Patient evaluated this morning. Feeling better clinically. Discussed culture results and that we would like to obtain repeat culture. Denies fever, chills. States she did have some pain in her left ear with some hearing issues in the past week along with erythema when she would awake and pain when she pushed on her tragus when demonstrating to me where the pain was at. She states she has had issues int he past with wax and has had it cleaned out in the office but never had pain. She states she notes her abdominal discomfort with bowel movements that typically precedes her urinary tract infection have actually been happening following eating more recently, about 1-1.5 hours following eating. Located left lower quadrant but is generally lower abdomen. She confirms she did have a colonoscopy about 4-5 years ago that only showed some diverticulosis but not diverticulitis. She notes small BM this morning, more mucus like in color. Has been eating/drinking better than days past and excited to continue in lieu of continued IVF as Cr almost back to baseline. Discussed other sources of infection given her fever. She denies any hiking/outdoors/tick bites. She does have some dryness to her left had as well as some yellowing/thickening of her nails which is new in the past several months. She denies shortness of breath at rest but states she does get some with exertion at baseline. Follows cardiology Fahad kendrick. Told she has a blockage but they would not want to do intervention with dye given her kidney function/transplant status. Not sure about last ECHO but will reach out to [facility] today for most recent office note. Will obtain CTAP and chest imaging today as well as repeat urine culture with stool studies to rule out other causes. Questions/concerns addressed at this time. Review of Systems Review of Systems: All systems reviewed & are unremarkable except as noted in HPI & below Physical Exam Constitutional: well developed, well nourished and + obese; no acute distress Eyes: PERRL, conjunctivae normal, anicteric sclerae ENMT: L external AC with erythema, intact TM without serous fluid present along with cerumen posterior oropharynx normal top and bottom dentures present mmm Neck: trachea midline Respiratory: normal respiratory effort and able to speak in complete sentences; no respiratory distress and no labored breathing Auscultation: + crackles (RML/ as well as bibasilar); no rales and no wheezes Cardiovascular: Rate/Rhythm: regular rate and regular rhythm Heart Sounds: + murmur (systolic) Extremities: + AV fistula ( left UE AV fistula with palpable thrill and bruit.) Gastrointestinal (Abdomen): normal bowel sounds, soft, nontender, no hepatosplenomegaly Percussion/Palpation: abdomen nontender, no guarding and abdomen not rigid Musculoskeletal: Extremities: extremities normal to inspection Gait: normal gait Skin: no rashes, warm and dry Neurologic: moves all extremities and awake Psychiatric: A+Ox3, euthymic affect Lymphatic: no cervical or axillary lymphadenopathy Results & Data Results & Data ([facility]) Vital Signs (Past 12 Hours) Vital Signs Temp Pulse Resp BP Pulse Ox 05/27/20 00:18 36.9 C 76 14 155/75 H 98 Laboratory Results 05/27/20 05/27/20 05/27/20 Range/Units 07:33 07:33 07:33 WBC 9.92 (4.8-10.8) K/uL RBC 3.71 L (4.2-5.4) M/uL Hgb 10.2 L (12.0-16.0) g/dL Hct 33.5 L (37-47) % MCV 90.3 (80-100) fL MCH 27.5 (25-34) pg MCHC 30.4 L (32-36) g/dL RDW Std Deviation 45.3 (36.4-46.3) fL RDW Coeff of Josh 13.7 (11.5-14.5) % Plt Count 123 L (130-400) K/uL MPV 9.4 (7.4-10.4) fL Immature Gran % (Auto) 0.3 % Neut % (Auto) 84.6 % Lymph % (Auto) 5.2 % [place] % (Auto) 9.6 % Eos % (Auto) 0.3 % Baso % (Auto) 0.0 % Neut # (Auto) 8.39 H (1.4-6.5) K/uL Lymph # (Auto) 0.52 L (1.2-3.4) K/uL [place] # (Auto) 0.95 H (0.11-0.59) K/uL Eos # (Auto) 0.03 (0-0.5) K/uL Baso # (Auto) 0.00 (0-0.2) K/uL Immature Gran # (Auto) 0.03 H (0.00-0.02) K/uL PT 21.7 H (9.0-12.0) Seconds INR 2.1 H (0.9-1.1) Sodium 137 (136-145) mmol/L Potassium 3.7 (3.5-5.1) mmol/L Chloride 109 H (98-107) mmol/L Carbon Dioxide 20 L (21-32) mmol/L Anion Gap 9.0 (3-11) BUN 28 H (7-18) mg/dl Creatinine 1.35 H (0.6-1.2) mg/dl Est Cr Clr Drug Dosing 43.3 ml/min Est GFR ( Amer) 48.3 Est GFR (Non-Af Amer) 41.7 BUN/Creatinine Ratio 21.0 H (10-20) Glucose 106 H (70-99) mg/dl Calcium 9.4 (8.5-10.1) mg/dl Phosphorus 2.8 (2.5-4.9) mg/dl Magnesium 2.0 (1.8-2.4) mg/dl Total Bilirubin 0.4 D (0.2-1) mg/dl AST 6 L (15-37) U/L ALT 9 L (12-78) U/L Alkaline Phosphatase 57 (45-117) U/L Total Protein 6.1 L (6.4-8.2) gm/dl Albumin 2.7 L (3.4-5.0) gm/dl Globulin 3.4 (2.5-4.0) gm/dl Albumin/Globulin Ratio 0.8 L (0.9-2) COVID-19 Eval Order COVID-19 PCR (Negative) 05/26/20 05/26/20 05/26/20 Range/Units 10:03 10:03 08:22 WBC (4.8-10.8) K/uL RBC (4.2-5.4) M/uL Hgb (12.0-16.0) g/dL Hct (37-47) % MCV (80-100) fL MCH (25-34) pg MCHC (32-36) g/dL RDW Std Deviation (36.4-46.3) fL RDW Coeff of Josh (11.5-14.5) % Plt Count (130-400) K/uL MPV (7.4-10.4) fL Immature Gran % (Auto) % Neut % (Auto) % Lymph % (Auto) % [place] % (Auto) % Eos % (Auto) % Baso % (Auto) % Neut # (Auto) (1.4-6.5) K/uL Lymph # (Auto) (1.2-3.4) K/uL [place] # (Auto) (0.11-0.59) K/uL Eos # (Auto) (0-0.5) K/uL Baso # (Auto) (0-0.2) K/uL Immature Gran # (Auto) (0.00-0.02) K/uL PT (9.0-12.0) Seconds INR (0.9-1.1) Sodium (136-145) mmol/L Potassium (3.5-5.1) mmol/L Chloride (98-107) mmol/L Carbon Dioxide (21-32) mmol/L Anion Gap (3-11) BUN (7-18) mg/dl Creatinine (0.6-1.2) mg/dl Est Cr Clr Drug Dosing ml/min Est GFR ( Amer) Est GFR (Non-Af Amer) BUN/Creatinine Ratio (10-20) Glucose (70-99) mg/dl Calcium (8.5-10.1) mg/dl Phosphorus (2.5-4.9) mg/dl Magnesium 2.3 (1.8-2.4) mg/dl Total Bilirubin (0.2-1) mg/dl AST (15-37) U/L ALT (12-78) U/L Alkaline Phosphatase (45-117) U/L Total Protein (6.4-8.2) gm/dl Albumin (3.4-5.0) gm/dl Globulin (2.5-4.0) gm/dl Albumin/Globulin Ratio (0.9-2) COVID-19 Eval Order Covid19 Done at [facility] COVID-19 PCR NEGATIVE (Negative) 05/26/20 05/26/20 05/26/20 Range/Units 08:22 08:22 08:22 WBC 12.11 H (4.8-10.8) K/uL RBC 3.91 L (4.2-5.4) M/uL Hgb 10.7 L (12.0-16.0) g/dL Hct 35.8 L (37-47) % MCV 91.6 (80-100) fL MCH 27.4 (25-34) pg MCHC 29.9 L (32-36) g/dL RDW Std Deviation 46.2 (36.4-46.3) fL RDW Coeff of Josh 13.9 (11.5-14.5) % Plt Count 112 L (130-400) K/uL MPV 9.2 (7.4-10.4) fL Immature Gran % (Auto) 0.3 % Neut % (Auto) 93.6 % Lymph % (Auto) 3.4 % [place] % (Auto) 2.6 % Eos % (Auto) 0.0 % Baso % (Auto) 0.1 % Neut # (Auto) 11.33 H (1.4-6.5) K/uL Lymph # (Auto) 0.41 L (1.2-3.4) K/uL [place] # (Auto) 0.32 (0.11-0.59) K/uL Eos # (Auto) 0.00 (0-0.5) K/uL Baso # (Auto) 0.01 (0-0.2) K/uL Immature Gran # (Auto) 0.04 H (0.00-0.02) K/uL PT 17.9 H (9.0-12.0) Seconds INR 1.7 H (0.9-1.1) Sodium 135 L (136-145) mmol/L Potassium 4.2 (3.5-5.1) mmol/L Chloride 105 (98-107) mmol/L Carbon Dioxide 21 (21-32) mmol/L Anion Gap 8.0 (3-11) BUN 28 H (7-18) mg/dl Creatinine 1.49 H (0.6-1.2) mg/dl Est Cr Clr Drug Dosing 39.2 ml/min Est GFR ( Amer) 42.9 Est GFR (Non-Af Amer) 37.0 BUN/Creatinine Ratio 18.5 (10-20) Glucose 122 H (70-99) mg/dl Calcium 9.5 (8.5-10.1) mg/dl Phosphorus 3.3 (2.5-4.9) mg/dl Magnesium (1.8-2.4) mg/dl Total Bilirubin 1.0 (0.2-1) mg/dl AST 8 L (15-37) U/L ALT 10 L (12-78) U/L Alkaline Phosphatase 70 (45-117) U/L Total Protein 6.4 (6.4-8.2) gm/dl Albumin 3.1 L (3.4-5.0) gm/dl Globulin 3.3 (2.5-4.0) gm/dl Albumin/Globulin Ratio 0.9 (0.9-2) COVID-19 Eval Order COVID-19 PCR (Negative) Diagnostic Findings CXR IMPRESSION: 1. No evidence of acute parenchymal consolidation 2. Right infrahilar nodular opacity. Although nonspecific, as this was not visualized on the previous recent studies, this likely represents a vascular summation CT Abdomen/Pelvis with ORAL contrast IMPRESSION: 1. No evidence of bowel obstruction. No evidence of free air 2. Normal appendix. 3. Diverticulosis. No evidence of acute diverticulitis 4. Left lower quadrant transplant kidney with stable perinephric stranding. Cortical hypodensities within the transplant kidney likely representing cysts although they are not accurately characterized on this noncontrast study. Punctate transplant kidney calcification. 5. Minimally enlarged retroperitoneal lymph nodes unchanged the prior study PG Care Time/CCT Total # of Minutes Spent Total Time Spent with Patient: Total time spent is greater than 50% in coordination of care (as documented) at patient's floor/unit and/or counseling patient: Coding Level of Care Code 95647 Subseq Hosp Care Lvl 3 Diagnoses UTI (urinary tract infection) N39.0; R31.9 Hematuria presence: with hematuria Urinary tract infection type: site unspecified Immunocompromised patient D84.9 Acute kidney injury N17.9 Hypertension I10 Atrial fibrillation I48.91 Chronic ischemic heart disease I25.9 Otitis externa H60.90 Abdominal pain R10.9 History of recurrent UTI (urinary tract infection) Z87.440 Anticoagulated on warfarin Z79.01 Kidney transplanted Z94.0 Hypomagnesemia E83.42 DVT prophylaxis Z29.9 (1) UTI (urinary tract infection) Hematuria presence: with hematuria Urinary tract infection type: site unspecified Qualified Code(s): N39.0 - Urinary tract infection, site not specified; R31.9 - Hematuria, unspecified
--- NOTE | 2020-05-27 11:43 | Nephrology Progress Note ---
Date of Service May 27, 2020 Assessment & Plan (1) Acute on chronic renal insufficiency: Melanie has mild allograft dysfunction with baseline creatinine around 1.3- 1.4, admitted with recurrent urinary tract infection. P.o. intake seems to be somewhat poor, has been getting IV fluid. On empiric antibiotics pending blood and urine culture. Blood pressure has been well controlled. Renal ultrasound was otherwise unremarkable. Renal function improved, creatinine close to baseline, electrolyte acceptable. Blood pressure slightly elevated. -- Discontinue IV fluid as p.o. intake has been adequate, encouraged to increase fluid intake -- continue on tacrolimus, mycophenolate and oral prednisone 5 milligram -- continue to monitor renal function daily renal panel Will follow, okay to be discharged when medically stable, she will follow up with Dr. Lin as an outpatient as her regular schedule. (2) UTI (urinary tract infection): (3) Anemia: (4) Hypertension: (5) Immunocompromised patient: (6) Kidney transplanted: Admission and Anticipated Discharge Date Admission Date: May 26, 2020 Subjective Melanie was seen and examined in her room this morning. Overall she is feeling better, denies any abdominal pain, dysuria, fever or chills. No shortness of breath or chest pain. She reports having problem with hearing in her left year. She recalls having ear wax that was removed more than a year ago when she had similar problem. renal function slightly improved to creatinine 1.35, electrolyte acceptable. Review of Systems Review of Systems: All systems reviewed & are unremarkable except as noted in HPI & below Physical Exam Constitutional: WD/WN, vitals as above well developed and well nourished; no acute distress Respiratory: normal respiratory effort, lungs clear to auscultation no cough Auscultation: no crackles, no rales and no wheezes Cardiovascular: RRR, no murmur, no edema Extremities: + AV fistula ( left brachiocephalic AV fistula with thrill and bruit.) Skin: no rashes, warm and dry Neurologic: moves all extremities and awake Psychiatric: A+Ox3, euthymic affect Results & Data ([facility]) Vital Signs (Past 12 Hours) Vital Signs Temp Pulse Resp BP Pulse Ox 05/27/20 00:18 36.9 C 76 14 155/75 H 98 PG Care Time/CCT Total # of Minutes Spent Total Time Spent with Patient: Total time spent is greater than 50% in coordina tion of care (as documented) at patient's floor/unit and/or counseling patient: Coding Level of Care Code 23307 Subseq Hosp Care Lvl 3 Diagnoses Acute on chronic renal insufficiency N28.9; N18.9 UTI (urinary tract infection) N39.0; R31.9 Hematuria presence: with hematuria Urinary tract infection type: site unspecified Anemia D64.9 Hypertension I10 Immunocompromised patient D84.9 Kidney transplanted Z94.0 (1) UTI (urinary tract infection) Hematuria presence: with hematuria Urinary tract infection type: site unspecified Qualified Code(s): N39.0 - Urinary tract infection, site not specified; R31.9 - Hematuria, unspecified
--- NOTE | 2020-05-27 13:35 | XRay Report ---
XR chest 2V PA/lateral CLINICAL HISTORY: crackles COMPARISON STUDY: 05/25/2020 FINDINGS: The heart is mildly enlarged. There is a right subclavian dual-chamber centimeters pacemake r. There is no failure. There is no focal pulmonary consolidation. There is a right infrahilar nodula r opacity which was not visualized the prior study. This favors a vascular summation.[ IMPRESSION: 1. No evidence of acute parenchymal consolidation 2. Right infrahilar nodular opacity. Although nonspecific, as this was not visualized on the previous recent studies, this likely represents a vascular summation ACT 112: Negative or not required by law. Electronically signed by: Juan Carlos Herrera M.D. 05/27/2020 1:34 PM
[2020-05-27] MEDS: NEOMYCIN/POLYMYX/HYDROCORT OT SOLN 10 ML BTL OT SCH ×2 (15:36→20:02)
[2020-05-27] MEDS: WARFARIN SOD 2 MG TAB PO SCH (16:07)
--- NOTE | 2020-05-27 16:07 | CT Scan Report ---
CT abd pelvis oral con only CLINICAL HISTORY: abdominal cramping, anorexia, fever, diarrhea COMPARISON STUDY: CT scan dated 11/16/2018 FINDINGS: The patient was scanned following administration of dilute oral contrast. No intravenous contrast was administered. Images to the lung bases reveal dependent atelectatic changes No hepatic masses are visualized on this noncontrast study. The gallbladder is surgically absent. No splenic masses are visualized. No pancreatic masses are visualized. No adrenal masses are visualized. The [place] kidneys are markedly atrophic. There is no evidence of abdominal aortic aneurysm. There is no evidence of ascites. There is no free intraperitoneal air. There are no transition zones indicate bowel obstruction. The appendix appears normal. There is exten sive sigmoid diverticulosis. There is no evidence of acute peridiverticular inflammatory change. There is an old atrophic right iliac fossa transplant kidney. There is a left iliac fossa transplant kidney with mild perinephric edema, unchanged from the prior s tudy. There are bilateral hypodensities within the transplant kidney possibly representing cysts. The re is a punctate renal transplant kidney calculus versus vascular calcification There are mildly enlarged low-density left para-aortic lymph nodes. There is a low-density mildly enl arged left obturator lymph node. There is a small right posterior lateral bladder diverticulum. There is a stable bilobed cystic left adnexal lesion likely ovarian. IMPRESSION: 1. No evidence of bowel obstruction. No evidence of free air 2. Normal appendix. 3. Diverticulosis. No evidence of acute diverticulitis 4. Left lower quadrant transplant kidney with stable perinephric stranding. Cortical hypodensities wi thin the transplant kidney likely representing cysts although they are not accurately characterized o n this noncontrast study. Punctate transplant kidney calcification. 5. Minimally enlarged retroperitoneal lymph nodes unchanged the prior study ACT 112: Negative or not required by law. Electronically signed by: Juan Carlos Herrera M.D. 05/27/2020 4:06 PM
[2020-05-27] MEDS ORDERED: SODIUM CHLORIDE 0.9% 1000ML 1,000 ML IV SCH (19:30)
[2020-05-27] MEDS: LOPERAMIDE HCL 2 MG CAP PO PRN (19:44)
[2020-05-28] MEDS: ACETAMINOPHEN 325 MG TAB PO PRN (05:41)
[2020-05-28] MEDS: PIPERACILLIN/TAZOBACTAM 3.375 GM in DEXTROSE 5% 100 ML IV SCH (05:41)
[2020-05-28 06:34] LABS: Basophils # (auto) 0.01 K/uL (0-0.2); Basophils % (auto) 0.1 %; Eosinophils # (auto) 0.14 K/uL (0-0.5); Eosinophils % (auto) 1.5 %; Hemoglobin 9.8 g/dL (12.0-16.0); Immature Granulocytes # (auto) 0.03 K/uL (0.00-0.02); Immature Granulocytes % (auto) 0.3 %; Lymphocytes # (auto) 0.47 K/uL (1.2-3.4); Lymphocytes % (auto) 5.1 %; Mean Corpuscular Hemoglobin 26.9 pg (25-34); Mean Corpuscular Hgb Conc 29.7 g/dL (32-36); Mean Corpuscular Volume 90.7 fL (80-100); Mean Platelet Volume 9.8 fL (7.4-10.4); Monocytes # (auto) 0.94 K/uL (0.11-0.59); Monocytes % (auto) 10.1 %; Neutrophils # (auto) 7.69 K/uL (1.4-6.5); Neutrophils % (auto) 82.9 %; Platelet Count 126 K/uL (130-400); RDW Coefficient of Variation 13.9 % (11.5-14.5); RDW Standard Deviation 46.2 fL (36.4-46.3); Red Blood Count 3.64 M/uL (4.2-5.4); White Blood Count 9.28 K/uL (4.8-10.8)
[2020-05-28 06:44] LABS: INR 2.9 (0.9-1.1); Prothrombin Time 29.1 Seconds (9.0-12.0)
[2020-05-28 07:01] LABS: Albumin Level 2.7 gm/dl (3.4-5.0); BUN Creatinine Ratio 15.8 (10-20); Calcium 8.7 mg/dl (8.5-10.1); Creatinine Clr Calc Pharmacy 43.9 ml/min; Est GFR (African American) 49.2; Est GFR (Non-African American) 42.4; Magnesium 1.4 mg/dl (1.8-2.4); Potassium 3.6 mmol/L (3.5-5.1)
[2020-05-28 07:25] LABS: Albumin Globulin Ratio 0.8 (0.9-2); Bilirubin,Total 0.5 mg/dl (0.2-1); Globulin 3.3 gm/dl (2.5-4.0); Phosphorus 1.5 mg/dl (2.5-4.9)
[2020-05-28] MEDS ORDERED: POTASSIUM PHOS 3 MMOL/1 ML INFUSION IV STA (07:26)
[2020-05-28] MEDS ORDERED: POTASSIUM PHOSPHATE 15 MMOL in SODIUM CHLORIDE 0.9% 250 ML IV STA (07:31)
[2020-05-28] MEDS: DOCUSATE SODIUM 100 MG CAP PO SCH ×2 (07:59→20:36)
[2020-05-28] MEDS: POLYETHYLENE (MIRALAX) 17 GM PACK PO SCH (07:59)
[2020-05-28] MEDS: NEOMYCIN/POLYMYX/HYDROCORT OT SOLN 10 ML BTL OT SCH ×3 (08:00→20:36)
[2020-05-28] MEDS: ATENOLOL 25 MG TABLET PO SCH ×2 (08:04→20:36)
[2020-05-28] MEDS: CYANOCOBALAMIN 500 MCG TABLET (VITAMIN B-12) PO SCH (08:04)
[2020-05-28] MEDS: TACROLIMUS 1 MG CAP PO SCH ×2 (08:04→20:35)
[2020-05-28] MEDS: predniSONE 5 MG TAB PO SCH (08:04)
[2020-05-28] MEDS: MYCOPHENOLATE SODIUM 180 MG TAB PO SCH ×2 (08:04→20:36)
[2020-05-28] MEDS: dilTIAZem HCL 180 MG CAPCR PO SCH ×2 (08:04→20:36)
--- NOTE | 2020-05-28 08:25 | Hospitalist Progress Note ---
Date of Service May 28, 2020 Assessment & Plan (1) Fever: Initially thought to be related to UTI. Patient with recurrent urinary tract infections, immunocompromised renal transplant x 2. Sepsis with fever Tmax 38.1c and tachycardic on admission, Lactic 0.8. COVID negative * History includes 02/03/2019 due to Enterococcus faecalis.In October 2018 due to E.Coli and group B beta strep * UA - 1+ protein, 2+ blood, 2+ leuk est, >30WBC, 5-10 RBC, 10-20 epi, negative for bacteria * Urine culture with 3 mixed/moderate --> repeating culture as likely contaminated. * BCx NGTD * WBC continues to trend down, 9.28k * Repeat culture no growth, however patient had been given cefepime/dapto on admission that was switched to Zosyn and patient remained afebrile since Temp 38.1 early AM 05/26 * However, patient with temp 38.8C at 5AM today * Repeat blood cultures drawn * Procalcitonin 0.48 * Nephrology on consult * Switched back to Cefepime/Dapto for broad coverage this morning as discussed with ID * Infectious Disease consulted -- no note in chart but discussed with nursing as well as over hour this evening with calling [facility] but not being able to get ahold of anyone to send information. Did have transfer center attendant read report and placed consult to HIM to obtain officially as not scanned ov er. * Will also ask CM to access EPIC in AM if unsuccessful * Recommendations to discontinue Dapto and continue Cefepime IV x 7-10 days if continues to improve on this agent. Consultation done by Dr. Aguilera * CT A/P without acute process * CXR negative for pneumonia * Lyme -- IgM negative, IgG positive. WB pending * Temp currently 37C * ECHO ordered to r/o IE as murmur appreciated on examination but no other source clearly identified (2) UTI (urinary tract infection): * See above (3) Immunocompromised patient: * Continue immunosuppression with mycophenolate sodium 540 mg p.o. twice daily, and tacrolimus 2 mg p.o. every 12 hours. * Continue prednisone 5mg daily (4) Acute kidney injury: * Creatinine upon admission 1.41, with range 1.17-1.4. Baseline appears to be closer to 1.2-1.3 range. * Avoid nephrotoxins * Nephrology on consult -- appreciate assistance * Non-tender on examination * US does show increased velocities suggesting some stenosis * Did get 500cc NSS last evening for increased diarrhea following CT with oral contrast * Cr 1.33 * BMP in AM (5) Hypertension: * BP controlled, currently 138/68 * Continue home atenolol 25mg BID, diltiazem 180mg BID * Continue to monitor (6) Atrial fibrillation: * Chronic. Started after second transplant. She checks her INR at home -- last 2.6 on Sunday * EKG with ventricular paced rhythm * Given extra 2mg coumadin evening 05/26 for INR 1.5 as she missed dose evening of admission * INR 2.9 on AM labs * Continue atenolol 25mg BID, diltiazem 180mg BID * Regular rhythm on examination * Continue to monitor (7) Chronic ischemic heart disease: * Follows with Dr. Singleton from [facility]. Discussed with cardiology calibration specialist for most recent outpt notes * Patient with chronic ischemic heart disease with prior apical inf by nuclear study --> + stress test, March 2019 Lexiscan with hypokinesis of apex at ant wall at rest * Last ECHO May 2019 with EF 50-54%, Mild LVH, Mild TR, anterior wall hypokinesis * Appears no cardiac cath pursued given patient with one transplanted kidney and without angina, however she does endorse dyspnea on exertion at baseline * Continue atenolol 25mg BID * ECHO pending as above (8) Otitis externa: * Neomycin/polymyxin/hydrocotrisone 4drops TID (9) Abdominal pain: * Colicky in nature although patient states LLQ pain /low abd pain 1-1.5 hours following eating. She states earlier this year symptoms preceded UTI and she still feels like that is possibility. Repeating urine culture as well as stool studies given mucoid/loose stool reported this morning. cdiff negative * hx colonoscopy in past 4-5 years with diverticulosis without diverticulitis * Given negative (but likely contaminated urine sample) but symptomatology and fever without abd imaging, ordered CTA/P with ORAL contrast given hx diverticulosis as well as renal transplant --> does note a stable bilobed cystic left adnexal lesion, likely ovarian. Stable from previous imaging 2019. Patient menopausal around age 52 per her account and has not had any issues with bleeding per her account * Recommend pelvic ultrasound as an outpatient and follow-up with [employer] (10) History of recurrent UTI (urinary tract infection): * As noted above (11) Anticoagulated on warfarin: * Continue home 2mg daily * INR Therapeutic, 2.9 * Continue to monitor (12) Kidney transplanted: * Hx 1st transplant 1995 at [facility] and failed. Second transplanted at [facility] in [place] 2012. * Kidney transplant and left renal pelvis/acute kidney injury- Follows with Dr. Lin locally (13) Hypomagnesemia: * Mag 1.4 -- ordered 4gm IV * Mag in AM (14) Hypophosphatemia: * Phos dropped to 1.5 -- ordered Kphos by Nephrology * Repeat in AM (15) DVT prophylaxis: * Warfarin as above-- INR therapeutic at 2.9 * Repeat INR in AM Admission and Anticipated Discharge Date Admission Date: May 26, 2020 Supervising Physician Co-Signing Physician Notes PA Supervision Note: I did not personally see or examine the patient today, but I verified all dial points of HERNANDEZ Hyde's assessment and plan with the following exceptions/additions: Fevers have recurred after being off of coverage for MRSA. Agree with restarting cefepime and daptomycin. Also with otitis externa on the left in an immunocompromised patient-at risk for malignant otitis externa-we will obtain head CT and continue both topical and broad-spectrum IV antibiotics especially as fevers have recurred. Follow blood cultures Checking echocardiogram for infective endocarditis Check PA/LAT chest x-ray in the morning given crackles on examination in the right lung to assess for pneumonia Subjective Patient evaluated this morning. Several episodes of diarrhea last evening following the oral contrast but that has improved this morning. Had been feeling generally well but spiked a fever today. Discussed no infectious sources described on imaging abd/pelv CT or CXR. Repeat urine culture pending. Discussed adding lyme to lab-work as well as consulting infectious disease as she had been afebrile up until today since the morning of the . Denies chest pain, shortness of breath (above her baseline), abdominal pain, nausea, vomiting, dysuria at this time. No recent unexplained weight loss or night sweats. Has been drinking ok, but doesn't have much of an appetite today. Discussed if she continues to have low intake we may resume IVF. Updated , Padilla, this afternoon via telephone. Review of Systems Review of Systems: All systems reviewed & are unremarkable except as noted in HPI & below Physical Exam Constitutional: WD/WN, vitals as above well developed, well nourished and + obese; no acute distress Eyes: PERRL, conjunctivae normal, anicteric sclerae ENMT: improved erythema L EAC Neck: trachea midline Respiratory: normal respiratory effort, lungs clear to auscultation normal respiratory effort and able to speak in complete sentences; no respiratory distress and no labored breathing Auscultation: + crackles (RML/ as well as bibasilar); no rales and no wheezes Cardiovascular: RRR, no murmur, no edema Rate/Rhythm: regular rate and regular rhythm Heart Sounds: + murmur (systolic) Extremities: + AV fistula ( left UE AV fistula with palpable thrill and bruit.) Gastrointestinal (Abdomen): normal bowel sounds, soft, nontender, no hepatosplenomegaly Percussion/Palpation: abdomen nontender, no guarding and abdomen not rigid Musculoskeletal: Extremities: extremities normal to inspection Gait: normal gait Skin: no rashes, warm and dry Neurologic: moves all extremities and awake Psychiatric: Orientation: alert and oriented x 3 Lymphatic: no cervical or axillary lymphadenopathy Results & Data Results & Data ([facility]) Vital Signs (Past 12 Hours) Vital Signs Temp Pulse Resp BP Pulse Ox 05/28/20 06:47 37.8 C H 83 20 110/54 L 92 05/28/20 06:21 38.4 C H 05/28/20 05:38 38.8 C H 05/28/20 00:23 37.4 C 71 16 116/64 91 Laboratory Results 05/28/20 05/28/20 05/28/20 Range/Units 06:12 06:01 06:01 WBC 9.28 (4.8-10.8) K/uL RBC 3.64 L (4.2-5.4) M/uL Hgb 9.8 L (12.0-16.0) g/dL Hct 33.0 L (37-47) % MCV 90.7 (80-100) fL MCH 26.9 (25-34) pg MCHC 29.7 L (32-36) g/dL RDW Std Deviation 46.2 (36.4-46.3) fL RDW Coeff of Josh 13.9 (11.5-14.5) % Plt Count 126 L (130-400) K/uL MPV 9.8 (7.4-10.4) fL Immature Gran % (Auto) 0.3 % Neut % (Auto) 82.9 % Lymph % (Auto) 5.1 % [place] % (Auto) 10.1 % Eos % (Auto) 1.5 % Baso % (Auto) 0.1 % Neut # (Auto) 7.69 H (1.4-6.5) K/uL Lymph # (Auto) 0.47 L (1.2-3.4) K/uL Berrien # (Auto) 0.94 H (0.11-0.59) K/uL Eos # (Auto) 0.14 (0-0.5) K/uL Baso # (Auto) 0.01 (0-0.2) K/uL Immature Gran # (Auto) 0.03 H (0.00-0.02) K/uL PT 29.1 H (9.0-12.0) Seconds INR 2.9 H (0.9-1.1) Sodium 136 (136-145) mmol/L Potassium 3.6 (3.5-5.1) mmol/L Chloride 107 (98-107) mmol/L Carbon Dioxide 22 (21-32) mmol/L Anion Gap 6.0 (3-11) BUN 21 H (7-18) mg/dl Creatinine 1.33 H (0.6-1.2) mg/dl Est Cr Clr Drug Dosing 43.9 ml/min Est GFR ( Amer) 49.2 Est GFR (Non-Af Amer) 42.4 BUN/Creatinine Ratio 15.8 (10-20) Glucose 99 (70-99) mg/dl Calcium 8.7 (8.5-10.1) mg/dl Phosphorus 1.5 L* D (2.5-4.9) mg/dl Magnesium 1.4 L (1.8-2.4) mg/dl Total Bilirubin 0.5 (0.2-1) mg/dl AST 8 L (15-37) U/L ALT 8 L (12-78) U/L Alkaline Phosphatase 51 (45-117) U/L Total Protein 6.0 L (6.4-8.2) gm/dl Albumin 2.7 L (3.4-5.0) gm/dl Globulin 3.3 (2.5-4.0) gm/dl Albumin/Globulin Ratio 0.8 L (0.9-2) Stl C. diff Tox B Gene (Neg) 05/27/20 05/27/20 Range/Units 16:50 07:33 WBC (4.8-10.8) K/uL RBC (4.2-5.4) M/uL Hgb (12.0-16.0) g/dL Hct (37-47) % MCV (80-100) fL MCH (25-34) pg MCHC (32-36) g/dL RDW Std Deviation (36.4-46.3) fL RDW Coeff of Josh (11.5-14.5) % Plt Count (130-400) K/uL MPV (7.4-10.4) fL Immature Gran % (Auto) % Neut % (Auto) % Lymph % (Auto) % [place] % (Auto) % Eos % (Auto) % Baso % (Auto) % Neut # (Auto) (1.4-6.5) K/uL Lymph # (Auto) (1.2-3.4) K/uL Berrien # (Auto) (0.11-0.59) K/uL Eos # (Auto) (0-0.5) K/uL Baso # (Auto) (0-0.2) K/uL Immature Gran # (Auto) (0.00-0.02) K/uL PT (9.0-12.0) Seconds INR (0.9-1.1) Sodium 137 (136-145) mmol/L Potassium 3.7 (3.5-5.1) mmol/L Chloride 109 H (98-107) mmol/L Carbon Dioxide 20 L (21-32) mmol/L Anion Gap 9.0 (3-11) BUN 28 H (7-18) mg/dl Creatinine 1.35 H (0.6-1.2) mg/dl Est Cr Clr Drug Dosing 43.3 ml/min Est GFR ( Amer) 48.3 Est GFR (Non-Af Amer) 41.7 BUN/Creatinine Ratio 21.0 H (10-20) Glucose 106 H (70-99) mg/dl Calcium 9.4 (8.5-10.1) mg/dl Phosphorus 2.8 (2.5-4.9) mg/dl Magnesium 2.0 (1.8-2.4) mg/dl Total Bilirubin 0.4 D (0.2-1) mg/dl AST 6 L (15-37) U/L ALT 9 L (12-78) U/L Alkaline Phosphatase 57 (45-117) U/L Total Protein 6.1 L (6.4-8.2) gm/dl Albumin 2.7 L (3.4-5.0) gm/dl Globulin 3.4 (2.5-4.0) gm/dl Albumin/Globulin Ratio 0.8 L (0.9-2) Stl C. diff Tox B Gene Negative Cdiff Gene (Neg) PG Care Time/CCT Total # of Minutes Spent Total Time Spent with Patient: Total time spent is greater than 50% in coordination of care (as documented) at patient's floor/unit and/or counseling patient: Coding Level of Care Code 46745 Subseq Hosp Care Lvl 3 Diagnoses Fever R50.9 UTI (urinary tract infection) N39.0; R31.9 Hematuria presence: with hematuria Urinary tract infection type: site unspecified Immunocompromised patient D84.9 Acute kidney injury N17.9 Hypertension I10 Atrial fibrillation I48.91 Chronic ischemic heart disease I25.9 Otitis externa H60.90 Abdominal pain R10.9 History of recurrent UTI (urinary tract infection) Z87.440 Anticoagulated on warfarin Z79.01 Kidney transplanted Z94.0 Hypomagnesemia E83.42 Hypophosphatemia E83.39 DVT prophylaxis Z29.9 (1) UTI (urinary tract infection) Hematuria presence: with hematuria Urinary tract infection type: site unspecified Qualified Code(s): N39.0 - Urinary tract infection, site not specified; R31.9 - Hematuria, unspecified
[2020-05-28] MEDS: MAGNESIUM SULFATE / D5W 1 GM/100 ML BAG IV SCH ×4 (10:03→15:25)
--- NOTE | 2020-05-28 10:09 | Nephrology Progress Note ---
Date of Service May 28, 2020 Assessment & Plan (1) Acute on chronic renal insufficiency: Melanie has mild allograft dysfunction with baseline creatinine around 1.3- 1.4, admitted with recurrent urinary tract infection. P.o. intake seems to be somewhat poor, has been getting IV fluid. On empiric antibiotics pending blood and urine culture. Blood pressure has been well controlled. Renal ultrasound was otherwise unremarkable. Renal function improved, creatinine close to baseline, electrolyte acceptable. Blood pressure controlled. -- start K phosphate IV -- continue on tacrolimus, mycophenolate and oral prednisone 5 milligram -- continue to monitor renal function daily renal panel Will follow, okay to be discharged when medically stable, she will follow up with Dr. Lin as an outpatient as her regular schedule. (2) UTI (urinary tract infection): (3) Anemia: (4) Hypertension: (5) Immunocompromised patient: (6) Kidney transplanted: Admission and Anticipated Discharge Date Admission Date: May 26, 2020 Subjective Melanie was seen and examined in her room this morning. She has been feeling poorly, has been having nausea, diarrhea since she had oral contrast for CT A/P yesterday. No shortness of breath or chest pain. Renal function improved to creatinine 1.3, electrolyte acceptable. Review of Systems Review of Systems: All systems reviewed & are unremarkable except as noted in HPI & below Physical Exam Constitutional: WD/WN, vitals as above well developed and well nourished; no acute distress Respiratory: normal respiratory effort, lungs clear to auscultation no cough Auscultation: no crackles, no rales and no wheezes Cardiovascular: RRR, no murmur, no edema Extremities: + AV fistula ( left brachiocephalic AV fistula with thrill and bruit.) Gastrointestinal (Abdomen): normal bowel sounds, soft, nontender, no hepatosplenomegaly Percussion/Palpation: abdomen nontender, no guarding and abdomen not rigid Skin: no rashes, warm and dry Neurologic: moves all extremities and awake Psychiatric: A+Ox3, euthymic affect Results & Data ([facility]) Vital Signs (Past 12 Hours) Vital Signs Temp Pulse Resp BP Pulse Ox 05/28/20 06:47 37.8 C H 83 20 110/54 L 92 05/28/20 06:21 38.4 C H 05/28/20 05:38 38.8 C H 05/28/20 00:23 37.4 C 71 16 116/64 91 PG Care Time/CCT Total # of Minutes Spent Total Time Spent with Patient: Total time spent is greater than 50% in coordination of care (as documented) at patient's floor/unit and/or counseling patient: Coding Level of Care Code 45680 Subseq Hosp Care Lvl 3 Diagnoses Acute on chronic renal insufficiency N28.9; N18.9 UTI (urinary tract infection) N39.0; R31.9 Hematuria presence: with hematuria Urinary tract infection type: site unspecified Anemia D64.9 Hypertension I10 Immunocompromised patient D84.9 Kidney transplanted Z94.0 (1) UTI (urinary tract infection) Hematuria presence: with hematuria Urinary tract infection type: site unspecified Qualified Code(s): N39.0 - Urinary tract infection, site not spec ified; R31.9 - Hematuria, unspecified
[2020-05-28] MEDS ORDERED: CEFEPIME CONSULT ACTIVE PRN (11:12)
[2020-05-28] MEDS: DAPTOmycin 325 MG in SYRINGE 0 ML IV SCH (12:01)
[2020-05-28] MEDS: CEFEPIME 2,000 MG in SYRINGE 0 ML IV SCH (12:01)
[2020-05-28 13:23] LABS: Lyme Ab IgM w/WB Rflx Negative (Negative)
[2020-05-28 13:30] LABS: Lyme Ab IgG w/WB Rflx Positive (Negative)
[2020-05-28] MEDS: WARFARIN SOD 2 MG TAB PO SCH (15:25)
[2020-05-29] MEDS: CEFEPIME 2,000 MG in SYRINGE 0 ML IV SCH ×3 (00:09→23:38)
[2020-05-29 06:14] LABS: Eosinophils # (auto) 0.22 K/uL (0-0.5); Eosinophils % (auto) 3.1 %; Hemoglobin 9.5 g/dL (12.0-16.0); Immature Granulocytes # (auto) 0.03 K/uL (0.00-0.02); Immature Granulocytes % (auto) 0.4 %; Lymphocytes # (auto) 0.53 K/uL (1.2-3.4); Lymphocytes % (auto) 7.6 %; Mean Corpuscular Hemoglobin 27.5 pg (25-34); Mean Corpuscular Hgb Conc 30.6 g/dL (32-36); Mean Corpuscular Volume 89.9 fL (80-100); Mean Platelet Volume 9.4 fL (7.4-10.4); Monocytes # (auto) 0.76 K/uL (0.11-0.59); Monocytes % (auto) 10.8 %; Neutrophils # (auto) 5.47 K/uL (1.4-6.5); Neutrophils % (auto) 78.1 %; Platelet Count 117 K/uL (130-400); RDW Coefficient of Variation 13.8 % (11.5-14.5); RDW Standard Deviation 45.1 fL (36.4-46.3); Red Blood Count 3.45 M/uL (4.2-5.4); White Blood Count 7.01 K/uL (4.8-10.8)
[2020-05-29 06:42] LABS: Albumin Level 2.7 gm/dl (3.4-5.0); BUN Creatinine Ratio 17.8 (10-20); Calcium 8.6 mg/dl (8.5-10.1); Creatinine Clr Calc Pharmacy 57.3 ml/min; Est GFR (African American) 67.8; Est GFR (Non-African American) 58.5; Magnesium 2.1 mg/dl (1.8-2.4); Potassium 3.7 mmol/L (3.5-5.1)
[2020-05-29 06:46] LABS: Bilirubin Direct 0.2 mg/dl (0-0.2); Bilirubin,Total 0.9 mg/dl (0.2-1)
--- NOTE | 2020-05-29 08:19 | Hospitalist Progress Note ---
Date of Service May 29, 2020 Assessment & Plan (1) Fever: Initially thought to be related to UTI. Patient with recurrent urinary tract infections, immunocompromised renal transplant x 2. Sepsis with fever Tmax 38.1c and tachycardic on admission, Lactic 0.8. COVID negative * History includes 02/03/2019 due to Enterococcus faecalis.In October 2018 due to E.Coli and group B beta strep * Urine appeared infected although negative for bacteria * Initial culture with 3 mixed/moderate but likely contaminated. * Cefepime/Dapto on admission switched to Zosyn and patient had remained afebrile until 38.8C on 05/28 and patient placed back on Cefepime/Dapto * Repeat blood cultures without growth * Repeat urine culture without growth initially reported but now showing yeast preliminary -- no discharge/itchy noted during questioning * WBC trending down. Procal 0.48 * No further fevers * Infectious Disease consulted -- rec cefepime alone x 7-10 days, but given improvement on Dapto/Cefepime will continue this for now * CTA/P without acute process * CXR negative for pneumonia. * Repeat 2 view with interval development of mild interstitial pulmonary edema and trace bilateral pleural effusions * ECHO pending read to r/o IE * CT head to r/o malignant otitis externa in immunocompromised patient --> w/ mi ld soft tissue thickening within the left external auditory canal extending along the tympanic membrane. No bony destruction or infiltration of the adjacent soft tissues. A few opacified left mastoid air cells. No convincing evidence for malignant otitis externa at this time * --> rec f/u temporal bone CT if clinically worsened * LEFT EAR examined by attending and myself today -- cerumen removal and culture obtained with purulent material noted * Lyme -- IgM negative, IgG positive. WB pending * Temp currently 36.9C * Continue to monitor (2) UTI (urinary tract infection): * See above (3) Otitis externa: * LEFT sided * CT head without evidence of malignant otitis externa * Culture obtained today -- follow * Continue Neomycin/polymyxin/hydrocotrisone 4drops TID (4) Immunocompromised patient: * Continue immunosuppression with mycophenolate sodium 540 mg p.o. twice daily, and tacrolimus 2 mg p.o. every 12 hours. * Continue prednisone 5mg daily (5) Acute kidney injury: * Creatinine upon admission 1.41, with range 1.17-1.4. Baseline appears to be closer to 1.2-1.3 range. * Avoid nephrotoxins * Nephrology on consult -- appreciate assistance * Did get 500cc NSS evening 05/27 for increased diarrhea following CT with oral contrast * No further IVF * Cr improved to below baseline at 1.02 * Continue to monitor (6) Hypertension: * BP controlled, currently 143/76 * Continue home atenolol 25mg BID, diltiazem 180mg BID * Continue to monitor (7) Atrial fibrillation: * Chronic. Started after second transplant. She checks her INR at home -- last 2.6 on Sunday * EKG with ventricular paced rhythm * Continue atenolol 25mg BID, diltiazem 180mg BID * Given extra 2mg Coumadin evening 05/26 for INR 1.5 as she missed dose evening of admission. Usual dose 2mg daily, continued * INR 2.2 on AM labs * Regular rhythm on examination * Continue to monitor (8) Chronic ischemic heart disease: * Follows with Dr. Singleton from [facility]. Discussed with cardiology education program manager for most recent outpt notes * Patient with chronic ischemic heart disease with prior apical inf by nuclear study --> + stress test, March 2019 Lexiscan with hypokinesis of apex at ant wall at rest * Last ECHO May 2019 with EF 50-54%, Mild LVH, Mild TR, anterior wall hypokinesis * Appears no cardiac cath pursued given patient with one transplanted kidney and without angina, however she does endorse dyspnea on exertion at baseline * Continue atenolol 25mg BID * ECHO pending as above -- done this morning but not read yet (9) Abdominal pain: * NONE reported today * Hx colicky in nature although patient states LLQ pain /low abd pain 1-1.5 hours following eating. She states earlier this year symptoms preceded UTI and she still feels like that is possibility. Repeating urine culture as well as stool studies given mucoid/loose stool reported this morning. cdiff negative. repeat also negative * hx colonoscopy in past 4-5 years with diverticulosis without diverticulitis * Given negative (but likely contaminated urine sample) but symptomatology and fever without abd imaging, ordered CTA/P with ORAL contrast given hx diverticulosis as well as renal transplant --> does note a stable bilobed cystic left adnexal lesion, likely ovarian. Stable from previous imaging 2018. Patient menopausal around age 52 per her account and has not had any issues with bleeding per her account * Recommend pelvic ultrasound as an outpatient and follow-up with [facility] (10) History of recurrent UTI (urinary tract infection): * As noted above (11) Anticoagulated on warfarin: * Continue home 2mg daily * INR Therapeutic, 2.2 * Continue to monitor (12) Kidney transplanted: * Hx 1st transplant 1995 at [place] and failed. Second transplanted at [facility] in [place] 2012. * Non-tender on examination * US does show increased velocities suggesting some stenosis * Kidney transplant and left renal pelvis/acute kidney injury- Follows with Dr. Lin locally (13) Hypomagnesemia: * Mag 1.4 -- ordered 4gm IV * Resolved - Mag 2.1 (14) Hypophosphatemia: * Phos dropped to 1.5 -- ordered Kphos by Nephrology and 2.0 * Phos 2.0 -- ordered 6mmol kphos today * Repeat in AM (15) DVT prophylaxis: * Warfarin as above-- INR therapeutic at 2.2 * Repeat INR in AM Admission and Anticipated Discharge Date Admission Date: May 26, 2020 Supervising Physician Co-Signing Physician Notes PA Supervision Note: I personally saw and examined the patient along with HERNANDEZ Hyde. I verified all dial points and agree with HERNANDEZ Hyde with the following exceptions and/or additions: Left ear cerumen debridement performed and noted erythematous left EAC with white creamy exudate and yellow cerumen removed. Patient had relief of some of the pain and had improved hearing after procedure Continue treatment as noted above Of note, urine is now growing yeast not Loretta albicans-80,000 CFU's. Will discuss with ID as to whether this should be treated with IV caspofungin versus amphotericin bladder washes Subjective Patient evaluated this morning. Feeling slightly better. No further fevers. Did continue to have some diarrhea, yellow/green with mucus which is a change for her. Discussed repeating cdiff as she has been on abx. She does note she felt something when she was wiping and had nursing check and they felt it may be a hemorrhoid. Non-painful. No prior hx. Denies chest pain or shortness of breath. Did have her ECHO this morning. Not read as of yet. Plans for CT Head given ear infection in immunocompromised state as well as follow up cxr later today. Working on obtaining official report of her ID consultation. Continuing IV abx for now. Review of Systems Review of Systems: All systems reviewed & are unremarkable except as noted in HPI & below Physical Exam Constitutional: WD/WN, vitals as above well developed, well nourished and + obese; no acute distress Eyes: PERRL, conjunctivae normal, anicteric sclerae ENMT: left ear with significant cerumen but decreased erythema some cerumen extracted via curette via attending and purulent material pos teriorly to such with some erythema and pus noted non-tender for patient culture obtained and sent to lab Neck: trachea midline Respiratory: normal respiratory effort and able to speak in complete sentences; no respiratory distress and no labored breathing Auscultation: + diminished lung sounds (bases) and + crackles (bibasilar); no rales and no wheezes Cardiovascular: RRR, no murmur, no edema Rate/Rhythm: regular rate and regular rhythm Heart Sounds: + murmur (systolic) Extremities: + AV fistula ( left UE AV fistula with palpable thrill and bruit.) Gastrointestinal (Abdomen): normal bowel sounds, soft, nontender, no hepatosplenomegaly Percussion/Palpation: abdomen nontender, no guarding and abdomen not rigid scar tissue to LLQ vs lipoma from transplant. freely moveable and non-tender to palpation. Musculoskeletal: Gait: normal gait Skin: no rashes, warm and dry fungal appearance to left nail beds Neurologic: moves all extremities and awake Psychiatric: Orientation: alert and oriented x 3 Lymphatic: no cervical or axillary lymphadenopathy Results & Data Results & Data ([facility]) Vital Signs (Past 12 Hours) Vital Signs Temp Pulse Pulse Resp BP Pulse Ox 05/29/20 07:49 37.2 C 90 16 172/52 H 93 05/28/20 23:14 36.9 C 78 18 130/61 93 05/28/20 20:33 69 128/74 Laboratory Results 05/29/20 05/29/20 05/28/20 Range/Units 05:44 05:44 07:01 WBC 7.01 (4.8-10.8) K/uL RBC 3.45 L (4.2-5.4) M/uL Hgb 9.5 L (12.0-16.0) g/dL Hct 31.0 L (37-47) % MCV 89.9 (80-100) fL MCH 27.5 (25-34) pg MCHC 30.6 L (32-36) g/dL RDW Std Deviation 45.1 (36.4-46.3) fL RDW Coeff of Josh 13.8 (11.5-14.5) % Plt Count 117 L (130-400) K/uL MPV 9.4 (7.4-10.4) fL Immature Gran % (Auto) 0.4 % Neut % (Auto) 78.1 % Lymph % (Auto) 7.6 % Talbot % (Auto) 10.8 % Eos % (Auto) 3.1 % Baso % (Auto) 0.0 % Neut # (Auto) 5.47 (1.4-6.5) K/uL Lymph # (Auto) 0.53 L (1.2-3.4) K/uL Talbot # (Auto) 0.76 H (0.11-0.59) K/uL Eos # (Auto) 0.22 (0-0.5) K/uL Baso # (Auto) 0.00 (0-0.2) K/uL Immature Gran # (Auto) 0.03 H (0.00-0.02) K/uL Sodium 136 (136-145) mmol/L Potassium 3.7 (3.5-5.1) mmol/L Chloride 107 (98-107) mmol/L Carbon Dioxide 19 L (21-32) mmol/L Anion Gap 10.0 (3-11) BUN 18 (7-18) mg/dl Creatinine 1.02 (0.6-1.2) mg/dl Est Cr Clr Drug Dosing 57.3 ml/min Est GFR ( Amer) 67.8 Est GFR (Non-Af Amer) 58.5 BUN/Creatinine Ratio 17.8 (10-20) Glucose 73 (70-99) mg/dl Calcium 8.6 (8.5-10.1) mg/dl Phosphorus 2.0 L (2.5-4.9) mg/dl Magnesium 2.1 (1.8-2.4) mg/dl Total Bilirubin 0.9 (0.2-1) mg/dl Direct Bilirubin 0.2 (0-0.2) mg/dl AST 6 L (15-37) U/L ALT 7 L (12-78) U/L Alkaline Phosphatase 48 (45-117) U/L Total Protein 6.0 L (6.4-8.2) gm/dl Albumin 2.7 L (3.4-5.0) gm/dl Procalcitonin (0-0.5) ng/ml Lyme Disease IgG Ab (Negative) Lyme IgG (Western Blot) Pending Lyme IgG 18 kDa Band Pending Lyme IgG 23 kDa Band Pending Lyme IgG 28 kDa Band Pending Lyme IgG 30 kDa Band Pending Lyme IgG 39 kDa Band Pending Lyme IgG 41 kDa Band Pending Lyme IgG 45 kDa Band Pending Lyme IgG 58 kDa Band Pending Lyme IgG 66 kDa Band Pending Lyme IgG 93 kDa Band Pending Lyme IgM Ab (WB) Pending Lyme Disease IgM Ab (Negative) Lyme IgM 23 kDa Band Pending Lyme IgM 39 kDa Band Pending Lyme IgM 41 kDa Band Pending 05/28/20 05/28/20 Range/Units 07:01 07:01 WBC (4.8-10.8) K/uL RBC (4.2-5.4) M/uL Hgb (12.0-16.0) g/dL Hct (37-47) % MCV (80-100) fL MCH (25-34) pg MCHC (32-36) g/dL RDW Std Deviation (36.4-46.3) fL RDW Coeff of Josh (11.5-14.5) % Plt Count (130-400) K/uL MPV (7.4-10.4) fL Immature Gran % (Auto) % Neut % (Auto) % Lymph % (Auto) % Talbot % (Auto) % Eos % (Auto) % Baso % (Auto) % Neut # (Auto) (1.4-6.5) K/uL Lymph # (Auto) (1.2-3.4) K/uL Talbot # (Auto) (0.11-0.59) K/uL Eos # (Auto) (0-0.5) K/uL Baso # (Auto) (0-0.2) K/uL Immature Gran # (Auto) (0.00-0.02) K/uL Sodium (136-145) mmol/L Potassium (3.5-5.1) mmol/L Chloride (98-107) mmol/L Carbon Dioxide (21-32) mmol/L Anion Gap (3-11) BUN (7-18) mg/dl Creatinine (0.6-1.2) mg/dl Est Cr Clr Drug Dosing ml/min Est GFR ( Amer) Est GFR (Non-Af Amer) BUN/Creatinine Ratio (10-20) Glucose (70-99) mg/dl Calcium (8.5-10.1) mg/dl Phosphorus (2.5-4.9) mg/dl Magnesium (1.8-2.4) mg/dl Total Bilirubin (0.2-1) mg/dl Direct Bilirubin (0-0.2) mg/dl AST (15-37) U/L ALT (12-78) U/L Alkaline Phosphatase (45-117) U/L Total Protein (6.4-8.2) gm/dl Albumin (3.4-5.0) gm/dl Procalcitonin 0.48 (0-0.5) ng/ml Lyme Disease IgG Ab Positive A (Negative) Lyme IgG (Western Blot) Lyme IgG 18 kDa Band Lyme IgG 23 kDa Band Lyme IgG 28 kDa Band Lyme IgG 30 kDa Band Lyme IgG 39 kDa Band Lyme IgG 41 kDa Band Lyme IgG 45 kDa Band Lyme IgG 58 kDa Band Lyme IgG 66 kDa Band Lyme IgG 93 kDa Band Lyme IgM Ab (WB) Lyme Disease IgM Ab Negative (Negative) Lyme IgM 23 kDa Band Lyme IgM 39 kDa Band Lyme IgM 41 kDa Band Diagnostic Findings Chest 2V IMPRESSION: 1. Interval development of mild interstitial pulmonary edema and trace bilateral pleural effusions. 2. No consolidation to suggest pneumonia. CT Head w/o IMPRESSION: 1. No acute intracranial findings. 2. Mild soft tissue thickening within the left external auditory canal extending along the tympanic membrane. No bony destruction. No infiltration of the adjacent soft tissues. A few opacified left mastoid air cells. No convincing evidence for malignant otitis externa at this time. If progressive physical findings, short-term follow-up temporal bone CT is recommended. PG Care Time/CCT Total # of Minutes Spent Total Time Spent with Patient: Total time spent is greater than 50% in coordination of care (as documented) at patient's floor/unit and/or counseling patient: Coding Level of Care Code 94255 Subseq Hosp Care Lvl 3 Diagnoses Fever R50.9 UTI (urinary tract infection) N39.0; R31.9 Hematuria presence: with hematuria Urinary tract infection type: site unspecified Otitis externa H60.90 Immunocompromised patient D84.9 Acute kidney injury N17.9 Hypertension I10 Atrial fibrillation I48.91 Chronic ischemic heart disease I25.9 Abdominal pain R10.9 History of recurrent UTI (urinary tract infection) Z87.440 Anticoagulated on warfarin Z79.01 Kidney transplanted Z94.0 Hypomagnesemia E83.42 Hypophosphatemia E83.39 DVT prophylaxis Z29.9 (1) UTI (urinary tract infection) Hematuria presence: with hematuria Urinary tract infection type: site unspecified Qualified Code(s): N39.0 - Urinary tract infection, site not specified; R31.9 - Hematuria, unspecified
[2020-05-29] MEDS ORDERED: POTASSIUM PHOS 3 MMOL/1 ML INFUSION IV STA (08:22)
[2020-05-29] MEDS: POLYETHYLENE (MIRALAX) 17 GM PACK PO SCH (08:54)
[2020-05-29] MEDS: DOCUSATE SODIUM 100 MG CAP PO SCH (08:54)
[2020-05-29] MEDS: MYCOPHENOLATE SODIUM 180 MG TAB PO SCH ×2 (09:00→20:47)
[2020-05-29] MEDS: predniSONE 5 MG TAB PO SCH (09:00)
[2020-05-29] MEDS: TACROLIMUS 1 MG CAP PO SCH ×2 (09:00→20:47)
[2020-05-29] MEDS: dilTIAZem HCL 180 MG CAPCR PO SCH ×2 (09:00→20:46)
[2020-05-29] MEDS: CYANOCOBALAMIN 500 MCG TABLET (VITAMIN B-12) PO SCH (09:00)
[2020-05-29] MEDS: ATENOLOL 25 MG TABLET PO SCH ×2 (09:01→20:47)
[2020-05-29] MEDS: NEOMYCIN/POLYMYX/HYDROCORT OT SOLN 10 ML BTL OT SCH ×3 (09:01→20:46)
[2020-05-29] MEDS: LOPERAMIDE HCL 2 MG CAP PO PRN (09:09)
[2020-05-29] MEDS ORDERED: POTASSIUM PHOSPHATE 6 MMOL in 0.9 % SODIUM CHLORIDE 100 ML IV ONE (09:15)
[2020-05-29 09:32] LABS: INR 2.2 (0.9-1.1); Prothrombin Time 22.3 Seconds (9.0-12.0)
--- NOTE | 2020-05-29 09:48 | XRay Report ---
XR chest 2V PA/lateral CLINICAL HISTORY: r/o PNA COMPARISON STUDY: Chest radiograph May 27, 2020. FINDINGS: Dual lead right subclavian pacemaker is in place. There is no pneumothorax. No consolidatio n is identified. Trace bilateral pleural effusions have developed. Interstitial pulmonary edema has d eveloped. Old bilateral rib fractures are incidentally noted. IMPRESSION: 1. Interval development of mild interstitial pulmonary edema and trace bilateral pleural effusions. 2. No consolidation to suggest pneumonia. ACT 112: Negative or not required by law. Electronically signed by: Jose Manuel Wheeler M.D. 05/29/2020 9:47 AM
--- NOTE | 2020-05-29 11:08 | CT Scan Report ---
CT OF THE HEAD WITHOUT CONTRAST CLINICAL HISTORY: assess for malignant otitis externa left COMPARISON STUDY: No previous studies for comparison. CT DOSE: 537.48 mGy.cm TECHNIQUE: Helical axial images of the head were obtained without IV contrast. Automated exposure con trol was utilized for the study. A dose lowering technique was utilized adhering to the principles o f ALARA. FINDINGS: No acute intracranial hemorrhage, midline shift or mass effect is present. The ventricular system is unremarkable. White matter hypodensities suggest small vessel disease. The basilar cisterns are patent. No extra-axial collections are present. There are no findings to suggest acute dural sin us thrombosis or acute territorial infarct. No significant calvarial abnormalities are present. There are a few opacified inferior left ethmoid air cells. There is mild soft tissue thickening within the left external auditory canal extending along the tympanic membrane. No bony destruction is present. There is no infiltration of the adjacent soft tissues. No fluid collection is identified. There is no fluid within the middle ears. Scutum is intact. Ossicles are intact. IMPRESSION: 1. No acute intracranial findings. 2. Mild soft tissue thickening within the left external auditory canal extending along the tympanic m embrane. No bony destruction. No infiltration of the adjacent soft tissues. A few opacified left mast oid air cells. No convincing evidence for malignant otitis externa at this time. If progressive physi keshav findings, short-term follow-up temporal bone CT is recommended. ACT 112: Negative or not required by law. Electronically signed by: Jose Manuel Wheeler M.D. 05/29/2020 11:06 AM
[2020-05-29] MEDS: DAPTOmycin 325 MG in SYRINGE 0 ML IV SCH (11:25)
--- NOTE | 2020-05-29 13:09 | Nephrology Progress Note ---
Date of Service May 29, 2020 Assessment & Plan (1) Acute on chronic renal insufficiency: Allograft function stable. Creatinine at baseline. Volume status acceptable. BP controlled. PO4 slightly low. This is being replaced. No diarrhea or GI symptoms. Continue appropriate immunosuppression with tacrolimus, mycophenolate, and prednisone. (2) UTI (urinary tract infection): Cultures negative. Dapto restarted due to recurrent fevers. Asymptomatic. (3) Anemia: Chronic, stable. (4) Hypertension: BP acceptable. No change to therapy at this time. (5) Immunocompromised patient: Continue as Rx. Signs of infection improving with adjustment of antibiotic therapy. (6) Kidney transplanted: Admission and Anticipated Discharge Date Admission Date: May 26, 2020 Subjective No acute events overnight. Tmax 38.8 yesterday. No chills. Overall Melanie feels well. She denies any urinary symptoms. She is breathing comfortably. No GI complaints. Review of Systems Review of Systems: All systems reviewed & are unremarkable except as noted in HPI & below Physical Exam Constitutional: well developed; no acute distress Eyes: no scleral abnormality and no corneal abnormality ENMT: Mouth: no oral mucosal abnormality and oral mucous membranes not dry Neck: normal visual inspection and trachea midline Respiratory: normal respiratory effort Auscultation: lungs clear to auscultation bilaterally Cardiovascular: Rate/Rhythm: regular rate Heart Sounds: normal S1 and normal S2 Extremities: no edema Gastrointestinal (Abdomen): Percussion/Palpation: abdomen soft; abdomen nontender LLQ allograft non-tender Musculoskeletal: Extremities: no cyanosis and no clubbing Skin: normal turgor; no lesions Neurologic: Motor/Sensory: no tremor and no asterixis Psychiatric: Orientation: alert and oriented x 3 Results & Data ([facility]) Vital Signs (Past 12 Hours) Vital Signs Temp Pulse Pulse Resp BP Pulse Ox 05/29/20 10:31 36.9 C 80 16 143/76 H 91 05/29/20 07:49 37.2 C 90 16 172/52 H 93 Laboratory Results Laboratory Results - last 24 hr 05/28/20 05/28/20 05/29/20 07:01 07:01 05:44 WBC RBC Hgb Hct MCV MCH MCHC RDW Std Deviation RDW Coeff of Josh Plt Count MPV Immature Gran % (Auto) Neut % (Auto) Lymph % (Auto) [place]agoner % (Auto) Eos % (Auto) Baso % (Auto) Neut # (Auto) Lymph # (Auto) [place]er # (Auto) Eos # (Auto) Baso # (Auto) Immature Gran # (Auto) PT INR Sodium 136 Potassium 3.7 Chloride 107 Carbon Dioxide 19 L Anion Gap 10.0 BUN 18 Creatinine 1.02 Est Cr Clr Drug Dosing 57.3 Est GFR ( Amer) 67.8 Est GFR (Non-Af Amer) 58.5 BUN/Creatinine Ratio 17.8 Glucose 73 Calcium 8.6 Phosphorus 2.0 L Magnesium 2.1 Total Bilirubin 0.9 Direct Bilirubin 0.2 AST 6 L ALT 7 L Alkaline Phosphatase 48 Total Protein 6.0 L Albumin 2.7 L Stl C. diff Tox B Gene Lyme Disease IgG Ab Positive A Lyme IgG (Western Blot) Pending Lyme IgG 18 kDa Band Pending Lyme IgG 23 kDa Band Pending Lyme IgG 28 kDa Band Pending Lyme IgG 30 kDa Band Pending Lyme IgG 39 kDa Band Pending Lyme IgG 41 kDa Band Pending Lyme IgG 45 kDa Band Pending Lyme IgG 58 kDa Band Pending Lyme IgG 66 kDa Band Pending Lyme IgG 93 kDa Band Pending Lyme IgM Ab (WB) Pending Lyme Disease IgM Ab Negative Lyme IgM 23 kDa Band Pending Lyme IgM 39 kDa Band Pending Lyme IgM 41 kDa Band Pending 05/29/20 05/29/20 05/29/20 05:44 09:09 Unknown WBC 7.01 RBC 3.45 L Hgb 9.5 L Hct 31.0 L MCV 89.9 MCH 27.5 MCHC 30.6 L RDW Std Deviation 45.1 RDW Coeff of Josh 13.8 Plt Count 117 L MPV 9.4 Immature Gran % (Auto) 0.4 Neut % (Auto) 78.1 Lymph % (Auto) 7.6 [place] % (Auto) 10.8 Eos % (Auto) 3.1 Baso % (Auto) 0.0 Neut # (Auto) 5.47 Lymph # (Auto) 0.53 L [place]er # (Auto) 0.76 H Eos # (Auto) 0.22 Baso # (Auto) 0.00 Immature Gran # (Auto) 0.03 H PT 22.3 H INR 2.2 H Sodium Potassium Chloride Carbon Dioxide Anion Gap BUN Creatinine Est Cr Clr Drug Dosing Est GFR ( Amer) Est GFR (Non-Af Amer) BUN/Creatinine Ratio Glucose Calcium Phosphorus Magnesium Total Bilirubin Direct Bilirubin AST ALT Alkaline Phosphatase Total Protein Albumin Stl C. diff Tox B Gene Negative Cdiff Gene Lyme Disease IgG Ab Lyme IgG (Western Blot) Lyme IgG 18 kDa Band Lyme IgG 23 kDa Band Lyme IgG 28 kDa Band Lyme IgG 30 kDa Band Lyme IgG 39 kDa Band Lyme IgG 41 kDa Band Lyme IgG 45 kDa Band Lyme IgG 58 kDa Band Lyme IgG 66 kDa Band Lyme IgG 93 kDa Band Lyme IgM Ab (WB) Lyme Disease IgM Ab Lyme IgM 23 kDa Band Lyme IgM 39 kDa Band Lyme IgM 41 kDa Band PG Care Time/CCT Total # of Minutes Spent Total Time Spent with Patient: Total time spent is greater than 50% in coordination of care (as documented) at patient's floor/unit and/or counseling patient: Coding Level of Care Code 61101 Subseq Hosp Care Lvl 3 Diagnoses Acute on chronic renal insufficiency N28.9; N18.9 UTI (urinary tract infection) N39.0; R31.9 Hematuria presence: with hematuria Urinary tract infection type: site unspecified Anemia D64.9 Hypertension I10 Immunocompromised patient D84.9 Kidney transplanted Z94.0 (1) UTI (urinary tract infection) Hematuria presence: with hematuria Urinary tract infection type: site unspecified Qualified Code(s): N39.0 - Urinary tract infection, site not specified; R31.9 - Hematuria, unspecified
[2020-05-29] MEDS: WARFARIN SOD 2 MG TAB PO SCH (15:55)
[2020-05-30 06:16] LABS: Basophils # (auto) 0.01 K/uL (0-0.2); Basophils % (auto) 0.1 %; Eosinophils # (auto) 0.26 K/uL (0-0.5); Eosinophils % (auto) 3.8 %; Hematocrit (blood only) 31.9 % (37-47); Hemoglobin 9.8 g/dL (12.0-16.0); Immature Granulocytes # (auto) 0.04 K/uL (0.00-0.02); Immature Granulocytes % (auto) 0.6 %; Lymphocytes # (auto) 0.59 K/uL (1.2-3.4); Lymphocytes % (auto) 8.7 %; Mean Corpuscular Hemoglobin 27.5 pg (25-34); Mean Corpuscular Hgb Conc 30.7 g/dL (32-36); Mean Corpuscular Volume 89.6 fL (80-100); Mean Platelet Volume 9.6 fL (7.4-10.4); Monocytes # (auto) 0.61 K/uL (0.11-0.59); Neutrophils # (auto) 5.25 K/uL (1.4-6.5); Neutrophils % (auto) 77.8 %; Platelet Count 132 K/uL (130-400); RDW Coefficient of Variation 13.8 % (11.5-14.5); RDW Standard Deviation 45.3 fL (36.4-46.3); Red Blood Count 3.56 M/uL (4.2-5.4); White Blood Count 6.76 K/uL (4.8-10.8)
[2020-05-30 06:31] LABS: INR 2.6 (0.9-1.1); Prothrombin Time 25.6 Seconds (9.0-12.0)
[2020-05-30 06:39] LABS: BUN Creatinine Ratio 20.6 (10-20); C Reactive Protein 15.6 mg/dl (0-0.29); Calcium 9.2 mg/dl (8.5-10.1); Creatinine Clr Calc Pharmacy 57.3 ml/min; Est GFR (African American) 67.8; Est GFR (Non-African American) 58.5; Magnesium 1.8 mg/dl (1.8-2.4)
[2020-05-30 06:42] LABS: Phosphorus 2.5 mg/dl (2.5-4.9)
--- NOTE | 2020-05-30 08:36 | Hospitalist Progress Note ---
Date of Service May 30, 2020 Assessment & Plan (1) Fever: Initially thought to be related to UTI. Patient with recurrent urinary tract infections, immunocompromised renal transplant x 2. Sepsis with fever Tmax 38.1c and tachycardic on admission, Lactic 0.8. COVID negative * History includes 02/03/2019 due to Enterococcus faecalis.In October 2018 due to E.Coli and group B beta strep * Urine appeared infected although negative for bacteria * Initial culture with 3 mixed/moderate but likely contaminated. * ID was consulted, as patient initially placed on Cefepime/Dapto on admission but switched to Zosyn, but then spiked fever up to 38.8C on 05/28 and transitioned back to Cefepime/Dapto. Rec Cefepime for 7-10days if improved initially * Has been afebrile since that time, however repeat urine culture initially negative and now with yeast, not yolis albicans/dub * Reached back out to ID, Dr Cervantes, who felt yeast not to be treated and reviewed chart with myself. [place] should discontinue IV antibiotics and continue to treat otitis externa and also rec adding CMV PCR to blood given diarrhea on presentation in immunosuppressed patient * WBC continues to trend down. Procal was 0.48. * No further fevers * Repeat BCx NGTD * CTA/P without acute process * CXR negative for pneumonia. * Repeat 2 view with interval development of mild interstitial pulmonary edema and trace bilateral pleural effusions, no further fluid administered * ECHO without vegetation * CT Head to r/o malignant otitis externa in immunocompromised patient --> w/ mild soft tissue thickening within the left external auditory canal extending along the tympanic membrane. No bony destruction or infiltration of the adjacent soft tissues. A few opacified left mastoid air cells. No convincing evidence for malignant otitis externa at this time. --> rec f/u temporal bone CT if clinically worsened * --> Continue Neomycin/polymyxin/hydrocortisone 4drops TID * --> Follow culture obtained during examination on 05/29 * Lyme -- IgM negative, IgG positive. WB pending * Temp currently 36.8C * ESR 56, CRP 15.6 * Continue to monitor (2) UTI (urinary tract infection): * See above (3) Otitis externa: * LEFT sided * CT head without evidence of malignant otitis externa * Culture obtained -- follow. GS moderate epi, no WBC, rare hyphae, rare gram positive cocci, rare gram positive bacilli --> culture no growth to date, follow * Continue Neomycin/polymyxin/hydrocotrisone 4drops TID (4) Immunocompromised patient: * Continue immunosuppression with mycophenolate sodium 540 mg p.o. twice daily, and tacrolimus 2 mg p.o. every 12 hours. * Continue prednisone 5mg daily (5) Acute kidney injury: * Creatinine upon admission 1.41, with range 1.17-1.4. Baseline appears to be closer to 1.2-1.3 range. * Avoid nephrotoxins * Nephrology on consult -- appreciate assistance * Did get 500cc NSS evening 05/27 for increased diarrhea following CT with oral c ontrast * No further IVF * Cr improved to below baseline at 1.02 * Continue to monitor (6) Hypertension: * BP controlled, currently 151/63 * Continue home atenolol 25mg BID, diltiazem 180mg BID * Continue to monitor (7) Atrial fibrillation: * Chronic. Started after second transplant. She checks her INR at home -- last 2.6 on Sunday * EKG with ventricular paced rhythm * Continue atenolol 25mg BID, diltiazem 180mg BID * Given extra 2mg Coumadin evening 05/26 for INR 1.5 as she missed dose evening of admission. Usual dose 2mg daily, continued * INR 2.6 on AM labs * Regular rhythm on examination * Continue to monitor (8) Chronic ischemic heart disease: * Follows with Dr. Singleton from [facility]. Discussed with cardiology electric container tester for most recent outpt notes * Patient with chronic ischemic heart disease with prior apical inf by nuclear study --> + stress test, March 2019 Lexiscan with hypokinesis of apex at ant wall at rest * Last ECHO May 2019 with EF 50-54%, Mild LVH, Mild TR, anterior wall hypokinesis * Appears no cardiac cath pursued given patient with one transplanted kidney and without angina, however she does endorse dyspnea on exertion at baseline * Continue atenolol 25mg BID * ECHO without vegetation (9) Abdominal pain: * NONE reported today * Hx colicky in nature although patient states LLQ pain /low abd pain 1-1.5 hours following eating. She states earlier this year symptoms preceded UTI and she still feels like that is possibility. Repeating urine culture as well as stool studies given mucoid/loose stool reported this morning. cdiff negative. repeat also negative * hx colonoscopy in past 4-5 years with diverticulosis without diverticulitis * Given negative (but likely contaminated urine sample) but symptomatology and fever without abd imaging, ordered CTA/P with ORAL contrast given hx diverticulosis as well as renal transplant --> does note a stable bilobed cystic left adnexal lesion, likely ovarian. Stable from previous imaging 2018. Patient menopausal around age 52 per her account and has not had any issues with bleeding per her account * Recommend pelvic ultrasound as an outpatient and follow-up with CARDIOLOGY TEACHER * Repeat cdiff negative (10) History of recurrent UTI (urinary tract infection): * As noted above (11) Anticoagulated on warfarin: * Continue home warfarin 2mg daily * INR Therapeutic, 2.6 * Continue to monitor (12) Kidney transplanted: * Hx 1st transplant 1995 at [place] and failed. Second transplanted at [place] in [place] 2012. * Non-tender on examination * US does show increased velocities suggesting some stenosis * Kidney transplant and left renal pelvis/acute kidney injury- Follows with Dr. Lin locally (13) Hypomagnesemia: * Mag 1.4 -- ordered 4gm IV * Resolved - Mag 1.8 (14) Hypophosphatemia: * Phos dropped to 1.5 -- ordered Kphos by Nephrology and 2.0 * Phos 2.0 -- ordered 6mmol kphos today * RESOLVED -- phos 2.5 * Repeat in AM (15) DVT prophylaxis: * Warfarin as above-- INR therapeutic at 2.6 * Repeat INR in AM Dispo: if continues to be afebrile off IV abx and labs stable in AM, could consider discharge with continued tx for otitis externa as above with follow up with Dr. Lin as she had not followed up previously due to covid. Admission and Anticipated Discharge Date Admission Date: May 26, 2020 Supervising Physician Co-Signing Physician Notes PA Supervision Note: I did not personally see or examine the patient today, but I verified all dial p oints of HERNANDEZ Hyde's assessment and plan with the following exceptions/additions: None Subjective Patient evaluated this morning. Feeling better. Less diarrhea, none reported today. Discussed that I reached out to Dr. Cervantes from [place] and he feels that yeast in urine should not be treated and actually recommended stopping antibiotics IV and continue treatment for otitis externa and monitor for any recurrence of fevers. Agreeable to ear wick placement for improvement of medication for otitis. Placed by myself with nursing present at bedside and instilled drops with success. Denies any fever, chills, chest pain, shortness of breath, abdominal pain, nausea, vomiting, or dysuria. Also discussed obtaining CMV PCR as rec by ID given immunocompromised state and presentation with diarrhea. She is aware this may take some time for results and is hopeful to see Dr. Lin tomorrow if he is in house. Review of Systems Review of Systems: All systems reviewed & are unremarkable except as noted in HPI & below Physical Exam Constitutional: WD/WN, vitals as above well developed, well nourished and + obese; no acute distress Eyes: PERRL, conjunctivae normal, anicteric sclerae ENMT: L ear -- improvement of erythema to external auditory canal, purulent material noted with amount of cerumen still present instilled medicated drops and ear wick to L ear with success, visualized and in place tragus non-tender to palpation mastoid process palpated and without tenderness mmm top and bottom dentures present Neck: trachea midline Respiratory: normal respiratory effort, lungs clear to auscultation normal respiratory effort and able to speak in complete sentences; no respiratory distress and no labored breathing Auscultation: + diminished lung sounds (bases); no crackles, no rales and no wheezes Cardiovascular: Rate/Rhythm: regular rate and regular rhythm Vessels: no JVD Extremities: + AV fistula ( left UE AV fistula with palpable thrill and bruit.); no edema Gastrointestinal (Abdomen): normal bowel sounds, soft, nontender, no he patosplenomegaly Percussion/Palpation: abdomen nontender, no guarding and abdomen not rigid Musculoskeletal: Extremities: extremities normal to inspection Gait: normal gait Skin: warm, dry fungal appearance to nails L hand Neurologic: moves all extremities and awake Psychiatric: Orientation: alert and oriented x 3 Lymphatic: no cervical or axillary lymphadenopathy Results & Data Results & Data ([facility]) Vital Signs (Past 12 Hours) Vital Signs Temp Pulse Pulse Resp BP Pulse Ox 05/30/20 07:27 36.8 C 71 16 151/63 H 93 10/10/20 23:12 36.5 C 80 16 161/81 H 91 05/29/20 20:44 73 135/77 93 Laboratory Results 05/30/20 05/30/20 05/30/20 Range/Units 05:45 05:45 05:45 WBC 6.76 (4.8-10.8) K/uL RBC 3.56 L (4.2-5.4) M/uL Hgb 9.8 L (12.0-16.0) g/dL Hct 31.9 L (37-47) % MCV 89.6 (80-100) fL MCH 27.5 (25-34) pg MCHC 30.7 L (32-36) g/dL RDW Std Deviation 45.3 (36.4-46.3) fL RDW Coeff of Josh 13.8 (11.5-14.5) % Plt Count 132 (130-400) K/uL MPV 9.6 (7.4-10.4) fL Immature Gran % (Auto) 0.6 % Neut % (Auto) 77.8 % Lymph % (Auto) 8.7 % [place] % (Auto) 9.0 % Eos % (Auto) 3.8 % Baso % (Auto) 0.1 % Neut # (Auto) 5.25 (1.4-6.5) K/uL Lymph # (Auto) 0.59 L (1.2-3.4) K/uL [place] # (Auto) 0.61 H (0.11-0.59) K/uL Eos # (Auto) 0.26 (0-0.5) K/uL Baso # (Auto) 0.01 (0-0.2) K/uL Immature Gran # (Auto) 0.04 H (0.00-0.02) K/uL ESR 56 H (0-21) mm/hr PT (9.0-12.0) Seconds INR (0.9-1.1) Sodium 136 (136-145) mmol/L Potassium 4.0 (3.5-5.1) mmol/L Chloride 108 H (98-107) mmol/L Carbon Dioxide 19 L (21-32) mmol/L Anion Gap 10.0 (3-11) BUN 21 H (7-18) mg/dl Creatinine 1.02 (0.6-1.2) mg/dl Est Cr Clr Drug Dosing 57.3 ml/min Est GFR ( Amer) 67.8 Est GFR (Non-Af Amer) 58.5 BUN/Creatinine Ratio 20.6 H (10-20) Glucose 70 (70-99) mg/dl Calcium 9.2 (8.5-10.1) mg/dl Phosphorus 2.5 (2.5-4.9) mg/dl Magnesium 1.8 (1.8-2.4) mg/dl Total Creatine Kinase 19 L (26-192) U/L C-Reactive Protein 15.60 H (0-0.29) mg/dl Stl C. diff Tox B Gene (Neg) 05/30/20 05/29/20 05/29/20 Range/Units 05:45 Unknown 09:09 WBC (4.8-10.8) K/uL RBC (4.2-5.4) M/uL Hgb (12.0-16.0) g/dL Hct (37-47) % MCV (80-100) fL MCH (25-34) pg MCHC (32-36) g/dL RDW Std Deviation (36.4-46.3) fL RDW Coeff of Josh (11.5-14.5) % Plt Count (130-400) K/uL MPV (7.4-10.4) fL Immature Gran % (Auto) % Neut % (Auto) % Lymph % (Auto) % [place] % (Auto) % Eos % (Auto) % Baso % (Auto) % Neut # (Auto) (1.4-6.5) K/uL Lymph # (Auto) (1.2-3.4) K/uL [place] # (Auto) (0.11-0.59) K/uL Eos # (Auto) (0-0.5) K/uL Baso # (Auto) (0-0.2) K/uL Immature Gran # (Auto) (0.00-0.02) K/uL ESR (0-21) mm/hr PT 25.6 H 22.3 H (9.0-12.0) Seconds INR 2.6 H 2.2 H (0.9-1.1) Sodium (136-145) mmol/L Potassium (3.5-5.1) mmol/L Chloride (98-107) mmol/L Carbon Dioxide (21-32) mmol/L Anion Gap (3-11) BUN (7-18) mg/dl Creatinine (0.6-1.2) mg/dl Est Cr Clr Drug Dosing ml/min Est GFR ( Amer) Est GFR (Non-Af Amer) BUN/Creatinine Ratio (10-20) Glucose (70-99) mg/dl Calcium (8.5-10.1) mg/dl Phosphorus (2.5-4.9) mg/dl Magnesium (1.8-2.4) mg/dl Total Creatine Kinase (26-192) U/L C-Reactive Protein (0-0.29) mg/dl Stl C. diff Tox B Gene Negative Cdiff Gene (Neg) PG Care Time/CCT Total # of Minutes Spent Total Time Spent with Patient: Total time spent is greater than 50% in coordination of care (as documented) at patient's floor/unit and/or counseling patient: Coding Level of Care Code 66171 Subseq Hosp Care Lvl 2 Diagnoses Fever R50.9 UTI (urinary tract infection) N39.0; R31.9 Hematuria presence: with hematuria Urinary tract infection type: site unspecified Otitis externa H60.90 Immunocompromised patient D84.9 Acute kidney injury N17.9 Hypertension I10 Atrial fibrillation I48.91 Chronic ischemic heart disease I25.9 Abdominal pain R10.9 History of recurrent UTI (urinary tract infection) Z87.440 Anticoagulated on warfarin Z79.01 Kidney transplanted Z94.0 Hypomagnesemia E83.42 Hypophosphatemia E83.39 DVT prophylaxis Z29.9 (1) UTI (urinary tract infection) Hematuria presence: with hematuria Urinary tract infection type: site unspecified Qualified Code(s): N39.0 - Urinary tract infection, site not specified; R31.9 - Hematuria, unspecified
[2020-05-30] MEDS: NEOMYCIN/POLYMYX/HYDROCORT OT SOLN 10 ML BTL OT SCH ×3 (08:44→20:34)
[2020-05-30] MEDS: ATENOLOL 25 MG TABLET PO SCH ×2 (08:45→20:35)
[2020-05-30] MEDS: dilTIAZem HCL 180 MG CAPCR PO SCH ×2 (08:45→20:34)
[2020-05-30] MEDS: CYANOCOBALAMIN 500 MCG TABLET (VITAMIN B-12) PO SCH (08:45)
[2020-05-30] MEDS: TACROLIMUS 1 MG CAP PO SCH ×2 (08:46→20:35)
[2020-05-30] MEDS: predniSONE 5 MG TAB PO SCH (08:46)
[2020-05-30] MEDS: MYCOPHENOLATE SODIUM 180 MG TAB PO SCH ×2 (08:46→20:35)
--- NOTE | 2020-05-30 13:17 | Nephrology Progress Note ---
Date of Service May 30, 2020 Assessment & Plan (1) Acute on chronic renal insufficiency: Allograft function stable. Creatinine at baseline. Volume status acceptable. BP controlled. No adjustment to immunosuppression with tacrolimus, mycophenolate, and prednisone. (2) UTI (urinary tract infection): Cultures negative. Abx stopped. (3) Anemia: Chronic, stable. (4) Hypertension: BP acceptable. No change to therapy at this time. (5) Immunocompromised patient: Continue as Rx. Signs of infection improving with adjustment of antibiotic therapy. (6) Kidney transplanted: Admission and Anticipated Discharge Date Admission Date: May 26, 2020 Subjective No acute events overnight. Melanie feels well this morning. No fevers or chills. Review of Systems Review of Systems: All systems reviewed & are unremarkable except as noted in HPI & below Physical Exam Constitutional: well developed; no acute distress Eyes: no scleral abnormality and no corneal abnormality ENMT: Mouth: no oral mucosal abnormality and oral mucous membranes not dry Neck: normal visual inspection and trachea midline Respiratory: normal respiratory effort Auscultation: lungs clear to auscultation bilaterally Cardiovascular: Rate/Rhythm: regular rate Heart Sounds: normal S1 and normal S2 Extremities: no edema Gastrointestinal (Abdomen): Percussion/Palpation: abdomen soft; abdomen nontender Musculoskeletal: Extremities: no cyanosis and no clubbing Skin: normal turgor; no lesions Neurologic: Motor/Sensory: no tremor and no asterixis Psychiatric: Orientation: alert and oriented x 3 Results & Data ([facility]) Vital Signs (Past 12 Hours) Vital Signs Temp Pulse Resp BP Pulse Ox 05/30/20 07:27 36.8 C 71 16 151/63 H 93 Laboratory Results Laboratory Results - last 24 hr 05/30/20 05/30/20 05/30/20 05:45 05:45 05:45 WBC 6.76 RBC 3.56 L Hgb 9.8 L Hct 31.9 L MCV 89.6 MCH 27.5 MCHC 30.7 L RDW Std Deviation 45.3 RDW Coeff of Josh 13.8 Plt Count 132 MPV 9.6 Immature Gran % (Auto) 0.6 Neut % (Auto) 77.8 Lymph % (Auto) 8.7 [place] % (Auto) 9.0 Eos % (Auto) 3.8 Baso % (Auto) 0.1 Neut # (Auto) 5.25 Lymph # (Auto) 0.59 L [place] # (Auto) 0.61 H Eos # (Auto) 0.26 Baso # (Auto) 0.01 Immature Gran # (Auto) 0.04 H ESR 56 H PT 25.6 H INR 2.6 H Sodium Potassium Chloride Carbon Dioxide Anion Gap BUN Creatinine Est Cr Clr Drug Dosing Est GFR ( Amer) Est GFR (Non-Af Amer) BUN/Creatinine Ratio Glucose Calcium Phosphorus Magnesium Total Creatine Kinase C-Reactive Protein Stool Occult Bld Scrn 05/30/20 05/30/20 05:45 09:00 WBC RBC Hgb Hct MCV MCH MCHC RDW Std Deviation RDW Coeff of Josh Plt Count MPV Immature Gran % (Auto) Neut % (Auto) Lymph % (Auto) [place] % (Auto) Eos % (Auto) Baso % (Auto) Neut # (Auto) Lymph # (Auto) [place] # (Auto) Eos # (Auto) Baso # (Auto) Immature Gran # (Auto) ESR PT INR Sodium 136 Potassium 4.0 Chloride 108 H Carbon Dioxide 19 L Anion Gap 10.0 BUN 21 H Creatinine 1.02 Est Cr Clr Drug Dosing 57.3 Est GFR ( Amer) 67.8 Est GFR (Non-Af Amer) 58.5 BUN/Creatinine Ratio 20.6 H Glucose 70 Calcium 9.2 Phosphorus 2.5 Magnesium 1.8 Total Creatine Kinase 19 L C-Reactive Protein 15.60 H Stool Occult Bld Scrn Negative PG Care Time/CCT Total # of Minutes Spent Total Time Spent with Patient: Total time spent is greater than 50% in coordination of care (as documented) at patient's floor/unit and/or counseling patient: Coding Level of Care Code 07998 Subseq Hosp Care Lvl 3 Diagnoses Acute on chronic renal insufficiency N28.9; N18.9 UTI (urinary tract infection) N39.0; R31.9 Hematuria presence: with hematuria Urinary tract infection type: site unspecified Anemia D64.9 Hypertension I10 Immunocompromised patient D84.9 Kidney transplanted Z94.0 (1) UTI (urinary tract infection) Hematuria presence: with hematuria Urinary tract infection type: site unspecified Qualified Code(s): N39.0 - Urinary tract infection, site not specified; R31.9 - Hematuria, unspecified
[2020-05-30] MEDS: WARFARIN SOD 2 MG TAB PO SCH (15:40)
[2020-05-31 06:05] LABS: Basophils # (auto) 0.01 K/uL (0-0.2); Basophils % (auto) 0.2 %; Eosinophils # (auto) 0.27 K/uL (0-0.5); Eosinophils % (auto) 4.4 %; Hematocrit (blood only) 32.4 % (37-47); Hemoglobin 10.1 g/dL (12.0-16.0); Immature Granulocytes # (auto) 0.07 K/uL (0.00-0.02); Immature Granulocytes % (auto) 1.1 %; Lymphocytes # (auto) 0.82 K/uL (1.2-3.4); Lymphocytes % (auto) 13.4 %; Mean Corpuscular Hemoglobin 27.5 pg (25-34); Mean Corpuscular Hgb Conc 31.2 g/dL (32-36); Mean Corpuscular Volume 88.3 fL (80-100); Mean Platelet Volume 9.3 fL (7.4-10.4); Monocytes # (auto) 0.48 K/uL (0.11-0.59); Monocytes % (auto) 7.8 %; Neutrophils # (auto) 4.48 K/uL (1.4-6.5); Neutrophils % (auto) 73.1 %; Platelet Count 162 K/uL (130-400); RDW Coefficient of Variation 13.7 % (11.5-14.5); RDW Standard Deviation 44.4 fL (36.4-46.3); Red Blood Count 3.67 M/uL (4.2-5.4); White Blood Count 6.13 K/uL (4.8-10.8)
[2020-05-31 06:19] LABS: INR 3.1 (0.9-1.1); Prothrombin Time 30.9 Seconds (9.0-12.0)
[2020-05-31 06:37] LABS: BUN Creatinine Ratio 17.9 (10-20); Calcium 9.4 mg/dl (8.5-10.1); Creatinine Clr Calc Pharmacy 57.3 ml/min; Est GFR (African American) 67.8; Est GFR (Non-African American) 58.5; Magnesium 1.6 mg/dl (1.8-2.4); Potassium 3.4 mmol/L (3.5-5.1)
[2020-05-31 06:45] LABS: Phosphorus 1.8 mg/dl (2.5-4.9); Thyroid Stimulating Hormone 1.77 uIu/ml (0.300-4.500)
[2020-05-31] MEDS: MYCOPHENOLATE SODIUM 180 MG TAB PO SCH (09:06)
[2020-05-31] MEDS: predniSONE 5 MG TAB PO SCH (09:06)
[2020-05-31] MEDS: dilTIAZem HCL 180 MG CAPCR PO SCH (09:06)
[2020-05-31] MEDS: ATENOLOL 25 MG TABLET PO SCH (09:06)
[2020-05-31] MEDS: TACROLIMUS 1 MG CAP PO SCH (09:06)
[2020-05-31] MEDS: NEOMYCIN/POLYMYX/HYDROCORT OT SOLN 10 ML BTL OT SCH ×2 (09:07→13:51)
[2020-05-31] MEDS ORDERED: MAGNESIUM SULFATE / D5W 1 GM/100 ML BAG IV ONE (09:14)
[2020-05-31] MEDS ORDERED: POTASSIUM CHLORIDE 20 MEQ TABCR PO STA ×2 (09:14→09:15)
[2020-05-31] MEDS ORDERED: MAGNESIUM OXIDE 400 MG TAB PO SCH (09:15)
[2020-05-31] MEDS: MAGNESIUM SULFATE / D5W 1 GM/100 ML BAG IV SCH ×2 (10:40→12:58)
--- NOTE | 2020-05-31 10:56 | Nephrology Progress Note ---
Date of Service May 31, 2020 Assessment & Plan (1) Acute on chronic renal insufficiency: Allograft function stable. Creatinine at baseline. Volume status acceptable. BP controlled. K+ slightly low with hypomagnesemia. IV Mg+ 2 gram and oral KCL 20 mEq provided this AM. Repeat labs on Sunday or (results can be faxed to /Riley @ [phone]) No adjustment to immunosuppression with tacrolimus, mycophenolate, and prednisone. (2) UTI (urinary tract infection): Cultures negative. Abx stopped. (3) Anemia: Chronic, stable. (4) Hypertension: BP acceptable. No change to therapy at this time. (5) Immunocompromised patient: Continue as Rx. Signs of infection improving with adjustment of antibiotic therapy. (6) Kidney transplanted: Outpatient follow up with Dr. Lin within 2 weeks of discharge Admission and Anticipated Discharge Date Admission Date: May 26, 2020 Subjective No acute events overnight. Melanie feels well this morning. No fevers or chills. Review of Systems Review of Systems: All systems reviewed & are unremarkable except as noted in HPI & below Physical Exam Constitutional: well developed; no acute distress Eyes: no scleral abnormality and no corneal abnormality ENMT: Mouth: no oral mucosal abnormality and oral mucous membranes not dry Neck: normal visual inspection and trachea midline Respiratory: normal respiratory effort Auscultation: lungs clear to auscultation bilaterally Cardiovascular: Rate/Rhythm: regular rate Heart Sounds: normal S1 and normal S2 Extremities: no edema Gastrointestinal (Abdomen): Percussion/Palpation: abdomen soft; abdomen nontender Musculoskeletal: Extremities: no cyanosis and no clubbing Skin: normal turgor; no lesions Neurologic: Motor/Sensory: no tremor and no asterixis Psychiatric: Orientation: alert and oriented x 3 Results & Data ([facility]) Vital Signs (Past 12 Hours) Vital Signs Temp Pulse Resp BP Pulse Ox 05/31/20 07:35 36.9 C 77 18 111/67 96 05/31/20 00:18 144/74 H Laboratory Results Laboratory Results - last 24 hr 05/31/20 05/31/20 05/31/20 05:28 05:28 05:28 WBC 6.13 RBC 3.67 L Hgb 10.1 L Hct 32.4 L MCV 88.3 MCH 27.5 MCHC 31.2 L RDW Std Deviation 44.4 RDW Coeff of Josh 13.7 Plt Count 162 MPV 9.3 Immature Gran % (Auto) 1.1 Neut % (Auto) 73.1 Lymph % (Auto) 13.4 [place] % (Auto) 7.8 Eos % (Auto) 4.4 Baso % (Auto) 0.2 Neut # (Auto) 4.48 Lymph # (Auto) 0.82 L [place] # (Auto) 0.48 Eos # (Auto) 0.27 Baso # (Auto) 0.01 Immature Gran # (Auto) 0.07 H PT INR Sodium 139 Potassium 3.4 L Chloride 108 H Carbon Dioxide 23 Anion Gap 9.0 BUN 18 Creatinine 1.02 Est Cr Clr Drug Dosing 57.3 Est GFR ( Amer) 67.8 Est GFR (Non-Af Amer) 58.5 BUN/Creatinine Ratio 17.9 Glucose 91 Calcium 9.4 Phosphorus 1.8 L Magnesium 1.6 L TSH 1.770 CMV DNA Qual PCR Pending Ref Lab Test Source Pending 05/31/20 05:28 WBC RBC Hgb Hct MCV MCH MCHC RDW Std Deviation RDW Coeff of Josh Plt Count MPV Immature Gran % (Auto) Neut % (Auto) Lymph % (Auto) [place] % (Auto) Eos % (Auto) Baso % (Auto) Neut # (Auto) Lymph # (Auto) [place] # (Auto) Eos # (Auto) Baso # (Auto) Immature Gran # (Auto) PT 30.9 H INR 3.1 H Sodium Potassium Chloride Carbon Dioxide Anion Gap BUN Creatinine Est Cr Clr Drug Dosing Est GFR ( Amer) Est GFR (Non-Af Amer) BUN/Creatinine Ratio Glucose Calcium Phosphorus Magnesium TSH CMV DNA Qual PCR Ref Lab Test Source PG Care Time/CCT Total # of Minutes Spent Total Time Spent with Patient: Total time spent is greater than 50% in coordination of care (as documented) at patient's floor/unit and/or counseling patient: Coding Level of Care Code 46473 Subseq Hosp Care Lvl 3 Diagnoses Acute on chronic renal insufficiency N28.9; N18.9 UTI (urinary tract infection) N39.0; R31.9 Hematuria presence: with hematuria Urinary tract infection type: site unspecified Anemia D64.9 Hypertension I10 Immunocompromised patient D84.9 Kidney transplanted Z94.0 (1) UTI (urinary tract infection) Hematuria presence: with hematuria Urinary tract infection type: site unspecified Qualified Code(s): N39.0 - Urinary tract infection, site not sp ecified; R31.9 - Hematuria, unspecified
[2020-05-31] MEDS: CYANOCOBALAMIN 500 MCG TABLET (VITAMIN B-12) PO SCH (12:15)
[2020-05-31] MEDS ORDERED: POT PHOSPHATE MONOBASIC W/ SOD TAB PO SCH (13:00)
--- NOTE | 2020-05-31 14:27 | Discharge Summary ---
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 She presents with symptoms as noted above, which she feels are consistent with her previous urinary tract infections. She denies any recent travels or sick exposures, including to COVID. Principal Diagnosis Otits externa Discharge Exam Constitutional WD/WN, vitals as above ENMT Ears: + external ear abnormality (canal edema, no edema surrounding ear, no tenderness tragus/pinna) Respiratory normal respiratory effort, lungs clear to auscultation Cardiovascular RRR, no murmur, no edema Gastrointestinal (Abdomen) normal bowel sounds, soft, nontender, no hepatosplenomegaly Musculoskeletal no cyanosis or clubbing, extremities motor strength 5/5 Skin no rashes, warm and dry Neurologic moves all extremities and awake Psychiatric A+Ox3, euthymic affect Discharge Data Allergies Allergy/AdvReac Type Severity Reaction Status Date / Time ofloxacin [From Floxin] Allergy Intermediate HIVES Verified 05/29/20 08:40 Consultations 05/25/20 22:55 ED Decision to Admit Stat 05/26/20 01:18 Consult Case Management - Discharge Planning Routine Consult Nephrology Routine 05/28/20 11:00 Consult Infectious Diseases Routine 05/28/20 18:25 Consult Health Information Management Routine 05/30/20 09:02 Consult Infectious Diseases Routine Ordered Studies 05/25/20 18:24 US hemodialysis access Urgent US renal transplant LT Stat 05/27/20 13:14 CT abd pelvis oral con only Routine 05/29/20 07:00 CT head/brain wo con Routine Hospital Course (1) Fever: Initially thought to be related to UTI. Patient with recurrent urinary tract infections, immunocompromised renal transplant x 2. Sepsis with fever Tmax 38.1c and tachycardic on admission, Lactic 0.8. COVID negative * History includes 02/03/2019 due to Enterococcus faecalis.In October 2018 due to E.Coli and group B beta strep * Urine appeared infected although negative for bacteria * Initial culture with 3 mixed/moderate but likely contaminated. * Has been afebrile since 05/28, repeat urine culture initially negative and now with yeast, not yolis albicans/dub * ID was consulted, as patient initially placed on Cefepime/Dapto on admission but switched to Zosyn, but then spiked fever up to 38.8C on 05/28 and transitioned back to Cefepime/Dapto. Rec Cefepime for 7-10days if improved initially - Reached back out to ID, Dr Cervantes, who felt yeast not to be treated and reviewed chart on 05/30. Chambers should discontinue IV antibiotics and continue to treat otitis externa and also rec adding CMV PCR to blood given diarrhea on presentation in immunosuppressed patient * WBC continues to trend down. Procal was 0.48. * Repeat BCx NGTD * CTA/P without acute process * CXR negative for pneumonia. * Repeat 2 view with interval development of mild interstitial pulmonary edema and trace bilateral pleural effusions, no further fluid administered * ECHO without vegetation * CT Head to r/o malignant otitis externa in immunocompromised patient --> w/ mild soft tissue thickening within the left external auditory canal extending along the tympanic membrane. No bony destruction or infiltration of the adjacent soft tissues. A few opacified left mastoid air cells. No convincing evidence for malignant otitis externa * Continue Neomycin/polymyxin/hydrocortisone 4drops TID until follow up with pcp * Culture obtained during examination on 05/29 no growth * Lyme -- IgM negative, IgG positive. WB pending * ESR 56, CRP 15.6 (2) UTI (urinary tract infection): * See above (3) Otitis externa: * LEFT sided * CT head without evidence of malignant otitis externa * Culture obtained -- follow. GS moderate epi, no WBC, rare hyphae, rare gram positive cocci, rare gram positive bacilli --> culture no growth to date, follow * Continue Neomycin/polymyxin/hydrocotrisone 4drops TID (4) Immunocompromised patient: * Continue immunosuppression with mycophenolate sodium 540 mg p.o. twice daily, and tacrolimus 2 mg p.o. every 12 hours. * Continue prednisone 5mg daily (5) Acute kidney injury: * Creatinine upon admission 1.41, with range 1.17-1.4. Baseline appears to be closer to 1.2-1.3 range. * Avoid nephrotoxins * Nephrology on consult -- appreciate assistance * Did get 500cc NSS evening 05/27 for increased diarrhea following CT with oral contrast * No further IVF * Cr improved to below baseline at 1.02 * Continue to monitor (6) Hypertension: * BP controlled, currently 151/63 * Continue home atenolol 25mg BID, diltiazem 180mg BID * Continue to monitor (7) Atrial fibrillation: * Chronic. Started after second transplant. She checks her INR at home -- last 2.6 on Sunday * EKG with ventricular paced rhythm * Continue atenolol 25mg BID, diltiazem 180mg BID * Given extra 2mg Coumadin evening 05/26 for INR 1.5 as she missed dose evening of admission. Usual dose 2mg daily, continued * INR 3.1 on AM labs - will have her check in 2 days and follow up with Dr. Lin to ensure she is not staying supratherapeutic (8) Chronic ischemic heart disease: * Follows with Dr. Singleton from [facility]. Discussed with cardiology branch controller for most recent outpt notes * Patient with chronic ischemic heart disease with prior apical inf by nuclear study --> + stress test, March 2019 Lexiscan with hypokinesis of apex at ant wall at rest * Last ECHO May 2019 with EF 50-54%, Mild LVH, Mild TR, anterior wall hypokinesis * Appears no cardiac cath pursued given patient with one transplanted kidney and without angina, however she does endorse dyspnea on exertion at baseline * Continue atenolol 25mg BID * ECHO without vegetation (9) Abdominal pain: * NONE reported today * Hx colicky in nature although patient states LLQ pain /low abd pain 1-1.5 hours following eating. She states earlier this year symptoms preceded UTI and she still feels like that is possibility. Repeating urine culture as well as stool studies given mucoid/loose stool reported this morning. cdiff negative. repeat also negative * hx colonoscopy in past 4-5 years with diverticulosis without diverticulitis * Given negative (but likely contaminated urine sample) but symptomatology and fever without abd imaging, ordered CTA/P with ORAL contrast given hx diverticulosis as well as renal transplant --> does note a stable bilobed cystic left adnexal lesion, likely ovarian. Stable from previous imaging 2019. Patient menopausal around age 52 per her account and has not had any issues with bleeding per her account * Recommend pelvic ultrasound as an outpatient and follow-up with [facility] * Repeat cdiff negative (10) History of recurrent UTI (urinary tract infection): * As noted above (11) Anticoagulated on warfarin: * Continue home warfarin 2mg daily * INR 3.1 - just above therapeutic - no changes to warfarin now as she will return home to her normal diet with her usual regimen - will have her recheck in 2 days. (12) Kidney transplanted: * Hx 1st transplant 1995 at [place] and failed. Second transplanted at [place] in [place] 2012. * Non-tender on examination * US does show increased velocities suggesting some stenosis * Kidney transplant and left renal pelvis/acute kidney injury- Follows with Dr. Lin locally (13) Hypomagnesemia: * replaced - will send home with a week's worth of supplementation and follow with pcp (14) Hypophosphatemia: * Phos 1.8 today - will give Phospha Neutral QID over the next week and follow with pcp (15) DVT prophylaxis: * Warfarin as above-- INR 3.1 * Repeat INR in 2 days Total Time Total Time Spent Total Time Spent (In Minutes): greater than 30 mintues Discharge Plan Discharge Items Patient Disposition: Home - Self-Care Reason For Visit: RENAL TRANSPLANT, UTI, DIARRHEA Discharge Diagnosis: Otitis externa Activity: Resume your previous activity Non-emergency contact: Primary Care Provider Call non-emergency contact if: you have any medication questions Follow-up/Referrals: Rich Lin MD [Primary Care Provider] - 06/03/20 10:30 am (follow up later this week ) Diet: Dialysis Renal Ambulatory Orders: Basic Metabolic Panel (Routine) Timeframe: 2 Days Location: Determined by Patient Ordered By: Melanie Robertson Complete Blood Count no Diff (Routine) Timeframe: 2 Days Location: Determined by Patient Ordered By: Melanie Robertson Prothrombin Time INR (Timed) Timeframe: 2 Days Location: Determined by Patient Ordered By: Melanie Robertson Addtl Attending Provider Instructions: (1) Otitis externa: LEFT sided CT of your head was without evidence of malignant otitis externa Continue Neomycin/polymyxin/hydrocortrisone 4 drops three times per day in your left ear. You should continue the drops until you follow up with Dr. Lin. (2) Immunocompromised patient: Continue immunosuppression with mycophenolate sodium 540 mg p.o. twice daily, and tacrolimus 2 mg p.o. every 12 hours. Continue prednisone 5mg daily (3) Atrial fibrillation: Please check your INR in the next one to two days and follow up with Dr. Lin on any need for titrating. Your INR today was 3.1 which is a bit borderline high so want to make sure it's coming back down within acceptable therapeutic range. (4) Hypomagnesemia, hypophosphatemia: Will have you return home with a week's worth of supplementation. Please discuss with Dr. Lin whether to continue. (5) Abdominal pain Recommend outpatient follow up pelvic ultrasound and follow up with your form setter/driver due to cyst on your ovary. Pending Studies at Discharge: Yes Studies:: CMV, Lyme western blot Stand-Alone Forms: My [facility] [employer], Smoking Cessation Medications and DC Order Prescriptions: New [id number] 3.5-10,000-1 mg/mL-unit/mL-% Solution 4 drp otic (ear) TID Qty: 1 RF: 0 Phospha 250 Neutral 250 mg Tablet 1 tab PO QID Qty: 28 RF: 0 magnesium oxide 400 mg (241.3 mg magnesium) Tablet 400 mg PO QAM Qty: 7 RF: 0 Continued diltiazem HCl 180 mg capsule,extended release 24hr 180 mg PO BID Qty: 180 RF: 3 cyanocobalamin (vitamin B-12) 1,000 mcg tablet 1,000 mcg PO QAM RF: 0 atenolol 25 mg tablet 25 mg PO BID Qty: 180 RF: 0 prednisone 5 mg tablet 5 mg PO QAM Qty: 90 RF: 0 mycophenolate sodium 180 mg tablet,delayed release (DR/EC) 540 mg PO BID RF: 0 tacrolimus 1 mg capsule 2 mg PO Q12H Qty: 450 RF: 0 cranberry 400 mg capsule 400 mg PO BID RF: 0 warfarin 3 mg tablet 3 mg PO DIRECTED PRN (Reason: Provider Entry) RF: 0 warfarin 2 mg tablet 2 mg PO QPM RF: 0 Discharge Orders: Discharge Order (Routine); Ordered 05/31/20 Ordered By: Melanie Ambrocio/Other Patient Handouts: What to Know When TakingWarfarin Admission Data Admit Date/Time: 05/26/20 00:23 Attending Provider: Luis Fernando Franco Admit Provider: Max Arenas Primary Care Provider: Rich Lin Other Providers: Max Arenas ; Rich Lin ; Jerry Verdugo ; Desi Low ; William Cervantes I. ; Macario Aguilera II ; [facility] ; Gilbert Tinoco Other Interventions: Discharge Summary Assessment (RN) Last Done: 05/31/20 14:34 Supervising Physician Co-Signing Physician Notes Patient seen and examined on the day of discharge. I agree with the discharge summary by Melanie GALLO. I have reviewed the chart including labs, imaging and plans for discharge. patient feeling much better, no fever has a fullness in her left ear, decreased hearing, but no pain reviewed chart, appreciate ID recommendations - Otitis externa: plan to finish course of Neomycin/Polymyxin drops TID - s/p renal transplant: continue tacrolimus, renal function stable follow up with Dr. Lin Coding Level of Care Code D/C Day Management >30 mins Diagnoses Fever R50.9 UTI (urinary tract infection) N39.0; R31.9 Hematuria presence: with hematuria Urinary tract infection type: site unspecified Otitis externa H60.90 Immunocompromised patient D84.9 Acute kidney injury N17.9 Hypertension I10 Atrial fibrillation I48.91 Chronic ischemic heart disease I25.9 Abdominal pain R10.9 History of recurrent UTI (urinary tract infection) Z87.440 Anticoagulated on warfarin Z79.01 Kidney transplanted Z94.0 Hypomagnesemia E83.42 Hypophosphatemia E83.39 DVT prophylaxis Z29.9
[2020-06-01] MEDS ORDERED: MAGNESIUM OXIDE 400 MG TAB PO SCH (09:00)
[2020-06-01 23:50] LABS: 18KDIGG Band NON-REACTIVE; 23KDIGG Band REACTIVE; 23KDIGM Band NON-REACTIVE; 28KDIGG Band REACTIVE; 30KDIGG Band NON-REACTIVE; 39KDIGG Band REACTIVE; 39KDIGM Band NON-REACTIVE; 41KDIGG Band REACTIVE; 41KDIGM Band NON-REACTIVE; 45KDIGG Band NON-REACTIVE; 58KDIGG Band REACTIVE; 66KDIGG Band NON-REACTIVE; 93KDIGG Band REACTIVE; Lyme Antibodies, WB IgG POSITIVE (NEGATIVE); Lyme Antibodies, WB IgM NEGATIVE (NEGATIVE)
[2020-06-03 13:41] LABS: CMV DNA PCR Qual NOT DETECTED; Source Serum
--- NOTE | 2020-06-10 15:09 | Coding Query ---
SEPSIS Progress Notes beginning on 05/26/20 and through Discharge Summary document, " Sepsis with fever Tmax 38.1c and tachycardic on admission". Please specify below, in your clinical opinion, regarding Sepsis, most likely source and POA status. To promote full compliance with coding requirements relating to patient care, physician participation is requested in all cases of ticket sales agent uncertainty. Please assist us with the question(s) below: In responding to this query, please exercise your independent professional judgement. The fact that a question is asked does not imply that any particular answer is desired or expected. We appreciate your clarification on this issue. Throughout the medical record, you have clearly documented a localized infection and your patient has clinical evidence of a generalized sepsis or severe sepsis. The term urosepsis is a nonspecific entity and is coded as an UTI. If the patient has sepsis, severe sepsis, from an urinary source or some other source, please clarify in your response below. The medical record reflects the following clinical findings: (With dates as appropriate) (Body temperature of >38.3 C(101 F) or <36 C(96.8F), pulse >90/minute, respirations >20/minute, WBC count >12,000 or <4,000, altered mental status, significant edema or positive fluid balance, hyperglycemia without diabetes, hypotension, metabolic acidosis (elev. lactate level, anion gap or reduced blood pH), shock, positive blood culture (enter organism) ____ (x) Sepsis Specify Organism not identified, thought to be combination of otitis externa, immunocompromised Specify Associated Condition/Diagnosis (x) Present on Admission () Not present on admission () Unable to clinically determine () Severe Sepsis (Sepsis associated with acute organ dysfunction) Specify Organism Specify Associated Condition/Diagnosis () Present on Admission () Not present on admission () Unable to clinically determine () Septic Shock (Severe sepsis with acute circulatory failure, unexplained by other causes) () Present on Admission () Not present on admission () Unable to clinically determine () Other, patient has: () No Sepsis. This is Ruled-Out MTDD
--- NOTE | 2020-06-10 15:15 | Coding Query ---
CODING QUERY To promote full compliance with coding requirements relating to patient care, provider participation is requested in all cases of tool machinist uncertainty. Please assist us with the question(s) below: Coding Question(s): 1. Please clarify below, in your clinical opinion, regarding UTI. ( ) Possible UTI ( x ) UTI is Ruled-out ( ) Other: Please Specify 2. There is documentation, as on Discharge Summary, of, "Repeat 2 view with interval development of mild interstitial pulmonary edema and trace bilateral pleural effusions, no further fluid administered". Please specify below, in your clinical opinion, regarding Pulmonary Edema. ( ) Acute Pulmonary Edema ( x ) Chronic Pulmonary Edema ( ) Unspecified Pulmonary Edema ( ) Other: Please Specify 3. There is documentation of, Lyme -- IgM negative, IgG positive. Please specify below, in your clinical opinion. ( ) Lyme Disease treated ( x) No Lyme Disease treated ( ) Other: Please Specify Physician's Response(s): Thank you Sylvia Duarte Principal Diagnosis: "that condition established after study, to be chiefly responsible for occasioning the admission of the patient to the hospital for care." Co-Existing Principal Diagnosis: "when two or more diagnoses equally meet the criteria for principal diagnosis as determined by the circumstances of admission, diagnostic work up, and/or therapy provided, and the Alphabetic Index, Tabular List, or another coding guideline does not provide sequencing direction, any one of the diagnoses may be sequenced first." "When the physician has documented what appears to be a current diagnosis in the body of the record, but has not included the diagnosis in the final diagnostic statement, the physician should be asked whether the diagnosis should be added." (Source Coding [facility] 2 QTR90. p3-4) TIGRE
--- NOTE | 2020-06-10 15:17 | Coding Query ---
PRESENT ON ADMISSION QUERY To promote full compliance with coding requirements relating to pateint care, physician participation is requested in all cases of molder feeder uncertainty. Please assist us with the question(s) below: Please place an X within the parenthesis (x). The following diagnosis listed in this patient's medical record require physician assistance to determine if they were present on admission (POA) or not. Please advise for each diagnosis whether it was present on admission, not present on admission, or if it was clinically undetermined. 1. OTITIS EXTERNA (documentation begins on 05/27/20 Progress Note) ( x) Present On Admission ( ) Not Present On Admission ( ) Clinically Undetermined Thank you Sylvia Duarte *Definition of the present on admission (POA)-Present on admission is defined as present at the time the order for inpatient admission occurs. Conditions that develop during an outpatient encounter prior to a written order for inpatient admission (including emergency department, observation, or outpatient surgery) are considered present on admission. MTDD
== END 2020-05-31 15:26 | disposition home or self-care (01) | DRG 872 ==
LOC: ED 17:27 → 3E 05-26 00:23 → SUATTDRO 05-26 00:23 → 3E 05-26 00:55